=== PATIENT | male | born 1980 | race Two or more races ===

== ENCOUNTER 2018-05-06 22:13 | Inpatient (IN) | payer OTHER ==
[~2018-05-06] VITALS: Ht 167.6 cm; Wt 87.8 kg
[2018-05-06] MEDS ORDERED: IV NORMAL SALINE 1000ML BAG 1,000 ML IV ONE (23:00)
[2018-05-06 23:11] LABS: BILIRUBIN,URINE NEGATIVE (NEG); CLARITY,URINE CLOUDY; COLOR,URINE YELLOW; NITRITE,URINE NEGATIVE (NEG); PROTEIN,URINE NEGATIVE (NEG-TRACE); UROBILINOGEN,URINE 0.2 mg/dL (0.2 mg/dL)
[2018-05-06 23:20] LABS: BARBITURATES NEG (NEG); BENZODIAZEPINES POS (NEG); CANNABINOIDS NEG (NEG); COCAINE NEG (NEG); METHADONE NEG (NEG); OPIATES NEG (NEG); PHENCYCLIDINE NEG (NEG)
[2018-05-06 23:21] LABS: AMPHETAMINE/METHAMPHETAMINE NEG (NEG)
[2018-05-06 23:22] LABS: BACTERIA,URINE 0 /HPF (0-FEW); RBC,URINE OCC /HPF (0-2); WBC,URINE OCC /HPF (0-4)
[2018-05-06 23:34] LABS: ALBUMIN 3.7 g/dL (3.4-5.0); ALBUMIN/GLOBULIN RATIO 1.1 (1.0-1.7); CALCIUM 7.9 mg/dL (8.5-10.1); CREATININE 0.9 mg/dL (0.7-1.3); TOTAL BILIRUBIN 0.8 mg/dL (0.2-1.0)
[2018-05-06 23:36] LABS: POTASSIUM 2.9 mmol/L (3.5-5.1)
[2018-05-06 23:40] LABS: HCO3 ABG 17 mmol/L (21-28); PCO2 ABG 30 mmHg (35-46); PO2 ABG 83 mmHg (85-108); SAT O2 ABG 95 % (92-99)
[2018-05-06 23:41] LABS: BASE EXCESS ABG -7 mmol/L (-3-3); FIO2 ABG 21
[2018-05-06 23:52] LABS: BASO % 0 % (0-3); EOS % 0 % (0-3); HEMATOCRIT 32.2 % (39.0-53.0); HEMOGLOBIN 11.9 g/dL (13.0-17.5); LYMPH % 7 % (24-48); MEAN CORPUSCULAR HEMOGLOBIN 31 pg (25-35); MEAN CORPUSCULAR HGB CONC 37 g/dL (31-37); MEAN CORPUSCULAR VOLUME 83 fL (79-100); MONO # 0.6 x10^3/uL (0.0-1.1); MONO % 4 % (0-9); NEUT # 12.5 x10^3uL (1.8-7.7); NEUT % 88 % (31-73); PLATELET COUNT 141 x10^3/uL (140-400); RED BLOOD COUNT 3.87 x10^6/uL (4.30-5.70); RED CELL DISTRIBUTION WIDTH 13.3 % (11.5-14.5); WHITE BLOOD COUNT 14.2 x10^3/uL (4.0-11.0)
[2018-05-07] VITALS (27 sets, daily range): BP systolic 102–153; BP diastolic 57–83
[2018-05-07] MEDS ORDERED: SODIUM CHLORIDE 3 % 500 ML IV ONE (00:30)
--- NOTE | 2018-05-07 00:40 | PHYS DOC ---
Past Medical History Past Medical History: Unknown, Other Additional Past Medical Histor: HEP C Past Surgical History: Other Additional Past Surgical Histo: UNKNOWN SURGICAL HISTORY Alcohol Use: None Drug Use: None Adult General Chief Complaint Chief Complaint: SEIZURE HPI HPI 37-year-old male with a psychiatric history who is currently incarcerated presents after he was found essentially unresponsive at the [facility]. They noted when they found him he had been incontinent of urine and stool. He has not had any medication changes and has had no access to any other kind of medication. EMS was called they gave him total 2 mg of Narcan without much relief. In route the patient had another seizure which lasted at least a minute and he was given Versed. He was again incontinent of urine. To the jailers knowledge, there is been no history of seizures. He has not had any fever chills or sweats. He has not complained of being ill at the alf. There is very limited information in this history secondary to the patient being unresponsive.[] Review of Systems Review of Systems Review of systems is unobtainable secondary to altered mental status. Current Medications Current Medications Current Medications Medications (Trade) Dose Ordered Sig/Rommel Start Time Stop Time Status Last Admin Dose Admin Sodium Chloride 500 ml @ 50 mls/hr 1X ONCE 05/07/18 00:30 05/07/18 10:29 Allergies Allergies Allergies Coded Allergies Type Severity Reaction Last Updated Verified Unable to Assess 05/06/18 No Physical Exam Physical Exam Constitutional: Obtunded but protecting his airway. [] HENT: Normocephalic, atraumatic, bilateral external ears normal, oropharynx moist, no oral trauma that I can see, nose normal. [] Eyes: PERRLA, EOMI, conjunctiva normal, no discharge. [] Neck: Normal range of motion, no tenderness, supple, no stridor. [] Cardiovascular:Heart rate regular rhythm, no murmur [] Lungs & Thorax: Bilateral breath sounds clear to auscultation [] Abdomen: Bowel sounds normal, soft, no tenderness, no masses, no pulsatile masses. [] Skin: Warm, dry, no erythema, no rash. [] Back: No tenderness, no CVA tenderness. [] Extremities: No tenderness, no cyanosis, no clubbing, ROM intact, no edema. [] Neurologic: Obtunded but is moving all 4 extremities. [] Psychologic: Unable to assess[] Current Patient Data Vital Signs Vital Signs Date Time Temp Pulse Resp B/P (MAP) Pulse Ox O2 Delivery O2 Flow Rate FiO2 05/06/18 23:00 96 26 98 05/06/18 22:13 96.3 145/74 (97) Room Air 96.3 Lab Values Laboratory Tests Test 05/06/18 22:51 05/06/18 23:02 05/06/18 23:04 05/06/18 23:18 White Blood Count 14.2 x10^3/uL (4.0-11.0) H Red Blood Count 3.87 x10^6/uL (4.30-5.70) L Hemoglobin 11.9 g/dL (13.0-17.5) L Hematocrit 32.2 % (39.0-53.0) L Mean Corpuscular Volume 83 fL (79-100) Mean Corpuscular Hemoglobin 31 pg (25-35) Mean Corpuscular Hemoglobin Concent 37 g/dL (31-37) Red Cell Distribution Width 13.3 % (11.5-14.5) Platelet Count 141 x10^3/uL (140-400) Neutrophils (%) (Auto) 88 % (31-73) H Lymphocytes (%) (Auto) 7 % (24-48) L Monocytes (%) (Auto) 4 % (0-9) Eosinophils (%) (Auto) 0 % (0-3) Basophils (%) (Auto) 0 % (0-3) Neutrophils # (Auto) 12.5 x10^3uL (1.8-7.7) H Lymphocytes # (Auto) 1.0 x10^3/uL (1.0-4.8) Monocytes # (Auto) 0.6 x10^3/uL (0.0-1.1) Eosinophils # (Auto) 0.0 x10^3/uL (0.0-0.7) Basophils # (Auto) 0.0 x10^3/uL (0.0-0.2) Platelet Estimate Pending Sodium Level 113 mmol/L (136-145) *L Potassium Level 2.9 mmol/L (3.5-5.1) *L Chloride Level 82 mmol/L (98-107) L Carbon Dioxide Level 19 mmol/L (21-32) L Anion Gap 12 (6-14) Blood Urea Nitrogen 3 mg/dL (8-26) L Creatinine 0.9 mg/dL (0.7-1.3) Estimated GFR (Cockcroft-Gault) 96.0 BUN/Creatinine Ratio 3 (6-20) L Glucose Level 112 mg/dL (70-99) H Lactic Acid Level 6.4 mmol/L (0.4-2.0) *H Calcium Level 7.9 mg/dL (8.5-10.1) L Total Bilirubin 0.8 mg/dL (0.2-1.0) Aspartate Amino Transferase (AST) 40 U/L (15-37) H Alanine Aminotransferase (ALT) 72 U/L (16-63) H Alkaline Phosphatase 93 U/L (46-116) Troponin I Quantitative < 0.017 ng/mL (0.000-0.055) Total Protein 7.0 g/dL (6.4-8.2) Albumin 3.7 g/dL (3.4-5.0) Albumin/Globulin Ratio 1.1 (1.0-1.7) Urine Collection Type Unknown Urine Color Yellow Urine Clarity Cloudy Urine pH 5.0 Urine Specific Lottie 1.010 Urine Protein Negative mg/dL (NEG-TRACE) Urine Glucose (UA) Negative mg/dL (NEG) Urine Ketones (Stick) Negative mg/dL (NEG) Urine Blood Trace (NEG) Urine Nitrite Negative (NEG) Urine Bilirubin Negative (NEG) Urine Urobilinogen Dipstick 0.2 mg/dL (0.2 mg/dL) Urine Leukocyte Esterase Negative (NEG) Urine RBC Occ /HPF (0-2) Urine WBC Occ /HPF (0-4) Urine Squamous Epithelial Cells None /LPF Urine Bacteria 0 /HPF (0-FEW) Urine Opiates Screen Neg (NEG) Urine Methadone Screen Neg (NEG) Urine Barbiturates Neg (NEG) Urine Phencyclidine Screen Neg (NEG) Urine Amphetamine/Methamphetamine Neg (NEG) Urine Benzodiazepines Screen Pos (NEG) Urine Cocaine Screen Neg (NEG) Urine Cannabinoids Screen Neg (NEG) Urine Ethyl Alcohol Neg (NEG) O2 Saturation 95 % (92-99) Arterial Blood pH 7.39 (7.35-7.45) Arterial Blood pCO2 at Patient Temp 30 mmHg (35-46) L Arterial Blood pO2 at Patient Temp 83 mmHg (85-108) L Arterial Blood HCO3 17 mmol/L (21-28) L Arterial Blood Base Excess -7 mmol/L (-3-3) L FiO2 21 Prothrombin Time 15.0 SEC (11.7-14.0) H Prothrombin Time INR 1.2 (0.8-1.1) H Laboratory Tests 05/06/18 22:51 Laboratory Tests 05/06/18 22:51 EKG EKG [EKG: Normal sinus rhythm rate of [address]-T changes] Radiology/Procedures Radiology/Procedures [CT head, maxillofacial and C-spine were reviewed and there was no acute findings per radiology report.] Course & Med Decision Making Course & Med Decision Making Pertinent Labs and Imaging studies reviewed. (See chart for details) CRITICAL CARE: Time spent was 35 minutes. This includes medical management, evaluation, reevaluation, discussion with consultants and family. Critical Care does NOT include time spent on separately billed procedures. [ED course: Evaluation reveals a 37-year-old male with new onset seizures and altered mental status. Through the course of his workup it was noted that his sodium was 113 his potassium was 2.9 with a normal blood sugar. He does have free access to water in his alf cell. Given the fact that he's had a seizure with severe hyponatremia I ordered hypertonic saline to be infused at 50 mL per hour. A right subclavian central venous line was placed to eliminate the strep physician risk with hypertonic saline. I spoke with Dr. ROQUE who agreed to accept the patient into the ICU. I have also consult to neurology and nephrology per her request. Procedure: Right subclavian central venous line indication hypertonic saline infusion The right subclavian area was prepped and draped in a sterile fashion the subclavian vein was cannulated a wire was passed via the Seldinger technique the skin was nicked the area was dilated and triple-lumen catheter was placed via the Seldinger technique. Dark venous blood Jorge L in each port and was flushed with sterile saline. The central line was sutured into place. An OpSite was placed and Tegaderm dressing was placed. Patient tolerated the procedure well.] Dragon Disclaimer Dragon Disclaimer This electronic medical record was generated, in whole or in part, using a voice recognition dictation system. Departure Departure Impression: Primary Impression: Hyponatremia Additional Impression: Seizure Disposition: 09 ADMITTED INPATIENT Admitting Physician: Xie. Cortez Condition: CRITICAL Referrals: NO PCP (PCP) Problem Qualifiers MARLENE BOOGIE DO May 07, 2018 00:40
--- NOTE | 2018-05-07 01:47 | RAD ---
AP chest x-ray HISTORY: Central line placement. FINDINGS: Right jugular central venous catheter tip radiographic region atrial caval junction. Heart size normal. Mediastinal silhouette is normal. No pneumothorax, pulmonary opacities or pleural effusions. The bones are unremarkable. IMPRESSION: Right subclavian central venous catheter placement as described above. No acute process. No pneumothorax. Electronically signed by: Salty Bill MD (05/07/2018 1:44 AM) [facility]
[2018-05-07 01:55] LABS: % BANDS 17 % (0-9); % LYMPHS 8 % (24-48); % MONOS 1 % (0-10); % SEGS 74 % (35-66)
[2018-05-07 01:56] LABS: PLT ESTIMATE ADEQUATE (ADEQUATE)
[2018-05-07] MEDS ORDERED: HALO100V IM (06:04)
[2018-05-07] MEDS ORDERED: OLAN10TA3 PO (06:04)
[2018-05-07 06:18] LABS: CREATININE 0.7 mg/dL (0.7-1.3); GFR 128.3; POTASSIUM 3.1 mmol/L (3.5-5.1)
--- NOTE | 2018-05-07 07:04 | EKG ---
[facility] [address] [place] [address] Test Date: 2018-05-06 Test Time: 22:52:49 Pat Name: FER STODDARD Department: Room: 110 1 Gender: M Manager [employer]: : 1980 Requested By: MARLENE BOOGIE Order Number: [id number] Reading MD: Alberto Iniguez MD Measurements Intervals [place] Rate: 96 P: 2 MS: 154 QRS: 56 QRSD: 100 T: 39 QT: 350 QTc: 443 Interpretive Statements SINUS RHYTHM NON-SPECIFIC ST/T CHANGES Electronically Signed On 05-07-2018 12:33:58 CDT by Alberto Iniguez MD
--- NOTE | 2018-05-07 08:47 | PDOC1 ---
History and Physical Date of Admission Date of Admission DATE: 05/07/18 TIME: 08:43 Identification/Chief Complaint Chief Complaint seizure Source Source: Chart review, Patient History of Present Illness History of Present Illness Mr. Fountain, is 37-year-old male with a psychiatric history who is currently incarcerated presents [facility] They noted when they found him he had been incontinent of urine and stool. He has not had any medication changes and has had no access to any other kind of medication. EMS was called they gave him total 2 mg of Narcan without much relief. In route the patient had another seizure which lasted at least a minute and he was given Versed. He was again incontinent of urine. To the jailers knowledge, there is been no history of seizures. He has not had any fever chills or sweats. He has not complained of being ill at the [facility]. There is very limited information in this history secondary to the patient being unresponsive. [] Past Medical History Cardiovascular: No pertinent hx Pulmonary: No pertinent hx Heme/Onc: No pertinent hx Hepatobiliary: No pertinent hx Psych: No pertinent hx Social History Smoke: No ALCOHOL: none Current Medications Current Medications Current Medications Sodium Chloride 1,000 ml @ 1,000 mls/hr 1X ONCE IV Last administered on at 22:55; Start 05/06/18 at 23:00; Stop 05/06/18 at 23:59; Status DC Sodium Chloride 500 ml @ 50 mls/hr 1X ONCE IV Last administered on 05/07/18at 01:10; Start 05/07/18 at 00:30; Stop 05/07/18 at 10:29 Active Scripts Active Reported Haloperidol Decanoate 100 Mg/1 Ml Vial 100 Mg IM Zyprexa (Olanzapine) 10 Mg Tablet 1 Tab PO QHS Allergies Allergies: Coded Allergies: Unable to Assess (Unverified , 05/06/18) ROS Review of System unable, pt not verbal Physical Exam General: Other (lethargic, obtunded) HEENT: Atraumatic, PERRLA Lungs: Clear to auscultation, Normal air movement Heart: S1S2, no murmurs Breasts: Normal Abdomen: Normal bowel sounds, Soft, No tenderness Extremities: Normal pulses Skin: No rashes, No significant lesion Neuro: Other (poorly responsive, does not follow commands well, lethargci) Psych/Mental Status: Other Vitals Vitals Vital Signs Date Time Temp Pulse Resp B/P (MAP) Pulse Ox O2 Delivery O2 Flow Rate FiO2 05/07/18 08:00 Room Air 05/07/18 08:00 98.5 102 15 153/72 (99) 97 98.5 Labs Labs Laboratory Tests Test 05/06/18 22:51 05/06/18 23:02 05/06/18 23:04 05/06/18 23:18 White Blood Count 14.2 x10^3/uL (4.0-11.0) Red Blood Count 3.87 x10^6/uL (4.30-5.70) Hemoglobin 11.9 g/dL (13.0-17.5) Hematocrit 32.2 % (39.0-53.0) Mean Corpuscular Volume 83 fL (79-100) Mean Corpuscular Hemoglobin 31 pg (25-35) Mean Corpuscular Hemoglobin Concent 37 g/dL (31-37) Red Cell Distribution Width 13.3 % (11.5-14.5) Platelet Count 141 x10^3/uL (140-400) Neutrophils (%) (Auto) 88 % (31-73) Lymphocytes (%) (Auto) 7 % (24-48) Monocytes (%) (Auto) 4 % (0-9) Eosinophils (%) (Auto) 0 % (0-3) Basophils (%) (Auto) 0 % (0-3) Neutrophils # (Auto) 12.5 x10^3uL (1.8-7.7) Lymphocytes # (Auto) 1.0 x10^3/uL (1.0-4.8) Monocytes # (Auto) 0.6 x10^3/uL (0.0-1.1) Eosinophils # (Auto) 0.0 x10^3/uL (0.0-0.7) Basophils # (Auto) 0.0 x10^3/uL (0.0-0.2) Segmented Neutrophils % 74 % (35-66) Band Neutrophils % 17 % (0-9) Lymphocytes % 8 % (24-48) Monocytes % 1 % (0-10) Platelet Estimate Adequate (ADEQUATE) Sodium Level 113 mmol/L (136-145) Potassium Level 2.9 mmol/L (3.5-5.1) Chloride Level 82 mmol/L (98-107) Carbon Dioxide Level 19 mmol/L (21-32) Anion Gap 12 (6-14) Blood Urea Nitrogen 3 mg/dL (8-26) Creatinine 0.9 mg/dL (0.7-1.3) Estimated GFR (Cockcroft-Gault) 96.0 BUN/Creatinine Ratio 3 (6-20) Glucose Level 112 mg/dL (70-99) Lactic Acid Level 6.4 mmol/L (0.4-2.0) Calcium Level 7.9 mg/dL (8.5-10.1) Total Bilirubin 0.8 mg/dL (0.2-1.0) Aspartate Amino Transf (AST/SGOT) 40 U/L (15-37) Alanine Aminotransferase (ALT/SGPT) 72 U/L (16-63) Alkaline Phosphatase 93 U/L (46-116) Troponin I Quantitative < 0.017 ng/mL (0.000-0.055) Total Protein 7.0 g/dL (6.4-8.2) Albumin 3.7 g/dL (3.4-5.0) Albumin/Globulin Ratio 1.1 (1.0-1.7) Urine Collection Type Unknown Urine Color Yellow Urine Clarity Cloudy Urine pH 5.0 Urine Specific Anselmo 1.010 Urine Protein Negative mg/dL (NEG-TRACE) Urine Glucose (UA) Negative mg/dL (NEG) Urine Ketones (Stick) Negative mg/dL (NEG) Urine Blood Trace (NEG) Urine Nitrite Negative (NEG) Urine Bilirubin Negative (NEG) Urine Urobilinogen Dipstick 0.2 mg/dL (0.2 mg/dL) Urine Leukocyte Esterase Negative (NEG) Urine RBC Occ /HPF (0-2) Urine WBC Occ /HPF (0-4) Urine Squamous Epithelial Cells None /LPF Urine Bacteria 0 /HPF (0-FEW) Urine Opiates Screen Neg (NEG) Urine Methadone Screen Neg (NEG) Urine Barbiturates Neg (NEG) Urine Phencyclidine Screen Neg (NEG) Urine Amphetamine/Methamphetamine Neg (NEG) Urine Benzodiazepines Screen Pos (NEG) Urine Cocaine Screen Neg (NEG) Urine Cannabinoids Screen Neg (NEG) Urine Ethyl Alcohol Neg (NEG) O2 Saturation 95 % (92-99) Arterial Blood pH 7.39 (7.35-7.45) Arterial Blood pCO2 at Patient Temp 30 mmHg (35-46) Arterial Blood pO2 at Patient Temp 83 mmHg (85-108) Arterial Blood HCO3 17 mmol/L (21-28) Arterial Blood Base Excess -7 mmol/L (-3-3) FiO2 21 Prothrombin Time 15.0 SEC (11.7-14.0) Prothromb Time International Ratio 1.2 (0.8-1.1) Test 05/07/18 02:41 05/07/18 04:56 Lactic Acid Level 0.7 mmol/L (0.4-2.0) Sodium Level 127 mmol/L (136-145) Potassium Level 3.1 mmol/L (3.5-5.1) Chloride Level 95 mmol/L (98-107) Carbon Dioxide Level 21 mmol/L (21-32) Anion Gap 11 (6-14) Blood Urea Nitrogen 2 mg/dL (8-26) Creatinine 0.7 mg/dL (0.7-1.3) Estimated GFR (Cockcroft-Gault) 128.3 Glucose Level 124 mg/dL (70-99) Calcium Level 8.0 mg/dL (8.5-10.1) Laboratory Tests Test 05/06/18 22:51 05/06/18 23:02 05/06/18 23:04 05/06/18 23:18 White Blood Count 14.2 x10^3/uL (4.0-11.0) Red Blood Count 3.87 x10^6/uL (4.30-5.70) Hemoglobin 11.9 g/dL (13.0-17.5) Hematocrit 32.2 % (39.0-53.0) Mean Corpuscular Volume 83 fL (79-100) Mean Corpuscular Hemoglobin 31 pg (25-35) Mean Corpuscular Hemoglobin Concent 37 g/dL (31-37) Red Cell Distribution Width 13.3 % (11.5-14.5) Platelet Count 141 x10^3/uL (140-400) Neutrophils (%) (Auto) 88 % (31-73) Lymphocytes (%) (Auto) 7 % (24-48) Monocytes (%) (Auto) 4 % (0-9) Eosinophils (%) (Auto) 0 % (0-3) Basophils (%) (Auto) 0 % (0-3) Neutrophils # (Auto) 12.5 x10^3uL (1.8-7.7) Lymphocytes # (Auto) 1.0 x10^3/uL (1.0-4.8) Monocytes # (Auto) 0.6 x10^3/uL (0.0-1.1) Eosinophils # (Auto) 0.0 x10^3/uL (0.0-0.7) Basophils # (Auto) 0.0 x10^3/uL (0.0-0.2) Segmented Neutrophils % 74 % (35-66) Band Neutrophils % 17 % (0-9) Lymphocytes % 8 % (24-48) Monocytes % 1 % (0-10) Platelet Estimate Adequate (ADEQUATE) Sodium Level 113 mmol/L (136-145) Potassium Level 2.9 mmol/L (3.5-5.1) Chloride Level 82 mmol/L (98-107) Carbon Dioxide Level 19 mmol/L (21-32) Anion Gap 12 (6-14) Blood Urea Nitrogen 3 mg/dL (8-26) Creatinine 0.9 mg/dL (0.7-1.3) Estimated GFR (Cockcroft-Gault) 96.0 BUN/Creatinine Ratio 3 (6-20) Glucose Level 112 mg/dL (70-99) Lactic Acid Level 6.4 mmol/L (0.4-2.0) Calcium Level 7.9 mg/dL (8.5-10.1) Total Bilirubin 0.8 mg/dL (0.2-1.0) Aspartate Amino Transf (AST/SGOT) 40 U/L (15-37) Alanine Aminotransferase (ALT/SGPT) 72 U/L (16-63) Alkaline Phosphatase 93 U/L (46-116) Troponin I Quantitative < 0.017 ng/mL (0.000-0.055) Total Protein 7.0 g/dL (6.4-8.2) Albumin 3.7 g/dL (3.4-5.0) Albumin/Globulin Ratio 1.1 (1.0-1.7) Urine Collection Type Unknown Urine Color Yellow Urine Clarity Cloudy Urine pH 5.0 Urine Specific Anselmo 1.010 Urine Protein Negative mg/dL (NEG-TRACE) Urine Glucose (UA) Negative mg/dL (NEG) Urine Ketones (Stick) Negative mg/dL (NEG) Urine Blood Trace (NEG) Urine Nitrite Negative (NEG) Urine Bilirubin Negative (NEG) Urine Urobilinogen Dipstick 0.2 mg/dL (0.2 mg/dL) Urine Leukocyte Esterase Negative (NEG) Urine RBC Occ /HPF (0-2) Urine WBC Occ /HPF (0-4) Urine Squamous Epithelial Cells None /LPF Urine Bacteria 0 /HPF (0-FEW) Urine Opiates Screen Neg (NEG) Urine Methadone Screen Neg (NEG) Urine Barbiturates Neg (NEG) Urine Phencyclidine Screen Neg (NEG) Urine Amphetamine/Methamphetamine Neg (NEG) Urine Benzodiazepines Screen Pos (NEG) Urine Cocaine Screen Neg (NEG) Urine Cannabinoids Screen Neg (NEG) Urine Ethyl Alcohol Neg (NEG) O2 Saturation 95 % (92-99) Arterial Blood pH 7.39 (7.35-7.45) Arterial Blood pCO2 at Patient Temp 30 mmHg (35-46) Arterial Blood pO2 at Patient Temp 83 mmHg (85-108) Arterial Blood HCO3 17 mmol/L (21-28) Arterial Blood Base Excess -7 mmol/L (-3-3) FiO2 21 Prothrombin Time 15.0 SEC (11.7-14.0) Prothromb Time International Ratio 1.2 (0.8-1.1) Test 05/07/18 02:41 05/07/18 04:56 Lactic Acid Level 0.7 mmol/L (0.4-2.0) Sodium Level 127 mmol/L (136-145) Potassium Level 3.1 mmol/L (3.5-5.1) Chloride Level 95 mmol/L (98-107) Carbon Dioxide Level 21 mmol/L (21-32) Anion Gap 11 (6-14) Blood Urea Nitrogen 2 mg/dL (8-26) Creatinine 0.7 mg/dL (0.7-1.3) Estimated GFR (Cockcroft-Gault) 128.3 Glucose Level 124 mg/dL (70-99) Calcium Level 8.0 mg/dL (8.5-10.1) VTE Prophylaxis Ordered VTE Prophylaxis Devices: No VTE Pharmacological Prophylaxi: Yes Assessment/Plan Assessment/Plan seizure symptomatic hyponatremia, report of excessive water intake, fluid overload, hypovolemic most likely, still making almost 500mls urine/hr hypertonic saline started in ER, was stopped when I saw the patient Bipolar or schizophrenia, Incarcerated patient, guards report is "significant Psychiatric history" takes Q3 weeks depot Haldol inj. MARCELO CHI MD May 07, 2018 08:47
[2018-05-07] MEDS ORDERED: POTASSIUM CHLORIDE 20 MEQ TABLET.ER. PO ONE (09:30)
--- NOTE | 2018-05-07 09:37 | PDOC2 ---
CONSULT Date of Consult Date of Consult DATE: 05/07/18 TIME: 09:11 Reason for Consult Reason for Consult: Hyponatremia Referring Physician Referring Physician: Dr. Plascencia Identification/Chief Complaint Chief Complaint Unable to Obtain from Patient - AMS /Reason for admission Seizures Source Source: Caregiver, Chart review History of Present Illness Reason for Visit: Pt is a 37-year-old male with a psychiatric history who is currently incarcerated presents after he was found unresponsive at the shelter. He had been incontinent of urine and stool. He has not had any medication changes and has had no access to any other kind of medication. EMS was called they gave him total 2 mg of Narcan without much relief. In route the patient had another seizure which lasted at least a minute and he was given Versed. He was again incontinent of urine. To the jailers knowledge, there is been no history of seizures. He has not had any fever chills or sweats. He has not complained of being ill at the shelter. There is very limited information in this history secondary to the patient being unresponsive. He has access to water as per the report and may have been drinking a lot of water . PMHx significant for Hep B and C, Paranoid schizophrenia. Esophagitis , Violent behavior , Drug abuse Meds - Haldol x once in 3 weeks IM, Zyprexa PO Past Medical History Cardiovascular: No pertinent hx Pulmonary: No pertinent hx Heme/Onc: No pertinent hx Hepatobiliary: No pertinent hx Psych: No pertinent hx Social History No ALCOHOL: none Current Medications Current Medications Current Medications Sodium Chloride 1,000 ml @ 1,000 mls/hr 1X ONCE IV Last administered on at 22:55; Start 05/06/18 at 23:00; Stop 05/06/18 at 23:59; Status DC Sodium Chloride 500 ml @ 50 mls/hr 1X ONCE IV Last administered on 05/07/18at 01:10; Start 05/07/18 at 00:30; Stop 05/07/18 at 10:29 Haloperidol (Haldol) 5 mg PRN Q6HRS PRN PO AGITATION; Start 05/07/18 at 08:45 Enoxaparin Sodium (Lovenox 40mg Syringe) 40 mg DAILY SQ ; Start 05/07/18 at 10:00 Olanzapine (ZyPREXA) 5 mg HS PO ; Start 05/07/18 at 21:00 Lorazepam (Ativan) 2 mg PRN Q4HRS PRN IV ANXIETY / AGITATION; Start 05/07/18 at 09:00 Potassium Chloride (Klor-Con) 40 meq 1X ONCE PO ; Start 05/07/18 at 09:30; Stop 05/07/18 at 09:31 Potassium Chloride (Klor-Con) 20 meq DAILYWBKFT PO ; Start 05/08/18 at 08:00 Active Scripts Active Reported Haloperidol Decanoate 100 Mg/1 Ml Vial 100 Mg IM Zyprexa (Olanzapine) 10 Mg Tablet 1 Tab PO QHS Allergies Allergies: Coded Allergies: Unable to Assess (Unverified , 05/06/18) ROS Review of System Unable to Obtain from Pt Physical Exam Physical Exam GEN: NAD, Opening eyes, Thrashing, Moving , But not responsive to questions HEENT- Unremarkable, OM moist NECK: No JVD , supple CVS: S1S2, , No mgr RESP: CTA Bilat, No use of access Muscles GI: BS + ve, NO Bruit, Non Tender, Non Distended : No CVA tenderness, No Suprapubic Tenderness, [place]+ Skin No rash Neuro - as above Vital Signs Vital Signs Date Time Temp Pulse Resp B/P (MAP) Pulse Ox O2 Delivery O2 Flow Rate FiO2 05/07/18 08:00 Room Air 05/07/18 08:00 98.5 102 15 153/72 (99) 97 98.5 Assessment & Plan Critical Hyponatremia- with Seizures sodium was 113 IV Hypertonic saline started in ER [place] placed with UOP of 4 Lts Na Over corrected, Stopped 3 % , Awaiting repeat labs, Hypokalemia -K 2.9, replaced in ER monitor and wait for repeat labs HepB/Hep C - Not known if treated Paranoid Schizophrenia - Follows with Psych DW RN at bedside Labs Labs Laboratory Tests Test 05/06/18 22:51 05/06/18 23:02 05/06/18 23:04 05/06/18 23:18 White Blood Count 14.2 x10^3/uL (4.0-11.0) Red Blood Count 3.87 x10^6/uL (4.30-5.70) Hemoglobin 11.9 g/dL (13.0-17.5) Hematocrit 32.2 % (39.0-53.0) Mean Corpuscular Volume 83 fL (79-100) Mean Corpuscular Hemoglobin 31 pg (25-35) Mean Corpuscular Hemoglobin Concent 37 g/dL (31-37) Red Cell Distribution Width 13.3 % (11.5-14.5) Platelet Count 141 x10^3/uL (140-400) Neutrophils (%) (Auto) 88 % (31-73) Lymphocytes (%) (Auto) 7 % (24-48) Monocytes (%) (Auto) 4 % (0-9) Eosinophils (%) (Auto) 0 % (0-3) Basophils (%) (Auto) 0 % (0-3) Neutrophils # (Auto) 12.5 x10^3uL (1.8-7.7) Lymphocytes # (Auto) 1.0 x10^3/uL (1.0-4.8) Monocytes # (Auto) 0.6 x10^3/uL (0.0-1.1) Eosinophils # (Auto) 0.0 x10^3/uL (0.0-0.7) Basophils # (Auto) 0.0 x10^3/uL (0.0-0.2) Segmented Neutrophils % 74 % (35-66) Band Neutrophils % 17 % (0-9) Lymphocytes % 8 % (24-48) Monocytes % 1 % (0-10) Platelet Estimate Adequate (ADEQUATE) Sodium Level 113 mmol/L (136-145) Potassium Level 2.9 mmol/L (3.5-5.1) Chloride Level 82 mmol/L (98-107) Carbon Dioxide Level 19 mmol/L (21-32) Anion Gap 12 (6-14) Blood Urea Nitrogen 3 mg/dL (8-26) Creatinine 0.9 mg/dL (0.7-1.3) Estimated GFR (Cockcroft-Gault) 96.0 BUN/Creatinine Ratio 3 (6-20) Glucose Level 112 mg/dL (70-99) Lactic Acid Level 6.4 mmol/L (0.4-2.0) Calcium Level 7.9 mg/dL (8.5-10.1) Total Bilirubin 0.8 mg/dL (0.2-1.0) Aspartate Amino Transf (AST/SGOT) 40 U/L (15-37) Alanine Aminotransferase (ALT/SGPT) 72 U/L (16-63) Alkaline Phosphatase 93 U/L (46-116) Troponin I Quantitative < 0.017 ng/mL (0.000-0.055) Total Protein 7.0 g/dL (6.4-8.2) Albumin 3.7 g/dL (3.4-5.0) Albumin/Globulin Ratio 1.1 (1.0-1.7) Urine Collection Type Unknown Urine Color Yellow Urine Clarity Cloudy Urine pH 5.0 Urine Specific [place] 1.010 Urine Protein Negative mg/dL (NEG-TRACE) Urine Glucose (UA) Negative mg/dL (NEG) Urine Ketones (Stick) Negative mg/dL (NEG) Urine Blood Trace (NEG) Urine Nitrite Negative (NEG) Urine Bilirubin Negative (NEG) Urine Urobilinogen Dipstick 0.2 mg/dL (0.2 mg/dL) Urine Leukocyte Esterase Negative (NEG) Urine RBC Occ /HPF (0-2) Urine WBC Occ /HPF (0-4) Urine Squamous Epithelial Cells None /LPF Urine Bacteria 0 /HPF (0-FEW) Urine Opiates Screen Neg (NEG) Urine Methadone Screen Neg (NEG) Urine Barbiturates Neg (NEG) Urine Phencyclidine Screen Neg (NEG) Urine Amphetamine/Methamphetamine Neg (NEG) Urine Benzodiazepines Screen Pos (NEG) Urine Cocaine Screen Neg (NEG) Urine Cannabinoids Screen Neg (NEG) Urine Ethyl Alcohol Neg (NEG) O2 Saturation 95 % (92-99) Arterial Blood pH 7.39 (7.35-7.45) Arterial Blood pCO2 at Patient Temp 30 mmHg (35-46) Arterial Blood pO2 at Patient Temp 83 mmHg (85-108) Arterial Blood HCO3 17 mmol/L (21-28) Arterial Blood Base Excess -7 mmol/L (-3-3) FiO2 21 Prothrombin Time 15.0 SEC (11.7-14.0) Prothromb Time International Ratio 1.2 (0.8-1.1) Test 05/07/18 02:41 05/07/18 04:56 Lactic Acid Level 0.7 mmol/L (0.4-2.0) Sodium Level 127 mmol/L (136-145) Potassium Level 3.1 mmol/L (3.5-5.1) Chloride Level 95 mmol/L (98-107) Carbon Dioxide Level 21 mmol/L (21-32) Anion Gap 11 (6-14) Blood Urea Nitrogen 2 mg/dL (8-26) Creatinine 0.7 mg/dL (0.7-1.3) Estimated GFR (Cockcroft-Gault) 128.3 Glucose Level 124 mg/dL (70-99) Calcium Level 8.0 mg/dL (8.5-10.1) Magnesium Level 2.1 mg/dL (1.8-2.4) Laboratory Tests Test 05/06/18 22:51 05/06/18 23:02 05/06/18 23:04 05/06/18 23:18 White Blood Count 14.2 x10^3/uL (4.0-11.0) Red Blood Count 3.87 x10^6/uL (4.30-5.70) Hemoglobin 11.9 g/dL (13.0-17.5) Hematocrit 32.2 % (39.0-53.0) Mean Corpuscular Volume 83 fL (79-100) Mean Corpuscular Hemoglobin 31 pg (25-35) Mean Corpuscular Hemoglobin Concent 37 g/dL (31-37) Red Cell Distribution Width 13.3 % (11.5-14.5) Platelet Count 141 x10^3/uL (140-400) Neutrophils (%) (Auto) 88 % (31-73) Lymphocytes (%) (Auto) 7 % (24-48) Monocytes (%) (Auto) 4 % (0-9) Eosinophils (%) (Auto) 0 % (0-3) Basophils (%) (Auto) 0 % (0-3) Neutrophils # (Auto) 12.5 x10^3uL (1.8-7.7) Lymphocytes # (Auto) 1.0 x10^3/uL (1.0-4.8) Monocytes # (Auto) 0.6 x10^3/uL (0.0-1.1) Eosinophils # (Auto) 0.0 x10^3/uL (0.0-0.7) Basophils # (Auto) 0.0 x10^3/uL (0.0-0.2) Segmented Neutrophils % 74 % (35-66) Band Neutrophils % 17 % (0-9) Lymphocytes % 8 % (24-48) Monocytes % 1 % (0-10) Platelet Estimate Adequate (ADEQUATE) Sodium Level 113 mmol/L (136-145) Potassium Level 2.9 mmol/L (3.5-5.1) Chloride Level 82 mmol/L (98-107) Carbon Dioxide Level 19 mmol/L (21-32) Anion Gap 12 (6-14) Blood Urea Nitrogen 3 mg/dL (8-26) Creatinine 0.9 mg/dL (0.7-1.3) Estimated GFR (Cockcroft-Gault) 96.0 BUN/Creatinine Ratio 3 (6-20) Glucose Level 112 mg/dL (70-99) Lactic Acid Level 6.4 mmol/L (0.4-2.0) Calcium Level 7.9 mg/dL (8.5-10.1) Total Bilirubin 0.8 mg/dL (0.2-1.0) Aspartate Amino Transf (AST/SGOT) 40 U/L (15-37) Alanine Aminotransferase (ALT/SGPT) 72 U/L (16-63) Alkaline Phosphatase 93 U/L (46-116) Troponin I Quantitative < 0.017 ng/mL (0.000-0.055) Total Protein 7.0 g/dL (6.4-8.2) Albumin 3.7 g/dL (3.4-5.0) Albumin/Globulin Ratio 1.1 (1.0-1.7) Urine Collection Type Unknown Urine Color Yellow Urine Clarity Cloudy Urine pH 5.0 Urine Specific [place] 1.010 Urine Protein Negative mg/dL (NEG-TRACE) Urine Glucose (UA) Negative mg/dL (NEG) Urine Ketones (Stick) Negative mg/dL (NEG) Urine Blood Trace (NEG) Urine Nitrite Negative (NEG) Urine Bilirubin Negative (NEG) Urine Urobilinogen Dipstick 0.2 mg/dL (0.2 mg/dL) Urine Leukocyte Esterase Negative (NEG) Urine RBC Occ /HPF (0-2) Urine WBC Occ /HPF (0-4) Urine Squamous Epithelial Cells None /LPF Urine Bacteria 0 /HPF (0-FEW) Urine Opiates Screen Neg (NEG) Urine Methadone Screen Neg (NEG) Urine Barbiturates Neg (NEG) Urine Phencyclidine Screen Neg (NEG) Urine Amphetamine/Methamphetamine Neg (NEG) Urine Benzodiazepines Screen Pos (NEG) Urine Cocaine Screen Neg (NEG) Urine Cannabinoids Screen Neg (NEG) Urine Ethyl Alcohol Neg (NEG) O2 Saturation 95 % (92-99) Arterial Blood pH 7.39 (7.35-7.45) Arterial Blood pCO2 at Patient Temp 30 mmHg (35-46) Arterial Blood pO2 at Patient Temp 83 mmHg (85-108) Arterial Blood HCO3 17 mmol/L (21-28) Arterial Blood Base Excess -7 mmol/L (-3-3) FiO2 21 Prothrombin Time 15.0 SEC (11.7-14.0) Prothromb Time International Ratio 1.2 (0.8-1.1) Test 05/07/18 02:41 05/07/18 04:56 Lactic Acid Level 0.7 mmol/L (0.4-2.0) Sodium Level 127 mmol/L (136-145) Potassium Level 3.1 mmol/L (3.5-5.1) Chloride Level 95 mmol/L (98-107) Carbon Dioxide Level 21 mmol/L (21-32) Anion Gap 11 (6-14) Blood Urea Nitrogen 2 mg/dL (8-26) Creatinine 0.7 mg/dL (0.7-1.3) Estimated GFR (Cockcroft-Gault) 128.3 Glucose Level 124 mg/dL (70-99) Calcium Level 8.0 mg/dL (8.5-10.1) Magnesium Level 2.1 mg/dL (1.8-2.4) Review All relevant outside records, renal labs, imaging studies, telemetry/EKG's were reviewed. Images Images CxR-- IMPRESSION: Right subclavian central venous catheter placement as described above. No acute process. No pneumothorax. AMADO OCAMPO MD May 07, 2018 09:37
--- NOTE | 2018-05-07 10:07 | PDOC2 ---
NEUROLOGY CONSULT Date of Admission Date of Admission DATE: 05/07/18 TIME: 09:57 Reason for Consult Reason for Consult: Seizures Referring Physician Referring Physician: Dr. Xiao Source Source: Chart review History of Present Illness History of Present Illness The patient is a 37-year-old right-handed male inmate who was found unresponsive in his cell. His witness to be drinking a large amount of water and indeed presents with at least 2 seizures and severe hyponatremia. There is no known previous history of seizures. He has paranoid schizophrenia and is on Haldol and olanzapine. Past Medical History GI: GERD Psych: Addictions, Schizophrenia Past Surgical History Past Surgical History: No pertinent history Family History Family History: Other (Unobtainable) Social History Social History Inmate, incarcerated for drug offenses, no current alcohol, tobacco, street drugs Current Medications Current Medications Current Medications Sodium Chloride 1,000 ml @ 1,000 mls/hr 1X ONCE IV Last administered on at 22:55; Start 05/06/18 at 23:00; Stop 05/06/18 at 23:59; Status DC Sodium Chloride 500 ml @ 50 mls/hr 1X ONCE IV Last administered on 05/07/18at 01:10; Start 05/07/18 at 00:30; Stop 05/07/18 at 10:29 Haloperidol (Haldol) 5 mg PRN Q6HRS PRN PO AGITATION; Start 05/07/18 at 08:45 Enoxaparin Sodium (Lovenox 40mg Syringe) 40 mg DAILY SQ ; Start 05/07/18 at 10:00 Olanzapine (ZyPREXA) 5 mg HS PO ; Start 05/07/18 at 21:00 Lorazepam (Ativan) 2 mg PRN Q4HRS PRN IV ANXIETY / AGITATION; Start 05/07/18 at 09:00 Potassium Chloride (Klor-Con) 40 meq 1X ONCE PO ; Start 05/07/18 at 09:30; Stop 05/07/18 at 09:31; Status DC Potassium Chloride (Klor-Con) 20 meq DAILYWBKFT PO ; Start 05/08/18 at 08:00 Active Scripts Active Reported Haloperidol Decanoate 100 Mg/1 Ml Vial 100 Mg IM Zyprexa (Olanzapine) 10 Mg Tablet 1 Tab PO QHS Allergies Allergies: Coded Allergies: Unable to Assess (Unverified , 05/06/18) ROS Review of System Unobtainable Physical Exam Physical Examination General: Well-developed, well-nourished, male, in no acute distress HEENT: Normocephalic andatraumatic. Temporal arteriespulsatile and nontender. Neck: Supple without bruit, no meningismus Musculoskeletal: Stability:see neurologic. Gait exam:see neurologic. Tone:see neurologic. Strength:see neurologic. Neurological: Mental Status:orientation, memory, attention span/concentration, language, fund of knowledge: does not follow commands, answer questions, nonverbal. Cranial Nerves:Pupils equal and reactive to light, extraocular movements are intact. No response to visual threat. Facial sensation is normal. There is no facial asymmetry. All other cranial related problems are negative except as mentioned before.Reflexes:2+ and symmetric with flexor plantar responses. Motor: moves all extremities. Coordination: not cooperative. Gait: not tested. Sensory: response to pinprick in all 4 extremities. Vitals VITALS Vital Signs Date Time Temp Pulse Resp B/P (MAP) Pulse Ox O2 Delivery O2 Flow Rate FiO2 05/07/18 09:00 86 15 118/73 (88) 96 Room Air 05/07/18 08:00 98.5 98.5 Labs Labs Laboratory Tests Test 05/06/18 22:51 05/06/18 23:02 05/06/18 23:04 05/06/18 23:18 White Blood Count 14.2 x10^3/uL (4.0-11.0) Red Blood Count 3.87 x10^6/uL (4.30-5.70) Hemoglobin 11.9 g/dL (13.0-17.5) Hematocrit 32.2 % (39.0-53.0) Mean Corpuscular Volume 83 fL (79-100) Mean Corpuscular Hemoglobin 31 pg (25-35) Mean Corpuscular Hemoglobin Concent 37 g/dL (31-37) Red Cell Distribution Width 13.3 % (11.5-14.5) Platelet Count 141 x10^3/uL (140-400) Neutrophils (%) (Auto) 88 % (31-73) Lymphocytes (%) (Auto) 7 % (24-48) Monocytes (%) (Auto) 4 % (0-9) Eosinophils (%) (Auto) 0 % (0-3) Basophils (%) (Auto) 0 % (0-3) Neutrophils # (Auto) 12.5 x10^3uL (1.8-7.7) Lymphocytes # (Auto) 1.0 x10^3/uL (1.0-4.8) Monocytes # (Auto) 0.6 x10^3/uL (0.0-1.1) Eosinophils # (Auto) 0.0 x10^3/uL (0.0-0.7) Basophils # (Auto) 0.0 x10^3/uL (0.0-0.2) Segmented Neutrophils % 74 % (35-66) Band Neutrophils % 17 % (0-9) Lymphocytes % 8 % (24-48) Monocytes % 1 % (0-10) Platelet Estimate Adequate (ADEQUATE) Sodium Level 113 mmol/L (136-145) Potassium Level 2.9 mmol/L (3.5-5.1) Chloride Level 82 mmol/L (98-107) Carbon Dioxide Level 19 mmol/L (21-32) Anion Gap 12 (6-14) Blood Urea Nitrogen 3 mg/dL (8-26) Creatinine 0.9 mg/dL (0.7-1.3) Estimated GFR (Cockcroft-Gault) 96.0 BUN/Creatinine Ratio 3 (6-20) Glucose Level 112 mg/dL (70-99) Lactic Acid Level 6.4 mmol/L (0.4-2.0) Calcium Level 7.9 mg/dL (8.5-10.1) Total Bilirubin 0.8 mg/dL (0.2-1.0) Aspartate Amino Transf (AST/SGOT) 40 U/L (15-37) Alanine Aminotransferase (ALT/SGPT) 72 U/L (16-63) Alkaline Phosphatase 93 U/L (46-116) Troponin I Quantitative < 0.017 ng/mL (0.000-0.055) Total Protein 7.0 g/dL (6.4-8.2) Albumin 3.7 g/dL (3.4-5.0) Albumin/Globulin Ratio 1.1 (1.0-1.7) Urine Collection Type Unknown Urine Color Yellow Urine Clarity Cloudy Urine pH 5.0 Urine Specific [place] 1.010 Urine Protein Negative mg/dL (NEG-TRACE) Urine Glucose (UA) Negative mg/dL (NEG) Urine Ketones (Stick) Negative mg/dL (NEG) Urine Blood Trace (NEG) Urine Nitrite Negative (NEG) Urine Bilirubin Negative (NEG) Urine Urobilinogen Dipstick 0.2 mg/dL (0.2 mg/dL) Urine Leukocyte Esterase Negative (NEG) Urine RBC Occ /HPF (0-2) Urine WBC Occ /HPF (0-4) Urine Squamous Epithelial Cells None /LPF Urine Bacteria 0 /HPF (0-FEW) Urine Opiates Screen Neg (NEG) Urine Methadone Screen Neg (NEG) Urine Barbiturates Neg (NEG) Urine Phencyclidine Screen Neg (NEG) Urine Amphetamine/Methamphetamine Neg (NEG) Urine Benzodiazepines Screen Pos (NEG) Urine Cocaine Screen Neg (NEG) Urine Cannabinoids Screen Neg (NEG) Urine Ethyl Alcohol Neg (NEG) O2 Saturation 95 % (92-99) Arterial Blood pH 7.39 (7.35-7.45) Arterial Blood pCO2 at Patient Temp 30 mmHg (35-46) Arterial Blood pO2 at Patient Temp 83 mmHg (85-108) Arterial Blood HCO3 17 mmol/L (21-28) Arterial Blood Base Excess -7 mmol/L (-3-3) FiO2 21 Prothrombin Time 15.0 SEC (11.7-14.0) Prothromb Time International Ratio 1.2 (0.8-1.1) Test 05/07/18 02:41 05/07/18 04:56 Lactic Acid Level 0.7 mmol/L (0.4-2.0) Sodium Level 127 mmol/L (136-145) Potassium Level 3.1 mmol/L (3.5-5.1) Chloride Level 95 mmol/L (98-107) Carbon Dioxide Level 21 mmol/L (21-32) Anion Gap 11 (6-14) Blood Urea Nitrogen 2 mg/dL (8-26) Creatinine 0.7 mg/dL (0.7-1.3) Estimated GFR (Cockcroft-Gault) 128.3 Glucose Level 124 mg/dL (70-99) Calcium Level 8.0 mg/dL (8.5-10.1) Magnesium Level 2.1 mg/dL (1.8-2.4) Laboratory Tests Test 05/06/18 22:51 05/06/18 23:02 9/3/18 23:04 05/06/18 23:18 White Blood Count 14.2 x10^3/uL (4.0-11.0) Red Blood Count 3.87 x10^6/uL (4.30-5.70) Hemoglobin 11.9 g/dL (13.0-17.5) Hematocrit 32.2 % (39.0-53.0) Mean Corpuscular Volume 83 fL (79-100) Mean Corpuscular Hemoglobin 31 pg (25-35) Mean Corpuscular Hemoglobin Concent 37 g/dL (31-37) Red Cell Distribution Width 13.3 % (11.5-14.5) Platelet Count 141 x10^3/uL (140-400) Neutrophils (%) (Auto) 88 % (31-73) Lymphocytes (%) (Auto) 7 % (24-48) Monocytes (%) (Auto) 4 % (0-9) Eosinophils (%) (Auto) 0 % (0-3) Basophils (%) (Auto) 0 % (0-3) Neutrophils # (Auto) 12.5 x10^3uL (1.8-7.7) Lymphocytes # (Auto) 1.0 x10^3/uL (1.0-4.8) Monocytes # (Auto) 0.6 x10^3/uL (0.0-1.1) Eosinophils # (Auto) 0.0 x10^3/uL (0.0-0.7) Basophils # (Auto) 0.0 x10^3/uL (0.0-0.2) Segmented Neutrophils % 74 % (35-66) Band Neutrophils % 17 % (0-9) Lymphocytes % 8 % (24-48) Monocytes % 1 % (0-10) Platelet Estimate Adequate (ADEQUATE) Sodium Level 113 mmol/L (136-145) Potassium Level 2.9 mmol/L (3.5-5.1) Chloride Level 82 mmol/L (98-107) Carbon Dioxide Level 19 mmol/L (21-32) Anion Gap 12 (6-14) Blood Urea Nitrogen 3 mg/dL (8-26) Creatinine 0.9 mg/dL (0.7-1.3) Estimated GFR (Cockcroft-Gault) 96.0 BUN/Creatinine Ratio 3 (6-20) Glucose Level 112 mg/dL (70-99) Lactic Acid Level 6.4 mmol/L (0.4-2.0) Calcium Level 7.9 mg/dL (8.5-10.1) Total Bilirubin 0.8 mg/dL (0.2-1.0) Aspartate Amino Transf (AST/SGOT) 40 U/L (15-37) Alanine Aminotransferase (ALT/SGPT) 72 U/L (16-63) Alkaline Phosphatase 93 U/L (46-116) Troponin I Quantitative < 0.017 ng/mL (0.000-0.055) Total Protein 7.0 g/dL (6.4-8.2) Albumin 3.7 g/dL (3.4-5.0) Albumin/Globulin Ratio 1.1 (1.0-1.7) Urine Collection Type Unknown Urine Color Yellow Urine Clarity Cloudy Urine pH 5.0 Urine Specific [place] 1.010 Urine Protein Negative mg/dL (NEG-TRACE) Urine Glucose (UA) Negative mg/dL (NEG) Urine Ketones (Stick) Negative mg/dL (NEG) Urine Blood Trace (NEG) Urine Nitrite Negative (NEG) Urine Bilirubin Negative (NEG) Urine Urobilinogen Dipstick 0.2 mg/dL (0.2 mg/dL) Urine Leukocyte Esterase Negative (NEG) Urine RBC Occ /HPF (0-2) Urine WBC Occ /HPF (0-4) Urine Squamous Epithelial Cells None /LPF Urine Bacteria 0 /HPF (0-FEW) Urine Opiates Screen Neg (NEG) Urine Methadone Screen Neg (NEG) Urine Barbiturates Neg (NEG) Urine Phencyclidine Screen Neg (NEG) Urine Amphetamine/Methamphetamine Neg (NEG) Urine Benzodiazepines Screen Pos (NEG) Urine Cocaine Screen Neg (NEG) Urine Cannabinoids Screen Neg (NEG) Urine Ethyl Alcohol Neg (NEG) O2 Saturation 95 % (92-99) Arterial Blood pH 7.39 (7.35-7.45) Arterial Blood pCO2 at Patient Temp 30 mmHg (35-46) Arterial Blood pO2 at Patient Temp 83 mmHg (85-108) Arterial Blood HCO3 17 mmol/L (21-28) Arterial Blood Base Excess -7 mmol/L (-3-3) FiO2 21 Prothrombin Time 15.0 SEC (11.7-14.0) Prothromb Time International Ratio 1.2 (0.8-1.1) Test 05/07/18 02:41 05/07/18 04:56 Lactic Acid Level 0.7 mmol/L (0.4-2.0) Sodium Level 127 mmol/L (136-145) Potassium Level 3.1 mmol/L (3.5-5.1) Chloride Level 95 mmol/L (98-107) Carbon Dioxide Level 21 mmol/L (21-32) Anion Gap 11 (6-14) Blood Urea Nitrogen 2 mg/dL (8-26) Creatinine 0.7 mg/dL (0.7-1.3) Estimated GFR (Cockcroft-Gault) 128.3 Glucose Level 124 mg/dL (70-99) Calcium Level 8.0 mg/dL (8.5-10.1) Magnesium Level 2.1 mg/dL (1.8-2.4) Images Images CT head negative, radiology report pending Assessment/Plan Assessment/Plan Impression: Seizures related to hyponatremia, 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 Recommendations: Correct hyponatremia Hold on anticonvulsants Hold on electroencephalogram as their is no evidence of ongoing seizure activity. I'm sure the study would show metabolic encephalopathy which we already know is occurring. Further studies depending on his course. Thank you for letting me help with the patient's care. ANGÉLICA MURILLO MD May 07, 2018 10:07
[2018-05-07 10:48] LABS: CALCIUM 8.3 mg/dL (8.5-10.1); CREATININE 0.7 mg/dL (0.7-1.3); GFR 128.3; POTASSIUM 3.2 mmol/L (3.5-5.1)
[2018-05-07] MEDS ORDERED: LIDOCAINE 2% TOPICAL JELLY 5GM TUBE. TP ONE (12:00)
[2018-05-07] MEDS ORDERED: LIDOCAINE 2% JELLY 6ML IN APPLICATOR. ONE (12:00)
[2018-05-07] MEDS ORDERED: DESMOPRESSIN 4 MCG/ML AMPUL. SQ ONE ×2 (12:30→18:30)
[2018-05-07] MEDS: ENOXAPARIN 40 MG/0.4 ML SYRINGE. SQ SCH (12:44)
[2018-05-07] MEDS ORDERED: ONDANSETRON PF 4 MG/2 ML VIAL. ONE ×2 (13:34→13:35)
[2018-05-07] MEDS ORDERED: ONDANSETRON PF 4 MG/2 ML VIAL. IV PRN (13:45)
[2018-05-07 14:07] LABS: CALCIUM 8.6 mg/dL (8.5-10.1); CREATININE 0.7 mg/dL (0.7-1.3); GFR 128.3; POTASSIUM 3.2 mmol/L (3.5-5.1)
[2018-05-07] MEDS: IV DEXTROSE 5% 1,000 ML IV SCH (14:43)
--- NOTE | 2018-05-07 15:29 | RAD ---
CT Head W/O Contrast: History: UNRESPONSICE/SEIZURE NO PREV Comparison: none Axial images were obtained without contrast. The lees and white matter appears normal and symmetrical for the patients age. There is no mass effect, extraaxial fluid collections or hydrocephalus. There is no gross bleed. There is no focal loss of lees-white matter distinction to suggest acute ischemia, i.e. stroke. Impression: No acute findings. End impression CT maxillofacial without contrast History: Unresponsive, seizure Axial helical images of the face including paranasal sinuses orbits and mandible were obtained without contrast. Axial sagittal and coronal reconstruction was performed. The nasal septum is moderately deviated to the left. The ostiomeatal complexes are narrow to occluded. The paranasal sinuses are clear. The visualized osseous structures appear intact. The orbits appear normal. Impression: No acute findings. End impression CT C-Spine without contrast: Clinical History: UNRESPONSICE/SEIZURE NO PREV Technique: Axial helical images of the cervical spine were obtained without contrast, axial coronal and sagittal reconstruction was performed. Findings: There is no loss of vertebral body stature. There is no prevertebral soft tissue swelling. The vertebral bodies are well aligned. The C1-C2 relationship is normal. The visualized osseous structures appear normal. Impression: No acute findings. Clinical correlation suggested. PQRS Compliance Statement: One or more of the following individualized dose reduction techniques were utilized for this examination: 1. Automated exposure control 2. Adjustment of the mA and/or kV according to patient size 3. Use of iterative reconstruction technique Electronically signed by: Rocky Enciso III, MD (05/06/2018 10:57 PM) [facility] DICTATED and SIGNED BY: ROCKY ENCISO III, MD DATE: 05/06/18 [address] [facility] [place] [facility]
[2018-05-07 18:44] LABS: CALCIUM 8.3 mg/dL (8.5-10.1); CREATININE 0.7 mg/dL (0.7-1.3); GFR 128.3; POTASSIUM 3.1 mmol/L (3.5-5.1)
[2018-05-07 22:46] LABS: CALCIUM 8.3 mg/dL (8.5-10.1); CREATININE 0.7 mg/dL (0.7-1.3); GFR 128.3
[2018-05-08] VITALS (24 sets, daily range): BP systolic 87–160; BP diastolic 49–102
[2018-05-08 06:18] LABS: BASO % 0 % (0-3); EOS % 0 % (0-3); HEMATOCRIT 34.2 % (39.0-53.0); HEMOGLOBIN 12.6 g/dL (13.0-17.5); LYMPH # 2.4 x10^3/uL (1.0-4.8); LYMPH % 28 % (24-48); MEAN CORPUSCULAR HEMOGLOBIN 31 pg (25-35); MEAN CORPUSCULAR HGB CONC 37 g/dL (31-37); MEAN CORPUSCULAR VOLUME 84 fL (79-100); MONO # 0.8 x10^3/uL (0.0-1.1); MONO % 9 % (0-9); NEUT # 5.4 x10^3uL (1.8-7.7); NEUT % 62 % (31-73); PLATELET COUNT 160 x10^3/uL (140-400); RED BLOOD COUNT 4.07 x10^6/uL (4.30-5.70); RED CELL DISTRIBUTION WIDTH 13.4 % (11.5-14.5); WHITE BLOOD COUNT 8.6 x10^3/uL (4.0-11.0)
[2018-05-08 06:19] LABS: ALBUMIN 3.8 g/dL (3.4-5.0); CALCIUM 8.3 mg/dL (8.5-10.1); CREATININE 0.8 mg/dL (0.7-1.3); TOTAL BILIRUBIN 0.8 mg/dL (0.2-1.0); TOTAL PROTEIN 7.5 g/dL (6.4-8.2)
[2018-05-08 06:22] LABS: POTASSIUM 2.9 mmol/L (3.5-5.1)
[2018-05-08] MEDS ORDERED: POTASSIUM CHLORIDE 20MEQ 50 ML IV ONE (07:00)
[2018-05-08] MEDS: POTASSIUM CHLORIDE 20 MEQ TABLET.ER. PO SCH (08:00)
[2018-05-08] MEDS: ENOXAPARIN 40 MG/0.4 ML SYRINGE. SQ SCH (09:00)
[2018-05-08] MEDS ORDERED: LIDOCAINE 2% JELLY 6ML IN APPLICATOR. MM ONE (09:00)
--- NOTE | 2018-05-08 09:34 | PDOC ---
SUBJECTIVE ROS Much more alert, answering questions RN reported last night that uop decreased - advised to irrigate to make sure its not clogged It was noted by RN that the catheter was clotted off. Irrigated with continuous clots coming out. Urology in with patient to replace 3 way [place] for Irrigation. Has around 250 ml of Urine on bladder scan OBJECTIVE Vital Signs Vital Signs Date Time Temp Pulse Resp B/P (MAP) Pulse Ox O2 Delivery O2 Flow Rate FiO2 05/08/18 07:00 84 15 133/89 (104) 100 Room Air 05/08/18 05:00 98.7 98.7 I & 0 Intake and Output 05/08/18 07:00 Intake Total 913.13 ml Output Total 2705 ml Balance -1791.87 ml Intake Oral 0 ml IV Total 913.13 ml Output Urine Total 2705 ml PHYSICAL EXAM Physical Exam GEN: NAD, more alert and responsive HEENT- Unremarkable, OM moist NECK: No JVD , supple CVS: S1S2, , No mgr RESP: CTA Bilat, No use of access Muscles GI: BS + ve, NO Bruit, Non Tender, Non Distended : No CVA tenderness, No Suprapubic Tenderness, Urology in the process of re-placing [place] Skin No rash Neuro - as above DIAGNOSIS/ASSESSMENT Assessment & Plan Critical Hyponatremia- with Seizures sodium at admission 113, IV Hypertonic saline started in ER ,[place] was placed as well with UOP of 4 Lts Na Over corrected, Dced 3 % , Given DDAVp doses yesterday , IV D5W , Na stabilized Vomiting and had altered MS resolved [place] clotted off- likely sec to trauma , attempting to replace by Urology ( Bladder scan 250 ml of Urine ) Monitor closely Hypokalemia -K 2.9 Replace IV as Ordered HepB/Hep C - Not known if treated Paranoid Schizophrenia - Follows with Psych DW RN at bedside COMMENT/RELEVANT DATA Meds Current Medications Medications (Trade) Dose Ordered Sig/Rommel Start Time Stop Time Status Last Admin Dose Admin Desmopressin Acetate (Ddavp) 2 mcg 1X ONCE 05/07/18 18:30 05/07/18 18:31 DC 05/07/18 19:31 2 MCG Dextrose 1,000 ml @ 50 mls/hr Q20H 05/07/18 15:00 05/07/18 14:43 50 MLS/HR Enoxaparin Sodium (Lovenox 40mg Syringe) 40 mg DAILY 05/07/18 10:00 05/07/18 12:44 40 MG Haloperidol (Haldol) 5 mg PRN Q6HRS PRN 05/07/18 08:45 Lidocaine HCl (Glydo (Lidocaine) Jelly) 1 dayanna 1X ONCE 05/08/18 09:00 05/08/18 09:01 DC Lorazepam (Ativan) 2 mg PRN Q4HRS PRN 05/07/18 09:00 Olanzapine (ZyPREXA ZYDIS) 5 mg HS 05/07/18 21:00 05/07/18 20:37 5 MG Ondansetron HCl (Zofran) 8 mg PRN Q6HRS PRN 05/07/18 13:45 05/07/18 13:41 8 MG Potassium Chloride/Water 50 ml @ 50 mls/hr 1X ONCE 05/08/18 07:00 05/08/18 07:59 DC 05/08/18 06:46 50 MLS/HR Potassium Chloride (Klor-Con) 20 meq DAILYWBKFT 05/08/18 08:00 Sodium Chloride 500 ml @ 50 mls/hr 1X ONCE 05/07/18 00:30 05/07/18 10:29 DC 05/07/18 01:10 50 MLS/HR Lab Laboratory Tests Test 05/07/18 10:25 05/07/18 13:35 05/07/18 18:20 05/07/18 22:20 Sodium Level 132 mmol/L (136-145) 133 mmol/L (136-145) 131 mmol/L (136-145) 129 mmol/L (136-145) Potassium Level 3.2 mmol/L (3.5-5.1) 3.2 mmol/L (3.5-5.1) 3.1 mmol/L (3.5-5.1) 3.0 mmol/L (3.5-5.1) Chloride Level 100 mmol/L (98-107) 99 mmol/L (98-107) 99 mmol/L (98-107) 99 mmol/L (98-107) Carbon Dioxide Level 23 mmol/L (21-32) 22 mmol/L (21-32) 23 mmol/L (21-32) 25 mmol/L (21-32) Anion Gap 9 (6-14) 12 (6-14) 9 (6-14) 5 (6-14) Blood Urea Nitrogen 3 mg/dL (8-26) 2 mg/dL (8-26) 3 mg/dL (8-26) 3 mg/dL (8- 26) Creatinine 0.7 mg/dL (0.7-1.3) 0.7 mg/dL (0.7-1.3) 0.7 mg/dL (0.7-1.3) 0.7 mg/dL (0.7-1.3) Estimated GFR (Cockcroft-Gault) 128.3 128.3 128.3 128.3 Glucose Level 119 mg/dL (70-99) 118 mg/dL (70-99) 112 mg/dL (70-99) 110 mg/dL (70-99) Calcium Level 8.3 mg/dL (8.5-10.1) 8.6 mg/dL (8.5-10.1) 8.3 mg/dL (8.5-10.1) 8.3 mg/dL (8.5-10.1) Test 05/08/18 05:15 White Blood Count 8.6 x10^3/uL (4.0-11.0) Red Blood Count 4.07 x10^6/uL (4.30-5.70) Hemoglobin 12.6 g/dL (13.0-17.5) Hematocrit 34.2 % (39.0-53.0) Mean Corpuscular Volume 84 fL (79-100) Mean Corpuscular Hemoglobin 31 pg (25-35) Mean Corpuscular Hemoglobin Concent 37 g/dL (31-37) Red Cell Distribution Width 13.4 % (11.5-14.5) Platelet Count 160 x10^3/uL (140-400) Neutrophils (%) (Auto) 62 % (31-73) Lymphocytes (%) (Auto) 28 % (24-48) Monocytes (%) (Auto) 9 % (0-9) Eosinophils (%) (Auto) 0 % (0-3) Basophils (%) (Auto) 0 % (0-3) Neutrophils # (Auto) 5.4 x10^3uL (1.8-7.7) Lymphocytes # (Auto) 2.4 x10^3/uL (1.0-4.8) Monocytes # (Auto) 0.8 x10^3/uL (0.0-1.1) Eosinophils # (Auto) 0.0 x10^3/uL (0.0-0.7) Basophils # (Auto) 0.0 x10^3/uL (0.0-0.2) Sodium Level 130 mmol/L (136-145) Potassium Level 2.9 mmol/L (3.5-5.1) Chloride Level 99 mmol/L (98-107) Carbon Dioxide Level 24 mmol/L (21-32) Anion Gap 7 (6-14) Blood Urea Nitrogen 3 mg/dL (8-26) Creatinine 0.8 mg/dL (0.7-1.3) Estimated GFR (Cockcroft-Gault) 110.0 BUN/Creatinine Ratio 4 (6-20) Glucose Level 104 mg/dL (70-99) Calcium Level 8.3 mg/dL (8.5-10.1) Total Bilirubin 0.8 mg/dL (0.2-1.0) Aspartate Amino Transf (AST/SGOT) 379 U/L (15-37) Alanine Aminotransferase (ALT/SGPT) 83 U/L (16-63) Alkaline Phosphatase 93 U/L (46-116) Total Protein 7.5 g/dL (6.4-8.2) Albumin 3.8 g/dL (3.4-5.0) Albumin/Globulin Ratio 1.0 (1.0-1.7) Results All relevant outside records, renal labs, imaging studies, telemetry/EKG's were reviewed CT head The lees and white matter appears normal and symmetrical for the patients age. There is no mass effect, extraaxial fluid collections or hydrocephalus. There is no gross bleed. There is no focal loss of lees-white matter distinction to suggest acute ischemia, i.e. stroke. Impression: No acute findings. End impression CT maxillofacial without contrast History: Unresponsive, seizure Axial helical images of the face including paranasal sinuses orbits and mandible were obtained without contrast. Axial sagittal and coronal reconstruction was performed. The nasal septum is moderately deviated to the left. The ostiomeatal complexes are narrow to occluded. The paranasal sinuses are clear. The visualized osseous structures appear intact. The orbits appear normal. Impression: . AMADO OCAMPO MD May 08, 2018 09:34
--- NOTE | 2018-05-08 09:41 | PDOC2 ---
UROLOGY CONSULT Date of Consult Date of Consult DATE: 05/08/18 TIME: 09:27 Identification/Chief Complaint Chief Complaint Gross Hematuria after pulling out wise. Urethral injury Source Source: Caregiver, Chart review, Patient History of Present Illness Reason for Visit: Patient is a poor historian. All history obtained from guards, attending RN and attending physician. Apparently he consumed inappropriately large amounts of water at the correction, which led to hyponatremia and seizure. He does have a psychiatric history. He was then transported here and a wise catheter was inserted. Last night he became disoriented and pulled out his wise catheter. Large amounts of blood was noted by the nursing staff and they had been attempting to insert wise catheter for about 30 minutes when DESIGN EDITOR Ephraim arrived. Nurses had just started the wise insertion attempt at that time. Patient is confused but cooperative; he is unable to share any significant medical history with [facility] Ephraim to include Urologic history. Past Medical History Cardiovascular: No pertinent hx Pulmonary: No pertinent hx GI: GERD Heme/Onc: No pertinent hx Hepatobiliary: No pertinent hx Psych: Addictions, Schizophrenia Past Surgical History Past Surgical History: No pertinent history Social History No ALCOHOL: none Current Problem List Problems: (1) Gross hematuria Current Medications Current Medications Current Medications Desmopressin Acetate (Ddavp) 2 mcg 1X ONCE SQ Last administered on 05/07/18at 12 :44; Start 05/07/18 at 12:30; Stop 05/07/18 at 12:31; Status DC Desmopressin Acetate (Ddavp) 2 mcg 1X ONCE SQ Last administered on 05/07/18at 19 :31; Start 05/07/18 at 18:30; Stop 05/07/18 at 18:31; Status DC Dextrose 1,000 ml @ 50 mls/hr Q20H IV Last administered on 05/07/18at 14:43; Start 05/07/18 at 15:00 Enoxaparin Sodium (Lovenox 40mg Syringe) 40 mg DAILY SQ Last administered on 05/07/18at 12:44; Start 05/07/18 at 10:00 Lidocaine HCl (Glydo (Lidocaine) Jelly) 1 dayanna 1X ONCE MM ; Start 05/08/18 at 09: 00; Stop 05/08/18 at 09:01; Status DC Olanzapine (ZyPREXA ZYDIS) 5 mg HS PO Last administered on 05/07/18at 20:37; Start 05/07/18 at 21:00 Ondansetron HCl (Zofran) 4 mg STK-MED ONCE .ROUTE ; Start 05/07/18 at 13:34; Stop 05/07/18 at 13:35; Status DC Ondansetron HCl (Zofran) 4 mg STK-MED ONCE .ROUTE ; Start 05/07/18 at 13:35; Stop 05/07/18 at 13:36; Status DC Ondansetron HCl (Zofran) 8 mg PRN Q6HRS PRN IV NAUSEA/VOMITING Last administered on 05/07/18at 13:41; Start 05/07/18 at 13:45 Potassium Chloride/Water 50 ml @ 50 mls/hr 1X ONCE IV Last administered on 05/08at 06:46; Start 05/08/18 at 07:00; Stop 05/08/18 at 07:59; Status DC Potassium Chloride (Klor-Con) 20 meq DAILYWBKFT PO ; Start 05/08/18 at 08:00 Potassium Chloride (Klor-Con) 40 meq 1X ONCE PO ; Start 05/07/18 at 09:30; Stop 05/07/18 at 09:31; Status DC Allergies Allergies: Coded Allergies: No Known Drug Allergies (Unverified , 05/07/18) ROS Review Of Systems: CONSTITUTIONAL: No fever or chills EYES: No recent changes SKIN: No rash or itching CARDIOVASCULAR: No chest pain, syncope, palpitations, or edema RESPIRATORY: No SOB or cough GASTROINTESTINAL: No nausea, vomiting or abdominal pain NEUROLOGICAL: No headaches or weakness ENDOCRINE: No cold or heat intolerance GENITOURINARY: + urinary retention, gross hematuria MUSCULOSKELETAL: No back pain or joint pain LYMPHATICS: No enlarged lymph nodes PSYCHIATRIC: + disoriented Physical Exam Physical Exam: General: Pleasant, no acute distress, well groomed Eyes: conjunctiva anicteric, eyes full range of motion ENT: moist oral mucosa, normal dentition Neck: Trachea midline, no masses Respiratory: unlabored breathing, not using accessory muscles Pelvic: circumcised phallus, gross hematuria noted from urethra during insertion attempts, consistent with urethral injury. Psych: Disoriented, does answer questions from time to time. Cooperative overall. Unable to provide detailed history. Vitals VITALS Vital Signs Date Time Temp Pulse Resp B/P (MAP) Pulse Ox O2 Delivery O2 Flow Rate FiO2 05/08/18 07:00 84 15 133/89 (104) 100 Room Air 05/08/18 05:00 98.7 98.7 Labs Labs Laboratory Tests Test 05/06/18 22:51 05/06/18 23:02 05/06/18 23:04 05/06/18 23:18 White Blood Count 14.2 x10^3/uL (4.0-11.0) Red Blood Count 3.87 x10^6/uL (4.30-5.70) Hemoglobin 11.9 g/dL (13.0-17.5) Hematocrit 32.2 % (39.0-53.0) Mean Corpuscular Volume 83 fL (79-100) Mean Corpuscular Hemoglobin 31 pg (25-35) Mean Corpuscular Hemoglobin Concent 37 g/dL (31-37) Red Cell Distribution Width 13.3 % (11.5-14.5) Platelet Count 141 x10^3/uL (140-400) Neutrophils (%) (Auto) 88 % (31-73) Lymphocytes (%) (Auto) 7 % (24-48) Monocytes (%) (Auto) 4 % (0-9) Eosinophils (%) (Auto) 0 % (0-3) Basophils (%) (Auto) 0 % (0-3) Neutrophils # (Auto) 12.5 x10^3uL (1.8-7.7) Lymphocytes # (Auto) 1.0 x10^3/uL (1.0-4.8) Monocytes # (Auto) 0.6 x10^3/uL (0.0-1.1) Eosinophils # (Auto) 0.0 x10^3/uL (0.0-0.7) Basophils # (Auto) 0.0 x10^3/uL (0.0-0.2) Segmented Neutrophils % 74 % (35-66) Band Neutrophils % 17 % (0-9) Lymphocytes % 8 % (24-48) Monocytes % 1 % (0-10) Platelet Estimate Adequate (ADEQUATE) Sodium Level 113 mmol/L (136-145) Potassium Level 2.9 mmol/L (3.5-5.1) Chloride Level 82 mmol/L (98-107) Carbon Dioxide Level 19 mmol/L (21-32) Anion Gap 12 (6-14) Blood Urea Nitrogen 3 mg/dL (8-26) Creatinine 0.9 mg/dL (0.7-1.3) Estimated GFR (Cockcroft-Gault) 96.0 BUN/Creatinine Ratio 3 (6-20) Glucose Level 112 mg/dL (70-99) Lactic Acid Level 6.4 mmol/L (0.4-2.0) Calcium Level 7.9 mg/dL (8.5-10.1) Total Bilirubin 0.8 mg/dL (0.2-1.0) Aspartate Amino Transf (AST/SGOT) 40 U/L (15-37) Alanine Aminotransferase (ALT/SGPT) 72 U/L (16-63) Alkaline Phosphatase 93 U/L (46-116) Troponin I Quantitative < 0.017 ng/mL (0.000-0.055) Total Protein 7.0 g/dL (6.4-8.2) Albumin 3.7 g/dL (3.4-5.0) Albumin/Globulin Ratio 1.1 (1.0-1.7) Urine Collection Type Unknown Urine Color Yellow Urine Clarity Cloudy Urine pH 5.0 Urine Specific [place] 1.010 Urine Protein Negative mg/dL (NEG-TRACE) Urine Glucose (UA) Negative mg/dL (NEG) Urine Ketones (Stick) Negative mg/dL (NEG) Urine Blood Trace (NEG) Urine Nitrite Negative (NEG) Urine Bilirubin Negative (NEG) Urine Urobilinogen Dipstick 0.2 mg/dL (0.2 mg/dL) Urine Leukocyte Esterase Negative (NEG) Urine RBC Occ /HPF (0-2) Urine WBC Occ /HPF (0-4) Urine Squamous Epithelial Cells None /LPF Urine Bacteria 0 /HPF (0-FEW) Urine Opiates Screen Neg (NEG) Urine Methadone Screen Neg (NEG) Urine Barbiturates Neg (NEG) Urine Phencyclidine Screen Neg (NEG) Urine Amphetamine/Methamphetamine Neg (NEG) Urine Benzodiazepines Screen Pos (NEG) Urine Cocaine Screen Neg (NEG) Urine Cannabinoids Screen Neg (NEG) Urine Ethyl Alcohol Neg (NEG) O2 Saturation 95 % (92-99) Arterial Blood pH 7.39 (7.35-7.45) Arterial Blood pCO2 at Patient Temp 30 mmHg (35-46) Arterial Blood pO2 at Patient Temp 83 mmHg (85-108) Arterial Blood HCO3 17 mmol/L (21-28) Arterial Blood Base Excess -7 mmol/L (-3-3) FiO2 21 Prothrombin Time 15.0 SEC (11.7-14.0) Prothromb Time International Ratio 1.2 (0.8-1.1) Test 05/07/18 01:25 05/07/18 02:41 05/07/18 04:56 05/07/18 10:25 Nasal Screen MRSA (PCR) Negative (Negative) Lactic Acid Level 0.7 mmol/L (0.4-2.0) Sodium Level 127 mmol/L (136-145) 132 mmol/L (136-145) Potassium Level 3.1 mmol/L (3.5-5.1) 3.2 mmol/L (3.5-5.1) Chloride Level 95 mmol/L (98-107) 100 mmol/L (98-107) Carbon Dioxide Level 21 mmol/L (21-32) 23 mmol/L (21-32) Anion Gap 11 (6-14) 9 (6-14) Blood Urea Nitrogen 2 mg/dL (8-26) 3 mg/dL (8-26) Creatinine 0.7 mg/dL (0.7-1.3) 0.7 mg/dL (0.7-1.3) Estimated GFR (Cockcroft-Gault) 128.3 128.3 Glucose Level 124 mg/dL (70-99) 119 mg/dL (70-99) Calcium Level 8.0 mg/dL (8.5-10.1) 8.3 mg/dL (8.5-10.1) Magnesium Level 2.1 mg/dL (1.8-2.4) Test 05/07/18 13:35 05/07/18 18:20 05/07/18 22:20 05/08/18 05:15 Sodium Level 133 mmol/L (136-145) 131 mmol/L (136-145) 129 mmol/L (136-145) 130 mmol/L (136-145) Potassium Level 3.2 mmol/L (3.5-5.1) 3.1 mmol/L (3.5-5.1) 3.0 mmol/L (3.5-5.1) 2.9 mmol/L (3.5-5.1) Chloride Level 99 mmol/L (98-107) 99 mmol/L (98-107) 99 mmol/L (98-107) 99 mmol/L (98-107) Carbon Dioxide Level 22 mmol/L (21-32) 23 mmol/L (21-32) 25 mmol/L (21-32) 24 mmol/L (21-32) Anion Gap 12 (6-14) 9 (6-14) 5 (6-14) 7 (6-14) Blood Urea Nitrogen 2 mg/dL (8-26) 3 mg/dL (8-26) 3 mg/dL (8-26) 3 mg/dL (8- 26) Creatinine 0.7 mg/dL (0.7-1.3) 0.7 mg/dL (0.7-1.3) 0.7 mg/dL (0.7-1.3) 0.8 mg/dL (0.7-1.3) Estimated GFR (Cockcroft-Gault) 128.3 128.3 128.3 110.0 Glucose Level 118 mg/dL (70-99) 112 mg/dL (70-99) 110 mg/dL (70-99) 104 mg/dL (70-99) Calcium Level 8.6 mg/dL (8.5-10.1) 8.3 mg/dL (8.5-10.1) 8.3 mg/dL (8.5-10.1) 8.3 mg/dL (8.5-10.1) White Blood Count 8.6 x10^3/uL (4.0-11.0) Red Blood Count 4.07 x10^6/uL (4.30-5.70) Hemoglobin 12.6 g/dL (13.0-17.5) Hematocrit 34.2 % (39.0-53.0) Mean Corpuscular Volume 84 fL (79-100) Mean Corpuscular Hemoglobin 31 pg (25-35) Mean Corpuscular Hemoglobin Concent 37 g/dL (31-37) Red Cell Distribution Width 13.4 % (11.5-14.5) Platelet Count 160 x10^3/uL (140-400) Neutrophils (%) (Auto) 62 % (31-73) Lymphocytes (%) (Auto) 28 % (24-48) Monocytes (%) (Auto) 9 % (0-9) Eosinophils (%) (Auto) 0 % (0-3) Basophils (%) (Auto) 0 % (0-3) Neutrophils # (Auto) 5.4 x10^3uL (1.8-7.7) Lymphocytes # (Auto) 2.4 x10^3/uL (1.0-4.8) Monocytes # (Auto) 0.8 x10^3/uL (0.0-1.1) Eosinophils # (Auto) 0.0 x10^3/uL (0.0-0.7) Basophils # (Auto) 0.0 x10^3/uL (0.0-0.2) BUN/Creatinine Ratio 4 (6-20) Total Bilirubin 0.8 mg/dL (0.2-1.0) Aspartate Amino Transf (AST/SGOT) 379 U/L (15-37) Alanine Aminotransferase (ALT/SGPT) 83 U/L (16-63) Alkaline Phosphatase 93 U/L (46-116) Total Protein 7.5 g/dL (6.4-8.2) Albumin 3.8 g/dL (3.4-5.0) Albumin/Globulin Ratio 1.0 (1.0-1.7) Laboratory Tests Test 05/07/18 10:25 05/07/18 13:35 05/07/18 18:20 05/07/18 22:20 Sodium Level 132 mmol/L (136-145) 133 mmol/L (136-145) 131 mmol/L (136-145) 129 mmol/L (136-145) Potassium Level 3.2 mmol/L (3.5-5.1) 3.2 mmol/L (3.5-5.1) 3.1 mmol/L (3.5-5.1) 3.0 mmol/L (3.5-5.1) Chloride Level 100 mmol/L (98-107) 99 mmol/L (98-107) 99 mmol/L (98-107) 99 mmol/L (98-107) Carbon Dioxide Level 23 mmol/L (21-32) 22 mmol/L (21-32) 23 mmol/L (21-32) 25 mmol/L (21-32) Anion Gap 9 (6-14) 12 (6-14) 9 (6-14) 5 (6-14) Blood Urea Nitrogen 3 mg/dL (8-26) 2 mg/dL (8-26) 3 mg/dL (8-26) 3 mg/dL (8- 26) Creatinine 0.7 mg/dL (0.7-1.3) 0.7 mg/dL (0.7-1.3) 0.7 mg/dL (0.7-1.3) 0.7 mg/dL (0.7-1.3) Estimated GFR (Cockcroft-Gault) 128.3 128.3 128.3 128.3 Glucose Level 119 mg/dL (70-99) 118 mg/dL (70-99) 112 mg/dL (70-99) 110 mg/dL (70-99) Calcium Level 8.3 mg/dL (8.5-10.1) 8.6 mg/dL (8.5-10.1) 8.3 mg/dL (8.5-10.1) 8.3 mg/dL (8.5-10.1) Test 05/08/18 05:15 White Blood Count 8.6 x10^3/uL (4.0-11.0) Red Blood Count 4.07 x10^6/uL (4.30-5.70) Hemoglobin 12.6 g/dL (13.0-17.5) Hematocrit 34.2 % (39.0-53.0) Mean Corpuscular Volume 84 fL (79-100) Mean Corpuscular Hemoglobin 31 pg (25-35) Mean Corpuscular Hemoglobin Concent 37 g/dL (31-37) Red Cell Distribution Width 13.4 % (11.5-14.5) Platelet Count 160 x10^3/uL (140-400) Neutrophils (%) (Auto) 62 % (31-73) Lymphocytes (%) (Auto) 28 % (24-48) Monocytes (%) (Auto) 9 % (0-9) Eosinophils (%) (Auto) 0 % (0-3) Basophils (%) (Auto) 0 % (0-3) Neutrophils # (Auto) 5.4 x10^3uL (1.8-7.7) Lymphocytes # (Auto) 2.4 x10^3/uL (1.0-4.8) Monocytes # (Auto) 0.8 x10^3/uL (0.0-1.1) Eosinophils # (Auto) 0.0 x10^3/uL (0.0-0.7) Basophils # (Auto) 0.0 x10^3/uL (0.0-0.2) Sodium Level 130 mmol/L (136-145) Potassium Level 2.9 mmol/L (3.5-5.1) Chloride Level 99 mmol/L (98-107) Carbon Dioxide Level 24 mmol/L (21-32) Anion Gap 7 (6-14) Blood Urea Nitrogen 3 mg/dL (8-26) Creatinine 0.8 mg/dL (0.7-1.3) Estimated GFR (Cockcroft-Gault) 110.0 BUN/Creatinine Ratio 4 (6-20) Glucose Level 104 mg/dL (70-99) Calcium Level 8.3 mg/dL (8.5-10.1) Total Bilirubin 0.8 mg/dL (0.2-1.0) Aspartate Amino Transf (AST/SGOT) 379 U/L (15-37) Alanine Aminotransferase (ALT/SGPT) 83 U/L (16-63) Alkaline Phosphatase 93 U/L (46-116) Total Protein 7.5 g/dL (6.4-8.2) Albumin 3.8 g/dL (3.4-5.0) Albumin/Globulin Ratio 1.0 (1.0-1.7) Assessment/Plan Assessment/Plan Patient had a total of 3 unsuccessful wise insertion attempts The first was by C CONSULTANT team using an [address] for bladder irrigation The second two attempts were by DESIGN EDITOR Ephraim: the first attempt was just with urethral loading of jelly and slow and steady pressure for a total of 15-20 minutes. The second attempt was with the guidewire with pre-,medication of IV Ativan and then waiting for a full ten minutes. After this, the 22 set[address]ana wise catheter was removed, the urethra was loaded with lidocaine jelly using a jet syringe. Then using sterile technique, the guidewire was inserted into the bladder without problems or resistance; however, when the [address] wise was introduced over the wire, the same point of resistance was felt and the wise could not be advanced any further, even with slow and steady pressure for about 10 minutes. During the insertion process of both attempts, DESIGN EDITOR did note significant amount of blood coming from urethra; difficult to determine exactly where the injury is without scope. I have instructed the attending RN to leave the wise catheter in place to provide compression of urethral injury, even though the catheter tip is not in the bladder. I have also instructed the nursing staff to not inflate the balloon; rather, secure catheter with kerlix/ tape, etc. Keep CBI port capped and bag port hooked up to bag. I have notified supervising physician Dr. Crow that patient will require scope insertion. Pt to remain NPO; I will notify the nursing staff when I have more information regarding further plans. UPDATE: Dr. Crow attempted bedside wise catheter insertion with scope but was unsuccessful. Pt will need to go to the OR for wise catheter insertion. This case will follow Dr. Crow's other cases today. Pt to remain NPO until after the procedure. Consent obtained from patient career orientation teacher at the correction since patient is an inmate. Cipro times one today at 1500 prior to surgery for prophylaxis SHITAL POLLACK APRN May 08, 2018 09:40
--- NOTE | 2018-05-08 10:12 | PDOC ---
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 Plan Correct hyponatremia Hold on anticonvulsants Hold on electroencephalogram Further studies depending on his course, none needed at present. Subjective Denies complaints Objective Vital Signs Date Time Temp Pulse Resp B/P (MAP) Pulse Ox O2 Delivery O2 Flow Rate FiO2 05/08/18 07:00 84 15 133/89 (104) 100 Room Air 05/08/18 05:00 98.7 98.7 Intake and Output 05/08/18 07:00 Intake Total 913.13 ml Output Total 2705 ml Balance -1791.87 ml Intake Oral 0 ml IV Total 913.13 ml Output Urine Total 2705 ml PHYSICAL EXAM Alert. Oriented to and person, Knows that he is in the hospital, does not know the date, answers questions, follows commands. PERRL. EOMI. CN: no focal findings. Muscle tone: normal. Muscle strength: 4/5 DTR: 2+ Plantar reflex: flexor Gait: not examined in bed. Sensory exam: no abnormal findings. No cerebellar signs elicited. Review of Relevant I have reviewed the following items [place] (where applicable) has been applied. Labs Laboratory Tests Test 05/06/18 22:51 05/06/18 23:02 05/06/18 23:04 05/06/18 23:18 White Blood Count 14.2 x10^3/uL (4.0-11.0) Red Blood Count 3.87 x10^6/uL (4.30-5.70) Hemoglobin 11.9 g/dL (13.0-17.5) Hematocrit 32.2 % (39.0-53.0) Mean Corpuscular Volume 83 fL (79-100) Mean Corpuscular Hemoglobin 31 pg (25-35) Mean Corpuscular Hemoglobin Concent 37 g/dL (31-37) Red Cell Distribution Width 13.3 % (11.5-14.5) Platelet Count 141 x10^3/uL (140-400) Neutrophils (%) (Auto) 88 % (31-73) Lymphocytes (%) (Auto) 7 % (24-48) Monocytes (%) (Auto) 4 % (0-9) Eosinophils (%) (Auto) 0 % (0-3) Basophils (%) (Auto) 0 % (0-3) Neutrophils # (Auto) 12.5 x10^3uL (1.8-7.7) Lymphocytes # (Auto) 1.0 x10^3/uL (1.0-4.8) Monocytes # (Auto) 0.6 x10^3/uL (0.0-1.1) Eosinophils # (Auto) 0.0 x10^3/uL (0.0-0.7) Basophils # (Auto) 0.0 x10^3/uL (0.0-0.2) Segmented Neutrophils % 74 % (35-66) Band Neutrophils % 17 % (0-9) Lymphocytes % 8 % (24-48) Monocytes % 1 % (0-10) Platelet Estimate Adequate (ADEQUATE) Sodium Level 113 mmol/L (136-145) Potassium Level 2.9 mmol/L (3.5-5.1) Chloride Level 82 mmol/L (98-107) Carbon Dioxide Level 19 mmol/L (21-32) Anion Gap 12 (6-14) Blood Urea Nitrogen 3 mg/dL (8-26) Creatinine 0.9 mg/dL (0.7-1.3) Estimated GFR (Cockcroft-Gault) 96.0 BUN/Creatinine Ratio 3 (6-20) Glucose Level 112 mg/dL (70-99) Lactic Acid Level 6.4 mmol/L (0.4-2.0) Calcium Level 7.9 mg/dL (8.5-10.1) Total Bilirubin 0.8 mg/dL (0.2-1.0) Aspartate Amino Transf (AST/SGOT) 40 U/L (15-37) Alanine Aminotransferase (ALT/SGPT) 72 U/L (16-63) Alkaline Phosphatase 93 U/L (46-116) Troponin I Quantitative < 0.017 ng/mL (0.000-0.055) Total Protein 7.0 g/dL (6.4-8.2) Albumin 3.7 g/dL (3.4-5.0) Albumin/Globulin Ratio 1.1 (1.0-1.7) Urine Collection Type Unknown Urine Color Yellow Urine Clarity Cloudy Urine pH 5.0 Urine Specific [place] 1.010 Urine Protein Negative mg/dL (NEG-TRACE) Urine Glucose (UA) Negative mg/dL (NEG) Urine Ketones (Stick) Negative mg/dL (NEG) Urine Blood Trace (NEG) Urine Nitrite Negative (NEG) Urine Bilirubin Negative (NEG) Urine Urobilinogen Dipstick 0.2 mg/dL (0.2 mg/dL) Urine Leukocyte Esterase Negative (NEG) Urine RBC Occ /HPF (0-2) Urine WBC Occ /HPF (0-4) Urine Squamous Epithelial Cells None /LPF Urine Bacteria 0 /HPF (0-FEW) Urine Opiates Screen Neg (NEG) Urine Methadone Screen Neg (NEG) Urine Barbiturates Neg (NEG) Urine Phencyclidine Screen Neg (NEG) Urine Amphetamine/Methamphetamine Neg (NEG) Urine Benzodiazepines Screen Pos (NEG) Urine Cocaine Screen Neg (NEG) Urine Cannabinoids Screen Neg (NEG) Urine Ethyl Alcohol Neg (NEG) O2 Saturation 95 % (92-99) Arterial Blood pH 7.39 (7.35-7.45) Arterial Blood pCO2 at Patient Temp 30 mmHg (35-46) Arterial Blood pO2 at Patient Temp 83 mmHg (85-108) Arterial Blood HCO3 17 mmol/L (21-28) Arterial Blood Base Excess -7 mmol/L (-3-3) FiO2 21 Prothrombin Time 15.0 SEC (11.7-14.0) Prothromb Time International Ratio 1.2 (0.8-1.1) Test 05/07/18 01:25 05/07/18 02:41 05/07/18 04:56 05/07/18 10:25 Nasal Screen MRSA (PCR) Negative (Negative) Lactic Acid Level 0.7 mmol/L (0.4-2.0) Sodium Level 127 mmol/L (136-145) 132 mmol/L (136-145) Potassium Level 3.1 mmol/L (3.5-5.1) 3.2 mmol/L (3.5-5.1) Chloride Level 95 mmol/L (98-107) 100 mmol/L (98-107) Carbon Dioxide Level 21 mmol/L (21-32) 23 mmol/L (21-32) Anion Gap 11 (6-14) 9 (6-14) Blood Urea Nitrogen 2 mg/dL (8-26) 3 mg/dL (8-26) Creatinine 0.7 mg/dL (0.7-1.3) 0.7 mg/dL (0.7-1.3) Estimated GFR (Cockcroft-Gault) 128.3 128.3 Glucose Level 124 mg/dL (70-99) 119 mg/dL (70-99) Calcium Level 8.0 mg/dL (8.5-10.1) 8.3 mg/dL (8.5-10.1) Magnesium Level 2.1 mg/dL (1.8-2.4) Test 05/07/18 13:35 05/07/18 18:20 05/07/18 22:20 05/08/18 05:15 Sodium Level 133 mmol/L (136-145) 131 mmol/L (136-145) 129 mmol/L (136-145) 130 mmol/L (136-145) Potassium Level 3.2 mmol/L (3.5-5.1) 3.1 mmol/L (3.5-5.1) 3.0 mmol/L (3.5-5.1) 2.9 mmol/L (3.5-5.1) Chloride Level 99 mmol/L (98-107) 99 mmol/L (98-107) 99 mmol/L (98-107) 99 mmol/L (98-107) Carbon Dioxide Level 22 mmol/L (21-32) 23 mmol/L (21-32) 25 mmol/L (21-32) 24 mmol/L (21-32) Anion Gap 12 (6-14) 9 (6-14) 5 (6-14) 7 (6-14) Blood Urea Nitrogen 2 mg/dL (8-26) 3 mg/dL (8-26) 3 mg/dL (8-26) 3 mg/dL (8- 26) Creatinine 0.7 mg/dL (0.7-1.3) 0.7 mg/dL (0.7-1.3) 0.7 mg/dL (0.7-1.3) 0.8 mg/dL (0.7-1.3) Estimated GFR (Cockcroft-Gault) 128.3 128.3 128.3 110.0 Glucose Level 118 mg/dL (70-99) 112 mg/dL (70-99) 110 mg/dL (70-99) 104 mg/dL (70-99) Calcium Level 8.6 mg/dL (8.5-10.1) 8.3 mg/dL (8.5-10.1) 8.3 mg/dL (8.5-10.1) 8.3 mg/dL (8.5-10.1) White Blood Count 8.6 x10^3/uL (4.0-11.0) Red Blood Count 4.07 x10^6/uL (4.30-5.70) Hemoglobin 12.6 g/dL (13.0-17.5) Hematocrit 34.2 % (39.0-53.0) Mean Corpuscular Volume 84 fL (79-100) Mean Corpuscular Hemoglobin 31 pg (25-35) Mean Corpuscular Hemoglobin Concent 37 g/dL (31-37) Red Cell Distribution Width 13.4 % (11.5-14.5) Platelet Count 160 x10^3/uL (140-400) Neutrophils (%) (Auto) 62 % (31-73) Lymphocytes (%) (Auto) 28 % (24-48) Monocytes (%) (Auto) 9 % (0-9) Eosinophils (%) (Auto) 0 % (0-3) Basophils (%) (Auto) 0 % (0-3) Neutrophils # (Auto) 5.4 x10^3uL (1.8-7.7) Lymphocytes # (Auto) 2.4 x10^3/uL (1.0-4.8) Monocytes # (Auto) 0.8 x10^3/uL (0.0-1.1) Eosinophils # (Auto) 0.0 x10^3/uL (0.0-0.7) Basophils # (Auto) 0.0 x10^3/uL (0.0-0.2) BUN/Creatinine Ratio 4 (6-20) Total Bilirubin 0.8 mg/dL (0.2-1.0) Aspartate Amino Transf (AST/SGOT) 379 U/L (15-37) Alanine Aminotransferase (ALT/SGPT) 83 U/L (16-63) Alkaline Phosphatase 93 U/L (46-116) Total Protein 7.5 g/dL (6.4-8.2) Albumin 3.8 g/dL (3.4-5.0) Albumin/Globulin Ratio 1.0 (1.0-1.7) Laboratory Tests Test 05/07/18 10:25 05/07/18 13:35 05/07/18 18:20 05/07/18 22:20 Sodium Level 132 mmol/L (136-145) 133 mmol/L (136-145) 131 mmol/L (136-145) 129 mmol/L (136-145) Potassium Level 3.2 mmol/L (3.5-5.1) 3.2 mmol/L (3.5-5.1) 3.1 mmol/L (3.5-5.1) 3.0 mmol/L (3.5-5.1) Chloride Level 100 mmol/L (98-107) 99 mmol/L (98-107) 99 mmol/L (98-107) 99 mmol/L (98-107) Carbon Dioxide Level 23 mmol/L (21-32) 22 mmol/L (21-32) 23 mmol/L (21-32) 25 mmol/L (21-32) Anion Gap 9 (6-14) 12 (6-14) 9 (6-14) 5 (6-14) Blood Urea Nitrogen 3 mg/dL (8-26) 2 mg/dL (8-26) 3 mg/dL (8-26) 3 mg/dL (8- 26) Creatinine 0.7 mg/dL (0.7-1.3) 0.7 mg/dL (0.7-1.3) 0.7 mg/dL (0.7-1.3) 0.7 mg/dL (0.7-1.3) Estimated GFR (Cockcroft-Gault) 128.3 128.3 128.3 128.3 Glucose Level 119 mg/dL (70-99) 118 mg/dL (70-99) 112 mg/dL (70-99) 110 mg/dL (70-99) Calcium Level 8.3 mg/dL (8.5-10.1) 8.6 mg/dL (8.5-10.1) 8.3 mg/dL (8.5-10.1) 8.3 mg/dL (8.5-10.1) Test 05/08/18 05:15 White Blood Count 8.6 x10^3/uL (4.0-11.0) Red Blood Count 4.07 x10^6/uL (4.30-5.70) Hemoglobin 12.6 g/dL (13.0-17.5) Hematocrit 34.2 % (39.0-53.0) Mean Corpuscular Volume 84 fL (79-100) Mean Corpuscular Hemoglobin 31 pg (25-35) Mean Corpuscular Hemoglobin Concent 37 g/dL (31-37) Red Cell Distribution Width 13.4 % (11.5-14.5) Platelet Count 160 x10^3/uL (140-400) Neutrophils (%) (Auto) 62 % (31-73) Lymphocytes (%) (Auto) 28 % (24-48) Monocytes (%) (Auto) 9 % (0-9) Eosinophils (%) (Auto) 0 % (0-3) Basophils (%) (Auto) 0 % (0-3) Neutrophils # (Auto) 5.4 x10^3uL (1.8-7.7) Lymphocytes # (Auto) 2.4 x10^3/uL (1.0-4.8) Monocytes # (Auto) 0.8 x10^3/uL (0.0-1.1) Eosinophils # (Auto) 0.0 x10^3/uL (0.0-0.7) Basophils # (Auto) 0.0 x10^3/uL (0.0-0.2) Sodium Level 130 mmol/L (136-145) Potassium Level 2.9 mmol/L (3.5-5.1) Chloride Level 99 mmol/L (98-107) Carbon Dioxide Level 24 mmol/L (21-32) Anion Gap 7 (6-14) Blood Urea Nitrogen 3 mg/dL (8-26) Creatinine 0.8 mg/dL (0.7-1.3) Estimated GFR (Cockcroft-Gault) 110.0 BUN/Creatinine Ratio 4 (6-20) Glucose Level 104 mg/dL (70-99) Calcium Level 8.3 mg/dL (8.5-10.1) Total Bilirubin 0.8 mg/dL (0.2-1.0) Aspartate Amino Transf (AST/SGOT) 379 U/L (15-37) Alanine Aminotransferase (ALT/SGPT) 83 U/L (16-63) Alkaline Phosphatase 93 U/L (46-116) Total Protein 7.5 g/dL (6.4-8.2) Albumin 3.8 g/dL (3.4-5.0) Albumin/Globulin Ratio 1.0 (1.0-1.7) Microbiology 05/06/18 Blood Culture - Preliminary, Resulted NO GROWTH AFTER 1 DAY Medications Current Medications Sodium Chloride 1,000 ml @ 1,000 mls/hr 1X ONCE IV Last administered on at 22:55; Start 05/06/18 at 23:00; Stop 05/06/18 at 23:59; Status DC Sodium Chloride 500 ml @ 50 mls/hr 1X ONCE IV Last administered on 05/07/18at 01:10; Start 05/07/18 at 00:30; Stop 05/07/18 at 10:29; Status DC Haloperidol (Haldol) 5 mg PRN Q6HRS PRN PO AGITATION; Start 05/07/18 at 08:45 Enoxaparin Sodium (Lovenox 40mg Syringe) 40 mg DAILY SQ Last administered on 05/07/18at 12:44; Start 05/07/18 at 10:00 Olanzapine (ZyPREXA ZYDIS) 5 mg HS PO Last administered on 05/07/18at 20:37; Start 05/07/18 at 21:00 Lorazepam (Ativan) 2 mg PRN Q4HRS PRN IV ANXIETY / AGITATION Last administered on 05/08/18at 09:34; Start 05/07/18 at 09:00 Potassium Chloride (Klor-Con) 40 meq 1X ONCE PO ; Start 05/07/18 at 09:30; Stop 05/07/18 at 09:31; Status DC Potassium Chloride (Klor-Con) 20 meq DAILYWBKFT PO ; Start 05/08/18 at 08:00 Desmopressin Acetate (Ddavp) 2 mcg 1X ONCE SQ Last administered on 05/07/18at 12 :44; Start 05/07/18 at 12:30; Stop 05/07/18 at 12:31; Status DC Ondansetron HCl (Zofran) 4 mg STK-MED ONCE .ROUTE ; Start 05/07/18 at 13:34; Stop 05/07/18 at 13:35; Status DC Ondansetron HCl (Zofran) 4 mg STK-MED ONCE .ROUTE ; Start 05/07/18 at 13:35; Stop 05/07/18 at 13:36; Status DC Ondansetron HCl (Zofran) 8 mg PRN Q6HRS PRN IV NAUSEA/VOMITING Last administered on 05/07/18at 13:41; Start 05/07/18 at 13:45 Dextrose 1,000 ml @ 50 mls/hr Q20H IV Last administered on 05/07/18at 14:43; Start 05/07/18 at 15:00 Desmopressin Acetate (Ddavp) 2 mcg 1X ONCE SQ Last administered on 05/07/18at 19 :31; Start 05/07/18 at 18:30; Stop 05/07/18 at 18:31; Status DC Potassium Chloride/Water 50 ml @ 50 mls/hr 1X ONCE IV Last administered on 05/08at 06:46; Start 05/08/18 at 07:00; Stop 05/08/18 at 07:59; Status DC Lidocaine HCl (Glydo (Lidocaine) Jelly) 1 dayanna 1X ONCE MM Last administered on 05/08/18at 09:00; Start 05/08/18 at 09:00; Stop 05/08/18 at 09:01; Status DC Active Scripts Active Reported Haloperidol Decanoate 100 Mg/1 Ml Vial 100 Mg IM Zyprexa (Olanzapine) 10 Mg Tablet 1 Tab PO QHS Vitals/I & O Vital Sign - Last 24 Hours 05/07/18 05/07/18 05/07/18 05/07/18 11:00 12:00 12:00 13:00 Temp 98.5 98.5 Pulse 92 94 98 Resp 16 17 18 B/P (MAP) 138/75 (96) 142/75 (97) 111/66 (81) Pulse Ox 96 96 97 O2 Delivery Room Air Room Air Room Air Room Air 05/07/18 05/07/18 05/07/18 05/07/18 14:00 15:00 16:00 16:00 Temp 98.5 98.5 Pulse 86 103 97 Resp 16 20 16 B/P (MAP) 133/83 (100) 124/71 (88) 125/71 (89) Pulse Ox 97 96 97 O2 Delivery Room Air Room Air Room Air Room Air 9/4/18 9/4/18 9/4/18 9/4/18 17:00 18:00 19:00 20:00 Pulse 86 89 86 Resp 14 16 15 B/P (MAP) 135/78 (97) 134/78 (96) 119/70 (86) Pulse Ox 97 97 100 O2 Delivery Room Air Room Air Room Air Room Air 05/07/18 05/07/18 05/07/18 05/07/18 20:00 21:00 22:00 23:00 Temp 98.9 98.9 Pulse 80 84 79 81 Resp 14 14 13 12 B/P (MAP) 123/73 (90) 131/82 (98) 106/62 (77) 102/58 (73) Pulse Ox 100 100 100 99 O2 Delivery Room Air Room Air Room Air Room Air 05/07/18 05/08/18 05/08/18 05/08/18 23:57 00:00 01:00 02:00 Temp 99.5 99.5 Pulse 76 75 86 Resp 13 14 22 B/P (MAP) 128/85 (99) 107/65 (79) 91/66 (74) Pulse Ox 100 100 99 O2 Delivery Room Air Room Air Room Air Room Air 05/08/18 05/08/18 05/08/18 05/08/18 03:00 04:00 04:00 05:00 Temp 98.7 98.7 Pulse 75 96 88 Resp 13 25 17 B/P (MAP) 101/68 (79) 132/97 (109) 116/70 (85) Pulse Ox 100 100 100 O2 Delivery Room Air Room Air Room Air Room Air 05/08/18 05/08/18 06:00 07:00 Pulse 96 84 Resp 18 15 B/P (MAP) 124/84 (97) 133/89 (104) Pulse Ox 100 100 O2 Delivery Room Air Room Air Intake and Output 05/07/18 05/07/18 05/08/18 15:00 23:00 07:00 Intake Total 188.26 ml 141.87 ml 583 ml Output Total 2025 ml 500 ml 180 ml Balance -1836.74 ml -358.13 ml 403 ml ANGÉLICA MURILLO MD May 08, 2018 10:12
--- NOTE | 2018-05-08 14:20 | PDOC ---
PROGRESS NOTES Chief Complaint Chief Complaint seizure, provoked symptomatic hyponatremia, report of excessive water intake, fluid overload, hypovolemic most likely, still making almost 500mls urine/hr Bipolar or schizophrenia, Incarcerated patient, urinary retention, trauma, hematuria History of Present Illness History of Present Illness more alert, talkative today some trauma to urethra last night, confused and trying to remove the wise Urol consulted ,will try to place wise Vitals Vitals Vital Signs Date Time Temp Pulse Resp B/P (MAP) Pulse Ox O2 Delivery O2 Flow Rate FiO2 05/08/18 13:00 118 18 117/77 (90) 100 Room Air 05/08/18 12:00 98.5 98.5 Physical Exam General: Alert, Oriented X3, Cooperative, No acute distress, Other (lethargic, obtunded) Heart: Regular rate, Normal S2, No murmurs Lungs: Clear Abdomen: Normal bowel sounds, Soft, No tenderness Extremities: Normal pulses Skin: No rashes, No significant lesion Labs LABS Laboratory Tests Test 05/07/18 18:20 05/07/18 22:20 05/08/18 05:15 Sodium Level 131 mmol/L (136-145) 129 mmol/L (136-145) 130 mmol/L (136-145) Potassium Level 3.1 mmol/L (3.5-5.1) 3.0 mmol/L (3.5-5.1) 2.9 mmol/L (3.5-5.1) Chloride Level 99 mmol/L (98-107) 99 mmol/L (98-107) 99 mmol/L (98-107) Carbon Dioxide Level 23 mmol/L (21-32) 25 mmol/L (21-32) 24 mmol/L (21-32) Anion Gap 9 (6-14) 5 (6-14) 7 (6-14) Blood Urea Nitrogen 3 mg/dL (8-26) 3 mg/dL (8-26) 3 mg/dL (8-26) Creatinine 0.7 mg/dL (0.7-1.3) 0.7 mg/dL (0.7-1.3) 0.8 mg/dL (0.7-1.3) Estimated GFR (Cockcroft-Gault) 128.3 128.3 110.0 Glucose Level 112 mg/dL (70-99) 110 mg/dL (70-99) 104 mg/dL (70-99) Calcium Level 8.3 mg/dL (8.5-10.1) 8.3 mg/dL (8.5-10.1) 8.3 mg/dL (8.5-10.1) White Blood Count 8.6 x10^3/uL (4.0-11.0) Red Blood Count 4.07 x10^6/uL (4.30-5.70) Hemoglobin 12.6 g/dL (13.0-17.5) Hematocrit 34.2 % (39.0-53.0) Mean Corpuscular Volume 84 fL (79-100) Mean Corpuscular Hemoglobin 31 pg (25-35) Mean Corpuscular Hemoglobin Concent 37 g/dL (31-37) Red Cell Distribution Width 13.4 % (11.5-14.5) Platelet Count 160 x10^3/uL (140-400) Neutrophils (%) (Auto) 62 % (31-73) Lymphocytes (%) (Auto) 28 % (24-48) Monocytes (%) (Auto) 9 % (0-9) Eosinophils (%) (Auto) 0 % (0-3) Basophils (%) (Auto) 0 % (0-3) Neutrophils # (Auto) 5.4 x10^3uL (1.8-7.7) Lymphocytes # (Auto) 2.4 x10^3/uL (1.0-4.8) Monocytes # (Auto) 0.8 x10^3/uL (0.0-1.1) Eosinophils # (Auto) 0.0 x10^3/uL (0.0-0.7) Basophils # (Auto) 0.0 x10^3/uL (0.0-0.2) BUN/Creatinine Ratio 4 (6-20) Total Bilirubin 0.8 mg/dL (0.2-1.0) Aspartate Amino Transf (AST/SGOT) 379 U/L (15-37) Alanine Aminotransferase (ALT/SGPT) 83 U/L (16-63) Alkaline Phosphatase 93 U/L (46-116) Total Protein 7.5 g/dL (6.4-8.2) Albumin 3.8 g/dL (3.4-5.0) Albumin/Globulin Ratio 1.0 (1.0-1.7) Comment Review of Relevant I have reviewed the following items catarina (where applicable) has been applied. Labs Laboratory Tests Test 05/06/18 22:51 05/06/18 23:02 05/06/18 23:04 05/06/18 23:18 White Blood Count 14.2 x10^3/uL (4.0-11.0) Red Blood Count 3.87 x10^6/uL (4.30-5.70) Hemoglobin 11.9 g/dL (13.0-17.5) Hematocrit 32.2 % (39.0-53.0) Mean Corpuscular Volume 83 fL (79-100) Mean Corpuscular Hemoglobin 31 pg (25-35) Mean Corpuscular Hemoglobin Concent 37 g/dL (31-37) Red Cell Distribution Width 13.3 % (11.5-14.5) Platelet Count 141 x10^3/uL (140-400) Neutrophils (%) (Auto) 88 % (31-73) Lymphocytes (%) (Auto) 7 % (24-48) Monocytes (%) (Auto) 4 % (0-9) Eosinophils (%) (Auto) 0 % (0-3) Basophils (%) (Auto) 0 % (0-3) Neutrophils # (Auto) 12.5 x10^3uL (1.8-7.7) Lymphocytes # (Auto) 1.0 x10^3/uL (1.0-4.8) Monocytes # (Auto) 0.6 x10^3/uL (0.0-1.1) Eosinophils # (Auto) 0.0 x10^3/uL (0.0-0.7) Basophils # (Auto) 0.0 x10^3/uL (0.0-0.2) Segmented Neutrophils % 74 % (35-66) Band Neutrophils % 17 % (0-9) Lymphocytes % 8 % (24-48) Monocytes % 1 % (0-10) Platelet Estimate Adequate (ADEQUATE) Sodium Level 113 mmol/L (136-145) Potassium Level 2.9 mmol/L (3.5-5.1) Chloride Level 82 mmol/L (98-107) Carbon Dioxide Level 19 mmol/L (21-32) Anion Gap 12 (6-14) Blood Urea Nitrogen 3 mg/dL (8-26) Creatinine 0.9 mg/dL (0.7-1.3) Estimated GFR (Cockcroft-Gault) 96.0 BUN/Creatinine Ratio 3 (6-20) Glucose Level 112 mg/dL (70-99) Lactic Acid Level 6.4 mmol/L (0.4-2.0) Calcium Level 7.9 mg/dL (8.5-10.1) Total Bilirubin 0.8 mg/dL (0.2-1.0) Aspartate Amino Transf (AST/SGOT) 40 U/L (15-37) Alanine Aminotransferase (ALT/SGPT) 72 U/L (16-63) Alkaline Phosphatase 93 U/L (46-116) Troponin I Quantitative < 0.017 ng/mL (0.000-0.055) Total Protein 7.0 g/dL (6.4-8.2) Albumin 3.7 g/dL (3.4-5.0) Albumin/Globulin Ratio 1.1 (1.0-1.7) Urine Collection Type Unknown Urine Color Yellow Urine Clarity Cloudy Urine pH 5.0 Urine Specific Carrie 1.010 Urine Protein Negative mg/dL (NEG-TRACE) Urine Glucose (UA) Negative mg/dL (NEG) Urine Ketones (Stick) Negative mg/dL (NEG) Urine Blood Trace (NEG) Urine Nitrite Negative (NEG) Urine Bilirubin Negative (NEG) Urine Urobilinogen Dipstick 0.2 mg/dL (0.2 mg/dL) Urine Leukocyte Esterase Negative (NEG) Urine RBC Occ /HPF (0-2) Urine WBC Occ /HPF (0-4) Urine Squamous Epithelial Cells None /LPF Urine Bacteria 0 /HPF (0-FEW) Urine Opiates Screen Neg (NEG) Urine Methadone Screen Neg (NEG) Urine Barbiturates Neg (NEG) Urine Phencyclidine Screen Neg (NEG) Urine Amphetamine/Methamphetamine Neg (NEG) Urine Benzodiazepines Screen Pos (NEG) Urine Cocaine Screen Neg (NEG) Urine Cannabinoids Screen Neg (NEG) Urine Ethyl Alcohol Neg (NEG) O2 Saturation 95 % (92-99) Arterial Blood pH 7.39 (7.35-7.45) Arterial Blood pCO2 at Patient Temp 30 mmHg (35-46) Arterial Blood pO2 at Patient Temp 83 mmHg (85-108) Arterial Blood HCO3 17 mmol/L (21-28) Arterial Blood Base Excess -7 mmol/L (-3-3) FiO2 21 Prothrombin Time 15.0 SEC (11.7-14.0) Prothromb Time International Ratio 1.2 (0.8-1.1) Test 05/07/18 01:25 05/07/18 02:41 05/07/18 04:56 05/07/18 10:25 Nasal Screen MRSA (PCR) Negative (Negative) Lactic Acid Level 0.7 mmol/L (0.4-2.0) Sodium Level 127 mmol/L (136-145) 132 mmol/L (136-145) Potassium Level 3.1 mmol/L (3.5-5.1) 3.2 mmol/L (3.5-5.1) Chloride Level 95 mmol/L (98-107) 100 mmol/L (98-107) Carbon Dioxide Level 21 mmol/L (21-32) 23 mmol/L (21-32) Anion Gap 11 (6-14) 9 (6-14) Blood Urea Nitrogen 2 mg/dL (8-26) 3 mg/dL (8-26) Creatinine 0.7 mg/dL (0.7-1.3) 0.7 mg/dL (0.7-1.3) Estimated GFR (Cockcroft-Gault) 128.3 128.3 Glucose Level 124 mg/dL (70-99) 119 mg/dL (70-99) Calcium Level 8.0 mg/dL (8.5-10.1) 8.3 mg/dL (8.5-10.1) Magnesium Level 2.1 mg/dL (1.8-2.4) Test 05/07/18 13:35 05/07/18 18:20 05/07/18 22:20 05/08/18 05:15 Sodium Level 133 mmol/L (136-145) 131 mmol/L (136-145) 129 mmol/L (136-145) 130 mmol/L (136-145) Potassium Level 3.2 mmol/L (3.5-5.1) 3.1 mmol/L (3.5-5.1) 3.0 mmol/L (3.5-5.1) 2.9 mmol/L (3.5-5.1) Chloride Level 99 mmol/L (98-107) 99 mmol/L (98-107) 99 mmol/L (98-107) 99 mmol/L (98-107) Carbon Dioxide Level 22 mmol/L (21-32) 23 mmol/L (21-32) 25 mmol/L (21-32) 24 mmol/L (21-32) Anion Gap 12 (6-14) 9 (6-14) 5 (6-14) 7 (6-14) Blood Urea Nitrogen 2 mg/dL (8-26) 3 mg/dL (8-26) 3 mg/dL (8-26) 3 mg/dL (8- 26) Creatinine 0.7 mg/dL (0.7-1.3) 0.7 mg/dL (0.7-1.3) 0.7 mg/dL (0.7-1.3) 0.8 mg/dL (0.7-1.3) Estimated GFR (Cockcroft-Gault) 128.3 128.3 128.3 110.0 Glucose Level 118 mg/dL (70-99) 112 mg/dL (70-99) 110 mg/dL (70-99) 104 mg/dL (70-99) Calcium Level 8.6 mg/dL (8.5-10.1) 8.3 mg/dL (8.5-10.1) 8.3 mg/dL (8.5-10.1) 8.3 mg/dL (8.5-10.1) White Blood Count 8.6 x10^3/uL (4.0-11.0) Red Blood Count 4.07 x10^6/uL (4.30-5.70) Hemoglobin 12.6 g/dL (13.0-17.5) Hematocrit 34.2 % (39.0-53.0) Mean Corpuscular Volume 84 fL (79-100) Mean Corpuscular Hemoglobin 31 pg (25-35) Mean Corpuscular Hemoglobin Concent 37 g/dL (31-37) Red Cell Distribution Width 13.4 % (11.5-14.5) Platelet Count 160 x10^3/uL (140-400) Neutrophils (%) (Auto) 62 % (31-73) Lymphocytes (%) (Auto) 28 % (24-48) Monocytes (%) (Auto) 9 % (0-9) Eosinophils (%) (Auto) 0 % (0-3) Basophils (%) (Auto) 0 % (0-3) Neutrophils # (Auto) 5.4 x10^3uL (1.8-7.7) Lymphocytes # (Auto) 2.4 x10^3/uL (1.0-4.8) Monocytes # (Auto) 0.8 x10^3/uL (0.0-1.1) Eosinophils # (Auto) 0.0 x10^3/uL (0.0-0.7) Basophils # (Auto) 0.0 x10^3/uL (0.0-0.2) BUN/Creatinine Ratio 4 (6-20) Total Bilirubin 0.8 mg/dL (0.2-1.0) Aspartate Amino Transf (AST/SGOT) 379 U/L (15-37) Alanine Aminotransferase (ALT/SGPT) 83 U/L (16-63) Alkaline Phosphatase 93 U/L (46-116) Total Protein 7.5 g/dL (6.4-8.2) Albumin 3.8 g/dL (3.4-5.0) Albumin/Globulin Ratio 1.0 (1.0-1.7) Laboratory Tests Test 05/07/18 18:20 05/07/18 22:20 05/08/18 05:15 Sodium Level 131 mmol/L (136-145) 129 mmol/L (136-145) 130 mmol/L (136-145) Potassium Level 3.1 mmol/L (3.5-5.1) 3.0 mmol/L (3.5-5.1) 2.9 mmol/L (3.5-5.1) Chloride Level 99 mmol/L (98-107) 99 mmol/L (98-107) 99 mmol/L (98-107) Carbon Dioxide Level 23 mmol/L (21-32) 25 mmol/L (21-32) 24 mmol/L (21-32) Anion Gap 9 (6-14) 5 (6-14) 7 (6-14) Blood Urea Nitrogen 3 mg/dL (8-26) 3 mg/dL (8-26) 3 mg/dL (8-26) Creatinine 0.7 mg/dL (0.7-1.3) 0.7 mg/dL (0.7-1.3) 0.8 mg/dL (0.7-1.3) Estimated GFR (Cockcroft-Gault) 128.3 128.3 110.0 Glucose Level 112 mg/dL (70-99) 110 mg/dL (70-99) 104 mg/dL (70-99) Calcium Level 8.3 mg/dL (8.5-10.1) 8.3 mg/dL (8.5-10.1) 8.3 mg/dL (8.5-10.1) White Blood Count 8.6 x10^3/uL (4.0-11.0) Red Blood Count 4.07 x10^6/uL (4.30-5.70) Hemoglobin 12.6 g/dL (13.0-17.5) Hematocrit 34.2 % (39.0-53.0) Mean Corpuscular Volume 84 fL (79-100) Mean Corpuscular Hemoglobin 31 pg (25-35) Mean Corpuscular Hemoglobin Concent 37 g/dL (31-37) Red Cell Distribution Width 13.4 % (11.5-14.5) Platelet Count 160 x10^3/uL (140-400) Neutrophils (%) (Auto) 62 % (31-73) Lymphocytes (%) (Auto) 28 % (24-48) Monocytes (%) (Auto) 9 % (0-9) Eosinophils (%) (Auto) 0 % (0-3) Basophils (%) (Auto) 0 % (0-3) Neutrophils # (Auto) 5.4 x10^3uL (1.8-7.7) Lymphocytes # (Auto) 2.4 x10^3/uL (1.0-4.8) Monocytes # (Auto) 0.8 x10^3/uL (0.0-1.1) Eosinophils # (Auto) 0.0 x10^3/uL (0.0-0.7) Basophils # (Auto) 0.0 x10^3/uL (0.0-0.2) BUN/Creatinine Ratio 4 (6-20) Total Bilirubin 0.8 mg/dL (0.2-1.0) Aspartate Amino Transf (AST/SGOT) 379 U/L (15-37) Alanine Aminotransferase (ALT/SGPT) 83 U/L (16-63) Alkaline Phosphatase 93 U/L (46-116) Total Protein 7.5 g/dL (6.4-8.2) Albumin 3.8 g/dL (3.4-5.0) Albumin/Globulin Ratio 1.0 (1.0-1.7) Microbiology 05/06/18 Blood Culture - Preliminary, Resulted NO GROWTH AFTER 1 DAY Medications Current Medications Sodium Chloride 1,000 ml @ 1,000 mls/hr 1X ONCE IV Last administered on at 22:55; Start 05/06/18 at 23:00; Stop 05/06/18 at 23:59; Status DC Sodium Chloride 500 ml @ 50 mls/hr 1X ONCE IV Last administered on 05/07/18at 01:10; Start 05/07/18 at 00:30; Stop 05/07/18 at 10:29; Status DC Haloperidol (Haldol) 5 mg PRN Q6HRS PRN PO AGITATION; Start 05/07/18 at 08:45 Enoxaparin Sodium (Lovenox 40mg Syringe) 40 mg DAILY SQ Last administered on 05/07/18at 12:44; Start 05/07/18 at 10:00 Olanzapine (ZyPREXA ZYDIS) 5 mg HS PO Last administered on 05/07/18at 20:37; Start 05/07/18 at 21:00 Lorazepam (Ativan) 2 mg PRN Q4HRS PRN IV ANXIETY / AGITATION Last administered on 05/08/18at 09:34; Start 05/07/18 at 09:00 Potassium Chloride (Klor-Con) 40 meq 1X ONCE PO ; Start 05/07/18 at 09:30; Stop 05/07/18 at 09:31; Status DC Potassium Chloride (Klor-Con) 20 meq DAILYWBKFT PO ; Start 05/08/18 at 08:00 Desmopressin Acetate (Ddavp) 2 mcg 1X ONCE SQ Last administered on 05/07/18at 12 :44; Start 05/07/18 at 12:30; Stop 05/07/18 at 12:31; Status DC Ondansetron HCl (Zofran) 4 mg STK-MED ONCE .ROUTE ; Start 05/07/18 at 13:34; Stop 05/07/18 at 13:35; Status DC Ondansetron HCl (Zofran) 4 mg STK-MED ONCE .ROUTE ; Start 05/07/18 at 13:35; Stop 05/07/18 at 13:36; Status DC Ondansetron HCl (Zofran) 8 mg PRN Q6HRS PRN IV NAUSEA/VOMITING Last administered on 05/07/18at 13:41; Start 05/07/18 at 13:45 Dextrose 1,000 ml @ 50 mls/hr Q20H IV Last administered on 05/07/18at 14:43; Start 05/07/18 at 15:00 Desmopressin Acetate (Ddavp) 2 mcg 1X ONCE SQ Last administered on 05/07/18at 19 :31; Start 05/07/18 at 18:30; Stop 05/07/18 at 18:31; Status DC Potassium Chloride/Water 50 ml @ 50 mls/hr 1X ONCE IV Last administered on 05/08at 06:46; Start 05/08/18 at 07:00; Stop 05/08/18 at 07:59; Status DC Lidocaine HCl (Glydo (Lidocaine) Jelly) 1 dayanna 1X ONCE MM Last administered on 05/08/18at 09:00; Start 05/08/18 at 09:00; Stop 05/08/18 at 09:01; Status DC Lorazepam (Ativan) 2 mg 1X ONCE IV ; Start 05/08/18 at 10:45; Stop 05/08/18 at 10 :46; Status DC Active Scripts Active Reported Haloperidol Decanoate 100 Mg/1 Ml Vial 100 Mg IM Zyprexa (Olanzapine) 10 Mg Tablet 1 Tab PO QHS Vitals/I & O Vital Sign - Last 24 Hours 05/07/18 05/07/18 05/07/18 05/07/18 15:00 16:00 16:00 17:00 Temp 98.5 98.5 Pulse 103 97 86 Resp 20 16 14 B/P (MAP) 124/71 (88) 125/71 (89) 135/78 (97) Pulse Ox 96 97 97 O2 Delivery Room Air Room Air Room Air Room Air 05/07/18 05/07/18 05/07/18 05/07/18 18:00 19:00 20:00 20:00 Temp 98.9 98.9 Pulse 89 86 80 Resp 16 15 14 B/P (MAP) 134/78 (96) 119/70 (86) 123/73 (90) Pulse Ox 97 100 100 O2 Delivery Room Air Room Air Room Air Room Air 05/07/18 05/07/18 05/07/18 05/07/18 21:00 22:00 23:00 23:57 Pulse 84 79 81 Resp 14 13 12 B/P (MAP) 131/82 (98) 106/62 (77) 102/58 (73) Pulse Ox 100 100 99 O2 Delivery Room Air Room Air Room Air Room Air 05/08/18 05/08/18 05/08/18 05/08/18 00:00 01:00 02:00 03:00 Temp 99.5 99.5 Pulse 76 75 86 75 Resp 13 14 22 13 B/P (MAP) 128/85 (99) 107/65 (79) 91/66 (74) 101/68 (79) Pulse Ox 100 100 99 100 O2 Delivery Room Air Room Air Room Air Room Air 05/08/18 05/08/18 05/08/18 05/08/18 04:00 04:00 05:00 06:00 Temp 98.7 98.7 Pulse 96 88 96 Resp 25 17 18 B/P (MAP) 132/97 (109) 116/70 (85) 124/84 (97) Pulse Ox 100 100 100 O2 Delivery Room Air Room Air Room Air Room Air 05/08/18 05/08/18 05/08/18 05/08/18 07:00 08:00 08:00 09:00 Temp 98.5 98.5 Pulse 84 90 114 Resp 15 14 19 B/P (MAP) 133/89 (104) 128/80 (96) 144/83 (103) Pulse Ox 100 98 100 O2 Delivery Room Air Room Air Room Air Room Air 05/08/18 05/08/18 05/08/18 05/08/18 10:00 11:00 12:00 12:00 Temp 98.5 98.5 Pulse 108 122 122 Resp 20 18 17 B/P (MAP) 134/89 (104) 160/102 (121) 127/74 (91) Pulse Ox 100 100 98 O2 Delivery Room Air Room Air Room Air Room Air 05/08/18 13:00 Pulse 118 Resp 18 B/P (MAP) 117/77 (90) Pulse Ox 100 O2 Delivery Room Air Intake and Output 05/07/18 05/07/18 05/08/18 15:00 23:00 07:00 Intake Total 188.26 ml 141.87 ml 583 ml Output Total 2025 ml 500 ml 180 ml Balance -1836.74 ml -358.13 ml 403 ml MARCELO CHI MD May 08, 2018 14:20
[2018-05-08] MEDS ORDERED: CIPROFLOXACIN 400MG PREMIX 200 ML IV ONE (15:00)
[2018-05-08 15:04] LABS: CALCIUM 8.2 mg/dL (8.5-10.1); CREATININE 0.8 mg/dL (0.7-1.3); POTASSIUM 3.6 mmol/L (3.5-5.1)
[2018-05-08] MEDS: IV DEXTROSE 5% 1,000 ML IV SCH (15:07)
[2018-05-08 15:18] LABS: BASO % 0 % (0-3); EOS % 0 % (0-3); HEMATOCRIT 33.9 % (39.0-53.0); HEMOGLOBIN 12.2 g/dL (13.0-17.5); LYMPH # 1.1 x10^3/uL (1.0-4.8); LYMPH % 9 % (24-48); MEAN CORPUSCULAR HEMOGLOBIN 31 pg (25-35); MEAN CORPUSCULAR HGB CONC 36 g/dL (31-37); MEAN CORPUSCULAR VOLUME 85 fL (79-100); MONO # 0.7 x10^3/uL (0.0-1.1); MONO % 6 % (0-9); NEUT # 10.7 x10^3uL (1.8-7.7); NEUT % 85 % (31-73); PLATELET COUNT 150 x10^3/uL (140-400); RED BLOOD COUNT 3.98 x10^6/uL (4.30-5.70); RED CELL DISTRIBUTION WIDTH 13.7 % (11.5-14.5); WHITE BLOOD COUNT 12.6 x10^3/uL (4.0-11.0)
[2018-05-08] MEDS ORDERED: ACETAMINOPHEN 650 MG SUPP.RECT. PR PRN (15:30)
[2018-05-08] MEDS: cefTRIAXone IV Push 1 GM VIAL. IVP SCH (15:49)
--- NOTE | 2018-05-08 15:54 | RAD ---
Portable chest, 05/08/2018: HISTORY: Fever Comparison is made to a study from 05/07/2018. A right subclavian central venous catheter remains in place extending to the level of the atriocaval junction. The heart size and pulmonary vascularity are normal. No pulmonary infiltrate is seen. There is no evidence of pleural fluid. IMPRESSION: No acute cardiopulmonary abnormality is detected. Electronically signed by: Olayinka Cochran MD (05/08/2018 3:50 PM) [facility]
[2018-05-08] MEDS ORDERED: PROPOFOL 20 ML IV ONE (16:04)
[2018-05-08] MEDS ORDERED: fentaNYL PF VIAL 100 MCG/2 ML VIAL ONE (16:11)
[2018-05-08] MEDS ORDERED: ONDANSETRON PF 4 MG/2 ML VIAL. ONE (16:17)
[2018-05-08] MEDS ORDERED: DEXAMETHASONE SOD PHOS 20 MG/5 ML VIAL. ONE (16:18)
[2018-05-08 16:24] LABS: % BANDS 4 % (0-9); % LYMPHS 8 % (24-48); % MONOS 6 % (0-10); % SEGS 82 % (35-66); PLT ESTIMATE ADEQUATE (ADEQUATE)
--- NOTE | 2018-05-08 17:02 | PDOC4 ---
OPERATIVE NOTE Pre-Op Diagnosis: urethra trauma Post-Op Diagnosis: same Procedure Performed: rigid cysto, complex cath placement Surgeon: Anesthesia Type: ga Blood Loss: 2ml Specimans Obtained: none Findings: penile and bulbar urethra trauma w false passage. Complications: none evident REBECCA HERRERA MD May 08, 2018 17:02
--- NOTE | 2018-05-08 17:45 | OP ---
DATE OF SURGERY: PREOPERATIVE DIAGNOSIS: Urethral trauma. POSTOPERATIVE DIAGNOSIS: Urethral trauma. PROCEDURE: Rigid cystoscopy with complex catheter placement. SURGEON: Kathi Crow MD ANESTHESIA: General. CONDITION: Stable. COMPLICATIONS: None. FINDINGS: Penile and bulbar urethral trauma with false passages. No significant blood clot was noted in the bladder. There was no evidence of urethral disruption. PROCEDURE IN DETAIL: The patient was taken back to the procedure room and placed under general anesthesia in supine position per the protocol. He was prepped and draped in the usual sterile fashion in dorsal lithotomy position. Suprapubic area was shaved off and prepped in preparation for possible suprapubic tube. A 21-[place]ian rigid cystoscope was advanced per meatus into the penile urethra. He had a lot of clots, which were irrigated under direct vision. I managed to find the true lumen away from the false passages and managed to navigate this hole into the bladder. A Sensor wire was placed under direct vision into the bladder. Small clots were irrigated from the bladder. The cystoscope was removed and a 20-[place] Coun[place]ill tip catheter was placed over the wire into the bladder. Bladder was irrigated with clear urine in return. A 12 mL was placed in the balloon. The patient was awakened and taken to the ICU in stable condition. DISPOSITION: We will keep the catheter for about 10 days, voiding trial afterwards. KATHI CROW MD DR: MELINDA/kamini JOB#: [id number] / [id number]
[2018-05-09] VITALS (16 sets, daily range): BP systolic 86–126; BP diastolic 43–92
[2018-05-09] MEDS: IV DEXTROSE 5% 1,000 ML IV SCH (00:19)
[2018-05-09 05:36] LABS: BASO % 0 % (0-3); EOS % 0 % (0-3); HEMATOCRIT 34.2 % (39.0-53.0); HEMOGLOBIN 12.4 g/dL (13.0-17.5); LYMPH # 1.5 x10^3/uL (1.0-4.8); LYMPH % 7 % (24-48); MEAN CORPUSCULAR HEMOGLOBIN 31 pg (25-35); MEAN CORPUSCULAR HGB CONC 36 g/dL (31-37); MEAN CORPUSCULAR VOLUME 86 fL (79-100); MONO # 0.7 x10^3/uL (0.0-1.1); MONO % 3 % (0-9); NEUT # 20.2 x10^3uL (1.8-7.7); NEUT % 90 % (31-73); PLATELET COUNT 158 x10^3/uL (140-400); RED BLOOD COUNT 3.99 x10^6/uL (4.30-5.70); RED CELL DISTRIBUTION WIDTH 13.3 % (11.5-14.5); WHITE BLOOD COUNT 22.5 x10^3/uL (4.0-11.0)
[2018-05-09 05:49] LABS: CALCIUM 8.7 mg/dL (8.5-10.1); CREATININE 0.8 mg/dL (0.7-1.3); POTASSIUM 3.9 mmol/L (3.5-5.1)
[2018-05-09] MEDS: POTASSIUM CHLORIDE 20 MEQ TABLET.ER. PO SCH (08:58)
[2018-05-09] MEDS: ENOXAPARIN 40 MG/0.4 ML SYRINGE. SQ SCH (08:58)
[2018-05-09] MEDS ORDERED: VANCOMYCIN 2 GM in IV NORMAL SALINE 500ML BAG 500 ML IV ONE (09:00)
--- NOTE | 2018-05-09 09:01 | PDOC ---
SUBJECTIVE ROS Awake, alert, No complaints/concerns voiced by pt and RN Answering questions appropriately OBJECTIVE Vital Signs Vital Signs Date Time Temp Pulse Resp B/P (MAP) Pulse Ox O2 Delivery O2 Flow Rate FiO2 05/09/18 08:00 Room Air 05/09/18 08:00 98.0 104 18 116/70 (85) 99 98.0 05/08/18 17:47 2 I & 0 Intake and Output 05/09/18 07:00 Intake Total 1862.26 ml Output Total 3160 ml Balance -1297.74 ml Intake Oral 0 ml IV Total 1862.26 ml Output Urine Total 3160 ml # Voids 1 PHYSICAL EXAM Physical Exam GEN: NAD, HEENT- Unremarkable, OM moist NECK: No JVD , supple CVS: S1S2, , No mgr RESP: CTA Bilat, No use of access Muscles GI: BS + ve, NO Bruit, Non Tender, Non Distended : No CVA tenderness, No Suprapubic Tenderness, [place]+ Skin No rash Neuro- AXOX3 DIAGNOSIS/ASSESSMENT Assessment & Plan Critical Hyponatremia- with Seizures , resolved sodium at admission 113 with urinary retention of 4 lts Overcorrected with 3% , Recd DDAVp and IV D5W , Na stable Hypokalemia - normal K today Urethral trauma - S/P Rigid cystoscopy with complex catheter placement. 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 HepB/Hep C - Not known if treated Paranoid Schizophrenia - Follows with Psych COMMENT/RELEVANT DATA Meds Current Medications Medications (Trade) Dose Ordered Sig/Rommel Start Time Stop Time Status Last Admin Dose Admin Acetaminophen (Tylenol Supp) 650 mg PRN Q6HRS PRN 05/08/18 15:30 05/08/18 15:49 650 MG Ceftriaxone Sodium 1 gm/ Dextrose 50 ml @ 100 mls/hr Q24H 05/08/18 15:30 UNV Ceftriaxone Sodium (Rocephin) 1 gm Q24H 05/08/18 16:00 05/08/18 15:49 1 GM Ciprofloxacin/ Dextrose 200 ml @ 200 mls/hr 1X ONCE 05/08/18 15:00 05/08/18 15:59 DC 05/08/18 15:07 200 MLS/HR Desmopressin Acetate (Ddavp) 2 mcg 1X ONCE 05/07/18 18:30 05/07/18 18:31 DC 05/07/18 19:31 2 MCG Dexamethasone Sodium Phosphate (Decadron) 20 mg STK-MED ONCE 05/08/18 16:18 05/08/18 16:19 DC Dextrose 1,000 ml @ 50 mls/hr Q20H 05/07/18 15:00 05/09/18 00:19 50 MLS/HR Enoxaparin Sodium (Lovenox 40mg Syringe) 40 mg DAILY 05/07/18 10:00 05/07/18 12:44 40 MG Fentanyl Citrate (Fentanyl 2ml Vial) 100 mcg STK-MED ONCE 05/08/18 16:11 05/08/18 16:12 DC Haloperidol (Haldol) 5 mg PRN Q6HRS PRN 05/07/18 08:45 Lidocaine HCl (Glydo (Lidocaine) Jelly) 1 dayanna 1X ONCE 05/08/18 09:00 05/08/18 09:01 DC 05/08/18 09:00 1 DAYANNA Lorazepam (Ativan) 2 mg 1X ONCE 05/08/18 10:45 05/08/18 10:46 DC 05/08/18 13:00 2 MG Olanzapine (ZyPREXA ZYDIS) 5 mg HS 05/07/18 21:00 05/08/18 22:04 5 MG Ondansetron HCl (Zofran) 4 mg STK-MED ONCE 05/08/18 16:17 05/08/18 16:18 DC Oxycodone/ Acetaminophen (Percocet 5/325) 1 tab PRN Q6HRS PRN 05/09/18 06:45 Potassium Chloride/Water 50 ml @ 50 mls/hr 1X ONCE 05/08/18 07:00 05/08/18 07:59 DC 05/08/18 06:46 50 MLS/HR Potassium Chloride (Klor-Con) 20 meq DAILYWBKFT 05/08/18 08:00 Propofol 20 ml @ As Directed STK-MED ONCE 05/08/18 16:04 05/08/18 16:05 DC Sodium Chloride 500 ml @ 50 mls/hr 1X ONCE 05/07/18 00:30 05/07/18 10:29 DC 05/07/18 01:10 50 MLS/HR Vancomycin HCl (Vanco Per Pharmacy) 1 each PRN DAILY PRN 05/09/18 08:00 Vancomycin HCl 2 gm/Sodium Chloride 500 ml @ 250 mls/hr 1X ONCE 05/09/18 09:00 05/09/18 10:59 Lab Laboratory Tests Test 05/08/18 14:40 05/08/18 15:00 05/09/18 05:30 White Blood Count 12.6 x10^3/uL (4.0-11.0) 22.5 x10^3/uL (4.0-11.0) Red Blood Count 3.98 x10^6/uL (4.30-5.70) 3.99 x10^6/uL (4.30-5.70) Hemoglobin 12.2 g/dL (13.0-17.5) 12.4 g/dL (13.0-17.5) Hematocrit 33.9 % (39.0-53.0) 34.2 % (39.0-53.0) Mean Corpuscular Volume 85 fL (79-100) 86 fL (79-100) Mean Corpuscular Hemoglobin 31 pg (25-35) 31 pg (25-35) Mean Corpuscular Hemoglobin Concent 36 g/dL (31-37) 36 g/dL (31-37) Red Cell Distribution Width 13.7 % (11.5-14.5) 13.3 % (11.5-14.5) Platelet Count 150 x10^3/uL (140-400) 158 x10^3/uL (140-400) Neutrophils (%) (Auto) 85 % (31-73) 90 % (31-73) Lymphocytes (%) (Auto) 9 % (24-48) 7 % (24-48) Monocytes (%) (Auto) 6 % (0-9) 3 % (0-9) Eosinophils (%) (Auto) 0 % (0-3) 0 % (0-3) Basophils (%) (Auto) 0 % (0-3) 0 % (0-3) Neutrophils # (Auto) 10.7 x10^3uL (1.8-7.7) 20.2 x10^3uL (1.8-7.7) Lymphocytes # (Auto) 1.1 x10^3/uL (1.0-4.8) 1.5 x10^3/uL (1.0-4.8) Monocytes # (Auto) 0.7 x10^3/uL (0.0-1.1) 0.7 x10^3/uL (0.0-1.1) Eosinophils # (Auto) 0.0 x10^3/uL (0.0-0.7) 0.0 x10^3/uL (0.0-0.7) Basophils # (Auto) 0.0 x10^3/uL (0.0-0.2) 0.0 x10^3/uL (0.0-0.2) Segmented Neutrophils % 82 % (35-66) Band Neutrophils % 4 % (0-9) Lymphocytes % 8 % (24-48) Monocytes % 6 % (0-10) Platelet Estimate Adequate (ADEQUATE) Sodium Level 134 mmol/L (136-145) 133 mmol/L (136-145) Potassium Level 3.6 mmol/L (3.5-5.1) 3.9 mmol/L (3.5-5.1) Chloride Level 100 mmol/L (98-107) 102 mmol/L (98-107) Carbon Dioxide Level 23 mmol/L (21-32) 23 mmol/L (21-32) Anion Gap 11 (6-14) 8 (6-14) Blood Urea Nitrogen 3 mg/dL (8-26) 9 mg/dL (8-26) Creatinine 0.8 mg/dL (0.7-1.3) 0.8 mg/dL (0.7-1.3) Estimated GFR (Cockcroft-Gault) 110.0 110.0 Glucose Level 122 mg/dL (70-99) 127 mg/dL (70-99) Calcium Level 8.2 mg/dL (8.5-10.1) 8.7 mg/dL (8.5-10.1) Lactic Acid Level 2.8 mmol/L (0.4-2.0) Results All relevant outside records, renal labs, imaging studies, telemetry/EKG's were reviewed. AMADO OCAMPO MD May 09, 2018 09:01
--- NOTE | 2018-05-09 09:01 | PDOC ---
PROGRESS NOTES Chief Complaint Chief Complaint seizure, provoked symptomatic hyponatremia, report of excessive water intake, fluid overload, hypovolemic most likely, still making almost 500mls urine/hr Bipolar or schizophrenia, Incarcerated patient, urinary retention, trauma, hematuria sepsis bacteremia, new 05/09 History of Present Illness History of Present Illness Vanc added to rocephin, he imrproved from fever and tachycardia yesterday with rocephin, s/p surg for urinary retention, hematuria up and awake, eating OK , no complaint will transfer to floor ID conuslt today Vitals Vitals Vital Signs Date Time Temp Pulse Resp B/P (MAP) Pulse Ox O2 Delivery O2 Flow Rate FiO2 05/09/18 08:00 Room Air 05/09/18 08:00 98.0 104 18 116/70 (85) 99 98.0 05/08/18 17:47 2 Physical Exam General: Alert, Oriented X3, Cooperative, No acute distress, Other (lethargic, obtunded) Heart: Regular rate, Normal S2, No murmurs Lungs: Clear Abdomen: Normal bowel sounds, Soft, No tenderness Extremities: Normal pulses Skin: No rashes, No significant lesion Labs LABS Laboratory Tests Test 05/08/18 14:40 05/08/18 15:00 05/09/18 05:30 White Blood Count 12.6 x10^3/uL (4.0-11.0) 22.5 x10^3/uL (4.0-11.0) Red Blood Count 3.98 x10^6/uL (4.30-5.70) 3.99 x10^6/uL (4.30-5.70) Hemoglobin 12.2 g/dL (13.0-17.5) 12.4 g/dL (13.0-17.5) Hematocrit 33.9 % (39.0-53.0) 34.2 % (39.0-53.0) Mean Corpuscular Volume 85 fL (79-100) 86 fL (79-100) Mean Corpuscular Hemoglobin 31 pg (25-35) 31 pg (25-35) Mean Corpuscular Hemoglobin Concent 36 g/dL (31-37) 36 g/dL (31-37) Red Cell Distribution Width 13.7 % (11.5-14.5) 13.3 % (11.5-14.5) Platelet Count 150 x10^3/uL (140-400) 158 x10^3/uL (140-400) Neutrophils (%) (Auto) 85 % (31-73) 90 % (31-73) Lymphocytes (%) (Auto) 9 % (24-48) 7 % (24-48) Monocytes (%) (Auto) 6 % (0-9) 3 % (0-9) Eosinophils (%) (Auto) 0 % (0-3) 0 % (0-3) Basophils (%) (Auto) 0 % (0-3) 0 % (0-3) Neutrophils # (Auto) 10.7 x10^3uL (1.8-7.7) 20.2 x10^3uL (1.8-7.7) Lymphocytes # (Auto) 1.1 x10^3/uL (1.0-4.8) 1.5 x10^3/uL (1.0-4.8) Monocytes # (Auto) 0.7 x10^3/uL (0.0-1.1) 0.7 x10^3/uL (0.0-1.1) Eosinophils # (Auto) 0.0 x10^3/uL (0.0-0.7) 0.0 x10^3/uL (0.0-0.7) Basophils # (Auto) 0.0 x10^3/uL (0.0-0.2) 0.0 x10^3/uL (0.0-0.2) Segmented Neutrophils % 82 % (35-66) Band Neutrophils % 4 % (0-9) Lymphocytes % 8 % (24-48) Monocytes % 6 % (0-10) Platelet Estimate Adequate (ADEQUATE) Sodium Level 134 mmol/L (136-145) 133 mmol/L (136-145) Potassium Level 3.6 mmol/L (3.5-5.1) 3.9 mmol/L (3.5-5.1) Chloride Level 100 mmol/L (98-107) 102 mmol/L (98-107) Carbon Dioxide Level 23 mmol/L (21-32) 23 mmol/L (21-32) Anion Gap 11 (6-14) 8 (6-14) Blood Urea Nitrogen 3 mg/dL (8-26) 9 mg/dL (8-26) Creatinine 0.8 mg/dL (0.7-1.3) 0.8 mg/dL (0.7-1.3) Estimated GFR (Cockcroft-Gault) 110.0 110.0 Glucose Level 122 mg/dL (70-99) 127 mg/dL (70-99) Calcium Level 8.2 mg/dL (8.5-10.1) 8.7 mg/dL (8.5-10.1) Lactic Acid Level 2.8 mmol/L (0.4-2.0) Review of Systems Review of Systems no nv.d. appetite good, Comment Review of Relevant I have reviewed the following items catarina (where applicable) has been applied. Labs Laboratory Tests Test 05/07/18 10:25 05/07/18 13:35 05/07/18 18:20 05/07/18 22:20 Sodium Level 132 mmol/L (136-145) 133 mmol/L (136-145) 131 mmol/L (136-145) 129 mmol/L (136-145) Potassium Level 3.2 mmol/L (3.5-5.1) 3.2 mmol/L (3.5-5.1) 3.1 mmol/L (3.5-5.1) 3.0 mmol/L (3.5-5.1) Chloride Level 100 mmol/L (98-107) 99 mmol/L (98-107) 99 mmol/L (98-107) 99 mmol/L (98-107) Carbon Dioxide Level 23 mmol/L (21-32) 22 mmol/L (21-32) 23 mmol/L (21-32) 25 mmol/L (21-32) Anion Gap 9 (6-14) 12 (6-14) 9 (6-14) 5 (6-14) Blood Urea Nitrogen 3 mg/dL (8-26) 2 mg/dL (8-26) 3 mg/dL (8-26) 3 mg/dL (8- 26) Creatinine 0.7 mg/dL (0.7-1.3) 0.7 mg/dL (0.7-1.3) 0.7 mg/dL (0.7-1.3) 0.7 mg/dL (0.7-1.3) Estimated GFR (Cockcroft-Gault) 128.3 128.3 128.3 128.3 Glucose Level 119 mg/dL (70-99) 118 mg/dL (70-99) 112 mg/dL (70-99) 110 mg/dL (70-99) Calcium Level 8.3 mg/dL (8.5-10.1) 8.6 mg/dL (8.5-10.1) 8.3 mg/dL (8.5-10.1) 8.3 mg/dL (8.5-10.1) Test 05/08/18 05:15 05/08/18 14:40 05/08/18 15:00 05/09/18 05:30 White Blood Count 8.6 x10^3/uL (4.0-11.0) 12.6 x10^3/uL (4.0-11.0) 22.5 x10^3/uL (4.0-11.0) Red Blood Count 4.07 x10^6/uL (4.30-5.70) 3.98 x10^6/uL (4.30-5.70) 3.99 x10^6/uL (4.30-5.70) Hemoglobin 12.6 g/dL (13.0-17.5) 12.2 g/dL (13.0-17.5) 12.4 g/dL (13.0-17.5) Hematocrit 34.2 % (39.0-53.0) 33.9 % (39.0-53.0) 34.2 % (39.0-53.0) Mean Corpuscular Volume 84 fL (79-100) 85 fL (79-100) 86 fL (79-100) Mean Corpuscular Hemoglobin 31 pg (25-35) 31 pg (25-35) 31 pg (25-35) Mean Corpuscular Hemoglobin Concent 37 g/dL (31-37) 36 g/dL (31-37) 36 g/dL (31-37) Red Cell Distribution Width 13.4 % (11.5-14.5) 13.7 % (11.5-14.5) 13.3 % (11.5-14.5) Platelet Count 160 x10^3/uL (140-400) 150 x10^3/uL (140-400) 158 x10^3/uL (140-400) Neutrophils (%) (Auto) 62 % (31-73) 85 % (31-73) 90 % (31-73) Lymphocytes (%) (Auto) 28 % (24-48) 9 % (24-48) 7 % (24-48) Monocytes (%) (Auto) 9 % (0-9) 6 % (0-9) 3 % (0-9) Eosinophils (%) (Auto) 0 % (0-3) 0 % (0-3) 0 % (0-3) Basophils (%) (Auto) 0 % (0-3) 0 % (0-3) 0 % (0-3) Neutrophils # (Auto) 5.4 x10^3uL (1.8-7.7) 10.7 x10^3uL (1.8-7.7) 20.2 x10^3uL (1.8-7.7) Lymphocytes # (Auto) 2.4 x10^3/uL (1.0-4.8) 1.1 x10^3/uL (1.0-4.8) 1.5 x10^3/uL (1.0-4.8) Monocytes # (Auto) 0.8 x10^3/uL (0.0-1.1) 0.7 x10^3/uL (0.0-1.1) 0.7 x10^3/uL (0.0-1.1) Eosinophils # (Auto) 0.0 x10^3/uL (0.0-0.7) 0.0 x10^3/uL (0.0-0.7) 0.0 x10^3/uL (0.0-0.7) Basophils # (Auto) 0.0 x10^3/uL (0.0-0.2) 0.0 x10^3/uL (0.0-0.2) 0.0 x10^3/uL (0.0-0.2) Sodium Level 130 mmol/L (136-145) 134 mmol/L (136-145) 133 mmol/L (136-145) Potassium Level 2.9 mmol/L (3.5-5.1) 3.6 mmol/L (3.5-5.1) 3.9 mmol/L (3.5-5.1) Chloride Level 99 mmol/L (98-107) 100 mmol/L (98-107) 102 mmol/L (98-107) Carbon Dioxide Level 24 mmol/L (21-32) 23 mmol/L (21-32) 23 mmol/L (21-32) Anion Gap 7 (6-14) 11 (6-14) 8 (6-14) Blood Urea Nitrogen 3 mg/dL (8-26) 3 mg/dL (8-26) 9 mg/dL (8-26) Creatinine 0.8 mg/dL (0.7-1.3) 0.8 mg/dL (0.7-1.3) 0.8 mg/dL (0.7-1.3) Estimated GFR (Cockcroft-Gault) 110.0 110.0 110.0 BUN/Creatinine Ratio 4 (6-20) Glucose Level 104 mg/dL (70-99) 122 mg/dL (70-99) 127 mg/dL (70-99) Calcium Level 8.3 mg/dL (8.5-10.1) 8.2 mg/dL (8.5-10.1) 8.7 mg/dL (8.5-10.1) Total Bilirubin 0.8 mg/dL (0.2-1.0) Aspartate Amino Transf (AST/SGOT) 379 U/L (15-37) Alanine Aminotransferase (ALT/SGPT) 83 U/L (16-63) Alkaline Phosphatase 93 U/L (46-116) Total Protein 7.5 g/dL (6.4-8.2) Albumin 3.8 g/dL (3.4-5.0) Albumin/Globulin Ratio 1.0 (1.0-1.7) Segmented Neutrophils % 82 % (35-66) Band Neutrophils % 4 % (0-9) Lymphocytes % 8 % (24-48) Monocytes % 6 % (0-10) Platelet Estimate Adequate (ADEQUATE) Lactic Acid Level 2.8 mmol/L (0.4-2.0) Laboratory Tests Test 05/08/18 14:40 05/08/18 15:00 05/09/18 05:30 White Blood Count 12.6 x10^3/uL (4.0-11.0) 22.5 x10^3/uL (4.0-11.0) Red Blood Count 3.98 x10^6/uL (4.30-5.70) 3.99 x10^6/uL (4.30-5.70) Hemoglobin 12.2 g/dL (13.0-17.5) 12.4 g/dL (13.0-17.5) Hematocrit 33.9 % (39.0-53.0) 34.2 % (39.0-53.0) Mean Corpuscular Volume 85 fL (79-100) 86 fL (79-100) Mean Corpuscular Hemoglobin 31 pg (25-35) 31 pg (25-35) Mean Corpuscular Hemoglobin Concent 36 g/dL (31-37) 36 g/dL (31-37) Red Cell Distribution Width 13.7 % (11.5-14.5) 13.3 % (11.5-14.5) Platelet Count 150 x10^3/uL (140-400) 158 x10^3/uL (140-400) Neutrophils (%) (Auto) 85 % (31-73) 90 % (31-73) Lymphocytes (%) (Auto) 9 % (24-48) 7 % (24-48) Monocytes (%) (Auto) 6 % (0-9) 3 % (0-9) Eosinophils (%) (Auto) 0 % (0-3) 0 % (0-3) Basophils (%) (Auto) 0 % (0-3) 0 % (0-3) Neutrophils # (Auto) 10.7 x10^3uL (1.8-7.7) 20.2 x10^3uL (1.8-7.7) Lymphocytes # (Auto) 1.1 x10^3/uL (1.0-4.8) 1.5 x10^3/uL (1.0-4.8) Monocytes # (Auto) 0.7 x10^3/uL (0.0-1.1) 0.7 x10^3/uL (0.0-1.1) Eosinophils # (Auto) 0.0 x10^3/uL (0.0-0.7) 0.0 x10^3/uL (0.0-0.7) Basophils # (Auto) 0.0 x10^3/uL (0.0-0.2) 0.0 x10^3/uL (0.0-0.2) Segmented Neutrophils % 82 % (35-66) Band Neutrophils % 4 % (0-9) Lymphocytes % 8 % (24-48) Monocytes % 6 % (0-10) Platelet Estimate Adequate (ADEQUATE) Sodium Level 134 mmol/L (136-145) 133 mmol/L (136-145) Potassium Level 3.6 mmol/L (3.5-5.1) 3.9 mmol/L (3.5-5.1) Chloride Level 100 mmol/L (98-107) 102 mmol/L (98-107) Carbon Dioxide Level 23 mmol/L (21-32) 23 mmol/L (21-32) Anion Gap 11 (6-14) 8 (6-14) Blood Urea Nitrogen 3 mg/dL (8-26) 9 mg/dL (8-26) Creatinine 0.8 mg/dL (0.7-1.3) 0.8 mg/dL (0.7-1.3) Estimated GFR (Cockcroft-Gault) 110.0 110.0 Glucose Level 122 mg/dL (70-99) 127 mg/dL (70-99) Calcium Level 8.2 mg/dL (8.5-10.1) 8.7 mg/dL (8.5-10.1) Lactic Acid Level 2.8 mmol/L (0.4-2.0) Microbiology 05/08/18 Blood Culture - Final, Complete Medications Current Medications Sodium Chloride 1,000 ml @ 1,000 mls/hr 1X ONCE IV Last administered on at 22:55; Start 05/06/18 at 23:00; Stop 05/06/18 at 23:59; Status DC Sodium Chloride 500 ml @ 50 mls/hr 1X ONCE IV Last administered on 05/07/18at 01:10; Start 05/07/18 at 00:30; Stop 05/07/18 at 10:29; Status DC Haloperidol (Haldol) 5 mg PRN Q6HRS PRN PO AGITATION; Start 05/07/18 at 08:45 Enoxaparin Sodium (Lovenox 40mg Syringe) 40 mg DAILY SQ Last administered on 05/07/18at 12:44; Start 05/07/18 at 10:00 Olanzapine (ZyPREXA ZYDIS) 5 mg HS PO Last administered on 05/08/18at 22:04; Start 05/07/18 at 21:00 Lorazepam (Ativan) 2 mg PRN Q4HRS PRN IV ANXIETY / AGITATION Last administered on 05/08/18at 14:58; Start 05/07/18 at 09:00 Potassium Chloride (Klor-Con) 40 meq 1X ONCE PO ; Start 05/07/18 at 09:30; Stop 05/07/18 at 09:31; Status DC Potassium Chloride (Klor-Con) 20 meq DAILYWBKFT PO ; Start 05/08/18 at 08:00 Desmopressin Acetate (Ddavp) 2 mcg 1X ONCE SQ Last administered on 05/07/18at 12 :44; Start 05/07/18 at 12:30; Stop 05/07/18 at 12:31; Status DC Ondansetron HCl (Zofran) 4 mg STK-MED ONCE .ROUTE ; Start 05/07/18 at 13:34; Stop 05/07/18 at 13:35; Status DC Ondansetron HCl (Zofran) 4 mg STK-MED ONCE .ROUTE ; Start 05/07/18 at 13:35; Stop 05/07/18 at 13:36; Status DC Ondansetron HCl (Zofran) 8 mg PRN Q6HRS PRN IV NAUSEA/VOMITING Last administered on 05/07/18at 13:41; Start 05/07/18 at 13:45 Dextrose 1,000 ml @ 50 mls/hr Q20H IV Last administered on 05/09/18at 00:19; Start 05/07/18 at 15:00 Desmopressin Acetate (Ddavp) 2 mcg 1X ONCE SQ Last administered on 05/07/18at 19 :31; Start 05/07/18 at 18:30; Stop 05/07/18 at 18:31; Status DC Potassium Chloride/Water 50 ml @ 50 mls/hr 1X ONCE IV Last administered on 05/08at 06:46; Start 05/08/18 at 07:00; Stop 05/08/18 at 07:59; Status DC Lidocaine HCl (Glydo (Lidocaine) Jelly) 1 dayanna 1X ONCE MM Last administered on 05/08/18at 09:00; Start 05/08/18 at 09:00; Stop 05/08/18 at 09:01; Status DC Lorazepam (Ativan) 2 mg 1X ONCE IV Last administered on 05/08/18at 13:00; Start 05/08/18 at 10:45; Stop 05/08/18 at 10:46; Status DC Ciprofloxacin/ Dextrose 200 ml @ 200 mls/hr 1X ONCE IV Last administered on at 15:07; Start 05/08/18 at 15:00; Stop 05/08/18 at 15:59; Status DC Ceftriaxone Sodium 1 gm/ Dextrose 50 ml @ 100 mls/hr Q24H IV ; Start 05/08/18 at 15:30; Status UNV Ceftriaxone Sodium (Rocephin) 1 gm Q24H IVP Last administered on 05/08/18at 15:49 ; Start 05/08/18 at 16:00 Acetaminophen (Tylenol Supp) 650 mg PRN Q6HRS PRN [place] MILD PAIN / TEMP Last administered on 05/08/18at 15:49; Start 05/08/18 at 15:30 Propofol 20 ml @ As Directed STK-MED ONCE IV ; Start 05/08/18 at 16:04; Stop 05/08 at 16:05; Status DC Fentanyl Citrate (Fentanyl 2ml Vial) 100 mcg STK-MED ONCE .ROUTE ; Start at 16:11; Stop 05/08/18 at 16:12; Status DC Ondansetron HCl (Zofran) 4 mg STK-MED ONCE .ROUTE ; Start 05/08/18 at 16:17; Stop 05/08/18 at 16:18; Status DC Dexamethasone Sodium Phosphate (Decadron) 20 mg STK-MED ONCE .ROUTE ; Start 05/08 at 16:18; Stop 05/08/18 at 16:19; Status DC Oxycodone/ Acetaminophen (Percocet 5/325) 1 tab PRN Q6HRS PRN PO PAIN; Start at 06:45 Vancomycin HCl (Vanco Per Pharmacy) 1 each PRN DAILY PRN [facility] SEE COMMENTS; Start 05/09/18 at 08:00 Vancomycin HCl 2 gm/Sodium Chloride 500 ml @ 250 mls/hr 1X ONCE IV ; Start 05/09/18 at 09:00; Stop 05/09/18 at 10:59 Active Scripts Active Reported Haloperidol Decanoate 100 Mg/1 Ml Vial 100 Mg IM Zyprexa (Olanzapine) 10 Mg Tablet 1 Tab PO QHS Vitals/I & O Vital Sign - Last 24 Hours 05/08/18 05/08/18 05/08/18 05/08/18 09:00 10:00 11:00 12:00 Temp 98.5 98.5 Pulse 114 108 122 122 Resp 19 20 18 17 B/P (MAP) 144/83 (103) 134/89 (104) 160/102 (121) 127/74 (91) Pulse Ox 100 100 100 98 O2 Delivery Room Air Room Air Room Air Room Air 05/08/18 05/08/18 05/08/18 05/08/18 12:00 13:00 14:00 15:00 Temp 102.0 102.0 Pulse 118 126 150 Resp 18 25 40 B/P (MAP) 117/77 (90) 135/86 (102) 155/74 (101) Pulse Ox 100 100 97 O2 Delivery Room Air Room Air Room Air Room Air 05/08/18 05/08/18 05/08/18 05/08/18 16:00 16:00 17:07 17:07 Temp 100.5 99.8 100.5 99.8 Pulse 146 133 Resp 24 22 B/P (MAP) 117/63 (81) 100/56 Pulse Ox 100 100 O2 Delivery Room Air Room Air Simple Mask O2 Flow Rate 10 10 05/08/18 05/08/18 05/08/18 05/08/18 17:22 17:37 17:47 17:50 Temp 99.2 100.8 99.2 100.8 Pulse 131 133 140 Resp 20 22 14 B/P (MAP) 80/38 84/43 87/53 (64) Pulse Ox 100 99 O2 Delivery Simple Mask Nasal Cannula Nasal Cannula Room Air O2 Flow Rate 10 2 2 05/08/18 05/08/18 05/08/18 05/08/18 18:00 19:10 20:00 20:13 Temp 98.6 98.6 Pulse 126 114 110 Resp 23 18 18 B/P (MAP) 87/49 (62) 101/57 (72) 107/68 (81) Pulse Ox 98 98 98 O2 Delivery Room Air Room Air Room Air Room Air 05/08/18 05/08/18 05/08/18 05/09/18 21:00 22:00 23:00 00:00 Temp 96.3 96.3 Pulse 98 91 84 81 Resp B/P (MAP) 99/61 (74) 90/52 (65) 98/57 (71) 90/54 (66) Pulse Ox 98 98 98 98 O2 Delivery Room Air Room Air Room Air Room Air 05/09/18 05/09/18 05/09/18 05/09/18 00:14 01:00 02:00 03:00 Pulse 84 82 78 Resp B/P (MAP) 86/52 (63) 93/57 (69) 95/57 (70) Pulse Ox 98 98 98 O2 Delivery Room Air Room Air Room Air Room Air 05/09/18 05/09/18 05/09/18 05/09/18 04:00 04:00 04:25 05:12 Temp 96.6 96.6 Pulse 81 90 Resp B/P (MAP) 108/74 (85) 111/61 (78) Pulse Ox 98 99 O2 Delivery Room Air Room Air Room Air Room Air 05/09/18 05/09/18 05/09/18 05/09/18 06:10 07:00 08:00 08:00 Temp 98.0 98.0 Pulse 94 104 104 Resp B/P (MAP) 96/43 (60) 120/75 (90) 116/70 (85) Pulse Ox 99 100 99 O2 Delivery Room Air Room Air Room Air Room Air Intake and Output 05/08/18 05/08/18 05/09/18 15:00 23:00 07:00 Intake Total 50 ml 1265.26 ml 547 ml Output Total 900 ml 1210 ml 1050 ml Balance -850 ml 55.26 ml -503 ml MARCELO CHI MD May 09, 2018 09:01
[2018-05-09] MEDS: oxyCODONE/APAP 5/325 1 TAB TABLET PO PRN ×2 (09:07→23:45)
[2018-05-09] MEDS: VANCOMYCIN PER PHARMACY MC PRN ×2 (09:54→13:11)
--- NOTE | 2018-05-09 10:03 | PDOC2 ---
CONSULT Date of Consult Date of Consult DATE: 05/09/18 TIME: 09:47 Reason for Consult Reason for Consult: axiliary abscess Referring Physician Referring Physician: Dr Xiao Identification/Chief Complaint Chief Complaint seizure Source Source: Chart review, Patient History of Present Illness Reason for Visit: came in with seizure and altered mental status after drinking significant amounts of water and found to have hyponatremia urtheral trauma and hematuria from pulling wies, cysto yesterday alert today, reports swelling to armpit is better, has been there a while Past Medical History Cardiovascular: No pertinent hx Pulmonary: No pertinent hx GI: GERD Heme/Onc: No pertinent hx Hepatobiliary: No pertinent hx Psych: Addictions, Schizophrenia Past Surgical History Past Surgical History: No pertinent history Family History Family History: Family History Unknown Social History No ALCOHOL: none Current Medications Current Medications Current Medications Sodium Chloride 1,000 ml @ 1,000 mls/hr 1X ONCE IV Last administered on at 22:55; Start 05/06/18 at 23:00; Stop 05/06/18 at 23:59; Status DC Sodium Chloride 500 ml @ 50 mls/hr 1X ONCE IV Last administered on 05/07/18at 01:10; Start 05/07/18 at 00:30; Stop 05/07/18 at 10:29; Status DC Haloperidol (Haldol) 5 mg PRN Q6HRS PRN PO AGITATION; Start 05/07/18 at 08:45 Enoxaparin Sodium (Lovenox 40mg Syringe) 40 mg DAILY SQ Last administered on 05/09/18at 08:58; Start 05/07/18 at 10:00 Olanzapine (ZyPREXA ZYDIS) 5 mg HS PO Last administered on 05/08/18at 22:04; Start 05/07/18 at 21:00 Lorazepam (Ativan) 2 mg PRN Q4HRS PRN IV ANXIETY / AGITATION Last administered on 05/08/18at 14:58; Start 05/07/18 at 09:00 Potassium Chloride (Klor-Con) 40 meq 1X ONCE PO ; Start 05/07/18 at 09:30; Stop 05/07/18 at 09:31; Status DC Potassium Chloride (Klor-Con) 20 meq DAILYWBKFT PO Last administered on at 08:58; Start 05/08/18 at 08:00 Desmopressin Acetate (Ddavp) 2 mcg 1X ONCE SQ Last administered on 05/07/18at 12 :44; Start 05/07/18 at 12:30; Stop 05/07/18 at 12:31; Status DC Ondansetron HCl (Zofran) 4 mg STK-MED ONCE .ROUTE ; Start 05/07/18 at 13:34; Stop 05/07/18 at 13:35; Status DC Ondansetron HCl (Zofran) 4 mg STK-MED ONCE .ROUTE ; Start 05/07/18 at 13:35; Stop 05/07/18 at 13:36; Status DC Ondansetron HCl (Zofran) 8 mg PRN Q6HRS PRN IV NAUSEA/VOMITING Last administered on 05/07/18at 13:41; Start 05/07/18 at 13:45 Dextrose 1,000 ml @ 50 mls/hr Q20H IV Last administered on 05/09/18at 00:19; Start 05/07/18 at 15:00 Desmopressin Acetate (Ddavp) 2 mcg 1X ONCE SQ Last administered on 05/07/18at 19 :31; Start 05/07/18 at 18:30; Stop 05/07/18 at 18:31; Status DC Potassium Chloride/Water 50 ml @ 50 mls/hr 1X ONCE IV Last administered on 05/08at 06:46; Start 05/08/18 at 07:00; Stop 05/08/18 at 07:59; Status DC Lidocaine HCl (Glydo (Lidocaine) Jelly) 1 dayanna 1X ONCE MM Last administered on 05/08/18at 09:00; Start 05/08/18 at 09:00; Stop 05/08/18 at 09:01; Status DC Lorazepam (Ativan) 2 mg 1X ONCE IV Last administered on 05/08/18at 13:00; Start 05/08/18 at 10:45; Stop 05/08/18 at 10:46; Status DC Ciprofloxacin/ Dextrose 200 ml @ 200 mls/hr 1X ONCE IV Last administered on at 15:07; Start 05/08/18 at 15:00; Stop 05/08/18 at 15:59; Status DC Ceftriaxone Sodium 1 gm/ Dextrose 50 ml @ 100 mls/hr Q24H IV ; Start 05/08/18 at 15:30; Status UNV Ceftriaxone Sodium (Rocephin) 1 gm Q24H IVP Last administered on 05/08/18at 15:49 ; Start 05/08/18 at 16:00 Acetaminophen (Tylenol Supp) 650 mg PRN Q6HRS PRN GA MILD PAIN / TEMP Last administered on 05/08/18at 15:49; Start 05/08/18 at 15:30 Propofol 20 ml @ As Directed STK-MED ONCE IV ; Start 05/08/18 at 16:04; Stop 05/08 at 16:05; Status DC Fentanyl Citrate (Fentanyl 2ml Vial) 100 mcg STK-MED ONCE .ROUTE ; Start at 16:11; Stop 05/08/18 at 16:12; Status DC Ondansetron HCl (Zofran) 4 mg STK-MED ONCE .ROUTE ; Start 05/08/18 at 16:17; Stop 05/08/18 at 16:18; Status DC Dexamethasone Sodium Phosphate (Decadron) 20 mg STK-MED ONCE .ROUTE ; Start 05/08 at 16:18; Stop 05/08/18 at 16:19; Status DC Oxycodone/ Acetaminophen (Percocet 5/325) 1 tab PRN Q6HRS PRN PO PAIN Last administered on 05/09/18at 09:07; Start 05/09/18 at 06:45 Vancomycin HCl (Vanco Per Pharmacy) 1 each PRN DAILY PRN MC SEE COMMENTS; Start 05/09/18 at 08:00 Vancomycin HCl 2 gm/Sodium Chloride 500 ml @ 250 mls/hr 1X ONCE IV Last administered on 05/09/18at 09:00; Start 05/09/18 at 09:00; Stop 05/09/18 at 10:59 Active Scripts Active Reported Haloperidol Decanoate 100 Mg/1 Ml Vial 100 Mg IM Zyprexa (Olanzapine) 10 Mg Tablet 1 Tab PO QHS Allergies Allergies: Coded Allergies: No Known Drug Allergies (Unverified , 05/08/18) ROS General: No: Chills, Other (fevers) PSYCHOLOGICAL ROS: No: Anxiety, Depression Eyes: No Double vision Hematological and Lymphatic: No: Bleeding Problems, Blood Clots Respiratory: No: Cough, Shortness of breath Cardiovascular: No Chest Pain, No Palpitations Gastrointestinal: No Nausea, No Abdominal Pain Genitourinary: YES Hematuria (resolved ); No Dysuria Musculoskeletal: No Joint Pain, No Muscle Pain Neurological: Yes Confusion (improved ); No Numbness/Tingling Skin: Yes Rash, Yes Other (lesion to left axilla); No Pruritus Physical Exam General: Alert, Oriented X3, Cooperative, No acute distress HEENT: PERRLA, Mucous membr. moist/pink Lungs: Clear to auscultation, Normal air movement Heart: Regular rate, Normal S1, Normal S2, No murmurs Abdomen: Normal bowel sounds, Soft, No tenderness, No hepatosplenomegaly, No masses Extremities: No clubbing, No cyanosis Skin: Other (left axila swelling, no fluctaunce, no erythema) Neuro: Normal speech, Sensation intact MUSCULOSKELETAL: No deformity, No swelling Vitals VITALS Vital Signs Date Time Temp Pulse Resp B/P (MAP) Pulse Ox O2 Delivery O2 Flow Rate FiO2 05/09/18 09:07 17 100 Room Air 05/09/18 09:00 107 126/92 (103) 05/09/18 08:00 98.0 98.0 05/08/18 17:47 2 Labs Labs Laboratory Tests Test 05/07/18 10:25 05/07/18 13:35 05/07/18 18:20 05/07/18 22:20 Sodium Level 132 mmol/L (136-145) 133 mmol/L (136-145) 131 mmol/L (136-145) 129 mmol/L (136-145) Potassium Level 3.2 mmol/L (3.5-5.1) 3.2 mmol/L (3.5-5.1) 3.1 mmol/L (3.5-5.1) 3.0 mmol/L (3.5-5.1) Chloride Level 100 mmol/L (98-107) 99 mmol/L (98-107) 99 mmol/L (98-107) 99 mmol/L (98-107) Carbon Dioxide Level 23 mmol/L (21-32) 22 mmol/L (21-32) 23 mmol/L (21-32) 25 mmol/L (21-32) Anion Gap 9 (6-14) 12 (6-14) 9 (6-14) 5 (6-14) Blood Urea Nitrogen 3 mg/dL (8-26) 2 mg/dL (8-26) 3 mg/dL (8-26) 3 mg/dL (8- 26) Creatinine 0.7 mg/dL (0.7-1.3) 0.7 mg/dL (0.7-1.3) 0.7 mg/dL (0.7-1.3) 0.7 mg/dL (0.7-1.3) Estimated GFR (Cockcroft-Gault) 128.3 128.3 128.3 128.3 Glucose Level 119 mg/dL (70-99) 118 mg/dL (70-99) 112 mg/dL (70-99) 110 mg/dL (70-99) Calcium Level 8.3 mg/dL (8.5-10.1) 8.6 mg/dL (8.5-10.1) 8.3 mg/dL (8.5-10.1) 8.3 mg/dL (8.5-10.1) Test 05/08/18 05:15 05/08/18 14:40 05/08/18 15:00 05/09/18 05:30 White Blood Count 8.6 x10^3/uL (4.0-11.0) 12.6 x10^3/uL (4.0-11.0) 22.5 x10^3/uL (4.0-11.0) Red Blood Count 4.07 x10^6/uL (4.30-5.70) 3.98 x10^6/uL (4.30-5.70) 3.99 x10^6/uL (4.30-5.70) Hemoglobin 12.6 g/dL (13.0-17.5) 12.2 g/dL (13.0-17.5) 12.4 g/dL (13.0-17.5) Hematocrit 34.2 % (39.0-53.0) 33.9 % (39.0-53.0) 34.2 % (39.0-53.0) Mean Corpuscular Volume 84 fL (79-100) 85 fL (79-100) 86 fL (79-100) Mean Corpuscular Hemoglobin 31 pg (25-35) 31 pg (25-35) 31 pg (25-35) Mean Corpuscular Hemoglobin Concent 37 g/dL (31-37) 36 g/dL (31-37) 36 g/dL (31-37) Red Cell Distribution Width 13.4 % (11.5-14.5) 13.7 % (11.5-14.5) 13.3 % (11.5-14.5) Platelet Count 160 x10^3/uL (140-400) 150 x10^3/uL (140-400) 158 x10^3/uL (140-400) Neutrophils (%) (Auto) 62 % (31-73) 85 % (31-73) 90 % (31-73) Lymphocytes (%) (Auto) 28 % (24-48) 9 % (24-48) 7 % (24-48) Monocytes (%) (Auto) 9 % (0-9) 6 % (0-9) 3 % (0-9) Eosinophils (%) (Auto) 0 % (0-3) 0 % (0-3) 0 % (0-3) Basophils (%) (Auto) 0 % (0-3) 0 % (0-3) 0 % (0-3) Neutrophils # (Auto) 5.4 x10^3uL (1.8-7.7) 10.7 x10^3uL (1.8-7.7) 20.2 x10^3uL (1.8-7.7) Lymphocytes # (Auto) 2.4 x10^3/uL (1.0-4.8) 1.1 x10^3/uL (1.0-4.8) 1.5 x10^3/uL (1.0-4.8) Monocytes # (Auto) 0.8 x10^3/uL (0.0-1.1) 0.7 x10^3/uL (0.0-1.1) 0.7 x10^3/uL (0.0-1.1) Eosinophils # (Auto) 0.0 x10^3/uL (0.0-0.7) 0.0 x10^3/uL (0.0-0.7) 0.0 x10^3/uL (0.0-0.7) Basophils # (Auto) 0.0 x10^3/uL (0.0-0.2) 0.0 x10^3/uL (0.0-0.2) 0.0 x10^3/uL (0.0-0.2) Sodium Level 130 mmol/L (136-145) 134 mmol/L (136-145) 133 mmol/L (136-145) Potassium Level 2.9 mmol/L (3.5-5.1) 3.6 mmol/L (3.5-5.1) 3.9 mmol/L (3.5-5.1) Chloride Level 99 mmol/L (98-107) 100 mmol/L (98-107) 102 mmol/L (98-107) Carbon Dioxide Level 24 mmol/L (21-32) 23 mmol/L (21-32) 23 mmol/L (21-32) Anion Gap 7 (6-14) 11 (6-14) 8 (6-14) Blood Urea Nitrogen 3 mg/dL (8-26) 3 mg/dL (8-26) 9 mg/dL (8-26) Creatinine 0.8 mg/dL (0.7-1.3) 0.8 mg/dL (0.7-1.3) 0.8 mg/dL (0.7-1.3) Estimated GFR (Cockcroft-Gault) 110.0 110.0 110.0 BUN/Creatinine Ratio 4 (6-20) Glucose Level 104 mg/dL (70-99) 122 mg/dL (70-99) 127 mg/dL (70-99) Calcium Level 8.3 mg/dL (8.5-10.1) 8.2 mg/dL (8.5-10.1) 8.7 mg/dL (8.5-10.1) Total Bilirubin 0.8 mg/dL (0.2-1.0) Aspartate Amino Transf (AST/SGOT) 379 U/L (15-37) Alanine Aminotransferase (ALT/SGPT) 83 U/L (16-63) Alkaline Phosphatase 93 U/L (46-116) Total Protein 7.5 g/dL (6.4-8.2) Albumin 3.8 g/dL (3.4-5.0) Albumin/Globulin Ratio 1.0 (1.0-1.7) Segmented Neutrophils % 82 % (35-66) Band Neutrophils % 4 % (0-9) Lymphocytes % 8 % (24-48) Monocytes % 6 % (0-10) Platelet Estimate Adequate (ADEQUATE) Lactic Acid Level 2.8 mmol/L (0.4-2.0) Laboratory Tests Test 05/08/18 14:40 05/08/18 15:00 05/09/18 05:30 White Blood Count 12.6 x10^3/uL (4.0-11.0) 22.5 x10^3/uL (4.0-11.0) Red Blood Count 3.98 x10^6/uL (4.30-5.70) 3.99 x10^6/uL (4.30-5.70) Hemoglobin 12.2 g/dL (13.0-17.5) 12.4 g/dL (13.0-17.5) Hematocrit 33.9 % (39.0-53.0) 34.2 % (39.0-53.0) Mean Corpuscular Volume 85 fL (79-100) 86 fL (79-100) Mean Corpuscular Hemoglobin 31 pg (25-35) 31 pg (25-35) Mean Corpuscular Hemoglobin Concent 36 g/dL (31-37) 36 g/dL (31-37) Red Cell Distribution Width 13.7 % (11.5-14.5) 13.3 % (11.5-14.5) Platelet Count 150 x10^3/uL (140-400) 158 x10^3/uL (140-400) Neutrophils (%) (Auto) 85 % (31-73) 90 % (31-73) Lymphocytes (%) (Auto) 9 % (24-48) 7 % (24-48) Monocytes (%) (Auto) 6 % (0-9) 3 % (0-9) Eosinophils (%) (Auto) 0 % (0-3) 0 % (0-3) Basophils (%) (Auto) 0 % (0-3) 0 % (0-3) Neutrophils # (Auto) 10.7 x10^3uL (1.8-7.7) 20.2 x10^3uL (1.8-7.7) Lymphocytes # (Auto) 1.1 x10^3/uL (1.0-4.8) 1.5 x10^3/uL (1.0-4.8) Monocytes # (Auto) 0.7 x10^3/uL (0.0-1.1) 0.7 x10^3/uL (0.0-1.1) Eosinophils # (Auto) 0.0 x10^3/uL (0.0-0.7) 0.0 x10^3/uL (0.0-0.7) Basophils # (Auto) 0.0 x10^3/uL (0.0-0.2) 0.0 x10^3/uL (0.0-0.2) Segmented Neutrophils % 82 % (35-66) Band Neutrophils % 4 % (0-9) Lymphocytes % 8 % (24-48) Monocytes % 6 % (0-10) Platelet Estimate Adequate (ADEQUATE) Sodium Level 134 mmol/L (136-145) 133 mmol/L (136-145) Potassium Level 3.6 mmol/L (3.5-5.1) 3.9 mmol/L (3.5-5.1) Chloride Level 100 mmol/L (98-107) 102 mmol/L (98-107) Carbon Dioxide Level 23 mmol/L (21-32) 23 mmol/L (21-32) Anion Gap 11 (6-14) 8 (6-14) Blood Urea Nitrogen 3 mg/dL (8-26) 9 mg/dL (8-26) Creatinine 0.8 mg/dL (0.7-1.3) 0.8 mg/dL (0.7-1.3) Estimated GFR (Cockcroft-Gault) 110.0 110.0 Glucose Level 122 mg/dL (70-99) 127 mg/dL (70-99) Calcium Level 8.2 mg/dL (8.5-10.1) 8.7 mg/dL (8.5-10.1) Lactic Acid Level 2.8 mmol/L (0.4-2.0) Assessment/Plan Assessment/Plan seems more c/w hidradenitis--will check US REMI PINTO APRN May 09, 2018 10:03
--- NOTE | 2018-05-09 12:24 | PDOC ---
SUBJECTIVE Subjective Pt doing ok, catheter is a little annoying but not terrible. He understands that it needs to stay in for ten days to allow for complete healing. OBJECTIVE Objective Physical Exam: General appearance: Alert and Oriented Head: Normocephalic, without obvious abnormality Eyes: conjunctivae/corneas clear. PERRL, EOM's intact. Fundi benign Lungs: regular respirations, non labored breathing Abdomen: soft, non-tender. Bowel sounds normal. No masses, no organomegaly Pelvic: wise catheter in place draining clear yellow urine. Device in good working order. Vital Signs Vital Signs Date Time Temp Pulse Resp B/P (MAP) Pulse Ox O2 Delivery O2 Flow Rate FiO2 05/09/18 10:07 14 100 Room Air 05/09/18 10:00 110 19 120/78 (92) 100 Room Air 05/09/18 09:07 17 100 Room Air 05/09/18 09:00 107 25 126/92 (103) 100 Room Air 05/09/18 08:00 Room Air 05/09/18 08:00 98.0 104 18 116/70 (85) 99 Room Air 98.0 05/09/18 07:00 104 18 120/75 (90) 100 Room Air 05/09/18 06:10 94 18 96/43 (60) 99 Room Air 05/09/18 05:12 90 18 111/61 (78) 99 Room Air 05/09/18 04:25 Room Air 05/09/18 04:00 Room Air 05/09/18 04:00 96.6 81 18 108/74 (85) 98 Room Air 96.6 05/09/18 03:00 78 18 95/57 (70) 98 Room Air 05/09/18 02:00 82 18 93/57 (69) 98 Room Air 05/09/18 01:00 84 18 86/52 (63) 98 Room Air 05/09/18 00:14 Room Air 05/09/18 00:00 96.3 81 18 90/54 (66) 98 Room Air 96.3 05/08/18 23:00 84 18 98/57 (71) 98 Room Air 05/08/18 22:00 91 18 90/52 (65) 98 Room Air 05/08/18 21:00 98 18 99/61 (74) 98 Room Air 05/08/18 20:13 Room Air 05/08/18 20:00 98.6 110 18 107/68 (81) 98 Room Air 98.6 05/08/18 19:10 114 18 101/57 (72) 98 Room Air 05/08/18 18:00 126 23 87/49 (62) 98 Room Air 05/08/18 17:50 100.8 140 14 87/53 (64) 99 Room Air 100.8 05/08/18 17:47 Nasal Cannula 2 05/08/18 17:37 99.2 133 22 84/43 Nasal Cannula 2 99.2 05/08/18 17:22 131 20 80/38 100 Simple Mask 10 05/08/18 17:07 99.8 133 22 100/56 100 Simple Mask 10 99.8 05/08/18 17:07 10 05/08/18 16:00 Room Air 05/08/18 16:00 100.5 146 24 117/63 (81) 100 Room Air 100.5 05/08/18 15:00 102.0 150 40 155/74 (101) 97 Room Air 102.0 05/08/18 14:00 126 25 135/86 (102) 100 Room Air 05/08/18 13:00 118 18 117/77 (90) 100 Room Air I & O Intake and Output 05/09/18 07:00 Intake Total 1862.26 ml Output Total 3160 ml Balance -1297.74 ml Intake Oral 0 ml IV Total 1862.26 ml Output Urine Total 3160 ml # Voids 1 PHYSICAL EXAM Physical Exam Physical Exam: General appearance: Alert and Oriented Head: Normocephalic, without obvious abnormality Eyes: conjunctivae/corneas clear. PERRL, EOM's intact. Fundi benign Lungs: regular respirations, non labored breathing Abdomen: soft, non-tender. Bowel sounds normal. No masses, no organomegaly Pelvic: wise catheter in place draining clear yellow urine. Device in good working order. ASSESSMENT/PLAN Assessment/Plan Patient is status post op. cysto wise catheter placement. Currently wise catheter is in good condition and functioning well. Discussed with patient that he needs to keep the wise catheter in place for a full ten days. If medical team is going to discharge him prior to this, he may go home with the wise catheter in place and we can do a voiding trial in office. WBC up to 22.5, pt on Vanc and Zosyn and ID has been consulted, agree. Pyridium 200 mg 1 tab TID PRN. Will follow Problems: (1) Gross hematuria COMMENT Lab Laboratory Tests Test 05/08/18 14:40 05/08/18 15:00 05/09/18 05:30 White Blood Count 12.6 x10^3/uL (4.0-11.0) 22.5 x10^3/uL (4.0-11.0) Red Blood Count 3.98 x10^6/uL (4.30-5.70) 3.99 x10^6/uL (4.30-5.70) Hemoglobin 12.2 g/dL (13.0-17.5) 12.4 g/dL (13.0-17.5) Hematocrit 33.9 % (39.0-53.0) 34.2 % (39.0-53.0) Mean Corpuscular Volume 85 fL (79-100) 86 fL (79-100) Mean Corpuscular Hemoglobin 31 pg (25-35) 31 pg (25-35) Mean Corpuscular Hemoglobin Concent 36 g/dL (31-37) 36 g/dL (31-37) Red Cell Distribution Width 13.7 % (11.5-14.5) 13.3 % (11.5-14.5) Platelet Count 150 x10^3/uL (140-400) 158 x10^3/uL (140-400) Neutrophils (%) (Auto) 85 % (31-73) 90 % (31-73) Lymphocytes (%) (Auto) 9 % (24-48) 7 % (24-48) Monocytes (%) (Auto) 6 % (0-9) 3 % (0-9) Eosinophils (%) (Auto) 0 % (0-3) 0 % (0-3) Basophils (%) (Auto) 0 % (0-3) 0 % (0-3) Neutrophils # (Auto) 10.7 x10^3uL (1.8-7.7) 20.2 x10^3uL (1.8-7.7) Lymphocytes # (Auto) 1.1 x10^3/uL (1.0-4.8) 1.5 x10^3/uL (1.0-4.8) Monocytes # (Auto) 0.7 x10^3/uL (0.0-1.1) 0.7 x10^3/uL (0.0-1.1) Eosinophils # (Auto) 0.0 x10^3/uL (0.0-0.7) 0.0 x10^3/uL (0.0-0.7) Basophils # (Auto) 0.0 x10^3/uL (0.0-0.2) 0.0 x10^3/uL (0.0-0.2) Segmented Neutrophils % 82 % (35-66) Band Neutrophils % 4 % (0-9) Lymphocytes % 8 % (24-48) Monocytes % 6 % (0-10) Platelet Estimate Adequate (ADEQUATE) Sodium Level 134 mmol/L (136-145) 133 mmol/L (136-145) Potassium Level 3.6 mmol/L (3.5-5.1) 3.9 mmol/L (3.5-5.1) Chloride Level 100 mmol/L (98-107) 102 mmol/L (98-107) Carbon Dioxide Level 23 mmol/L (21-32) 23 mmol/L (21-32) Anion Gap 11 (6-14) 8 (6-14) Blood Urea Nitrogen 3 mg/dL (8-26) 9 mg/dL (8-26) Creatinine 0.8 mg/dL (0.7-1.3) 0.8 mg/dL (0.7-1.3) Estimated GFR (Cockcroft-Gault) 110.0 110.0 Glucose Level 122 mg/dL (70-99) 127 mg/dL (70-99) Calcium Level 8.2 mg/dL (8.5-10.1) 8.7 mg/dL (8.5-10.1) Lactic Acid Level 2.8 mmol/L (0.4-2.0) SHITAL POLLACK APRN May 09, 2018 12:24
--- NOTE | 2018-05-09 12:28 | PDOC ---
Infectious Disease Note Vital Sign Vital Signs Vital Signs Date Time Temp Pulse Resp B/P (MAP) Pulse Ox O2 Delivery O2 Flow Rate FiO2 05/09/18 11:27 98.1 114 20 117/69 (85) 97 Room Air 98.1 05/08/18 17:47 2 Labs Lab Laboratory Tests Test 05/08/18 14:40 05/08/18 15:00 05/09/18 05:30 White Blood Count 12.6 x10^3/uL (4.0-11.0) 22.5 x10^3/uL (4.0-11.0) Red Blood Count 3.98 x10^6/uL (4.30-5.70) 3.99 x10^6/uL (4.30-5.70) Hemoglobin 12.2 g/dL (13.0-17.5) 12.4 g/dL (13.0-17.5) Hematocrit 33.9 % (39.0-53.0) 34.2 % (39.0-53.0) Mean Corpuscular Volume 85 fL (79-100) 86 fL (79-100) Mean Corpuscular Hemoglobin 31 pg (25-35) 31 pg (25-35) Mean Corpuscular Hemoglobin Concent 36 g/dL (31-37) 36 g/dL (31-37) Red Cell Distribution Width 13.7 % (11.5-14.5) 13.3 % (11.5-14.5) Platelet Count 150 x10^3/uL (140-400) 158 x10^3/uL (140-400) Neutrophils (%) (Auto) 85 % (31-73) 90 % (31-73) Lymphocytes (%) (Auto) 9 % (24-48) 7 % (24-48) Monocytes (%) (Auto) 6 % (0-9) 3 % (0-9) Eosinophils (%) (Auto) 0 % (0-3) 0 % (0-3) Basophils (%) (Auto) 0 % (0-3) 0 % (0-3) Neutrophils # (Auto) 10.7 x10^3uL (1.8-7.7) 20.2 x10^3uL (1.8-7.7) Lymphocytes # (Auto) 1.1 x10^3/uL (1.0-4.8) 1.5 x10^3/uL (1.0-4.8) Monocytes # (Auto) 0.7 x10^3/uL (0.0-1.1) 0.7 x10^3/uL (0.0-1.1) Eosinophils # (Auto) 0.0 x10^3/uL (0.0-0.7) 0.0 x10^3/uL (0.0-0.7) Basophils # (Auto) 0.0 x10^3/uL (0.0-0.2) 0.0 x10^3/uL (0.0-0.2) Segmented Neutrophils % 82 % (35-66) Band Neutrophils % 4 % (0-9) Lymphocytes % 8 % (24-48) Monocytes % 6 % (0-10) Platelet Estimate Adequate (ADEQUATE) Sodium Level 134 mmol/L (136-145) 133 mmol/L (136-145) Potassium Level 3.6 mmol/L (3.5-5.1) 3.9 mmol/L (3.5-5.1) Chloride Level 100 mmol/L (98-107) 102 mmol/L (98-107) Carbon Dioxide Level 23 mmol/L (21-32) 23 mmol/L (21-32) Anion Gap 11 (6-14) 8 (6-14) Blood Urea Nitrogen 3 mg/dL (8-26) 9 mg/dL (8-26) Creatinine 0.8 mg/dL (0.7-1.3) 0.8 mg/dL (0.7-1.3) Estimated GFR (Cockcroft-Gault) 110.0 110.0 Glucose Level 122 mg/dL (70-99) 127 mg/dL (70-99) Calcium Level 8.2 mg/dL (8.5-10.1) 8.7 mg/dL (8.5-10.1) Lactic Acid Level 2.8 mmol/L (0.4-2.0) Micro Microbiology 05/08/18 Blood Culture - Final, Complete Objective Assessment GPC sepsis 05/08 Leukocytosis - s/p Dexamehtasone 05/08 Urethral trauma - pulled wise out 05/08 sp/ intra - op placement 05/08 seizure - hyponatremia Transamintitis ? eactive ? Left ax hidradenitis- Plan Plan of Care Agree with Vanc and rocephin F/u labs and cults F/u U/S Thank you # [id number] TORIBIO BROWNE MD May 09, 2018 12:28
[2018-05-09] MEDS ORDERED: PHENAZOPYRIDINE 200 MG TABLET. PO PRN (12:30)
--- NOTE | 2018-05-09 15:46 | PDOC ---
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 Plan Continue correcting hyponatremia Hold on anticonvulsants Hold on electroencephalogram Further studies depending on his course, none needed at present. Objective Vital Signs Date Time Temp Pulse Resp B/P (MAP) Pulse Ox O2 Delivery O2 Flow Rate FiO2 05/09/18 12:00 98.1 20 117/69 (85) Room Air 98.1 05/09/18 11:27 114 97 05/08/18 17:47 2 Intake and Output 05/09/18 07:00 Intake Total 1862.26 ml Output Total 3160 ml Balance -1297.74 ml Intake Oral 0 ml IV Total 1862.26 ml Output Urine Total 3160 ml # Voids 1 PHYSICAL EXAM Alert. Oriented to and person, Knows that he is in the hospital in [facility], says that it is September 08, answers questions, follows commands. PERRL. EOMI. CN: no focal findings. Muscle tone: normal. Muscle strength: 5/5 DTR: 2+ Plantar reflex: flexor Gait: not examined in bed. Sensory exam: no abnormal findings. No cerebellar signs elicited. Review of Relevant I have reviewed the following items catarina (where applicable) has been applied. Labs Laboratory Tests Test 05/07/18 18:20 05/07/18 22:20 05/08/18 05:15 05/08/18 14:40 Sodium Level 131 mmol/L (136-145) 129 mmol/L (136-145) 130 mmol/L (136-145) 134 mmol/L (136-145) Potassium Level 3.1 mmol/L (3.5-5.1) 3.0 mmol/L (3.5-5.1) 2.9 mmol/L (3.5-5.1) 3.6 mmol/L (3.5-5.1) Chloride Level 99 mmol/L (98-107) 99 mmol/L (98-107) 99 mmol/L (98-107) 100 mmol/L (98-107) Carbon Dioxide Level 23 mmol/L (21-32) 25 mmol/L (21-32) 24 mmol/L (21-32) 23 mmol/L (21-32) Anion Gap 9 (6-14) 5 (6-14) 7 (6-14) 11 (6-14) Blood Urea Nitrogen 3 mg/dL (8-26) 3 mg/dL (8-26) 3 mg/dL (8-26) 3 mg/dL (8- 26) Creatinine 0.7 mg/dL (0.7-1.3) 0.7 mg/dL (0.7-1.3) 0.8 mg/dL (0.7-1.3) 0.8 mg/dL (0.7-1.3) Estimated GFR (Cockcroft-Gault) 128.3 128.3 110.0 110.0 Glucose Level 112 mg/dL (70-99) 110 mg/dL (70-99) 104 mg/dL (70-99) 122 mg/dL (70-99) Calcium Level 8.3 mg/dL (8.5-10.1) 8.3 mg/dL (8.5-10.1) 8.3 mg/dL (8.5-10.1) 8.2 mg/dL (8.5-10.1) White Blood Count 8.6 x10^3/uL (4.0-11.0) 12.6 x10^3/uL (4.0-11.0) Red Blood Count 4.07 x10^6/uL (4.30-5.70) 3.98 x10^6/uL (4.30-5.70) Hemoglobin 12.6 g/dL (13.0-17.5) 12.2 g/dL (13.0-17.5) Hematocrit 34.2 % (39.0-53.0) 33.9 % (39.0-53.0) Mean Corpuscular Volume 84 fL (79-100) 85 fL (79-100) Mean Corpuscular Hemoglobin 31 pg (25-35) 31 pg (25-35) Mean Corpuscular Hemoglobin Concent 37 g/dL (31-37) 36 g/dL (31-37) Red Cell Distribution Width 13.4 % (11.5-14.5) 13.7 % (11.5-14.5) Platelet Count 160 x10^3/uL (140-400) 150 x10^3/uL (140-400) Neutrophils (%) (Auto) 62 % (31-73) 85 % (31-73) Lymphocytes (%) (Auto) 28 % (24-48) 9 % (24-48) Monocytes (%) (Auto) 9 % (0-9) 6 % (0-9) Eosinophils (%) (Auto) 0 % (0-3) 0 % (0-3) Basophils (%) (Auto) 0 % (0-3) 0 % (0-3) Neutrophils # (Auto) 5.4 x10^3uL (1.8-7.7) 10.7 x10^3uL (1.8-7.7) Lymphocytes # (Auto) 2.4 x10^3/uL (1.0-4.8) 1.1 x10^3/uL (1.0-4.8) Monocytes # (Auto) 0.8 x10^3/uL (0.0-1.1) 0.7 x10^3/uL (0.0-1.1) Eosinophils # (Auto) 0.0 x10^3/uL (0.0-0.7) 0.0 x10^3/uL (0.0-0.7) Basophils # (Auto) 0.0 x10^3/uL (0.0-0.2) 0.0 x10^3/uL (0.0-0.2) BUN/Creatinine Ratio 4 (6-20) Total Bilirubin 0.8 mg/dL (0.2-1.0) Aspartate Amino Transf (AST/SGOT) 379 U/L (15-37) Alanine Aminotransferase (ALT/SGPT) 83 U/L (16-63) Alkaline Phosphatase 93 U/L (46-116) Total Protein 7.5 g/dL (6.4-8.2) Albumin 3.8 g/dL (3.4-5.0) Albumin/Globulin Ratio 1.0 (1.0-1.7) Segmented Neutrophils % 82 % (35-66) Band Neutrophils % 4 % (0-9) Lymphocytes % 8 % (24-48) Monocytes % 6 % (0-10) Platelet Estimate Adequate (ADEQUATE) Test 05/08/18 15:00 05/09/18 05:30 Lactic Acid Level 2.8 mmol/L (0.4-2.0) White Blood Count 22.5 x10^3/uL (4.0-11.0) Red Blood Count 3.99 x10^6/uL (4.30-5.70) Hemoglobin 12.4 g/dL (13.0-17.5) Hematocrit 34.2 % (39.0-53.0) Mean Corpuscular Volume 86 fL (79-100) Mean Corpuscular Hemoglobin 31 pg (25-35) Mean Corpuscular Hemoglobin Concent 36 g/dL (31-37) Red Cell Distribution Width 13.3 % (11.5-14.5) Platelet Count 158 x10^3/uL (140-400) Neutrophils (%) (Auto) 90 % (31-73) Lymphocytes (%) (Auto) 7 % (24-48) Monocytes (%) (Auto) 3 % (0-9) Eosinophils (%) (Auto) 0 % (0-3) Basophils (%) (Auto) 0 % (0-3) Neutrophils # (Auto) 20.2 x10^3uL (1.8-7.7) Lymphocytes # (Auto) 1.5 x10^3/uL (1.0-4.8) Monocytes # (Auto) 0.7 x10^3/uL (0.0-1.1) Eosinophils # (Auto) 0.0 x10^3/uL (0.0-0.7) Basophils # (Auto) 0.0 x10^3/uL (0.0-0.2) Sodium Level 133 mmol/L (136-145) Potassium Level 3.9 mmol/L (3.5-5.1) Chloride Level 102 mmol/L (98-107) Carbon Dioxide Level 23 mmol/L (21-32) Anion Gap 8 (6-14) Blood Urea Nitrogen 9 mg/dL (8-26) Creatinine 0.8 mg/dL (0.7-1.3) Estimated GFR (Cockcroft-Gault) 110.0 Glucose Level 127 mg/dL (70-99) Calcium Level 8.7 mg/dL (8.5-10.1) Laboratory Tests Test 05/09/18 05:30 White Blood Count 22.5 x10^3/uL (4.0-11.0) Red Blood Count 3.99 x10^6/uL (4.30-5.70) Hemoglobin 12.4 g/dL (13.0-17.5) Hematocrit 34.2 % (39.0-53.0) Mean Corpuscular Volume 86 fL (79-100) Mean Corpuscular Hemoglobin 31 pg (25-35) Mean Corpuscular Hemoglobin Concent 36 g/dL (31-37) Red Cell Distribution Width 13.3 % (11.5-14.5) Platelet Count 158 x10^3/uL (140-400) Neutrophils (%) (Auto) 90 % (31-73) Lymphocytes (%) (Auto) 7 % (24-48) Monocytes (%) (Auto) 3 % (0-9) Eosinophils (%) (Auto) 0 % (0-3) Basophils (%) (Auto) 0 % (0-3) Neutrophils # (Auto) 20.2 x10^3uL (1.8-7.7) Lymphocytes # (Auto) 1.5 x10^3/uL (1.0-4.8) Monocytes # (Auto) 0.7 x10^3/uL (0.0-1.1) Eosinophils # (Auto) 0.0 x10^3/uL (0.0-0.7) Basophils # (Auto) 0.0 x10^3/uL (0.0-0.2) Sodium Level 133 mmol/L (136-145) Potassium Level 3.9 mmol/L (3.5-5.1) Chloride Level 102 mmol/L (98-107) Carbon Dioxide Level 23 mmol/L (21-32) Anion Gap 8 (6-14) Blood Urea Nitrogen 9 mg/dL (8-26) Creatinine 0.8 mg/dL (0.7-1.3) Estimated GFR (Cockcroft-Gault) 110.0 Glucose Level 127 mg/dL (70-99) Calcium Level 8.7 mg/dL (8.5-10.1) Microbiology 05/08/18 Blood Culture - Final, Complete Medications Current Medications Sodium Chloride 1,000 ml @ 1,000 mls/hr 1X ONCE IV Last administered on at 22:55; Start 05/06/18 at 23:00; Stop 05/06/18 at 23:59; Status DC Sodium Chloride 500 ml @ 50 mls/hr 1X ONCE IV Last administered on 05/07/18at 01:10; Start 05/07/18 at 00:30; Stop 05/07/18 at 10:29; Status DC Haloperidol (Haldol) 5 mg PRN Q6HRS PRN PO AGITATION; Start 05/07/18 at 08:45 Enoxaparin Sodium (Lovenox 40mg Syringe) 40 mg DAILY SQ Last administered on 05/09/18at 08:58; Start 05/07/18 at 10:00 Olanzapine (ZyPREXA ZYDIS) 5 mg HS PO Last administered on 05/08/18at 22:04; Start 05/07/18 at 21:00 Lorazepam (Ativan) 2 mg PRN Q4HRS PRN IV ANXIETY / AGITATION Last administered on 05/08/18at 14:58; Start 05/07/18 at 09:00 Potassium Chloride (Klor-Con) 40 meq 1X ONCE PO ; Start 05/07/18 at 09:30; Stop 05/07/18 at 09:31; Status DC Potassium Chloride (Klor-Con) 20 meq DAILYWBKFT PO Last administered on at 08:58; Start 05/08/18 at 08:00 Desmopressin Acetate (Ddavp) 2 mcg 1X ONCE SQ Last administered on 05/07/18at 12 :44; Start 05/07/18 at 12:30; Stop 05/07/18 at 12:31; Status DC Ondansetron HCl (Zofran) 4 mg STK-MED ONCE .ROUTE ; Start 05/07/18 at 13:34; Stop 05/07/18 at 13:35; Status DC Ondansetron HCl (Zofran) 4 mg STK-MED ONCE .ROUTE ; Start 05/07/18 at 13:35; Stop 05/07/18 at 13:36; Status DC Ondansetron HCl (Zofran) 8 mg PRN Q6HRS PRN IV NAUSEA/VOMITING Last administered on 05/07/18at 13:41; Start 05/07/18 at 13:45 Dextrose 1,000 ml @ 50 mls/hr Q20H IV Last administered on 05/09/18at 00:19; Start 05/07/18 at 15:00 Desmopressin Acetate (Ddavp) 2 mcg 1X ONCE SQ Last administered on 05/07/18at 19 :31; Start 05/07/18 at 18:30; Stop 05/07/18 at 18:31; Status DC Potassium Chloride/Water 50 ml @ 50 mls/hr 1X ONCE IV Last administered on 05/08at 06:46; Start 05/08/18 at 07:00; Stop 05/08/18 at 07:59; Status DC Lidocaine HCl (Glydo (Lidocaine) Jelly) 1 dayanna 1X ONCE MM Last administered on 05/08/18at 09:00; Start 05/08/18 at 09:00; Stop 05/08/18 at 09:01; Status DC Lorazepam (Ativan) 2 mg 1X ONCE IV Last administered on 05/08/18at 13:00; Start 05/08/18 at 10:45; Stop 05/08/18 at 10:46; Status DC Ciprofloxacin/ Dextrose 200 ml @ 200 mls/hr 1X ONCE IV Last administered on at 15:07; Start 05/08/18 at 15:00; Stop 05/08/18 at 15:59; Status DC Ceftriaxone Sodium 1 gm/ Dextrose 50 ml @ 100 mls/hr Q24H IV ; Start 05/08/18 at 15:30; Status UNV Ceftriaxone Sodium (Rocephin) 1 gm Q24H IVP Last administered on 05/08/18at 15:49 ; Start 05/08/18 at 16:00 Acetaminophen (Tylenol Supp) 650 mg PRN Q6HRS PRN MN MILD PAIN / TEMP Last administered on 05/08/18at 15:49; Start 05/08/18 at 15:30 Propofol 20 ml @ As Directed STK-MED ONCE IV ; Start 05/08/18 at 16:04; Stop 05/08 at 16:05; Status DC Fentanyl Citrate (Fentanyl 2ml Vial) 100 mcg STK-MED ONCE .ROUTE ; Start at 16:11; Stop 05/08/18 at 16:12; Status DC Ondansetron HCl (Zofran) 4 mg STK-MED ONCE .ROUTE ; Start 05/08/18 at 16:17; Stop 05/08/18 at 16:18; Status DC Dexamethasone Sodium Phosphate (Decadron) 20 mg STK-MED ONCE .ROUTE ; Start 05/08 at 16:18; Stop 05/08/18 at 16:19; Status DC Oxycodone/ Acetaminophen (Percocet 5/325) 1 tab PRN Q6HRS PRN PO PAIN Last administered on 05/09/18at 09:07; Start 05/09/18 at 06:45 Vancomycin HCl (Vanco Per Pharmacy) 1 each PRN DAILY PRN MC SEE COMMENTS Last administered on 05/09/18at 13:11; Start 05/09/18 at 08:00 Vancomycin HCl 2 gm/Sodium Chloride 500 ml @ 250 mls/hr 1X ONCE IV Last administered on 05/09/18at 09:00; Start 05/09/18 at 09:00; Stop 05/09/18 at 10:59; Status DC Vancomycin HCl 1.25 gm/Sodium Chloride 250 ml @ 167 mls/hr Q8H IV ; Start at 17:00 Vancomycin HCl (Vancomycin Trough Level) 1 each 1X ONCE MC ; Start 05/10/18 at 08:30; Stop 05/10/18 at 08:31 Lactobacillus Rhamnosus (Culturelle) 1 cap BID PO ; Start 05/09/18 at 21:00 Phenazopyridine HCl (Pyridium) 200 mg PRN TID PRN PO URINARY PAIN; Start at 12:30 Active Scripts Active Reported Haloperidol Decanoate 100 Mg/1 Ml Vial 100 Mg IM Zyprexa (Olanzapine) 10 Mg Tablet 1 Tab PO QHS Vitals/I & O Vital Sign - Last 24 Hours 05/08/18 05/08/18 05/08/18 05/08/18 16:00 16:00 17:07 17:07 Temp 100.5 99.8 100.5 99.8 Pulse 146 133 Resp 24 22 B/P (MAP) 117/63 (81) 100/56 Pulse Ox 100 100 O2 Delivery Room Air Room Air Simple Mask O2 Flow Rate 10 10 05/08/18 05/08/18 05/08/18 05/08/18 17:22 17:37 17:47 17:50 Temp 99.2 100.8 99.2 100.8 Pulse 131 133 140 Resp 20 22 14 B/P (MAP) 80/38 84/43 87/53 (64) Pulse Ox 100 99 O2 Delivery Simple Mask Nasal Cannula Nasal Cannula Room Air O2 Flow Rate 10 2 2 05/08/18 05/08/18 05/08/18 05/08/18 18:00 19:10 20:00 20:13 Temp 98.6 98.6 Pulse 126 114 110 Resp 18 18 B/P (MAP) 87/49 (62) 101/57 (72) 107/68 (81) Pulse Ox 98 98 98 O2 Delivery Room Air Room Air Room Air Room Air 05/08/18 05/08/18 05/08/18 05/09/18 21:00 22:00 23:00 00:00 Temp 96.3 96.3 Pulse 98 91 84 81 Resp 18 B/P (MAP) 99/61 (74) 90/52 (65) 98/57 (71) 90/54 (66) Pulse Ox 98 98 98 98 O2 Delivery Room Air Room Air Room Air Room Air 05/09/18 05/09/18 05/09/18 05/09/18 00:14 01:00 02:00 03:00 Pulse 84 82 78 Resp 18 B/P (MAP) 86/52 (63) 93/57 (69) 95/57 (70) Pulse Ox 98 98 98 O2 Delivery Room Air Room Air Room Air Room Air 05/09/18 05/09/18 05/09/18 05/09/18 04:00 04:00 04:25 05:12 Temp 96.6 96.6 Pulse 81 90 Resp 18 B/P (MAP) 108/74 (85) 111/61 (78) Pulse Ox 98 99 O2 Delivery Room Air Room Air Room Air Room Air 05/09/18 05/09/18 05/09/18 05/09/18 06:10 07:00 08:00 08:00 Temp 98.0 98.0 Pulse 94 104 104 Resp 18 B/P (MAP) 96/43 (60) 120/75 (90) 116/70 (85) Pulse Ox 99 100 99 O2 Delivery Room Air Room Air Room Air Room Air 05/09/18 05/09/18 05/09/18 05/09/18 09:00 09:07 10:00 10:07 Pulse 107 110 Resp 19 14 B/P (MAP) 126/92 (103) 120/78 (92) Pulse Ox 100 100 100 100 O2 Delivery Room Air Room Air Room Air Room Air 05/09/18 05/09/18 11:27 12:00 Temp 98.1 98.1 98.1 98.1 Pulse 114 Resp 20 20 B/P (MAP) 117/69 (85) 117/69 (85) Pulse Ox 97 O2 Delivery Room Air Room Air Intake and Output 05/08/18 05/08/18 05/09/18 15:00 23:00 07:00 Intake Total 50 ml 1265.26 ml 547 ml Output Total 900 ml 1210 ml 1050 ml Balance -850 ml 55.26 ml -503 ml ANGÉLICA MURILLO MD May 09, 2018 15:46
[2018-05-09] MEDS: VANCOMYCIN 1.25 GM in IV NORMAL SALINE 250ML 250 ML IV SCH (17:55)
--- NOTE | 2018-05-09 18:16 | RAD ---
Ultrasound of the left axilla 05/09/2018 CLINICAL HISTORY: Left axillary mass. TECHNIQUE: A real-time ultrasound examination of the left axilla was performed. Multiple images were obtained. FINDINGS: No solid or cystic mass is seen within the left axilla. No lymphadenopathy is noted. IMPRESSION: Negative study. Electronically signed by: Sascha Poe MD (05/09/2018 6:13 PM) [id number]
[2018-05-09] MEDS: LACTOBACILLUS RHAMNOSUS GG 1 CAPSULE. PO SCH (21:09)
[2018-05-09] MEDS: cefTRIAXone IV Push 1 GM VIAL. IVP SCH (21:09)
--- NOTE | 2018-05-09 22:43 | CONS ---
DATE OF CONSULTATION: 05/09/2018 INFECTIOUS DISEASE CONSULTATION LOCATION: The patient is in room 516. CONSULTING PHYSICIAN: Dr. Xiao. REASON FOR CONSULTATION: Positive blood cultures. HISTORY OF PRESENT ILLNESS: The patient is a 37-year-old gentleman who is incarcerated and has been admitted to [facility] secondary to seizure activity after drinking an excessive amount of water. On arrival, he had a sodium level of 113. Lactic acid was 6.4; it quickly corrected to 0.7. Initially, he had a white blood cell count on arrival of 8.6. A Palomino was placed. He developed mental status change and accidentally pulled his Palomino out and had to be taken to the operating room by Dr. Crow and underwent a rigid cystoscopy with complex catheter placement and he was found to have multiple false passages to suggest prior trauma. He was given a dose of ciprofloxacin and also received dexamethasone prior to the procedure and Rocephin was instituted. Today, blood cultures returned positive from 05/08/2018 with gram-positive cocci in pairs in 2 of 2 bottles and vancomycin was started. Currently, the patient has been moved upstairs. He states he is feeling better. He denies any active fevers, chills or sweats. No nausea or vomiting. He states he is feeling somewhat better. He denies any significant pain currently. PAST MEDICAL HISTORY: Positive for schizophrenia, gastroesophageal reflux disease and above-mentioned seizure. PAST SURGICAL HISTORY: Negative. REVIEW OF SYSTEMS: Otherwise negative. ALLERGIES: No known drug allergies. SOCIAL HISTORY: Again, he is incarcerated. No recent alcohol. FAMILY HISTORY: Noncontributory. CURRENT MEDICATIONS: Include the Cipro x 1 on 05/08/2018, Rocephin, vancomycin, dexamethasone x 1 on 05/08/2018, Haldol, lactobacillus and Ativan. Other medications are available and have been reviewed in the chart. PHYSICAL EXAMINATION: VITAL SIGNS: He is afebrile, temperature 98.1; respirations 20; blood pressure 117/69 and 97% on room air. CONSTITUTIONAL: He is alert, cooperative. He is in no acute distress. HEENT: Pupils are equal and reactive. Normal conjunctivae. Oral cavity, pharynx is clear. NECK: Supple. No JVD. LUNGS: Clear to auscultation bilaterally. HEART: S1, S2. CHEST: He has a right-sided chest line without signs of any complications. ABDOMEN: Soft, nontender and nondistended. Palomino is in place. SKIN: Warm to touch, without signs of rash. He has tattoos. NEUROLOGIC: He is nonfocal and moves all extremities. PSYCHIATRIC: Affect is flat. LYMPHATIC: Questionable hidradenitis in his left axillary area. LABORATORY DATA: White count 22.5, hemoglobin 12.4 and platelets of 158,000 and neutrophils are 11. Sodium is now 133, creatinine 0.8. AST 379 and ALT 83 from 05/08/2018, which is an increase. Urinalysis is clean. Cultures reviewed in the history of present illness. Chest x-ray, no acute pulmonary abnormality is detected. IMPRESSION: 1. Gram-positive cocci sepsis from 05/08/2018. 2. Leukocytosis, status post dexamethasone on 05/08/2018. 3. Urethral trauma. pulled Palomino out, status post intraoperative placement on 05/08/2018. 4. Seizure secondary to hyponatremia. 5. Transaminitis, questionable reactive. 6. Questionable left axillary hidradenitis. RECOMMENDATIONS: Agree with the vancomycin and Rocephin for now. Follow up labs and cultures, including liver test. Follow up ultrasound. Thank you for allowing me to see this patient. Should you have any questions, please do not hesitate to contact me. TORIBIO BROWNE MD DR: VINCE/kamini JOB#: [id number] / [id number]
[2018-05-10] MEDS: VANCOMYCIN 1.25 GM in IV NORMAL SALINE 250ML 250 ML IV SCH ×5 (00:31→21:57)
[2018-05-10] MEDS: HALOPERIDOL 5 MG TABLET. PO PRN ×2 (00:41→10:20)
[2018-05-10 03:00] VITALS: BP 108/68
[2018-05-10] MEDS: IV DEXTROSE 5% 1,000 ML IV SCH (03:00)
[2018-05-10 07:00] VITALS: BP 124/77
--- NOTE | 2018-05-10 08:55 | PDOC ---
REMI PINTO [employer] 05/10/18 0855: SURGICAL PROGRESS NOTE Subjective no complaints about axilla, thinks feels better Vital Signs Vital Signs Date Time Temp Pulse Resp B/P (MAP) Pulse Ox O2 Delivery O2 Flow Rate FiO2 05/10/18 03:00 97.7 85 18 108/68 (81) 97 Room Air 97.7 05/09/18 20:00 2.0 I&O Intake and Output 05/10/18 07:00 Intake Total 4180 ml Output Total 4625 ml Balance -445 ml Intake Oral 4180 ml Output Urine Total 4625 ml # Bowel Movements 3 General: Alert, Oriented X3, Cooperative, No acute distress Skin: Other (left axilla, no induration, no erythema) Labs Laboratory Tests Test 05/08/18 14:40 05/08/18 15:00 05/09/18 05:30 White Blood Count 12.6 x10^3/uL (4.0-11.0) 22.5 x10^3/uL (4.0-11.0) Red Blood Count 3.98 x10^6/uL (4.30-5.70) 3.99 x10^6/uL (4.30-5.70) Hemoglobin 12.2 g/dL (13.0-17.5) 12.4 g/dL (13.0-17.5) Hematocrit 33.9 % (39.0-53.0) 34.2 % (39.0-53.0) Mean Corpuscular Volume 85 fL (79-100) 86 fL (79-100) Mean Corpuscular Hemoglobin 31 pg (25-35) 31 pg (25-35) Mean Corpuscular Hemoglobin Concent 36 g/dL (31-37) 36 g/dL (31-37) Red Cell Distribution Width 13.7 % (11.5-14.5) 13.3 % (11.5-14.5) Platelet Count 150 x10^3/uL (140-400) 158 x10^3/uL (140-400) Neutrophils (%) (Auto) 85 % (31-73) 90 % (31-73) Lymphocytes (%) (Auto) 9 % (24-48) 7 % (24-48) Monocytes (%) (Auto) 6 % (0-9) 3 % (0-9) Eosinophils (%) (Auto) 0 % (0-3) 0 % (0-3) Basophils (%) (Auto) 0 % (0-3) 0 % (0-3) Neutrophils # (Auto) 10.7 x10^3uL (1.8-7.7) 20.2 x10^3uL (1.8-7.7) Lymphocytes # (Auto) 1.1 x10^3/uL (1.0-4.8) 1.5 x10^3/uL (1.0-4.8) Monocytes # (Auto) 0.7 x10^3/uL (0.0-1.1) 0.7 x10^3/uL (0.0-1.1) Eosinophils # (Auto) 0.0 x10^3/uL (0.0-0.7) 0.0 x10^3/uL (0.0-0.7) Basophils # (Auto) 0.0 x10^3/uL (0.0-0.2) 0.0 x10^3/uL (0.0-0.2) Segmented Neutrophils % 82 % (35-66) Band Neutrophils % 4 % (0-9) Lymphocytes % 8 % (24-48) Monocytes % 6 % (0-10) Platelet Estimate Adequate (ADEQUATE) Sodium Level 134 mmol/L (136-145) 133 mmol/L (136-145) Potassium Level 3.6 mmol/L (3.5-5.1) 3.9 mmol/L (3.5-5.1) Chloride Level 100 mmol/L (98-107) 102 mmol/L (98-107) Carbon Dioxide Level 23 mmol/L (21-32) 23 mmol/L (21-32) Anion Gap 11 (6-14) 8 (6-14) Blood Urea Nitrogen 3 mg/dL (8-26) 9 mg/dL (8-26) Creatinine 0.8 mg/dL (0.7-1.3) 0.8 mg/dL (0.7-1.3) Estimated GFR (Cockcroft-Gault) 110.0 110.0 Glucose Level 122 mg/dL (70-99) 127 mg/dL (70-99) Calcium Level 8.2 mg/dL (8.5-10.1) 8.7 mg/dL (8.5-10.1) Lactic Acid Level 2.8 mmol/L (0.4-2.0) Problem List US noted no fluid collection no surgical needs, available as needed BETH MOCTEZUMA MD 05/10/18 1231: SURGICAL PROGRESS NOTE Assessment/Plan as above will sign off please call if needed Thank you REMI PINTO APRN May 10, 2018 08:55 BETH MOCTEZUMA MD May 10, 2018 12:31
[2018-05-10 09:01] LABS: BASO % 0 % (0-3); EOS % 0 % (0-3); HEMOGLOBIN 11.9 g/dL (13.0-17.5); LYMPH # 2.7 x10^3/uL (1.0-4.8); LYMPH % 26 % (24-48); MEAN CORPUSCULAR HEMOGLOBIN 31 pg (25-35); MEAN CORPUSCULAR HGB CONC 36 g/dL (31-37); MEAN CORPUSCULAR VOLUME 86 fL (79-100); MONO # 0.6 x10^3/uL (0.0-1.1); MONO % 6 % (0-9); NEUT # 7.1 x10^3uL (1.8-7.7); NEUT % 68 % (31-73); PLATELET COUNT 166 x10^3/uL (140-400); RED BLOOD COUNT 3.81 x10^6/uL (4.30-5.70); WHITE BLOOD COUNT 10.5 x10^3/uL (4.0-11.0)
[2018-05-10 09:12] LABS: ALBUMIN 3.3 g/dL (3.4-5.0); ALBUMIN/GLOBULIN RATIO 0.9 (1.0-1.7); CALCIUM 8.6 mg/dL (8.5-10.1); CREATININE 0.8 mg/dL (0.7-1.3); POTASSIUM 3.7 mmol/L (3.5-5.1); TOTAL BILIRUBIN 0.4 mg/dL (0.2-1.0); TOTAL PROTEIN 7.1 g/dL (6.4-8.2)
[2018-05-10 09:14] LABS: VANC TR 11.7 mcg/mL (10.0-20.0)
[2018-05-10] MEDS: LACTOBACILLUS RHAMNOSUS GG 1 CAPSULE. PO SCH ×2 (09:40→21:56)
[2018-05-10] MEDS: ENOXAPARIN 40 MG/0.4 ML SYRINGE. SQ SCH (09:40)
[2018-05-10] MEDS: POTASSIUM CHLORIDE 20 MEQ TABLET.ER. PO SCH (09:40)
--- NOTE | 2018-05-10 09:54 | PDOC ---
Infectious Disease Note Subjective Subjective Doing ok No F/C/S/N/V/D/SOA/Rash or pain ROS ROS o/w neg Vital Sign Vital Signs Vital Signs Date Time Temp Pulse Resp B/P (MAP) Pulse Ox O2 Delivery O2 Flow Rate FiO2 05/10/18 07:00 98.1 112 18 124/77 (93) 99 Room Air 98.1 05/09/18 20:00 2.0 Physical Exam PHYSICAL EXAM CONSTITUTIONAL: He is alert, cooperative. He is in no acute distress. HEENT: Pupils are equal and reactive. Normal conjunctivae. Oral cavity, pharynx is clear. NECK: Supple. No JVD. LUNGS: Clear to auscultation bilaterally. HEART: S1, S2. CHEST: He has a right-sided chest line without signs of any complications. ABDOMEN: Soft, nontender and nondistended. : Wise is in place with clear urine. SKIN: Warm to touch, without signs of rash. He has tattoos. NEUROLOGIC: He is nonfocal and moves all extremities. PSYCHIATRIC: Affect is flat. LYMPHATIC: Questionable hidradenitis in his left axillary area. Labs Lab Laboratory Tests Test 05/10/18 08:30 White Blood Count 10.5 x10^3/uL (4.0-11.0) Red Blood Count 3.81 x10^6/uL (4.30-5.70) Hemoglobin 11.9 g/dL (13.0-17.5) Hematocrit 33.0 % (39.0-53.0) Mean Corpuscular Volume 86 fL (79-100) Mean Corpuscular Hemoglobin 31 pg (25-35) Mean Corpuscular Hemoglobin Concent 36 g/dL (31-37) Red Cell Distribution Width 14.0 % (11.5-14.5) Platelet Count 166 x10^3/uL (140-400) Neutrophils (%) (Auto) 68 % (31-73) Lymphocytes (%) (Auto) 26 % (24-48) Monocytes (%) (Auto) 6 % (0-9) Eosinophils (%) (Auto) 0 % (0-3) Basophils (%) (Auto) 0 % (0-3) Neutrophils # (Auto) 7.1 x10^3uL (1.8-7.7) Lymphocytes # (Auto) 2.7 x10^3/uL (1.0-4.8) Monocytes # (Auto) 0.6 x10^3/uL (0.0-1.1) Eosinophils # (Auto) 0.0 x10^3/uL (0.0-0.7) Basophils # (Auto) 0.0 x10^3/uL (0.0-0.2) Sodium Level 141 mmol/L (136-145) Potassium Level 3.7 mmol/L (3.5-5.1) Chloride Level 106 mmol/L (98-107) Carbon Dioxide Level 24 mmol/L (21-32) Anion Gap 11 (6-14) Blood Urea Nitrogen 7 mg/dL (8-26) Creatinine 0.8 mg/dL (0.7-1.3) Estimated GFR (Cockcroft-Gault) 110.0 BUN/Creatinine Ratio 9 (6-20) Glucose Level 139 mg/dL (70-99) Lactic Acid Level 2.2 mmol/L (0.4-2.0) Calcium Level 8.6 mg/dL (8.5-10.1) Total Bilirubin 0.4 mg/dL (0.2-1.0) Aspartate Amino Transf (AST/SGOT) 354 U/L (15-37) Alanine Aminotransferase (ALT/SGPT) 88 U/L (16-63) Alkaline Phosphatase 71 U/L (46-116) Total Protein 7.1 g/dL (6.4-8.2) Albumin 3.3 g/dL (3.4-5.0) Albumin/Globulin Ratio 0.9 (1.0-1.7) Vancomycin Level Trough 11.7 mcg/mL (10.0-20.0) Vancomycin Last Dose Date 05-10-18 Vancomycin Last Dose Time 0100 Micro Microbiology 05/08/18 Blood Culture - Final, Complete Objective Assessment GPC sepsis 05/08 Leukocytosis - s/p Dexamethasone 05/08 - better today Urethral trauma - pulled wise out 05/08 sp/ intra - op placement 05/08 seizure - hyponatremia Transaminitis ? reactive ? Left ax hidradenitis- U/S neg Plan Plan of Care Cont Vanc and rocephin F/u labs and cults F/u LFTS in am TORIBIO BROWNE MD May 10, 2018 09:54
--- NOTE | 2018-05-10 10:14 | PDOC ---
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 Bacteremia, urethral trauma, right axillary adenitis Plan Continue correcting hyponatremia Hold on anticonvulsants Hold on electroencephalogram Further studies depending on his course, none needed at present. Objective Vital Signs Date Time Temp Pulse Resp B/P (MAP) Pulse Ox O2 Delivery O2 Flow Rate FiO2 05/10/18 07:00 98.1 112 18 124/77 (93) 99 Room Air 98.1 05/09/18 20:00 2.0 Intake and Output 05/10/18 07:00 Intake Total 4180 ml Output Total 4625 ml Balance -445 ml Intake Oral 4180 ml Output Urine Total 4625 ml # Bowel Movements 3 PHYSICAL EXAM Alert. Oriented to and person, Knows that he is in the hospital in [facility], says that it is September 08, answers questions, follows commands. PERRL. EOMI. CN: no focal findings. Muscle tone: normal. Muscle strength: 5/5 DTR: 2+ Plantar reflex: flexor Gait: not examined in bed. Sensory exam: no abnormal findings. No cerebellar signs elicited. Review of Relevant I have reviewed the following items catarina (where applicable) has been applied. Labs Laboratory Tests Test 05/08/18 14:40 05/08/18 15:00 05/09/18 05:30 05/10/18 08:30 White Blood Count 12.6 x10^3/uL (4.0-11.0) 22.5 x10^3/uL (4.0-11.0) 10.5 x10^3/uL (4.0-11.0) Red Blood Count 3.98 x10^6/uL (4.30-5.70) 3.99 x10^6/uL (4.30-5.70) 3.81 x10^6/uL (4.30-5.70) Hemoglobin 12.2 g/dL (13.0-17.5) 12.4 g/dL (13.0-17.5) 11.9 g/dL (13.0-17.5) Hematocrit 33.9 % (39.0-53.0) 34.2 % (39.0-53.0) 33.0 % (39.0-53.0) Mean Corpuscular Volume 85 fL (79-100) 86 fL (79-100) 86 fL (79-100) Mean Corpuscular Hemoglobin 31 pg (25-35) 31 pg (25-35) 31 pg (25-35) Mean Corpuscular Hemoglobin Concent 36 g/dL (31-37) 36 g/dL (31-37) 36 g/dL (31-37) Red Cell Distribution Width 13.7 % (11.5-14.5) 13.3 % (11.5-14.5) 14.0 % (11.5-14.5) Platelet Count 150 x10^3/uL (140-400) 158 x10^3/uL (140-400) 166 x10^3/uL (140-400) Neutrophils (%) (Auto) 85 % (31-73) 90 % (31-73) 68 % (31-73) Lymphocytes (%) (Auto) 9 % (24-48) 7 % (24-48) 26 % (24-48) Monocytes (%) (Auto) 6 % (0-9) 3 % (0-9) 6 % (0-9) Eosinophils (%) (Auto) 0 % (0-3) 0 % (0-3) 0 % (0-3) Basophils (%) (Auto) 0 % (0-3) 0 % (0-3) 0 % (0-3) Neutrophils # (Auto) 10.7 x10^3uL (1.8-7.7) 20.2 x10^3uL (1.8-7.7) 7.1 x10^3uL (1.8-7.7) Lymphocytes # (Auto) 1.1 x10^3/uL (1.0-4.8) 1.5 x10^3/uL (1.0-4.8) 2.7 x10^3/uL (1.0-4.8) Monocytes # (Auto) 0.7 x10^3/uL (0.0-1.1) 0.7 x10^3/uL (0.0-1.1) 0.6 x10^3/uL (0.0-1.1) Eosinophils # (Auto) 0.0 x10^3/uL (0.0-0.7) 0.0 x10^3/uL (0.0-0.7) 0.0 x10^3/uL (0.0-0.7) Basophils # (Auto) 0.0 x10^3/uL (0.0-0.2) 0.0 x10^3/uL (0.0-0.2) 0.0 x10^3/uL (0.0-0.2) Segmented Neutrophils % 82 % (35-66) Band Neutrophils % 4 % (0-9) Lymphocytes % 8 % (24-48) Monocytes % 6 % (0-10) Platelet Estimate Adequate (ADEQUATE) Sodium Level 134 mmol/L (136-145) 133 mmol/L (136-145) 141 mmol/L (136-145) Potassium Level 3.6 mmol/L (3.5-5.1) 3.9 mmol/L (3.5-5.1) 3.7 mmol/L (3.5-5.1) Chloride Level 100 mmol/L (98-107) 102 mmol/L (98-107) 106 mmol/L (98-107) Carbon Dioxide Level 23 mmol/L (21-32) 23 mmol/L (21-32) 24 mmol/L (21-32) Anion Gap 11 (6-14) 8 (6-14) 11 (6-14) Blood Urea Nitrogen 3 mg/dL (8-26) 9 mg/dL (8-26) 7 mg/dL (8-26) Creatinine 0.8 mg/dL (0.7-1.3) 0.8 mg/dL (0.7-1.3) 0.8 mg/dL (0.7-1.3) Estimated GFR (Cockcroft-Gault) 110.0 110.0 110.0 Glucose Level 122 mg/dL (70-99) 127 mg/dL (70-99) 139 mg/dL (70-99) Calcium Level 8.2 mg/dL (8.5-10.1) 8.7 mg/dL (8.5-10.1) 8.6 mg/dL (8.5-10.1) Lactic Acid Level 2.8 mmol/L (0.4-2.0) 2.2 mmol/L (0.4-2.0) BUN/Creatinine Ratio 9 (6-20) Total Bilirubin 0.4 mg/dL (0.2-1.0) Aspartate Amino Transf (AST/SGOT) 354 U/L (15-37) Alanine Aminotransferase (ALT/SGPT) 88 U/L (16-63) Alkaline Phosphatase 71 U/L (46-116) Total Protein 7.1 g/dL (6.4-8.2) Albumin 3.3 g/dL (3.4-5.0) Albumin/Globulin Ratio 0.9 (1.0-1.7) Vancomycin Level Trough 11.7 mcg/mL (10.0-20.0) Vancomycin Last Dose Date 05-10-18 Vancomycin Last Dose Time 0100 Laboratory Tests Test 05/10/18 08:30 White Blood Count 10.5 x10^3/uL (4.0-11.0) Red Blood Count 3.81 x10^6/uL (4.30-5.70) Hemoglobin 11.9 g/dL (13.0-17.5) Hematocrit 33.0 % (39.0-53.0) Mean Corpuscular Volume 86 fL (79-100) Mean Corpuscular Hemoglobin 31 pg (25-35) Mean Corpuscular Hemoglobin Concent 36 g/dL (31-37) Red Cell Distribution Width 14.0 % (11.5-14.5) Platelet Count 166 x10^3/uL (140-400) Neutrophils (%) (Auto) 68 % (31-73) Lymphocytes (%) (Auto) 26 % (24-48) Monocytes (%) (Auto) 6 % (0-9) Eosinophils (%) (Auto) 0 % (0-3) Basophils (%) (Auto) 0 % (0-3) Neutrophils # (Auto) 7.1 x10^3uL (1.8-7.7) Lymphocytes # (Auto) 2.7 x10^3/uL (1.0-4.8) Monocytes # (Auto) 0.6 x10^3/uL (0.0-1.1) Eosinophils # (Auto) 0.0 x10^3/uL (0.0-0.7) Basophils # (Auto) 0.0 x10^3/uL (0.0-0.2) Sodium Level 141 mmol/L (136-145) Potassium Level 3.7 mmol/L (3.5-5.1) Chloride Level 106 mmol/L (98-107) Carbon Dioxide Level 24 mmol/L (21-32) Anion Gap 11 (6-14) Blood Urea Nitrogen 7 mg/dL (8-26) Creatinine 0.8 mg/dL (0.7-1.3) Estimated GFR (Cockcroft-Gault) 110.0 BUN/Creatinine Ratio 9 (6-20) Glucose Level 139 mg/dL (70-99) Lactic Acid Level 2.2 mmol/L (0.4-2.0) Calcium Level 8.6 mg/dL (8.5-10.1) Total Bilirubin 0.4 mg/dL (0.2-1.0) Aspartate Amino Transf (AST/SGOT) 354 U/L (15-37) Alanine Aminotransferase (ALT/SGPT) 88 U/L (16-63) Alkaline Phosphatase 71 U/L (46-116) Total Protein 7.1 g/dL (6.4-8.2) Albumin 3.3 g/dL (3.4-5.0) Albumin/Globulin Ratio 0.9 (1.0-1.7) Vancomycin Level Trough 11.7 mcg/mL (10.0-20.0) Vancomycin Last Dose Date 05-10-18 Vancomycin Last Dose Time 010 Microbiology 05/08/18 Blood Culture - Final, Complete Medications Current Medications Sodium Chloride 1,000 ml @ 1,000 mls/hr 1X ONCE IV Last administered on at 22:55; Start 05/06/18 at 23:00; Stop 05/06/18 at 23:59; Status DC Sodium Chloride 500 ml @ 50 mls/hr 1X ONCE IV Last administered on 05/07/18at 01:10; Start 05/07/18 at 00:30; Stop 05/07/18 at 10:29; Status DC Haloperidol (Haldol) 5 mg PRN Q6HRS PRN PO AGITATION Last administered on at 00:41; Start 05/07/18 at 08:45 Enoxaparin Sodium (Lovenox 40mg Syringe) 40 mg DAILY SQ Last administered on 05/09/18at 08:58; Start 05/07/18 at 10:00 Olanzapine (ZyPREXA ZYDIS) 5 mg HS PO Last administered on 05/09/18at 21:09; Start 05/07/18 at 21:00 Lorazepam (Ativan) 2 mg PRN Q4HRS PRN IV ANXIETY / AGITATION Last administered on 05/08/18at 14:58; Start 05/07/18 at 09:00 Potassium Chloride (Klor-Con) 40 meq 1X ONCE PO ; Start 05/07/18 at 09:30; Stop 05/07/18 at 09:31; Status DC Potassium Chloride (Klor-Con) 20 meq DAILYWBKFT PO Last administered on at 09:40; Start 05/08/18 at 08:00 Desmopressin Acetate (Ddavp) 2 mcg 1X ONCE SQ Last administered on 05/07/18at 12 :44; Start 05/07/18 at 12:30; Stop 05/07/18 at 12:31; Status DC Ondansetron HCl (Zofran) 4 mg STK-MED ONCE .ROUTE ; Start 05/07/18 at 13:34; Stop 05/07/18 at 13:35; Status DC Ondansetron HCl (Zofran) 4 mg STK-MED ONCE .ROUTE ; Start 05/07/18 at 13:35; Stop 05/07/18 at 13:36; Status DC Ondansetron HCl (Zofran) 8 mg PRN Q6HRS PRN IV NAUSEA/VOMITING Last administered on 05/07/18at 13:41; Start 05/07/18 at 13:45 Dextrose 1,000 ml @ 50 mls/hr Q20H IV Last administered on 05/09/18at 00:19; Start 05/07/18 at 15:00 Desmopressin Acetate (Ddavp) 2 mcg 1X ONCE SQ Last administered on 05/07/18at 19 :31; Start 05/07/18 at 18:30; Stop 05/07/18 at 18:31; Status DC Potassium Chloride/Water 50 ml @ 50 mls/hr 1X ONCE IV Last administered on 05/08at 06:46; Start 05/08/18 at 07:00; Stop 05/08/18 at 07:59; Status DC Lidocaine HCl (Glydo (Lidocaine) Jelly) 1 dayanna 1X ONCE MM Last administered on 9/5/18at 09:00; Start 05/08/18 at 09:00; Stop 05/08/18 at 09:01; Status DC Lorazepam (Ativan) 2 mg 1X ONCE IV Last administered on 05/08/18at 13:00; Start 05/08/18 at 10:45; Stop 05/08/18 at 10:46; Status DC Ciprofloxacin/ Dextrose 200 ml @ 200 mls/hr 1X ONCE IV Last administered on at 15:07; Start 05/08/18 at 15:00; Stop 05/08/18 at 15:59; Status DC Ceftriaxone Sodium 1 gm/ Dextrose 50 ml @ 100 mls/hr Q24H IV ; Start 05/08/18 at 15:30; Status UNV Ceftriaxone Sodium (Rocephin) 1 gm Q24H IVP Last administered on 05/09/18at 21:09 ; Start 05/08/18 at 16:00 Acetaminophen (Tylenol Supp) 650 mg PRN Q6HRS PRN WI MILD PAIN / TEMP Last administered on 05/08/18at 15:49; Start 05/08/18 at 15:30 Propofol 20 ml @ As Directed STK-MED ONCE IV ; Start 05/08/18 at 16:04; Stop 05/08 at 16:05; Status DC Fentanyl Citrate (Fentanyl 2ml Vial) 100 mcg STK-MED ONCE .ROUTE ; Start at 16:11; Stop 05/08/18 at 16:12; Status DC Ondansetron HCl (Zofran) 4 mg STK-MED ONCE .ROUTE ; Start 05/08/18 at 16:17; Stop 05/08/18 at 16:18; Status DC Dexamethasone Sodium Phosphate (Decadron) 20 mg STK-MED ONCE .ROUTE ; Start 05/08 at 16:18; Stop 05/08/18 at 16:19; Status DC Oxycodone/ Acetaminophen (Percocet 5/325) 1 tab PRN Q6HRS PRN PO PAIN Last administered on 05/09/18at 23:45; Start 05/09/18 at 06:45 Vancomycin HCl (Vanco Per Pharmacy) 1 each PRN DAILY PRN MC SEE COMMENTS Last administered on 05/09/18at 13:11; Start 05/09/18 at 08:00 Vancomycin HCl 2 gm/Sodium Chloride 500 ml @ 250 mls/hr 1X ONCE IV Last administered on 05/09/18at 09:00; Start 05/09/18 at 09:00; Stop 05/09/18 at 10:59; Status DC Vancomycin HCl 1.25 gm/Sodium Chloride 250 ml @ 167 mls/hr Q8H IV Last administered on 05/10/18at 09:55; Start 05/09/18 at 17:00; Stop 05/10/18 at 12:00 Vancomycin HCl (Vancomycin Trough Level) 1 each 1X ONCE MC ; Start 05/10/18 at 08:30; Stop 05/10/18 at 08:31; Status DC Lactobacillus Rhamnosus (Culturelle) 1 cap BID PO Last administered on at 09:40; Start 05/09/18 at 21:00 Phenazopyridine HCl (Pyridium) 200 mg PRN TID PRN PO URINARY PAIN; Start at 12:30 Vancomycin HCl 1.25 gm/Sodium Chloride 250 ml @ 167 mls/hr Q6H IV ; Start at 16:00 Active Scripts Active Reported Haloperidol Decanoate 100 Mg/1 Ml Vial 100 Mg IM Zyprexa (Olanzapine) 10 Mg Tablet 1 Tab PO QHS Vitals/I & O Vital Sign - Last 24 Hours 05/09/18 05/09/18 05/09/18 05/09/18 11:27 12:00 16:00 19:00 Temp 98.1 98.1 99.2 98.1 98.1 98.1 99.2 98.1 Pulse 114 109 Resp 20 20 20 18 B/P (MAP) 117/69 (85) 117/69 (85) 123/76 (92) 114/65 (81) Pulse Ox 97 98 96 O2 Delivery Room Air Room Air Room Air Room Air 05/09/18 05/09/18 05/09/18 05/10/18 20:00 23:00 23:45 03:00 Temp 98.1 97.7 98.1 97.7 Pulse 109 85 Resp 18 18 B/P (MAP) 119/69 (86) 108/68 (81) Pulse Ox 96 97 O2 Delivery Room Air Room Air Room Air Room Air O2 Flow Rate 2.0 05/10/18 07:00 Temp 98.1 98.1 Pulse 112 Resp 18 B/P (MAP) 124/77 (93) Pulse Ox 99 O2 Delivery Room Air Intake and Output 05/09/18 05/09/18 05/10/18 15:00 23:00 07:00 Intake Total 3480 ml 700 ml Output Total 3275 ml 700 ml 650 ml Balance 205 ml 0 ml -650 ml ANGÉLICA MURILLO MD May 10, 2018 10:14
[2018-05-10 11:00] VITALS: BP 118/68
--- NOTE | 2018-05-10 11:15 | PDOC ---
SUBJECTIVE ROS No new concerns OBJECTIVE Vital Signs Vital Signs Date Time Temp Pulse Resp B/P (MAP) Pulse Ox O2 Delivery O2 Flow Rate FiO2 05/10/18 07:00 98.1 112 18 124/77 (93) 99 Room Air 98.1 05/09/18 20:00 2.0 I & 0 Intake and Output 05/10/18 07:00 Intake Total 4180 ml Output Total 4625 ml Balance -445 ml Intake Oral 4180 ml Output Urine Total 4625 ml # Bowel Movements 3 PHYSICAL EXAM Physical Exam GEN: NAD, HEENT- Unremarkable, OM moist NECK: No JVD , supple CVS: S1S2, , No mgr RESP: CTA Bilat, No use of access Muscles GI: BS + ve, NO Bruit, Non Tender, Non Distended : No CVA tenderness, No Suprapubic Tenderness, [place]+ Skin No rash Neuro- AXOX3 DIAGNOSIS/ASSESSMENT Assessment & Plan Critical Hyponatremia- with Seizures , Psychogenic Polydipsia resolved Hypokalemia - normal K today Urethral trauma - S/P Rigid cystoscopy with complex catheter placement. 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 HepB/Hep C - Not known if treated Paranoid Schizophrenia - Follows with Psych Will sign Off COMMENT/RELEVANT DATA Meds Current Medications Medications (Trade) Dose Ordered Sig/Rommel Start Time Stop Time Status Last Admin Dose Admin Acetaminophen (Tylenol Supp) 650 mg PRN Q6HRS PRN 05/08/18 15:30 05/08/18 15:49 650 MG Ceftriaxone Sodium 1 gm/ Dextrose 50 ml @ 100 mls/hr Q24H 05/08/18 15:30 UNV Ceftriaxone Sodium (Rocephin) 1 gm Q24H 05/08/18 16:00 05/09/18 21:09 1 GM Ciprofloxacin/ Dextrose 200 ml @ 200 mls/hr 1X ONCE 05/08/18 15:00 05/08/18 15:59 DC 05/08/18 15:07 200 MLS/HR Desmopressin Acetate (Ddavp) 2 mcg 1X ONCE 05/07/18 18:30 05/07/18 18:31 DC 05/07/18 19:31 2 MCG Dexamethasone Sodium Phosphate (Decadron) 20 mg STK-MED ONCE 05/08/18 16:18 05/08/18 16:19 DC Dextrose 1,000 ml @ 50 mls/hr Q20H 05/07/18 15:00 05/09/18 00:19 50 MLS/HR Enoxaparin Sodium (Lovenox 40mg Syringe) 40 mg DAILY 05/07/18 10:00 05/09/18 08:58 40 MG Fentanyl Citrate (Fentanyl 2ml Vial) 100 mcg STK-MED ONCE 05/08/18 16:11 05/08/18 16:12 DC Haloperidol (Haldol) 5 mg PRN Q6HRS PRN 05/07/18 08:45 05/10/18 10:20 5 MG Lactobacillus Rhamnosus (Culturelle) 1 cap BID 05/09/18 21:00 05/10/18 09:40 1 CAP Lidocaine HCl (Glydo (Lidocaine) Jelly) 1 dayanna 1X ONCE 05/08/18 09:00 05/08/18 09:01 DC 05/08/18 09:00 1 DAYANNA Lorazepam (Ativan) 2 mg 1X ONCE 05/08/18 10:45 05/08/18 10:46 DC 05/08/18 13:00 2 MG Olanzapine (ZyPREXA ZYDIS) 5 mg HS 05/07/18 21:00 05/09/18 21:09 5 MG Ondansetron HCl (Zofran) 4 mg STK-MED ONCE 05/08/18 16:17 05/08/18 16:18 DC Oxycodone/ Acetaminophen (Percocet 5/325) 1 tab PRN Q6HRS PRN 05/09/18 06:45 05/09/18 23:45 1 TAB Phenazopyridine HCl (Pyridium) 200 mg PRN TID PRN 05/09/18 12:30 Potassium Chloride/Water 50 ml @ 50 mls/hr 1X ONCE 05/08/18 07:00 05/08/18 07:59 DC 05/08/18 06:46 50 MLS/HR Potassium Chloride (Klor-Con) 20 meq DAILYWBKFT 05/08/18 08:00 05/10/18 09:40 20 MEQ Propofol 20 ml @ As Directed STK-MED ONCE 05/08/18 16:04 05/08/18 16:05 DC Sodium Chloride 500 ml @ 50 mls/hr 1X ONCE 05/07/18 00:30 05/07/18 10:29 DC 05/07/18 01:10 50 MLS/HR Vancomycin HCl (Vanco Per Pharmacy) 1 each PRN DAILY PRN 05/09/18 08:00 05/09/18 13:11 1 EACH Vancomycin HCl (Vancomycin Trough Level) 1 each 1X ONCE 05/10/18 08:30 05/10/18 08:31 DC Vancomycin HCl 1.25 gm/Sodium Chloride 250 ml @ 167 mls/hr Q6H 05/10/18 16:00 Vancomycin HCl 2 gm/Sodium Chloride 500 ml @ 250 mls/hr 1X ONCE 05/09/18 09:00 05/09/18 10:59 DC 05/09/18 09:00 250 MLS/HR Lab Laboratory Tests Test 05/10/18 08:30 White Blood Count 10.5 x10^3/uL (4.0-11.0) Red Blood Count 3.81 x10^6/uL (4.30-5.70) Hemoglobin 11.9 g/dL (13.0-17.5) Hematocrit 33.0 % (39.0-53.0) Mean Corpuscular Volume 86 fL (79-100) Mean Corpuscular Hemoglobin 31 pg (25-35) Mean Corpuscular Hemoglobin Concent 36 g/dL (31-37) Red Cell Distribution Width 14.0 % (11.5-14.5) Platelet Count 166 x10^3/uL (140-400) Neutrophils (%) (Auto) 68 % (31-73) Lymphocytes (%) (Auto) 26 % (24-48) Monocytes (%) (Auto) 6 % (0-9) Eosinophils (%) (Auto) 0 % (0-3) Basophils (%) (Auto) 0 % (0-3) Neutrophils # (Auto) 7.1 x10^3uL (1.8-7.7) Lymphocytes # (Auto) 2.7 x10^3/uL (1.0-4.8) Monocytes # (Auto) 0.6 x10^3/uL (0.0-1.1) Eosinophils # (Auto) 0.0 x10^3/uL (0.0-0.7) Basophils # (Auto) 0.0 x10^3/uL (0.0-0.2) Sodium Level 141 mmol/L (136-145) Potassium Level 3.7 mmol/L (3.5-5.1) Chloride Level 106 mmol/L (98-107) Carbon Dioxide Level 24 mmol/L (21-32) Anion Gap 11 (6-14) Blood Urea Nitrogen 7 mg/dL (8-26) Creatinine 0.8 mg/dL (0.7-1.3) Estimated GFR (Cockcroft-Gault) 110.0 BUN/Creatinine Ratio 9 (6-20) Glucose Level 139 mg/dL (70-99) Lactic Acid Level 2.2 mmol/L (0.4-2.0) Calcium Level 8.6 mg/dL (8.5-10.1) Total Bilirubin 0.4 mg/dL (0.2-1.0) Aspartate Amino Transf (AST/SGOT) 354 U/L (15-37) Alanine Aminotransferase (ALT/SGPT) 88 U/L (16-63) Alkaline Phosphatase 71 U/L (46-116) Total Protein 7.1 g/dL (6.4-8.2) Albumin 3.3 g/dL (3.4-5.0) Albumin/Globulin Ratio 0.9 (1.0-1.7) Vancomycin Level Trough 11.7 mcg/mL (10.0-20.0) Vancomycin Last Dose Date 05-10-18 Vancomycin Last Dose Time 0100 Results All relevant outside records, renal labs, imaging studies, telemetry/EKG's were reviewed. AMADO OCAMPO MD May 10, 2018 11:15
--- NOTE | 2018-05-10 11:48 | PDOC ---
PROGRESS NOTES Chief Complaint Chief Complaint seizure, provoked symptomatic hyponatremia, report of excessive water intake, fluid overload, hypovolemic most likely, Bipolar or schizophrenia, Incarcerated patient, urinary retention, trauma, hematuria - resolved sepsis GPC bacteremia, new 05/09 Inmate History of Present Illness History of Present Illness Numbers are better WBC down to 10 from 20 Hemoglobin stable 11 Mild hyponatremia 133 Patient does not complain of anything Patient is an inmate-can speak Icelandic GPC bacteremia 2 out of 2 bottles, on Vanco and Rocephin per ID Plan: Awaiting for identification and sensitivities hence we will not discharge today Follow ID recommendations dw pt and guards Vitals Vitals Vital Signs Date Time Temp Pulse Resp B/P (MAP) Pulse Ox O2 Delivery O2 Flow Rate FiO2 05/10/18 07:00 98.1 112 18 124/77 (93) 99 Room Air 98.1 05/09/18 20:00 2.0 Physical Exam Physical Exam CONSTITUTIONAL: He is alert, cooperative. He is in no acute distress. HEENT: Pupils are equal and reactive. Normal conjunctivae. Oral cavity, pharynx is clear. NECK: Supple. No JVD. LUNGS: Clear to auscultation bilaterally. HEART: S1, S2. CHEST: He has a right-sided chest line without signs of any complications. ABDOMEN: Soft, nontender and nondistended. : [place] is in place with clear urine. SKIN: Warm to touch, without signs of rash. He has tattoos. NEUROLOGIC: He is nonfocal and moves all extremities. PSYCHIATRIC: Affect is flat. LYMPHATIC: Questionable hidradenitis in his left axillary area. General: Alert, Oriented X3, Cooperative, No acute distress Heart: Regular rate, Normal S1, Normal S2, No murmurs Lungs: Clear Abdomen: Normal bowel sounds, Soft, No tenderness, No hepatosplenomegaly, No masses Extremities: No clubbing, No cyanosis Skin: Other (left axilla, no induration, no erythema) Labs LABS Laboratory Tests Test 05/10/18 08:30 White Blood Count 10.5 x10^3/uL (4.0-11.0) Red Blood Count 3.81 x10^6/uL (4.30-5.70) Hemoglobin 11.9 g/dL (13.0-17.5) Hematocrit 33.0 % (39.0-53.0) Mean Corpuscular Volume 86 fL (79-100) Mean Corpuscular Hemoglobin 31 pg (25-35) Mean Corpuscular Hemoglobin Concent 36 g/dL (31-37) Red Cell Distribution Width 14.0 % (11.5-14.5) Platelet Count 166 x10^3/uL (140-400) Neutrophils (%) (Auto) 68 % (31-73) Lymphocytes (%) (Auto) 26 % (24-48) Monocytes (%) (Auto) 6 % (0-9) Eosinophils (%) (Auto) 0 % (0-3) Basophils (%) (Auto) 0 % (0-3) Neutrophils # (Auto) 7.1 x10^3uL (1.8-7.7) Lymphocytes # (Auto) 2.7 x10^3/uL (1.0-4.8) Monocytes # (Auto) 0.6 x10^3/uL (0.0-1.1) Eosinophils # (Auto) 0.0 x10^3/uL (0.0-0.7) Basophils # (Auto) 0.0 x10^3/uL (0.0-0.2) Sodium Level 141 mmol/L (136-145) Potassium Level 3.7 mmol/L (3.5-5.1) Chloride Level 106 mmol/L (98-107) Carbon Dioxide Level 24 mmol/L (21-32) Anion Gap 11 (6-14) Blood Urea Nitrogen 7 mg/dL (8-26) Creatinine 0.8 mg/dL (0.7-1.3) Estimated GFR (Cockcroft-Gault) 110.0 BUN/Creatinine Ratio 9 (6-20) Glucose Level 139 mg/dL (70-99) Lactic Acid Level 2.2 mmol/L (0.4-2.0) Calcium Level 8.6 mg/dL (8.5-10.1) Total Bilirubin 0.4 mg/dL (0.2-1.0) Aspartate Amino Transf (AST/SGOT) 354 U/L (15-37) Alanine Aminotransferase (ALT/SGPT) 88 U/L (16-63) Alkaline Phosphatase 71 U/L (46-116) Total Protein 7.1 g/dL (6.4-8.2) Albumin 3.3 g/dL (3.4-5.0) Albumin/Globulin Ratio 0.9 (1.0-1.7) Vancomycin Level Trough 11.7 mcg/mL (10.0-20.0) Vancomycin Last Dose Date 05-10-18 Vancomycin Last Dose Time 0100 Review of Systems Review of Systems A 14 point ROS was completed with the following noted as positive: Other systems reviewed and negative. \CONSTITUTIONAL: No fever or chills EYES: No recent changes SKIN: No rash or itching CARDIOVASCULAR: No chest pain, syncope, palpitations, or edema RESPIRATORY: No SOB or cough GASTROINTESTINAL: No nausea, vomiting or abdominal pain NEUROLOGICAL: No headaches or weakness ENDOCRINE: No cold or heat intolerance GENITOURINARY: No urgency or frequency of urination MUSCULOSKELETAL: No back pain or joint pain LYMPHATICS: No enlarged lymph nodes PSYCHIATRIC: No anxiety or depression Comment Review of Relevant I have reviewed the following items catarina (where applicable) has been applied. Labs Laboratory Tests Test 05/08/18 14:40 05/08/18 15:00 05/09/18 05:30 05/10/18 08:30 White Blood Count 12.6 x10^3/uL (4.0-11.0) 22.5 x10^3/uL (4.0-11.0) 10.5 x10^3/uL (4.0-11.0) Red Blood Count 3.98 x10^6/uL (4.30-5.70) 3.99 x10^6/uL (4.30-5.70) 3.81 x10^6/uL (4.30-5.70) Hemoglobin 12.2 g/dL (13.0-17.5) 12.4 g/dL (13.0-17.5) 11.9 g/dL (13.0-17.5) Hematocrit 33.9 % (39.0-53.0) 34.2 % (39.0-53.0) 33.0 % (39.0-53.0) Mean Corpuscular Volume 85 fL (79-100) 86 fL (79-100) 86 fL (79-100) Mean Corpuscular Hemoglobin 31 pg (25-35) 31 pg (25-35) 31 pg (25-35) Mean Corpuscular Hemoglobin Concent 36 g/dL (31-37) 36 g/dL (31-37) 36 g/dL (31-37) Red Cell Distribution Width 13.7 % (11.5-14.5) 13.3 % (11.5-14.5) 14.0 % (11.5-14.5) Platelet Count 150 x10^3/uL (140-400) 158 x10^3/uL (140-400) 166 x10^3/uL (140-400) Neutrophils (%) (Auto) 85 % (31-73) 90 % (31-73) 68 % (31-73) Lymphocytes (%) (Auto) 9 % (24-48) 7 % (24-48) 26 % (24-48) Monocytes (%) (Auto) 6 % (0-9) 3 % (0-9) 6 % (0-9) Eosinophils (%) (Auto) 0 % (0-3) 0 % (0-3) 0 % (0-3) Basophils (%) (Auto) 0 % (0-3) 0 % (0-3) 0 % (0-3) Neutrophils # (Auto) 10.7 x10^3uL (1.8-7.7) 20.2 x10^3uL (1.8-7.7) 7.1 x10^3uL (1.8-7.7) Lymphocytes # (Auto) 1.1 x10^3/uL (1.0-4.8) 1.5 x10^3/uL (1.0-4.8) 2.7 x10^3/uL (1.0-4.8) Monocytes # (Auto) 0.7 x10^3/uL (0.0-1.1) 0.7 x10^3/uL (0.0-1.1) 0.6 x10^3/uL (0.0-1.1) Eosinophils # (Auto) 0.0 x10^3/uL (0.0-0.7) 0.0 x10^3/uL (0.0-0.7) 0.0 x10^3/uL (0.0-0.7) Basophils # (Auto) 0.0 x10^3/uL (0.0-0.2) 0.0 x10^3/uL (0.0-0.2) 0.0 x10^3/uL (0.0-0.2) Segmented Neutrophils % 82 % (35-66) Band Neutrophils % 4 % (0-9) Lymphocytes % 8 % (24-48) Monocytes % 6 % (0-10) Platelet Estimate Adequate (ADEQUATE) Sodium Level 134 mmol/L (136-145) 133 mmol/L (136-145) 141 mmol/L (136-145) Potassium Level 3.6 mmol/L (3.5-5.1) 3.9 mmol/L (3.5-5.1) 3.7 mmol/L (3.5-5.1) Chloride Level 100 mmol/L (98-107) 102 mmol/L (98-107) 106 mmol/L (98-107) Carbon Dioxide Level 23 mmol/L (21-32) 23 mmol/L (21-32) 24 mmol/L (21-32) Anion Gap 11 (6-14) 8 (6-14) 11 (6-14) Blood Urea Nitrogen 3 mg/dL (8-26) 9 mg/dL (8-26) 7 mg/dL (8-26) Creatinine 0.8 mg/dL (0.7-1.3) 0.8 mg/dL (0.7-1.3) 0.8 mg/dL (0.7-1.3) Estimated GFR (Cockcroft-Gault) 110.0 110.0 110.0 Glucose Level 122 mg/dL (70-99) 127 mg/dL (70-99) 139 mg/dL (70-99) Calcium Level 8.2 mg/dL (8.5-10.1) 8.7 mg/dL (8.5-10.1) 8.6 mg/dL (8.5-10.1) Lactic Acid Level 2.8 mmol/L (0.4-2.0) 2.2 mmol/L (0.4-2.0) BUN/Creatinine Ratio 9 (6-20) Total Bilirubin 0.4 mg/dL (0.2-1.0) Aspartate Amino Transf (AST/SGOT) 354 U/L (15-37) Alanine Aminotransferase (ALT/SGPT) 88 U/L (16-63) Alkaline Phosphatase 71 U/L (46-116) Total Protein 7.1 g/dL (6.4-8.2) Albumin 3.3 g/dL (3.4-5.0) Albumin/Globulin Ratio 0.9 (1.0-1.7) Vancomycin Level Trough 11.7 mcg/mL (10.0-20.0) Vancomycin Last Dose Date 05-10-18 Vancomycin Last Dose Time 0100 Laboratory Tests Test 05/10/18 08:30 White Blood Count 10.5 x10^3/uL (4.0-11.0) Red Blood Count 3.81 x10^6/uL (4.30-5.70) Hemoglobin 11.9 g/dL (13.0-17.5) Hematocrit 33.0 % (39.0-53.0) Mean Corpuscular Volume 86 fL (79-100) Mean Corpuscular Hemoglobin 31 pg (25-35) Mean Corpuscular Hemoglobin Concent 36 g/dL (31-37) Red Cell Distribution Width 14.0 % (11.5-14.5) Platelet Count 166 x10^3/uL (140-400) Neutrophils (%) (Auto) 68 % (31-73) Lymphocytes (%) (Auto) 26 % (24-48) Monocytes (%) (Auto) 6 % (0-9) Eosinophils (%) (Auto) 0 % (0-3) Basophils (%) (Auto) 0 % (0-3) Neutrophils # (Auto) 7.1 x10^3uL (1.8-7.7) Lymphocytes # (Auto) 2.7 x10^3/uL (1.0-4.8) Monocytes # (Auto) 0.6 x10^3/uL (0.0-1.1) Eosinophils # (Auto) 0.0 x10^3/uL (0.0-0.7) Basophils # (Auto) 0.0 x10^3/uL (0.0-0.2) Sodium Level 141 mmol/L (136-145) Potassium Level 3.7 mmol/L (3.5-5.1) Chloride Level 106 mmol/L (98-107) Carbon Dioxide Level 24 mmol/L (21-32) Anion Gap 11 (6-14) Blood Urea Nitrogen 7 mg/dL (8-26) Creatinine 0.8 mg/dL (0.7-1.3) Estimated GFR (Cockcroft-Gault) 110.0 BUN/Creatinine Ratio 9 (6-20) Glucose Level 139 mg/dL (70-99) Lactic Acid Level 2.2 mmol/L (0.4-2.0) Calcium Level 8.6 mg/dL (8.5-10.1) Total Bilirubin 0.4 mg/dL (0.2-1.0) Aspartate Amino Transf (AST/SGOT) 354 U/L (15-37) Alanine Aminotransferase (ALT/SGPT) 88 U/L (16-63) Alkaline Phosphatase 71 U/L (46-116) Total Protein 7.1 g/dL (6.4-8.2) Albumin 3.3 g/dL (3.4-5.0) Albumin/Globulin Ratio 0.9 (1.0-1.7) Vancomycin Level Trough 11.7 mcg/mL (10.0-20.0) Vancomycin Last Dose Date 05-10-18 Vancomycin Last Dose Time 010 Microbiology 05/08/18 Blood Culture - Final, Complete Medications Current Medications Sodium Chloride 1,000 ml @ 1,000 mls/hr 1X ONCE IV Last administered on at 22:55; Start 05/06/18 at 23:00; Stop 05/06/18 at 23:59; Status DC Sodium Chloride 500 ml @ 50 mls/hr 1X ONCE IV Last administered on 05/07/18at 01:10; Start 05/07/18 at 00:30; Stop 05/07/18 at 10:29; Status DC Haloperidol (Haldol) 5 mg PRN Q6HRS PRN PO AGITATION Last administered on at 10:20; Start 05/07/18 at 08:45 Enoxaparin Sodium (Lovenox 40mg Syringe) 40 mg DAILY SQ Last administered on 05/09/18at 08:58; Start 05/07/18 at 10:00 Olanzapine (ZyPREXA ZYDIS) 5 mg HS PO Last administered on 05/09/18at 21:09; Start 05/07/18 at 21:00 Lorazepam (Ativan) 2 mg PRN Q4HRS PRN IV ANXIETY / AGITATION Last administered on 05/08/18at 14:58; Start 05/07/18 at 09:00 Potassium Chloride (Klor-Con) 40 meq 1X ONCE PO ; Start 05/07/18 at 09:30; Stop 05/07/18 at 09:31; Status DC Potassium Chloride (Klor-Con) 20 meq [id number] PO Last administered on at 09:40; Start 05/08/18 at 08:00 Desmopressin Acetate (Ddavp) 2 mcg 1X ONCE SQ Last administered on 05/07/18at 12 :44; Start 05/07/18 at 12:30; Stop 05/07/18 at 12:31; Status DC Ondansetron HCl (Zofran) 4 mg STK-MED ONCE .ROUTE ; Start 05/07/18 at 13:34; Stop 05/07/18 at 13:35; Status DC Ondansetron HCl (Zofran) 4 mg STK-MED ONCE .ROUTE ; Start 05/07/18 at 13:35; Stop 05/07/18 at 13:36; Status DC Ondansetron HCl (Zofran) 8 mg PRN Q6HRS PRN IV NAUSEA/VOMITING Last administered on 05/07/18at 13:41; Start 05/07/18 at 13:45 Dextrose 1,000 ml @ 50 mls/hr Q20H IV Last administered on 05/09/18at 00:19; Start 05/07/18 at 15:00 Desmopressin Acetate (Ddavp) 2 mcg 1X ONCE SQ Last administered on 05/07/18at 19 :31; Start 05/07/18 at 18:30; Stop 05/07/18 at 18:31; Status DC Potassium Chloride/Water 50 ml @ 50 mls/hr 1X ONCE IV Last administered on 05/08at 06:46; Start 05/08/18 at 07:00; Stop 05/08/18 at 07:59; Status DC Lidocaine HCl (Glydo (Lidocaine) Jelly) 1 dayanna 1X ONCE MM Last administered on 05/08/18at 09:00; Start 05/08/18 at 09:00; Stop 05/08/18 at 09:01; Status DC Lorazepam (Ativan) 2 mg 1X ONCE IV Last administered on 05/08/18at 13:00; Start 05/08/18 at 10:45; Stop 05/08/18 at 10:46; Status DC Ciprofloxacin/ Dextrose 200 ml @ 200 mls/hr 1X ONCE IV Last administered on at 15:07; Start 05/08/18 at 15:00; Stop 05/08/18 at 15:59; Status DC Ceftriaxone Sodium 1 gm/ Dextrose 50 ml @ 100 mls/hr Q24H IV ; Start 05/08/18 at 15:30; Status UNV Ceftriaxone Sodium (Rocephin) 1 gm Q24H IVP Last administered on 05/09/18at 21:09 ; Start 05/08/18 at 16:00 Acetaminophen (Tylenol Supp) 650 mg PRN Q6HRS PRN [place] MILD PAIN / TEMP Last administered on 05/08/18at 15:49; Start 05/08/18 at 15:30 Propofol 20 ml @ As Directed STK-MED ONCE IV ; Start 05/08/18 at 16:04; Stop 05/08 at 16:05; Status DC Fentanyl Citrate (Fentanyl 2ml Vial) 100 mcg STK-MED ONCE .ROUTE ; Start at 16:11; Stop 05/08/18 at 16:12; Status DC Ondansetron HCl (Zofran) 4 mg STK-MED ONCE .ROUTE ; Start 05/08/18 at 16:17; Stop 05/08/18 at 16:18; Status DC Dexamethasone Sodium Phosphate (Decadron) 20 mg STK-MED ONCE .ROUTE ; Start 05/08 at 16:18; Stop 05/08/18 at 16:19; Status DC Oxycodone/ Acetaminophen (Percocet 5/325) 1 tab PRN Q6HRS PRN PO PAIN Last administered on 05/09/18at 23:45; Start 05/09/18 at 06:45 Vancomycin HCl (Vanco Per Pharmacy) 1 each PRN DAILY PRN MC SEE COMMENTS Last administered on 05/09/18at 13:11; Start 05/09/18 at 08:00 Vancomycin HCl 2 gm/Sodium Chloride 500 ml @ 250 mls/hr 1X ONCE IV Last administered on 05/09/18at 09:00; Start 05/09/18 at 09:00; Stop 05/09/18 at 10:59; Status DC Vancomycin HCl 1.25 gm/Sodium Chloride 250 ml @ 167 mls/hr Q8H IV Last administered on 05/10/18at 09:55; Start 05/09/18 at 17:00; Stop 05/10/18 at 12:00 Vancomycin HCl (Vancomycin Trough Level) 1 each 1X ONCE MC ; Start 05/10/18 at 08:30; Stop 05/10/18 at 08:31; Status DC Lactobacillus Rhamnosus (Culturelle) 1 cap BID PO Last administered on at 09:40; Start 05/09/18 at 21:00 Phenazopyridine HCl (Pyridium) 200 mg PRN TID PRN PO URINARY PAIN; Start at 12:30 Vancomycin HCl 1.25 gm/Sodium Chloride 250 ml @ 167 mls/hr Q6H IV ; Start at 16:00 Active Scripts Active Reported Haloperidol Decanoate 100 Mg/1 Ml Vial 100 Mg IM Zyprexa (Olanzapine) 10 Mg Tablet 1 Tab PO QHS Vitals/I & O Vital Sign - Last 24 Hours 05/09/18 05/09/18 05/09/18 05/09/18 12:00 16:00 19:00 20:00 Temp 98.1 99.2 98.1 98.1 99.2 98.1 Pulse 109 Resp 20 20 18 B/P (MAP) 117/69 (85) 123/76 (92) 114/65 (81) Pulse Ox 98 96 O2 Delivery Room Air Room Air Room Air Room Air O2 Flow Rate 2.0 05/09/18 05/09/18 05/10/18 05/10/18 23:00 23:45 03:00 07:00 Temp 98.1 97.7 98.1 98.1 97.7 98.1 Pulse 109 85 112 Resp 18 18 18 B/P (MAP) 119/69 (86) 108/68 (81) 124/77 (93) Pulse Ox 96 97 99 O2 Delivery Room Air Room Air Room Air Room Air Intake and Output 05/09/18 05/09/18 05/10/18 15:00 23:00 07:00 Intake Total 3480 ml 700 ml Output Total 3275 ml 700 ml 650 ml Balance 205 ml 0 ml -650 ml VANCE APARICIO MD May 10, 2018 11:48
--- NOTE | 2018-05-10 12:16 | PDOC ---
SUBJECTIVE Subjective Pt alert, in good spirits. A lot less burning and discomfort from catheter/ pelvic region today than yesterday OBJECTIVE Objective Physical Exam: General appearance: Alert and Oriented Head: Normocephalic, without obvious abnormality Eyes: conjunctivae/corneas clear. PERRL, EOM's intact. Fundi benign Lungs: regular respirations, non labored breathing Abdomen: soft, non-tender. Bowel sounds normal. No masses, no organomegaly Pelvic: normal phallus, wise catheter draining clear yellow urine, no sediment or clots noted. Scant amount of blood oozing around meatus. Vital Signs Vital Signs Date Time Temp Pulse Resp B/P (MAP) Pulse Ox O2 Delivery O2 Flow Rate FiO2 05/10/18 11:00 97.9 85 18 118/68 (85) 100 Room Air 97.9 05/10/18 07:00 98.1 112 18 124/77 (93) 99 Room Air 98.1 05/10/18 03:00 97.7 85 18 108/68 (81) 97 Room Air 97.7 05/09/18 23:45 Room Air 05/09/18 23:00 98.1 109 18 119/69 (86) 96 Room Air 98.1 05/09/18 20:00 Room Air 2.0 05/09/18 19:00 98.1 109 18 114/65 (81) 96 Room Air 98.1 05/09/18 16:00 99.2 20 123/76 (92) 98 Room Air 99.2 I & O Intake and Output 05/10/18 07:00 Intake Total 4180 ml Output Total 4625 ml Balance -445 ml Intake Oral 4180 ml Output Urine Total 4625 ml # Bowel Movements 3 PHYSICAL EXAM Physical Exam Physical Exam: General appearance: Alert and Oriented Head: Normocephalic, without obvious abnormality Eyes: conjunctivae/corneas clear. PERRL, EOM's intact. Fundi benign Lungs: regular respirations, non labored breathing Abdomen: soft, non-tender. Bowel sounds normal. No masses, no organomegaly Pelvic: normal phallus, wise catheter draining clear yellow urine, no sediment or clots noted. Scant amount of blood oozing around meatus. ASSESSMENT/PLAN Assessment/Plan Assessment/Plan Patient is status post op. cysto wise catheter placement day # 2. Currently wise catheter is in good condition and functioning well. Scant amount of blood around ureteral meatus: not concerning at this time. May cleanse very gently and put a small amount of Kerlix at the tip of penis to catch this oozing. Discussed with patient that he needs to keep the wise catheter in place for a full ten days. If medical team is going to discharge him prior to this, he may go home with the wise catheter in place and we can do a voiding trial in office. Continue Pyridium 200 mg 1 tab TID PRN, although he reports dysuria much better today Will follow peripherally over the weekend. Please call Urology service with concerns over the weekend. Problems: (1) Gross hematuria COMMENT Lab Laboratory Tests Test 05/10/18 08:30 White Blood Count 10.5 x10^3/uL (4.0-11.0) Red Blood Count 3.81 x10^6/uL (4.30-5.70) Hemoglobin 11.9 g/dL (13.0-17.5) Hematocrit 33.0 % (39.0-53.0) Mean Corpuscular Volume 86 fL (79-100) Mean Corpuscular Hemoglobin 31 pg (25-35) Mean Corpuscular Hemoglobin Concent 36 g/dL (31-37) Red Cell Distribution Width 14.0 % (11.5-14.5) Platelet Count 166 x10^3/uL (140-400) Neutrophils (%) (Auto) 68 % (31-73) Lymphocytes (%) (Auto) 26 % (24-48) Monocytes (%) (Auto) 6 % (0-9) Eosinophils (%) (Auto) 0 % (0-3) Basophils (%) (Auto) 0 % (0-3) Neutrophils # (Auto) 7.1 x10^3uL (1.8-7.7) Lymphocytes # (Auto) 2.7 x10^3/uL (1.0-4.8) Monocytes # (Auto) 0.6 x10^3/uL (0.0-1.1) Eosinophils # (Auto) 0.0 x10^3/uL (0.0-0.7) Basophils # (Auto) 0.0 x10^3/uL (0.0-0.2) Sodium Level 141 mmol/L (136-145) Potassium Level 3.7 mmol/L (3.5-5.1) Chloride Level 106 mmol/L (98-107) Carbon Dioxide Level 24 mmol/L (21-32) Anion Gap 11 (6-14) Blood Urea Nitrogen 7 mg/dL (8-26) Creatinine 0.8 mg/dL (0.7-1.3) Estimated GFR (Cockcroft-Gault) 110.0 BUN/Creatinine Ratio 9 (6-20) Glucose Level 139 mg/dL (70-99) Lactic Acid Level 2.2 mmol/L (0.4-2.0) Calcium Level 8.6 mg/dL (8.5-10.1) Total Bilirubin 0.4 mg/dL (0.2-1.0) Aspartate Amino Transf (AST/SGOT) 354 U/L (15-37) Alanine Aminotransferase (ALT/SGPT) 88 U/L (16-63) Alkaline Phosphatase 71 U/L (46-116) Total Protein 7.1 g/dL (6.4-8.2) Albumin 3.3 g/dL (3.4-5.0) Albumin/Globulin Ratio 0.9 (1.0-1.7) Vancomycin Level Trough 11.7 mcg/mL (10.0-20.0) Vancomycin Last Dose Date 05-10-18 Vancomycin Last Dose Time 0100 SHITAL POLLACK APRN May 10, 2018 12:16
[2018-05-10 15:00] VITALS: BP 120/72
[2018-05-10] MEDS: VANCOMYCIN PER PHARMACY MC PRN (15:24)
[2018-05-10] MEDS: cefTRIAXone IV Push 1 GM VIAL. IVP SCH (15:56)
[2018-05-10 19:00] VITALS: BP 98/55
[2018-05-10 22:49] VITALS: BP 113/64
[2018-05-11 02:58] VITALS: BP 100/61
[2018-05-11 05:39] LABS: ALBUMIN 3.1 g/dL (3.4-5.0); ALBUMIN/GLOBULIN RATIO 0.9 (1.0-1.7); CALCIUM 8.7 mg/dL (8.5-10.1); CREATININE 0.8 mg/dL (0.7-1.3); TOTAL BILIRUBIN 0.3 mg/dL (0.2-1.0); TOTAL PROTEIN 6.7 g/dL (6.4-8.2); VANC TR 11.6 mcg/mL (10.0-20.0)
[2018-05-11] MEDS ORDERED: VANCOMYCIN 2 GM in IV NORMAL SALINE 500ML BAG 500 ML IV SCH (06:00)
[2018-05-11] MEDS: VANCOMYCIN PER PHARMACY MC PRN ×2 (06:10→09:57)
[2018-05-11 07:00] VITALS: BP 125/76
--- NOTE | 2018-05-11 07:20 | PDOC ---
Infectious Disease Note Subjective Subjective Doing ok No F/C/S/N/V/D/SOA/Rash or pain ROS ROS o/w neg Vital Sign Vital Signs Vital Signs Date Time Temp Pulse Resp B/P (MAP) Pulse Ox O2 Delivery O2 Flow Rate FiO2 05/11/18 02:58 97.9 74 18 100/61 (74) 98 Room Air 97.9 05/10/18 20:10 2.0 Physical Exam PHYSICAL EXAM CONSTITUTIONAL: He is alert, cooperative. He is in no acute distress. HEENT: Pupils are equal and reactive. Normal conjunctivae. Oral cavity, pharynx is clear. NECK: Supple. No JVD. LUNGS: Clear to auscultation bilaterally. HEART: S1, S2. ABDOMEN: Soft, nontender and nondistended. : Wise is in place with clear urine. SKIN: Warm to touch, without signs of rash. He has tattoos. NEUROLOGIC: He is nonfocal and moves all extremities. PSYCHIATRIC: Affect is flat. LYMPHATIC: Questionable hidradenitis in his left axillary area. IV- right chest and RUE peripheral - clean Labs Lab Laboratory Tests Test 05/10/18 08:30 05/11/18 05:00 White Blood Count 10.5 x10^3/uL (4.0-11.0) Red Blood Count 3.81 x10^6/uL (4.30-5.70) Hemoglobin 11.9 g/dL (13.0-17.5) Hematocrit 33.0 % (39.0-53.0) Mean Corpuscular Volume 86 fL (79-100) Mean Corpuscular Hemoglobin 31 pg (25-35) Mean Corpuscular Hemoglobin Concent 36 g/dL (31-37) Red Cell Distribution Width 14.0 % (11.5-14.5) Platelet Count 166 x10^3/uL (140-400) Neutrophils (%) (Auto) 68 % (31-73) Lymphocytes (%) (Auto) 26 % (24-48) Monocytes (%) (Auto) 6 % (0-9) Eosinophils (%) (Auto) 0 % (0-3) Basophils (%) (Auto) 0 % (0-3) Neutrophils # (Auto) 7.1 x10^3uL (1.8-7.7) Lymphocytes # (Auto) 2.7 x10^3/uL (1.0-4.8) Monocytes # (Auto) 0.6 x10^3/uL (0.0-1.1) Eosinophils # (Auto) 0.0 x10^3/uL (0.0-0.7) Basophils # (Auto) 0.0 x10^3/uL (0.0-0.2) Sodium Level 141 mmol/L (136-145) 142 mmol/L (136-145) Potassium Level 3.7 mmol/L (3.5-5.1) 4.0 mmol/L (3.5-5.1) Chloride Level 106 mmol/L (98-107) 107 mmol/L (98-107) Carbon Dioxide Level 24 mmol/L (21-32) 27 mmol/L (21-32) Anion Gap 11 (6-14) 8 (6-14) Blood Urea Nitrogen 7 mg/dL (8-26) 8 mg/dL (8-26) Creatinine 0.8 mg/dL (0.7-1.3) 0.8 mg/dL (0.7-1.3) Estimated GFR (Cockcroft-Gault) 110.0 110.0 BUN/Creatinine Ratio 9 (6-20) 10 (6-20) Glucose Level 139 mg/dL (70-99) 101 mg/dL (70-99) Lactic Acid Level 2.2 mmol/L (0.4-2.0) Calcium Level 8.6 mg/dL (8.5-10.1) 8.7 mg/dL (8.5-10.1) Total Bilirubin 0.4 mg/dL (0.2-1.0) 0.3 mg/dL (0.2-1.0) Aspartate Amino Transf (AST/SGOT) 354 U/L (15-37) 316 U/L (15-37) Alanine Aminotransferase (ALT/SGPT) 88 U/L (16-63) 87 U/L (16-63) Alkaline Phosphatase 71 U/L (46-116) 71 U/L (46-116) Total Protein 7.1 g/dL (6.4-8.2) 6.7 g/dL (6.4-8.2) Albumin 3.3 g/dL (3.4-5.0) 3.1 g/dL (3.4-5.0) Albumin/Globulin Ratio 0.9 (1.0-1.7) 0.9 (1.0-1.7) Vancomycin Level Trough 11.7 mcg/mL (10.0-20.0) 11.6 mcg/mL (10.0-20.0) Vancomycin Last Dose Date 05-10-18 05/10/18 Vancomycin Last Dose Time 0100 2200 Micro Microbiology 05/08/18 Blood Culture - Final, Complete Objective Assessment GPC sepsis 05/08 -cults pending Leukocytosis - s/p Dexamethasone 05/08 - better today Urethral trauma - pulled wise out 05/08 sp/ intra - op placement 05/08 seizure - hyponatremia Transaminitis ? reactive ? Left ax hidradenitis- U/S neg Plan Plan of Care Cont Vanc and rocephin Consider abd U/S given elevated LFTS F/u labs and cults TORIBIO BROWNE MD May 11, 2018 07:20
[2018-05-11] MEDS: POTASSIUM CHLORIDE 20 MEQ TABLET.ER. PO SCH (10:38)
[2018-05-11] MEDS: LACTOBACILLUS RHAMNOSUS GG 1 CAPSULE. PO SCH ×2 (10:38→20:40)
[2018-05-11] MEDS: ENOXAPARIN 40 MG/0.4 ML SYRINGE. SQ SCH (10:39)
[2018-05-11 11:00] VITALS: BP 117/80
--- NOTE | 2018-05-11 12:47 | PDOC ---
PROGRESS NOTES Chief Complaint Chief Complaint seizure, provoked by hyponatremia symptomatic hyponatremia, report of excessive water intake, fluid overload, hypovolemic most likely, Bipolar or schizophrenia, Incarcerated patient, urinary retention, trauma, hematuria - resolved, need wise for 10 ds total sepsis GPC bacteremia, new 05/08 2/2 gram + cocci Inmate plan: fu with renal, Na normal fu with id, fu bcx , on ceftriaxone, aroldo has wise, need another 1 week as per renal pt wants [facility] back [facility] the [facility], told him need to wait for bcx result ABD US given high lft labs daily History of Present Illness History of Present Illness Numbers are better WBC down to 10 from 20 Hemoglobin stable 11 Mild hyponatremia 133 Patient does not complain of anything Patient is an inmate-can speak Indonesian GPC bacteremia 2 out of 2 bottles, on Vanco and Rocephin per ID Vitals Vitals Vital Signs Date Time Temp Pulse Resp B/P (MAP) Pulse Ox O2 Delivery O2 Flow Rate FiO2 05/11/18 07:00 97.7 89 19 125/76 (92) 100 Room Air 97.7 05/10/18 20:10 2.0 Physical Exam Physical Exam CONSTITUTIONAL: He is alert, cooperative. He is in no acute distress. HEENT: Pupils are equal and reactive. Normal conjunctivae. Oral cavity, pharynx is clear. NECK: Supple. No JVD. LUNGS: Clear to auscultation bilaterally. HEART: S1, S2. ABDOMEN: Soft, nontender and nondistended. : Wise is in place with clear urine. SKIN: Warm to touch, without signs of rash. He has tattoos. NEUROLOGIC: He is nonfocal and moves all extremities. PSYCHIATRIC: Affect is flat. LYMPHATIC: Questionable hidradenitis in his left axillary area. IV- right chest and RUE peripheral - clean General: Alert, Oriented X3, Cooperative, No acute distress Heart: Regular rate, Normal S1, Normal S2, No murmurs Lungs: Clear Abdomen: Normal bowel sounds, Soft, No tenderness, No hepatosplenomegaly, No masses Extremities: No clubbing, No cyanosis Skin: Other (left axilla, no induration, no erythema) Labs LABS Laboratory Tests Test 05/11/18 05:00 Sodium Level 142 mmol/L (136-145) Potassium Level 4.0 mmol/L (3.5-5.1) Chloride Level 107 mmol/L (98-107) Carbon Dioxide Level 27 mmol/L (21-32) Anion Gap 8 (6-14) Blood Urea Nitrogen 8 mg/dL (8-26) Creatinine 0.8 mg/dL (0.7-1.3) Estimated GFR (Cockcroft-Gault) 110.0 BUN/Creatinine Ratio 10 (6-20) Glucose Level 101 mg/dL (70-99) Calcium Level 8.7 mg/dL (8.5-10.1) Total Bilirubin 0.3 mg/dL (0.2-1.0) Aspartate Amino Transf (AST/SGOT) 316 U/L (15-37) Alanine Aminotransferase (ALT/SGPT) 87 U/L (16-63) Alkaline Phosphatase 71 U/L (46-116) Total Protein 6.7 g/dL (6.4-8.2) Albumin 3.1 g/dL (3.4-5.0) Albumin/Globulin Ratio 0.9 (1.0-1.7) Vancomycin Level Trough 11.6 mcg/mL (10.0-20.0) Vancomycin Last Dose Date 05/10/18 Vancomycin Last Dose Time 2200 Comment Review of Relevant I have reviewed the following items catarina (where applicable) has been applied. Labs Laboratory Tests Test 05/10/18 08:30 05/11/18 05:00 White Blood Count 10.5 x10^3/uL (4.0-11.0) Red Blood Count 3.81 x10^6/uL (4.30-5.70) Hemoglobin 11.9 g/dL (13.0-17.5) Hematocrit 33.0 % (39.0-53.0) Mean Corpuscular Volume 86 fL (79-100) Mean Corpuscular Hemoglobin 31 pg (25-35) Mean Corpuscular Hemoglobin Concent 36 g/dL (31-37) Red Cell Distribution Width 14.0 % (11.5-14.5) Platelet Count 166 x10^3/uL (140-400) Neutrophils (%) (Auto) 68 % (31-73) Lymphocytes (%) (Auto) 26 % (24-48) Monocytes (%) (Auto) 6 % (0-9) Eosinophils (%) (Auto) 0 % (0-3) Basophils (%) (Auto) 0 % (0-3) Neutrophils # (Auto) 7.1 x10^3uL (1.8-7.7) Lymphocytes # (Auto) 2.7 x10^3/uL (1.0-4.8) Monocytes # (Auto) 0.6 x10^3/uL (0.0-1.1) Eosinophils # (Auto) 0.0 x10^3/uL (0.0-0.7) Basophils # (Auto) 0.0 x10^3/uL (0.0-0.2) Sodium Level 141 mmol/L (136-145) 142 mmol/L (136-145) Potassium Level 3.7 mmol/L (3.5-5.1) 4.0 mmol/L (3.5-5.1) Chloride Level 106 mmol/L (98-107) 107 mmol/L (98-107) Carbon Dioxide Level 24 mmol/L (21-32) 27 mmol/L (21-32) Anion Gap 11 (6-14) 8 (6-14) Blood Urea Nitrogen 7 mg/dL (8-26) 8 mg/dL (8-26) Creatinine 0.8 mg/dL (0.7-1.3) 0.8 mg/dL (0.7-1.3) Estimated GFR (Cockcroft-Gault) 110.0 110.0 BUN/Creatinine Ratio 9 (6-20) 10 (6-20) Glucose Level 139 mg/dL (70-99) 101 mg/dL (70-99) Lactic Acid Level 2.2 mmol/L (0.4-2.0) Calcium Level 8.6 mg/dL (8.5-10.1) 8.7 mg/dL (8.5-10.1) Total Bilirubin 0.4 mg/dL (0.2-1.0) 0.3 mg/dL (0.2-1.0) Aspartate Amino Transf (AST/SGOT) 354 U/L (15-37) 316 U/L (15-37) Alanine Aminotransferase (ALT/SGPT) 88 U/L (16-63) 87 U/L (16-63) Alkaline Phosphatase 71 U/L (46-116) 71 U/L (46-116) Total Protein 7.1 g/dL (6.4-8.2) 6.7 g/dL (6.4-8.2) Albumin 3.3 g/dL (3.4-5.0) 3.1 g/dL (3.4-5.0) Albumin/Globulin Ratio 0.9 (1.0-1.7) 0.9 (1.0-1.7) Vancomycin Level Trough 11.7 mcg/mL (10.0-20.0) 11.6 mcg/mL (10.0-20.0) Vancomycin Last Dose Date 05-10-18 05/10/18 Vancomycin Last Dose Time 0100 2200 Laboratory Tests Test 05/11/18 05:00 Sodium Level 142 mmol/L (136-145) Potassium Level 4.0 mmol/L (3.5-5.1) Chloride Level 107 mmol/L (98-107) Carbon Dioxide Level 27 mmol/L (21-32) Anion Gap 8 (6-14) Blood Urea Nitrogen 8 mg/dL (8-26) Creatinine 0.8 mg/dL (0.7-1.3) Estimated GFR (Cockcroft-Gault) 110.0 BUN/Creatinine Ratio 10 (6-20) Glucose Level 101 mg/dL (70-99) Calcium Level 8.7 mg/dL (8.5-10.1) Total Bilirubin 0.3 mg/dL (0.2-1.0) Aspartate Amino Transf (AST/SGOT) 316 U/L (15-37) Alanine Aminotransferase (ALT/SGPT) 87 U/L (16-63) Alkaline Phosphatase 71 U/L (46-116) Total Protein 6.7 g/dL (6.4-8.2) Albumin 3.1 g/dL (3.4-5.0) Albumin/Globulin Ratio 0.9 (1.0-1.7) Vancomycin Level Trough 11.6 mcg/mL (10.0-20.0) Vancomycin Last Dose Date 05/10/18 Vancomycin Last Dose Time 0 Microbiology 05/08/18 Blood Culture - Final, Complete Medications Current Medications Sodium Chloride 1,000 ml @ 1,000 mls/hr 1X ONCE IV Last administered on at 22:55; Start 05/06/18 at 23:00; Stop 05/06/18 at 23:59; Status DC Sodium Chloride 500 ml @ 50 mls/hr 1X ONCE IV Last administered on 05/07/18at 01:10; Start 05/07/18 at 00:30; Stop 05/07/18 at 10:29; Status DC Haloperidol (Haldol) 5 mg PRN Q6HRS PRN PO AGITATION Last administered on at 10:20; Start 05/07/18 at 08:45 Enoxaparin Sodium (Lovenox 40mg Syringe) 40 mg DAILY SQ Last administered on 05/11/18at 10:39; Start 05/07/18 at 10:00 Olanzapine (ZyPREXA ZYDIS) 5 mg HS PO Last administered on 05/10/18at 21:56; Start 05/07/18 at 21:00 Lorazepam (Ativan) 2 mg PRN Q4HRS PRN IV ANXIETY / AGITATION Last administered on 05/08/18at 14:58; Start 05/07/18 at 09:00 Potassium Chloride (Klor-Con) 40 meq 1X ONCE PO ; Start 05/07/18 at 09:30; Stop 05/07/18 at 09:31; Status DC Potassium Chloride (Klor-Con) 20 meq [id number] PO Last administered on at 10:38; Start 05/08/18 at 08:00 Desmopressin Acetate (Ddavp) 2 mcg 1X ONCE SQ Last administered on 05/07/18at 12 :44; Start 05/07/18 at 12:30; Stop 05/07/18 at 12:31; Status DC Ondansetron HCl (Zofran) 4 mg STK-MED ONCE .ROUTE ; Start 05/07/18 at 13:34; Stop 05/07/18 at 13:35; Status DC Ondansetron HCl (Zofran) 4 mg STK-MED ONCE .ROUTE ; Start 05/07/18 at 13:35; Stop 05/07/18 at 13:36; Status DC Ondansetron HCl (Zofran) 8 mg PRN Q6HRS PRN IV NAUSEA/VOMITING Last administered on 05/07/18at 13:41; Start 05/07/18 at 13:45 Dextrose 1,000 ml @ 50 mls/hr Q20H IV Last administered on 05/09/18at 00:19; Start 05/07/18 at 15:00; Stop 05/10/18 at 12:30; Status DC Desmopressin Acetate (Ddavp) 2 mcg 1X ONCE SQ Last administered on 05/07/18at 19 :31; Start 05/07/18 at 18:30; Stop 05/07/18 at 18:31; Status DC Potassium Chloride/Water 50 ml @ 50 mls/hr 1X ONCE IV Last administered on 05/08at 06:46; Start 05/08/18 at 07:00; Stop 05/08/18 at 07:59; Status DC Lidocaine HCl (Glydo (Lidocaine) Jelly) 1 dayanna 1X ONCE MM Last administered on 05/08/18at 09:00; Start 05/08/18 at 09:00; Stop 05/08/18 at 09:01; Status DC Lorazepam (Ativan) 2 mg 1X ONCE IV Last administered on 05/08/18at 13:00; Start 05/08/18 at 10:45; Stop 05/08/18 at 10:46; Status DC Ciprofloxacin/ Dextrose 200 ml @ 200 mls/hr 1X ONCE IV Last administered on at 15:07; Start 05/08/18 at 15:00; Stop 05/08/18 at 15:59; Status DC Ceftriaxone Sodium 1 gm/ Dextrose 50 ml @ 100 mls/hr Q24H IV ; Start 05/08/18 at 15:30; Status UNV Ceftriaxone Sodium (Rocephin) 1 gm Q24H IVP Last administered on 05/10/18at 15:56 ; Start 05/08/18 at 16:00 Acetaminophen (Tylenol Supp) 650 mg PRN Q6HRS PRN VA MILD PAIN / TEMP Last administered on 05/08/18at 15:49; Start 05/08/18 at 15:30 Propofol 20 ml @ As Directed STK-MED ONCE IV ; Start 05/08/18 at 16:04; Stop 05/08 at 16:05; Status DC Fentanyl Citrate (Fentanyl 2ml Vial) 100 mcg STK-MED ONCE .ROUTE ; Start at 16:11; Stop 05/08/18 at 16:12; Status DC Ondansetron HCl (Zofran) 4 mg STK-MED ONCE .ROUTE ; Start 05/08/18 at 16:17; Stop 05/08/18 at 16:18; Status DC Dexamethasone Sodium Phosphate (Decadron) 20 mg STK-MED ONCE .ROUTE ; Start 05/08 at 16:18; Stop 05/08/18 at 16:19; Status DC Oxycodone/ Acetaminophen (Percocet 5/325) 1 tab PRN Q6HRS PRN PO PAIN Last administered on 05/09/18at 23:45; Start 05/09/18 at 06:45 Vancomycin HCl (Vanco Per Pharmacy) 1 each PRN DAILY PRN MC SEE COMMENTS Last administered on 05/11/18at 09:57; Start 05/09/18 at 08:00 Vancomycin HCl 2 gm/Sodium Chloride 500 ml @ 250 mls/hr 1X ONCE IV Last administered on 05/09/18at 09:00; Start 05/09/18 at 09:00; Stop 05/09/18 at 10:59; Status DC Vancomycin HCl 1.25 gm/Sodium Chloride 250 ml @ 167 mls/hr Q8H IV Last administered on 05/10/18at 09:55; Start 05/09/18 at 17:00; Stop 05/10/18 at 12:00; Status DC Vancomycin HCl (Vancomycin Trough Level) 1 each 1X ONCE MC ; Start 05/10/18 at 08:30; Stop 05/10/18 at 08:31; Status DC Lactobacillus Rhamnosus (Culturelle) 1 cap BID PO Last administered on at 10:38; Start 05/09/18 at 21:00 Phenazopyridine HCl (Pyridium) 200 mg PRN TID PRN PO URINARY PAIN; Start at 12:30 Vancomycin HCl 1.25 gm/Sodium Chloride 250 ml @ 167 mls/hr Q6H IV Last administered on 05/10/18at 21:57; Start 05/10/18 at 16:00; Stop 05/11/18 at 05:57; Status DC Lidocaine HCl (Glydo (Lidocaine) Jelly) 6 dayanna STK-MED ONCE .ROUTE ; Start at 12:00; Stop 05/10/18 at 11:48; Status DC Lidocaine HCl (Xylocaine 2% Topical 5gm Tube) 5 dayanna STK-MED ONCE TP ; Start 05/07 at 12:00; Stop 05/10/18 at 11:48; Status DC Vancomycin HCl (Vancomycin Trough Level) 1 each 1X ONCE MC Last administered on 05/11/18at 03:30; Start 05/11/18 at 03:30; Stop 05/11/18 at 03:31; Status DC Vancomycin HCl 2 gm/Sodium Chloride 500 ml @ 250 mls/hr Q8H IV Last administered on 05/11/18at 06:25; Start 05/11/18 at 06:00; Stop 05/11/18 at 09:44; Status DC Vancomycin HCl (Vancomycin Trough Level) 1 each 1X ONCE MC ; Start 05/12/18 at 06:30; Stop 05/12/18 at 06:31 Vancomycin HCl 1.75 gm/Sodium Chloride 500 ml @ 250 mls/hr Q8H IV ; Start at 15:00 Active Scripts Active Reported Haloperidol Decanoate 100 Mg/1 Ml Vial 100 Mg IM Zyprexa (Olanzapine) 10 Mg Tablet 1 Tab PO QHS Vitals/I & O Vital Sign - Last 24 Hours 05/10/18 05/10/18 05/10/18 05/10/18 15:00 19:00 20:10 22:49 Temp 97.9 98.1 97.7 97.9 98.1 97.7 Pulse 100 101 76 Resp 18 18 18 B/P (MAP) 120/72 (88) 98/55 (69) 113/64 (80) Pulse Ox 100 98 98 O2 Delivery Room Air Room Air Room Air Room Air O2 Flow Rate 2.0 05/11/18 05/11/18 02:58 07:00 Temp 97.9 97.7 97.9 97.7 Pulse 74 89 Resp 18 19 B/P (MAP) 100/61 (74) 125/76 (92) Pulse Ox 98 100 O2 Delivery Room Air Room Air Intake and Output 05/10/18 05/10/18 05/11/18 15:00 23:00 07:00 Intake Total 360 ml 180 ml Output Total 1100 ml 625 ml Balance 360 ml -920 ml -625 ml LIZZY ROQUE MD May 11, 2018 12:47
[2018-05-11 15:00] VITALS: BP 120/84
[2018-05-11] MEDS: VANCOMYCIN 1.75 GM in IV NORMAL SALINE 500ML BAG 500 ML IV SCH ×2 (16:06→22:28)
[2018-05-11] MEDS: cefTRIAXone IV Push 1 GM VIAL. IVP SCH (16:07)
[2018-05-11] MEDS: HALOPERIDOL 5 MG TABLET. PO PRN (16:29)
--- NOTE | 2018-05-11 17:50 | RAD ---
PROCEDURE: CHEST AP ONLY CLINICAL INDICATION: insertion of central line COMPARISON: 05/08/2018 FINDINGS: No pneumothorax identified. Cardiac and mediastinal contours unremarkable. No pulmonary consolidation or acute airspace disease. No acute osseous abnormalities identified. Interval change in position of the right-sided PICC line which is curled with its tip in the subclavian vein. IMPRESSION: Right-sided PICC line is curled with its tip in the mid subclavian vein. Electronically signed by: Tadeo Ceron DO (05/11/2018 5:47 PM) [facility]
[2018-05-11 19:00] VITALS: BP 100/59
[2018-05-11 23:00] VITALS: BP 110/69
[2018-05-12 03:00] VITALS: BP 108/70
[2018-05-12 07:00] VITALS: BP 114/78
[2018-05-12 07:57] LABS: BASO % 0 % (0-3); EOS # 0.1 x10^3/uL (0.0-0.7); EOS % 2 % (0-3); HEMATOCRIT 32.9 % (39.0-53.0); HEMOGLOBIN 11.6 g/dL (13.0-17.5); LYMPH # 2.5 x10^3/uL (1.0-4.8); LYMPH % 29 % (24-48); MEAN CORPUSCULAR HEMOGLOBIN 31 pg (25-35); MEAN CORPUSCULAR HGB CONC 35 g/dL (31-37); MEAN CORPUSCULAR VOLUME 87 fL (79-100); MONO # 0.5 x10^3/uL (0.0-1.1); MONO % 6 % (0-9); NEUT # 5.7 x10^3uL (1.8-7.7); NEUT % 64 % (31-73); PLATELET COUNT 202 x10^3/uL (140-400); RED BLOOD COUNT 3.76 x10^6/uL (4.30-5.70); RED CELL DISTRIBUTION WIDTH 13.1 % (11.5-14.5); WHITE BLOOD COUNT 8.9 x10^3/uL (4.0-11.0)
[2018-05-12 08:17] LABS: ALBUMIN 3.2 g/dL (3.4-5.0); CREATININE 0.6 mg/dL (0.7-1.3); DIRECT BILIRUBIN 0.1 mg/dL (0.0-0.2); GFR 153.3; POTASSIUM 4.1 mmol/L (3.5-5.1); TOTAL BILIRUBIN 0.3 mg/dL (0.2-1.0)
[2018-05-12 08:20] LABS: VANC TR 13.8 mcg/mL (10.0-20.0)
[2018-05-12] MEDS: VANCOMYCIN PER PHARMACY MC PRN (09:06)
--- NOTE | 2018-05-12 10:18 | RAD ---
CLINICAL HISTORY: Elevated LFT's COMPARISON: None available. TECHNIQUE: Limited ultrasound examination of the right upper quadrant of the abdomen was performed FINDINGS: Liver: The liver measures 18.6 cm in length in the right mid clavicular line. Hepatic echogenicity is normal and the margin is smooth. There is no focal abnormality of the liver. Gallbladder/Biliary: The gallbladder is normal in appearance without evidence for cholelithiasis. There is no wall thickening or pericholecystic fluid. There is no pain with direct transducer pressure over the gallbladder.The common bile duct measures 0.3 cm. The pancreas is not well visualized, the majority is obscured by overlying bowel gas. The right kidney measures 11.1 cm in bipolar length. There is no free fluid in the subhepatic space. Visualized aorta and IVC are unremarkable. IMPRESSION: 1. Mild hepatomegaly. 2. Otherwise unremarkable sonographic survey of the right upper quadrant. Electronically signed by: Carlos Enrique Baez MD (05/12/2018 10:15 AM) [facility]
[2018-05-12] MEDS: VANCOMYCIN 2 GM in IV NORMAL SALINE 500ML BAG 500 ML IV SCH ×2 (10:58→17:55)
[2018-05-12] MEDS: LACTOBACILLUS RHAMNOSUS GG 1 CAPSULE. PO SCH ×2 (10:59→20:30)
[2018-05-12] MEDS: ENOXAPARIN 40 MG/0.4 ML SYRINGE. SQ SCH (10:59)
[2018-05-12] MEDS: POTASSIUM CHLORIDE 20 MEQ TABLET.ER. PO SCH (10:59)
[2018-05-12 11:00] VITALS: BP 125/76
--- NOTE | 2018-05-12 11:07 | PDOC ---
Infectious Disease Note Subjective Subjective Comfortable, denies pain/F/C/S/N/V/D/SOA ROS ROS per HPI otherwise neg Vital Sign Vital Signs Vital Signs Date Time Temp Pulse Resp B/P (MAP) Pulse Ox O2 Delivery O2 Flow Rate FiO2 05/12/18 07:00 97.9 90 19 114/78 (90) 97 Room Air 97.9 Physical Exam PHYSICAL EXAM GENERAL: Propped up in bed, alert, NAD HEENT: Pupils are equal and reactive. Normal conjunctivae. Oral cavity, pharynx is clear. NECK: Supple. No JVD. LUNGS: Clear to auscultation bilaterally. HEART: S1, S2. No murmur appreciated ABDOMEN: BS active, soft and nontender : Palom[place] is in place with clear urine. SKIN: Warm to touch, without signs of rash. Multiple tattoos. NEUROLOGIC: He is nonfocal and moves all extremities. LYMPHATIC: Questionable hidradenitis in his left axillary area. PIV ok Labs Lab Laboratory Tests Test 05/12/18 06:30 White Blood Count 8.9 x10^3/uL (4.0-11.0) Red Blood Count 3.76 x10^6/uL (4.30-5.70) Hemoglobin 11.6 g/dL (13.0-17.5) Hematocrit 32.9 % (39.0-53.0) Mean Corpuscular Volume 87 fL (79-100) Mean Corpuscular Hemoglobin 31 pg (25-35) Mean Corpuscular Hemoglobin Concent 35 g/dL (31-37) Red Cell Distribution Width 13.1 % (11.5-14.5) Platelet Count 202 x10^3/uL (140-400) Neutrophils (%) (Auto) 64 % (31-73) Lymphocytes (%) (Auto) 29 % (24-48) Monocytes (%) (Auto) 6 % (0-9) Eosinophils (%) (Auto) 2 % (0-3) Basophils (%) (Auto) 0 % (0-3) Neutrophils # (Auto) 5.7 x10^3uL (1.8-7.7) Lymphocytes # (Auto) 2.5 x10^3/uL (1.0-4.8) Monocytes # (Auto) 0.5 x10^3/uL (0.0-1.1) Eosinophils # (Auto) 0.1 x10^3/uL (0.0-0.7) Basophils # (Auto) 0.0 x10^3/uL (0.0-0.2) Sodium Level 138 mmol/L (136-145) Potassium Level 4.1 mmol/L (3.5-5.1) Chloride Level 105 mmol/L (98-107) Carbon Dioxide Level 26 mmol/L (21-32) Anion Gap 7 (6-14) Blood Urea Nitrogen 10 mg/dL (8-26) Creatinine 0.6 mg/dL (0.7-1.3) Estimated GFR (Cockcroft-Gault) 153.3 Glucose Level 93 mg/dL (70-99) Calcium Level 9.0 mg/dL (8.5-10.1) Total Bilirubin 0.3 mg/dL (0.2-1.0) Direct Bilirubin 0.1 mg/dL (0.0-0.2) Aspartate Amino Transf (AST/SGOT) 306 U/L (15-37) Alanine Aminotransferase (ALT/SGPT) 101 U/L (16-63) Alkaline Phosphatase 77 U/L (46-116) Total Protein 7.0 g/dL (6.4-8.2) Albumin 3.2 g/dL (3.4-5.0) Vancomycin Level Trough 13.8 mcg/mL (10.0-20.0) Vancomycin Last Dose Date 05/11/18 Vancomycin Last Dose Time 2200 Abdominal US IMPRESSION: 1. Mild hepatomegaly. 2. Otherwise unremarkable sonographic survey of the right upper quadrant. Micro 05/08. BLD CULT RESULT 1 Preliminary Streptococcus species Objective Assessment Sepsis w/ strep spp bacteremia from 05/08. -05/06. UA unremarkable Leukocytosis - s/p Dexamethasone 05/08 - better Urethral trauma - pulled Palomino out 05/08 s/p intra - op placement 05/08. Seizure - hyponatremia Transaminitis ? reactive ? Left axillary hidradenitis- U/S neg Plan Plan of Care Cont Vanc and Rocephin Trough 13.8 Repeat Blood cults May need ECHO Monitor renal function closely f/u Strep BC Supportive care Attending Co-Sign Attending Co-Sign The patient was seen and interviewed as well as examined at the bedside. The chart was reviewed. The case was discussed. Agree with the plan of care. KRIS XAVIER APRN May 12, 2018 11:07 TORIBIO BROWNE MD May 12, 2018 15:31
--- NOTE | 2018-05-12 13:27 | PDOC ---
PROGRESS NOTES Chief Complaint Chief Complaint seizure, provoked by hyponatremia symptomatic hyponatremia, report of excessive water intake, fluid overload, hypovolemic most likely, Bipolar or schizophrenia, Incarcerated patient, urinary retention, trauma, hematuria - resolved, need wise for 10 ds total sepsis GPC bacteremia, new 05/08 2/2 gram + cocci Inmate plan: fu with renal, Na normal fu with id, fu bcx , on ceftriaxone, vanco has wise, need another 1 week as per renal pt wants go back to the [place] [facility], told him need to wait for bcx result ABD US given high lft showed Mild hepatomegaly History of Present Illness History of Present Illness Numbers are better WBC down to 10 from 20 Hemoglobin stable 11 hyponatremia resolved Patient does not complain of anything Patient is an inmate-can speak Serbian GPC bacteremia 2 out of 2 bottles, on Vanco and Rocephin per ID Vitals Vitals Vital Signs Date Time Temp Pulse Resp B/P (MAP) Pulse Ox O2 Delivery O2 Flow Rate FiO2 05/12/18 11:00 110 18 125/76 (92) 96 Room Air 05/12/18 07:00 97.9 97.9 Physical Exam Physical Exam GENERAL: Propped up in bed, alert, NAD HEENT: Pupils are equal and reactive. Normal conjunctivae. Oral cavity, pharynx is clear. NECK: Supple. No JVD. LUNGS: Clear to auscultation bilaterally. HEART: S1, S2. No murmur appreciated ABDOMEN: BS active, soft and nontender : Wise is in place with clear urine. SKIN: Warm to touch, without signs of rash. Multiple tattoos. NEUROLOGIC: He is nonfocal and moves all extremities. LYMPHATIC: Questionable hidradenitis in his left axillary area. PIV ok General: Alert, Oriented X3, Cooperative, No acute distress Heart: Regular rate, Normal S1, Normal S2, No murmurs Lungs: Clear Abdomen: Normal bowel sounds, Soft, No tenderness, No hepatosplenomegaly, No masses Extremities: No clubbing, No cyanosis Skin: Other (left axilla, no induration, no erythema) Labs LABS Laboratory Tests Test 05/12/18 06:30 White Blood Count 8.9 x10^3/uL (4.0-11.0) Red Blood Count 3.76 x10^6/uL (4.30-5.70) Hemoglobin 11.6 g/dL (13.0-17.5) Hematocrit 32.9 % (39.0-53.0) Mean Corpuscular Volume 87 fL (79-100) Mean Corpuscular Hemoglobin 31 pg (25-35) Mean Corpuscular Hemoglobin Concent 35 g/dL (31-37) Red Cell Distribution Width 13.1 % (11.5-14.5) Platelet Count 202 x10^3/uL (140-400) Neutrophils (%) (Auto) 64 % (31-73) Lymphocytes (%) (Auto) 29 % (24-48) Monocytes (%) (Auto) 6 % (0-9) Eosinophils (%) (Auto) 2 % (0-3) Basophils (%) (Auto) 0 % (0-3) Neutrophils # (Auto) 5.7 x10^3uL (1.8-7.7) Lymphocytes # (Auto) 2.5 x10^3/uL (1.0-4.8) Monocytes # (Auto) 0.5 x10^3/uL (0.0-1.1) Eosinophils # (Auto) 0.1 x10^3/uL (0.0-0.7) Basophils # (Auto) 0.0 x10^3/uL (0.0-0.2) Sodium Level 138 mmol/L (136-145) Potassium Level 4.1 mmol/L (3.5-5.1) Chloride Level 105 mmol/L (98-107) Carbon Dioxide Level 26 mmol/L (21-32) Anion Gap 7 (6-14) Blood Urea Nitrogen 10 mg/dL (8-26) Creatinine 0.6 mg/dL (0.7-1.3) Estimated GFR (Cockcroft-Gault) 153.3 Glucose Level 93 mg/dL (70-99) Calcium Level 9.0 mg/dL (8.5-10.1) Total Bilirubin 0.3 mg/dL (0.2-1.0) Direct Bilirubin 0.1 mg/dL (0.0-0.2) Aspartate Amino Transf (AST/SGOT) 306 U/L (15-37) Alanine Aminotransferase (ALT/SGPT) 101 U/L (16-63) Alkaline Phosphatase 77 U/L (46-116) Total Protein 7.0 g/dL (6.4-8.2) Albumin 3.2 g/dL (3.4-5.0) Vancomycin Level Trough 13.8 mcg/mL (10.0-20.0) Vancomycin Last Dose Date 05/11/18 Vancomycin Last Dose Time 2200 Comment Review of Relevant I have reviewed the following items catarina (where applicable) has been applied. Labs Laboratory Tests Test 05/11/18 05:00 05/12/18 06:30 Sodium Level 142 mmol/L (136-145) 138 mmol/L (136-145) Potassium Level 4.0 mmol/L (3.5-5.1) 4.1 mmol/L (3.5-5.1) Chloride Level 107 mmol/L (98-107) 105 mmol/L (98-107) Carbon Dioxide Level 27 mmol/L (21-32) 26 mmol/L (21-32) Anion Gap 8 (6-14) 7 (6-14) Blood Urea Nitrogen 8 mg/dL (8-26) 10 mg/dL (8-26) Creatinine 0.8 mg/dL (0.7-1.3) 0.6 mg/dL (0.7-1.3) Estimated GFR (Cockcroft-Gault) 110.0 153.3 BUN/Creatinine Ratio 10 (6-20) Glucose Level 101 mg/dL (70-99) 93 mg/dL (70-99) Calcium Level 8.7 mg/dL (8.5-10.1) 9.0 mg/dL (8.5-10.1) Total Bilirubin 0.3 mg/dL (0.2-1.0) 0.3 mg/dL (0.2-1.0) Aspartate Amino Transf (AST/SGOT) 316 U/L (15-37) 306 U/L (15-37) Alanine Aminotransferase (ALT/SGPT) 87 U/L (16-63) 101 U/L (16-63) Alkaline Phosphatase 71 U/L (46-116) 77 U/L (46-116) Total Protein 6.7 g/dL (6.4-8.2) 7.0 g/dL (6.4-8.2) Albumin 3.1 g/dL (3.4-5.0) 3.2 g/dL (3.4-5.0) Albumin/Globulin Ratio 0.9 (1.0-1.7) Vancomycin Level Trough 11.6 mcg/mL (10.0-20.0) 13.8 mcg/mL (10.0-20.0) Vancomycin Last Dose Date 05/10/18 05/11/18 Vancomycin Last Dose Time 2200 2200 White Blood Count 8.9 x10^3/uL (4.0-11.0) Red Blood Count 3.76 x10^6/uL (4.30-5.70) Hemoglobin 11.6 g/dL (13.0-17.5) Hematocrit 32.9 % (39.0-53.0) Mean Corpuscular Volume 87 fL (79-100) Mean Corpuscular Hemoglobin 31 pg (25-35) Mean Corpuscular Hemoglobin Concent 35 g/dL (31-37) Red Cell Distribution Width 13.1 % (11.5-14.5) Platelet Count 202 x10^3/uL (140-400) Neutrophils (%) (Auto) 64 % (31-73) Lymphocytes (%) (Auto) 29 % (24-48) Monocytes (%) (Auto) 6 % (0-9) Eosinophils (%) (Auto) 2 % (0-3) Basophils (%) (Auto) 0 % (0-3) Neutrophils # (Auto) 5.7 x10^3uL (1.8-7.7) Lymphocytes # (Auto) 2.5 x10^3/uL (1.0-4.8) Monocytes # (Auto) 0.5 x10^3/uL (0.0-1.1) Eosinophils # (Auto) 0.1 x10^3/uL (0.0-0.7) Basophils # (Auto) 0.0 x10^3/uL (0.0-0.2) Direct Bilirubin 0.1 mg/dL (0.0-0.2) Laboratory Tests Test 05/12/18 06:30 White Blood Count 8.9 x10^3/uL (4.0-11.0) Red Blood Count 3.76 x10^6/uL (4.30-5.70) Hemoglobin 11.6 g/dL (13.0-17.5) Hematocrit 32.9 % (39.0-53.0) Mean Corpuscular Volume 87 fL (79-100) Mean Corpuscular Hemoglobin 31 pg (25-35) Mean Corpuscular Hemoglobin Concent 35 g/dL (31-37) Red Cell Distribution Width 13.1 % (11.5-14.5) Platelet Count 202 x10^3/uL (140-400) Neutrophils (%) (Auto) 64 % (31-73) Lymphocytes (%) (Auto) 29 % (24-48) Monocytes (%) (Auto) 6 % (0-9) Eosinophils (%) (Auto) 2 % (0-3) Basophils (%) (Auto) 0 % (0-3) Neutrophils # (Auto) 5.7 x10^3uL (1.8-7.7) Lymphocytes # (Auto) 2.5 x10^3/uL (1.0-4.8) Monocytes # (Auto) 0.5 x10^3/uL (0.0-1.1) Eosinophils # (Auto) 0.1 x10^3/uL (0.0-0.7) Basophils # (Auto) 0.0 x10^3/uL (0.0-0.2) Sodium Level 138 mmol/L (136-145) Potassium Level 4.1 mmol/L (3.5-5.1) Chloride Level 105 mmol/L (98-107) Carbon Dioxide Level 26 mmol/L (21-32) Anion Gap 7 (6-14) Blood Urea Nitrogen 10 mg/dL (8-26) Creatinine 0.6 mg/dL (0.7-1.3) Estimated GFR (Cockcroft-Gault) 153.3 Glucose Level 93 mg/dL (70-99) Calcium Level 9.0 mg/dL (8.5-10.1) Total Bilirubin 0.3 mg/dL (0.2-1.0) Direct Bilirubin 0.1 mg/dL (0.0-0.2) Aspartate Amino Transf (AST/SGOT) 306 U/L (15-37) Alanine Aminotransferase (ALT/SGPT) 101 U/L (16-63) Alkaline Phosphatase 77 U/L (46-116) Total Protein 7.0 g/dL (6.4-8.2) Albumin 3.2 g/dL (3.4-5.0) Vancomycin Level Trough 13.8 mcg/mL (10.0-20.0) Vancomycin Last Dose Date 05/11/18 Vancomycin Last Dose Time 2200 Microbiology 05/08/18 Blood Culture - Final, Complete Medications Current Medications Sodium Chloride 1,000 ml @ 1,000 mls/hr 1X ONCE IV Last administered on at 22:55; Start 05/06/18 at 23:00; Stop 05/06/18 at 23:59; Status DC Sodium Chloride 500 ml @ 50 mls/hr 1X ONCE IV Last administered on 05/07/18at 01:10; Start 05/07/18 at 00:30; Stop 05/07/18 at 10:29; Status DC Haloperidol (Haldol) 5 mg PRN Q6HRS PRN PO AGITATION Last administered on at 16:29; Start 05/07/18 at 08:45 Enoxaparin Sodium (Lovenox 40mg Syringe) 40 mg DAILY SQ Last administered on 05/12/18at 10:59; Start 05/07/18 at 10:00 Olanzapine (ZyPREXA ZYDIS) 5 mg HS PO Last administered on 05/11/18at 20:40; Start 05/07/18 at 21:00 Lorazepam (Ativan) 2 mg PRN Q4HRS PRN IV ANXIETY / AGITATION Last administered on 05/11/18at 16:09; Start 05/07/18 at 09:00 Potassium Chloride (Klor-Con) 40 meq 1X ONCE PO ; Start 05/07/18 at 09:30; Stop 05/07/18 at 09:31; Status DC Potassium Chloride (Klor-Con) 20 meq [id number] PO Last administered on at 10:59; Start 05/08/18 at 08:00 Desmopressin Acetate (Ddavp) 2 mcg 1X ONCE SQ Last administered on 05/07/18at 12 :44; Start 05/07/18 at 12:30; Stop 05/07/18 at 12:31; Status DC Ondansetron HCl (Zofran) 4 mg STK-MED ONCE .ROUTE ; Start 05/07/18 at 13:34; Stop 05/07/18 at 13:35; Status DC Ondansetron HCl (Zofran) 4 mg STK-MED ONCE .ROUTE ; Start 05/07/18 at 13:35; Stop 05/07/18 at 13:36; Status DC Ondansetron HCl (Zofran) 8 mg PRN Q6HRS PRN IV NAUSEA/VOMITING Last administered on 05/07/18at 13:41; Start 05/07/18 at 13:45 Dextrose 1,000 ml @ 50 mls/hr Q20H IV Last administered on 05/09/18at 00:19; Start 05/07/18 at 15:00; Stop 05/10/18 at 12:30; Status DC Desmopressin Acetate (Ddavp) 2 mcg 1X ONCE SQ Last administered on 05/07/18at 19 :31; Start 05/07/18 at 18:30; Stop 05/07/18 at 18:31; Status DC Potassium Chloride/Water 50 ml @ 50 mls/hr 1X ONCE IV Last administered on 05/08at 06:46; Start 05/08/18 at 07:00; Stop 05/08/18 at 07:59; Status DC Lidocaine HCl (Glydo (Lidocaine) Jelly) 1 dayanna 1X ONCE MM Last administered on 05/08/18at 09:00; Start 05/08/18 at 09:00; Stop 05/08/18 at 09:01; Status DC Lorazepam (Ativan) 2 mg 1X ONCE IV Last administered on 05/08/18at 13:00; Start 05/08/18 at 10:45; Stop 05/08/18 at 10:46; Status DC Ciprofloxacin/ Dextrose 200 ml @ 200 mls/hr 1X ONCE IV Last administered on at 15:07; Start 05/08/18 at 15:00; Stop 05/08/18 at 15:59; Status DC Ceftriaxone Sodium 1 gm/ Dextrose 50 ml @ 100 mls/hr Q24H IV ; Start 05/08/18 at 15:30; Status UNV Ceftriaxone Sodium (Rocephin) 1 gm Q24H IVP Last administered on 05/11/18at 16:07 ; Start 05/08/18 at 16:00 Acetaminophen (Tylenol Supp) 650 mg PRN Q6HRS PRN MO MILD PAIN / TEMP Last administered on 05/08/18at 15:49; Start 05/08/18 at 15:30 Propofol 20 ml @ As Directed STK-MED ONCE IV ; Start 05/08/18 at 16:04; Stop 05/08 at 16:05; Status DC Fentanyl Citrate (Fentanyl 2ml Vial) 100 mcg STK-MED ONCE .ROUTE ; Start at 16:11; Stop 05/08/18 at 16:12; Status DC Ondansetron HCl (Zofran) 4 mg STK-MED ONCE .ROUTE ; Start 05/08/18 at 16:17; Stop 05/08/18 at 16:18; Status DC Dexamethasone Sodium Phosphate (Decadron) 20 mg STK-MED ONCE .ROUTE ; Start 05/08 at 16:18; Stop 05/08/18 at 16:19; Status DC Oxycodone/ Acetaminophen (Percocet 5/325) 1 tab PRN Q6HRS PRN PO PAIN Last administered on 05/09/18at 23:45; Start 05/09/18 at 06:45 Vancomycin HCl (Vanco Per Pharmacy) 1 each PRN DAILY PRN MC SEE COMMENTS Last administered on 05/12/18at 09:06; Start 05/09/18 at 08:00 Vancomycin HCl 2 gm/Sodium Chloride 500 ml @ 250 mls/hr 1X ONCE IV Last administered on 05/09/18at 09:00; Start 05/09/18 at 09:00; Stop 05/09/18 at 10:59; Status DC Vancomycin HCl 1.25 gm/Sodium Chloride 250 ml @ 167 mls/hr Q8H IV Last administered on 05/10/18at 09:55; Start 05/09/18 at 17:00; Stop 05/10/18 at 12:00; Status DC Vancomycin HCl (Vancomycin Trough Level) 1 each 1X ONCE MC ; Start 05/10/18 at 08:30; Stop 05/10/18 at 08:31; Status DC Lactobacillus Rhamnosus (Culturelle) 1 cap BID PO Last administered on at 10:59; Start 05/09/18 at 21:00 Phenazopyridine HCl (Pyridium) 200 mg PRN TID PRN PO URINARY PAIN; Start at 12:30 Vancomycin HCl 1.25 gm/Sodium Chloride 250 ml @ 167 mls/hr Q6H IV Last administered on 05/10/18at 21:57; Start 05/10/18 at 16:00; Stop 05/11/18 at 05:57; Status DC Lidocaine HCl (Glydo (Lidocaine) Jelly) 6 dayanna STK-MED ONCE .ROUTE ; Start at 12:00; Stop 05/10/18 at 11:48; Status DC Lidocaine HCl (Xylocaine 2% Topical 5gm Tube) 5 dayanna STK-MED ONCE TP ; Start 05/07 at 12:00; Stop 05/10/18 at 11:48; Status DC Vancomycin HCl (Vancomycin Trough Level) 1 each 1X ONCE MC Last administered on 05/11/18at 03:30; Start 05/11/18 at 03:30; Stop 05/11/18 at 03:31; Status DC Vancomycin HCl 2 gm/Sodium Chloride 500 ml @ 250 mls/hr Q8H IV Last administered on 05/11/18at 06:25; Start 05/11/18 at 06:00; Stop 05/11/18 at 09:44; Status DC Vancomycin HCl (Vancomycin Trough Level) 1 each 1X ONCE MC Last administered on 05/12/18at 06:30; Start 05/12/18 at 06:30; Stop 05/12/18 at 06:31; Status DC Vancomycin HCl 1.75 gm/Sodium Chloride 500 ml @ 250 mls/hr Q8H IV Last administered on 05/11/18at 22:28; Start 05/11/18 at 15:00; Stop 05/12/18 at 08:49; Status DC Vancomycin HCl 2 gm/Sodium Chloride 500 ml @ 250 mls/hr Q8H IV Last administered on 05/12/18at 10:58; Start 05/12/18 at 09:00 Vancomycin HCl (Vancomycin Trough Level) 1 each 1X ONCE MC ; Start 05/13/18 at 08:30; Stop 05/13/18 at 08:31 Active Scripts Active Reported Haloperidol Decanoate 100 Mg/1 Ml Vial 100 Mg IM Zyprexa (Olanzapine) 10 Mg Tablet 1 Tab PO QHS Vitals/I & O Vital Sign - Last 24 Hours 05/11/18 05/11/18 05/11/18 05/11/18 15:00 19:00 19:35 23:00 Temp 98.1 98.1 98.1 98.1 98.1 98.1 Pulse 91 110 86 Resp 18 18 18 B/P (MAP) 120/84 (96) 100/59 (73) 110/69 (83) Pulse Ox 98 98 98 O2 Delivery Room Air Room Air Room Air Room Air 05/12/18 05/12/18 05/12/18 03:00 07:00 11:00 Temp 98.1 97.9 98.1 97.9 Pulse 67 90 110 Resp 18 18 B/P (MAP) 108/70 (83) 114/78 (90) 125/76 (92) Pulse Ox 96 97 96 O2 Delivery Room Air Room Air Room Air Intake and Output 05/11/18 05/11/18 05/12/18 15:00 23:00 07:00 Intake Total 540 ml 500 ml Output Total 950 ml Balance -410 ml 500 ml LIZZY ROQUE MD May 12, 2018 13:27
[2018-05-12 15:00] VITALS: BP 119/80
[2018-05-12] MEDS: HALOPERIDOL 5 MG TABLET. PO PRN (15:25)
[2018-05-12] MEDS: cefTRIAXone IV Push 1 GM VIAL. IVP SCH (17:52)
[2018-05-12 19:00] VITALS: BP 126/80
[2018-05-12 23:10] VITALS: BP 109/69
[2018-05-13] MEDS: VANCOMYCIN 2 GM in IV NORMAL SALINE 500ML BAG 500 ML IV SCH ×3 (01:00→18:08)
[2018-05-13 03:00] VITALS: BP 139/70
[2018-05-13] MEDS: oxyCODONE/APAP 5/325 1 TAB TABLET PO PRN ×2 (03:37→20:07)
[2018-05-13 07:00] VITALS: BP 105/63
[2018-05-13] MEDS: POTASSIUM CHLORIDE 20 MEQ TABLET.ER. PO SCH (08:23)
[2018-05-13] MEDS: LACTOBACILLUS RHAMNOSUS GG 1 CAPSULE. PO SCH ×2 (08:23→20:07)
[2018-05-13] MEDS: ENOXAPARIN 40 MG/0.4 ML SYRINGE. SQ SCH (08:24)
--- NOTE | 2018-05-13 09:01 | PDOC ---
Infectious Disease Note Subjective Subjective Comfortable, denies pain/ ROS ROS F/C/S/N/V/D/SOA Vital Sign Vital Signs Vital Signs Date Time Temp Pulse Resp B/P (MAP) Pulse Ox O2 Delivery O2 Flow Rate FiO2 05/13/18 04:37 Room Air 05/13/18 03:37 98 05/13/18 03:00 97.9 77 18 139/70 (93) 97.9 Physical Exam PHYSICAL EXAM GENERAL: Propped up in bed, alert, NAD HEENT: Pupils are equal and reactive. Normal conjunctivae. Oral cavity, pharynx is clear. NECK: Supple. No JVD. LUNGS: Clear to auscultation bilaterally. HEART: S1, S2. No murmur appreciated ABDOMEN: BS active, soft and nontender : [place] is in place with clear urine. SKIN: Warm to touch, without signs of rash. Multiple tattoos. NEUROLOGIC: He is nonfocal and moves all extremities. LYMPHATIC: Questionable hidradenitis in his left axillary area. PIV ok Labs Micro BC + with strep, id pending Objective Assessment 1. Gram-positive cocci sepsis from 05/08/2018. 2. Leukocytosis, status post dexamethasone on 05/08/2018. 3. Urethral trauma. pulled [place] out, status post intraoperative placement on 05/08/2018. 4. Seizure secondary to hyponatremia. 5. Transaminitis, questionable reactive. 6. Questionable left axillary hidradenitis. Plan Plan of Care Cont Vanc and Rocephin Trough 13.8 Repeat Blood cults May need ECHO Monitor renal function closely f/u Strep BC Supportive care ZOYA LUNA MD May 13, 2018 09:01
[2018-05-13 10:41] LABS: CREATININE 0.8 mg/dL (0.7-1.3); VANC TR 16.3 mcg/mL (10.0-20.0)
[2018-05-13 11:00] VITALS: BP 110/69
[2018-05-13] MEDS: VANCOMYCIN PER PHARMACY MC PRN (11:01)
--- NOTE | 2018-05-13 11:37 | PDOC ---
PROGRESS NOTES Chief Complaint Chief Complaint seizure, provoked by hyponatremia symptomatic hyponatremia, report of excessive water intake, fluid overload, hypovolemic most likely, Bipolar or schizophrenia, Incarcerated patient, urinary retention, trauma, hematuria - resolved, need wise for 10 ds total sepsis GPC bacteremia, new 05/08 2/2 gram + cocci Inmate History of Present Illness History of Present Illness try to DC soon fu with id, fu bcx , on ceftriaxone, aroldo has wise, need another 1 week as per renal pt [facility], told him need to wait for bcx result ABD US given high lft showed Mild hepatomegaly Vitals Vitals Vital Signs Date Time Temp Pulse Resp B/P (MAP) Pulse Ox O2 Delivery O2 Flow Rate FiO2 05/13/18 11:00 98.1 87 16 110/69 (83) 97 Room Air 98.1 Physical Exam Physical Exam GENERAL: Propped up in bed, alert, NAD HEENT: Pupils are equal and reactive. Normal conjunctivae. Oral cavity, pharynx is clear. NECK: Supple. No JVD. LUNGS: Clear to auscultation bilaterally. HEART: S1, S2. No murmur appreciated ABDOMEN: BS active, soft and nontender : Wise is in place with clear urine. SKIN: Warm to touch, without signs of rash. Multiple tattoos. NEUROLOGIC: He is nonfocal and moves all extremities. LYMPHATIC: Questionable hidradenitis in his left axillary area. PIV ok General: Alert, Oriented X3, Cooperative, No acute distress Heart: Regular rate, Normal S1, Normal S2, No murmurs Lungs: Clear Abdomen: Normal bowel sounds, Soft, No tenderness, No hepatosplenomegaly, No masses Extremities: No clubbing, No cyanosis Skin: Other (left axilla, no induration, no erythema) Labs LABS Laboratory Tests Test 05/13/18 08:44 Creatinine 0.8 mg/dL (0.7-1.3) Estimated GFR (Cockcroft-Gault) 110.0 Vancomycin Level Trough 16.3 mcg/mL (10.0-20.0) Vancomycin Last Dose Date 05/13/18 Vancomycin Last Dose Time 0100 Comment Review of Relevant I have reviewed the following items catarina (where applicable) has been applied. Labs Laboratory Tests Test 05/12/18 06:30 05/13/18 08:44 White Blood Count 8.9 x10^3/uL (4.0-11.0) Red Blood Count 3.76 x10^6/uL (4.30-5.70) Hemoglobin 11.6 g/dL (13.0-17.5) Hematocrit 32.9 % (39.0-53.0) Mean Corpuscular Volume 87 fL (79-100) Mean Corpuscular Hemoglobin 31 pg (25-35) Mean Corpuscular Hemoglobin Concent 35 g/dL (31-37) Red Cell Distribution Width 13.1 % (11.5-14.5) Platelet Count 202 x10^3/uL (140-400) Neutrophils (%) (Auto) 64 % (31-73) Lymphocytes (%) (Auto) 29 % (24-48) Monocytes (%) (Auto) 6 % (0-9) Eosinophils (%) (Auto) 2 % (0-3) Basophils (%) (Auto) 0 % (0-3) Neutrophils # (Auto) 5.7 x10^3uL (1.8-7.7) Lymphocytes # (Auto) 2.5 x10^3/uL (1.0-4.8) Monocytes # (Auto) 0.5 x10^3/uL (0.0-1.1) Eosinophils # (Auto) 0.1 x10^3/uL (0.0-0.7) Basophils # (Auto) 0.0 x10^3/uL (0.0-0.2) Sodium Level 138 mmol/L (136-145) Potassium Level 4.1 mmol/L (3.5-5.1) Chloride Level 105 mmol/L (98-107) Carbon Dioxide Level 26 mmol/L (21-32) Anion Gap 7 (6-14) Blood Urea Nitrogen 10 mg/dL (8-26) Creatinine 0.6 mg/dL (0.7-1.3) 0.8 mg/dL (0.7-1.3) Estimated GFR (Cockcroft-Gault) 153.3 110.0 Glucose Level 93 mg/dL (70-99) Calcium Level 9.0 mg/dL (8.5-10.1) Total Bilirubin 0.3 mg/dL (0.2-1.0) Direct Bilirubin 0.1 mg/dL (0.0-0.2) Aspartate Amino Transf (AST/SGOT) 306 U/L (15-37) Alanine Aminotransferase (ALT/SGPT) 101 U/L (16-63) Alkaline Phosphatase 77 U/L (46-116) Total Protein 7.0 g/dL (6.4-8.2) Albumin 3.2 g/dL (3.4-5.0) Vancomycin Level Trough 13.8 mcg/mL (10.0-20.0) 16.3 mcg/mL (10.0-20.0) Vancomycin Last Dose Date 05/11/18 05/13/18 Vancomycin Last Dose Time 2200 0100 Laboratory Tests Test 05/13/18 08:44 Creatinine 0.8 mg/dL (0.7-1.3) Estimated GFR (Cockcroft-Gault) 110.0 Vancomycin Level Trough 16.3 mcg/mL (10.0-20.0) Vancomycin Last Dose Date 05/13/18 Vancomycin Last Dose Time 0100 Microbiology 05/08/18 Blood Culture - Final, Complete Medications Current Medications Sodium Chloride 1,000 ml @ 1,000 mls/hr 1X ONCE IV Last administered on at 22:55; Start 05/06/18 at 23:00; Stop 05/06/18 at 23:59; Status DC Sodium Chloride 500 ml @ 50 mls/hr 1X ONCE IV Last administered on 05/07/18at 01:10; Start 05/07/18 at 00:30; Stop 05/07/18 at 10:29; Status DC Haloperidol (Haldol) 5 mg PRN Q6HRS PRN PO AGITATION Last administered on at 15:25; Start 05/07/18 at 08:45 Enoxaparin Sodium (Lovenox 40mg Syringe) 40 mg DAILY SQ Last administered on 06/20at 08:24; Start 05/07/18 at 10:00 Olanzapine (ZyPREXA ZYDIS) 5 mg HS PO Last administered on 05/12/18at 20:30; Start 05/07/18 at 21:00 Lorazepam (Ativan) 2 mg PRN Q4HRS PRN IV ANXIETY / AGITATION Last administered on 05/12/18at 15:26; Start 05/07/18 at 09:00 Potassium Chloride (Klor-Con) 40 meq 1X ONCE PO ; Start 05/07/18 at 09:30; Stop 05/07/18 at 09:31; Status DC Potassium Chloride (Klor-Con) 20 meq [id number] PO Last administered on at 08:23; Start 05/08/18 at 08:00 Desmopressin Acetate (Ddavp) 2 mcg 1X ONCE SQ Last administered on 05/07/18at 12 :44; Start 05/07/18 at 12:30; Stop 05/07/18 at 12:31; Status DC Ondansetron HCl (Zofran) 4 mg STK-MED ONCE .ROUTE ; Start 05/07/18 at 13:34; Stop 05/07/18 at 13:35; Status DC Ondansetron HCl (Zofran) 4 mg STK-MED ONCE .ROUTE ; Start 05/07/18 at 13:35; Stop 05/07/18 at 13:36; Status DC Ondansetron HCl (Zofran) 8 mg PRN Q6HRS PRN IV NAUSEA/VOMITING Last administered on 05/07/18at 13:41; Start 05/07/18 at 13:45 Dextrose 1,000 ml @ 50 mls/hr Q20H IV Last administered on 05/09/18at 00:19; Start 05/07/18 at 15:00; Stop 05/10/18 at 12:30; Status DC Desmopressin Acetate (Ddavp) 2 mcg 1X ONCE SQ Last administered on 05/07/18at 19 :31; Start 05/07/18 at 18:30; Stop 05/07/18 at 18:31; Status DC Potassium Chloride/Water 50 ml @ 50 mls/hr 1X ONCE IV Last administered on 05/08at 06:46; Start 05/08/18 at 07:00; Stop 05/08/18 at 07:59; Status DC Lidocaine HCl (Glydo (Lidocaine) Jelly) 1 dayanna 1X ONCE MM Last administered on 05/08/18at 09:00; Start 05/08/18 at 09:00; Stop 05/08/18 at 09:01; Status DC Lorazepam (Ativan) 2 mg 1X ONCE IV Last administered on 05/08/18at 13:00; Start 05/08/18 at 10:45; Stop 05/08/18 at 10:46; Status DC Ciprofloxacin/ Dextrose 200 ml @ 200 mls/hr 1X ONCE IV Last administered on at 15:07; Start 05/08/18 at 15:00; Stop 05/08/18 at 15:59; Status DC Ceftriaxone Sodium 1 gm/ Dextrose 50 ml @ 100 mls/hr Q24H IV ; Start 05/08/18 at 15:30; Status UNV Ceftriaxone Sodium (Rocephin) 1 gm Q24H IVP Last administered on 05/12/18at 17:52 ; Start 05/08/18 at 16:00 Acetaminophen (Tylenol Supp) 650 mg PRN Q6HRS PRN CO MILD PAIN / TEMP Last administered on 05/08/18at 15:49; Start 05/08/18 at 15:30 Propofol 20 ml @ As Directed STK-MED ONCE IV ; Start 05/08/18 at 16:04; Stop 05/08 at 16:05; Status DC Fentanyl Citrate (Fentanyl 2ml Vial) 100 mcg STK-MED ONCE .ROUTE ; Start at 16:11; Stop 05/08/18 at 16:12; Status DC Ondansetron HCl (Zofran) 4 mg STK-MED ONCE .ROUTE ; Start 05/08/18 at 16:17; Stop 05/08/18 at 16:18; Status DC Dexamethasone Sodium Phosphate (Decadron) 20 mg STK-MED ONCE .ROUTE ; Start 05/08 at 16:18; Stop 05/08/18 at 16:19; Status DC Oxycodone/ Acetaminophen (Percocet 5/325) 1 tab PRN Q6HRS PRN PO PAIN Last administered on 05/13/18at 03:37; Start 05/09/18 at 06:45 Vancomycin HCl (Vanco Per Pharmacy) 1 each PRN DAILY PRN MC SEE COMMENTS Last administered on 05/13/18at 11:01; Start 05/09/18 at 08:00 Vancomycin HCl 2 gm/Sodium Chloride 500 ml @ 250 mls/hr 1X ONCE IV Last administered on 05/09/18at 09:00; Start 05/09/18 at 09:00; Stop 05/09/18 at 10:59; Status DC Vancomycin HCl 1.25 gm/Sodium Chloride 250 ml @ 167 mls/hr Q8H IV Last administered on 05/10/18at 09:55; Start 05/09/18 at 17:00; Stop 05/10/18 at 12:00; Status DC Vancomycin HCl (Vancomycin Trough Level) 1 each 1X ONCE MC ; Start 05/10/18 at 08:30; Stop 05/10/18 at 08:31; Status DC Lactobacillus Rhamnosus (Culturelle) 1 cap BID PO Last administered on at 08:23; Start 05/09/18 at 21:00 Phenazopyridine HCl (Pyridium) 200 mg PRN TID PRN PO URINARY PAIN; Start at 12:30 Vancomycin HCl 1.25 gm/Sodium Chloride 250 ml @ 167 mls/hr Q6H IV Last administered on 05/10/18at 21:57; Start 05/10/18 at 16:00; Stop 05/11/18 at 05:57; Status DC Lidocaine HCl (Glydo (Lidocaine) Jelly) 6 dayanna STK-MED ONCE .ROUTE ; Start at 12:00; Stop 05/10/18 at 11:48; Status DC Lidocaine HCl (Xylocaine 2% Topical 5gm Tube) 5 dayanna STK-MED ONCE TP ; Start 05/07 at 12:00; Stop 05/10/18 at 11:48; Status DC Vancomycin HCl (Vancomycin Trough Level) 1 each 1X ONCE MC Last administered on 05/11/18at 03:30; Start 05/11/18 at 03:30; Stop 05/11/18 at 03:31; Status DC Vancomycin HCl 2 gm/Sodium Chloride 500 ml @ 250 mls/hr Q8H IV Last administered on 05/11/18at 06:25; Start 05/11/18 at 06:00; Stop 05/11/18 at 09:44; Status DC Vancomycin HCl (Vancomycin Trough Level) 1 each 1X ONCE MC Last administered on 05/12/18at 06:30; Start 05/12/18 at 06:30; Stop 05/12/18 at 06:31; Status DC Vancomycin HCl 1.75 gm/Sodium Chloride 500 ml @ 250 mls/hr Q8H IV Last administered on 05/11/18at 22:28; Start 05/11/18 at 15:00; Stop 05/12/18 at 08:49; Status DC Vancomycin HCl 2 gm/Sodium Chloride 500 ml @ 250 mls/hr Q8H IV Last administered on 05/13/18at 10:47; Start 05/12/18 at 09:00 Vancomycin HCl (Vancomycin Trough Level) 1 each 1X ONCE MC ; Start 05/13/18 at 08:30; Stop 05/13/18 at 08:31; Status DC Active Scripts Active Reported Haloperidol Decanoate 100 Mg/1 Ml Vial 100 Mg IM Zyprexa (Olanzapine) 10 Mg Tablet 1 Tab PO QHS Vitals/I & O Vital Sign - Last 24 Hours 05/12/18 05/12/18 05/12/18 05/12/18 15:00 19:00 19:35 23:10 Temp 98.4 98.6 97.9 98.4 98.6 97.9 Pulse 115 115 91 Resp 18 18 18 B/P (MAP) 119/80 (93) 126/80 (95) 109/69 (82) Pulse Ox 98 97 98 O2 Delivery Room Air Room Air Room Air Room Air 05/13/18 05/13/18 05/13/18 05/13/18 03:00 03:37 04:37 07:00 Temp 97.9 98.1 97.9 98.1 Pulse 77 60 Resp 18 18 B/P (MAP) 139/70 (93) 105/63 (77) Pulse Ox 98 98 99 O2 Delivery Room Air Room Air Room Air Room Air 05/13/18 05/13/18 08:00 11:00 Temp 98.1 98.1 Pulse 87 Resp 16 B/P (MAP) 110/69 (83) Pulse Ox 97 O2 Delivery Room Air Room Air Intake and Output 05/12/18 05/12/18 05/13/18 15:00 23:00 07:00 Intake Total 1300 ml 1500 ml Output Total 3725 ml 1350 ml Balance -2425 ml 150 ml MARCELO CHI MD May 13, 2018 11:37
[2018-05-13] MEDS ORDERED: CEFTRIAXONE SODIUM IVP (11:41)
[2018-05-13] MEDS ORDERED: VANC1VIA3 MC (11:41)
--- NOTE | 2018-05-13 11:43 | DISCH ---
DISCHARGE DISCHARGE INFORMATION: DISCHARGE DATE: May 13, 2018 CONDITION ON DISCHARGE: Stable CODE STATUS: Code Status: Full POST DISCHARGE ORDERS: DIET AFTER DISCHARGE: 3 liters fluid limit, 2 sodas or energy drink max daily FOLLOW-UP: PHYSICIAN FOLLOW-UP: 2 days, IV abx, f/u blood cultures from 05/08 and 05/13, TREATMENT/EQUIPMENT ORDERS: Physical Therapy For: Evalulation/Treatment DISCHARGE MEDICATIONS: Home Meds Active Scripts Vancomycin Hcl (VANCOMYCIN HCL) 1 Gm Vial, 1 EACH MC PRN DAILY PRN for SEE COMMENTS for 10 Days, #10 EACH Prov:MARCELO CHI MD 05/13/18 [cefTRIAXone IV Push] 1 GM VIAL No Conflict Check, 1 GM IVP Q24H, #10 EACH Prov:MARCELO CHI MD 05/13/18 Reported Medications Haloperidol Decanoate (HALOPERIDOL DECANOATE) 100 Mg/1 Ml Vial, 100 MG IM, EACH 05/07/18 Olanzapine (ZYPREXA) 10 Mg Tablet, 1 TAB PO QHS, #30 TAB 05/07/18 MARCELO CHI MD May 13, 2018 11:43
--- NOTE | 2018-05-13 14:29 | PDOC ---
SUBJECTIVE Subjective Pt resting well, no concerns or discomfort. Catheter is not bothering him at all today. He is feeling better overall today. OBJECTIVE Objective Physical Exam: General appearance: Alert and Oriented Head: Normocephalic, without obvious abnormality Eyes: conjunctivae/corneas clear. PERRL, EOM's intact. Fundi benign Back: negative Lungs: regular respirations, non labored breathing Abdomen: soft, non-tender. Bowel sounds normal. No masses, no organomegaly Pelvic: wise catheter in place, draining clear yellow urine. Vital Signs Vital Signs Date Time Temp Pulse Resp B/P (MAP) Pulse Ox O2 Delivery O2 Flow Rate FiO2 05/13/18 11:00 98.1 87 16 110/69 (83) 97 Room Air 98.1 05/13/18 08:00 Room Air 05/13/18 07:00 98.1 60 18 105/63 (77) 99 Room Air 98.1 05/13/18 04:37 Room Air 05/13/18 03:37 98 Room Air 05/13/18 03:00 97.9 77 18 139/70 (93) 98 Room Air 97.9 05/12/18 23:10 97.9 91 18 109/69 (82) 98 Room Air 97.9 05/12/18 19:35 Room Air 05/12/18 19:00 98.6 115 18 126/80 (95) 97 Room Air 98.6 05/12/18 15:00 98.4 115 18 119/80 (93) 98 Room Air 98.4 I & O Intake and Output 05/13/18 07:00 Intake Total 2800 ml Output Total 5075 ml Balance -2275 ml Intake Oral 1800 ml IV Total 1000 ml Output Urine Total 5075 ml PHYSICAL EXAM Physical Exam Physical Exam: General appearance: Alert and Oriented Head: Normocephalic, without obvious abnormality Eyes: conjunctivae/corneas clear. PERRL, EOM's intact. Fundi benign Back: negative Lungs: regular respirations, non labored breathing Abdomen: soft, non-tender. Bowel sounds normal. No masses, no organomegaly Pelvic: wise catheter in place, draining clear yellow urine. ASSESSMENT/PLAN Assessment/Plan Patient is status post op. cysto wise catheter placement. Currently iwse catheter is in good condition and functioning well. Discussed with patient that he needs to keep the wise catheter in place for a full ten days. If medical team is going to discharge him prior to this, he may go home with the wise catheter in place and we can do a voiding trial in office. Earliest removal would be on 05/20/18 which could be done as an outpatient in the surgical specialty center. Continue pyridium prn burning/discomfort Will follow peripherally until discharge. COMMENT Lab Laboratory Tests Test 05/13/18 08:44 Creatinine 0.8 mg/dL (0.7-1.3) Estimated GFR (Cockcroft-Gault) 110.0 Vancomycin Level Trough 16.3 mcg/mL (10.0-20.0) Vancomycin Last Dose Date 05/13/18 Vancomycin Last Dose Time 0100 SHITAL POLLACK APRN May 13, 2018 14:29
--- NOTE | 2018-05-13 14:33 | PDOC ---
PROGRESS NOTES Assessment Assessment IMPRESSION: Seizure or seizure like episodes x 2 ? provoked likely. Hyponatremia. Leukocytosis. Sepsis? Elevated hepatic enzymes. Psychiatric issues. RECOMMENDATIONS/PLAN: ID on team. Continue medical management. No senior living AEDs recommended for provoked seizure or seizure like episodes this time. Past Medical History GI: GERD Psych: Addictions, Schizophrenia Past Surgical History No major surgery recently. Family History No Hx of seizure. Social History Inmate, incarcerated for drug offenses, no current alcohol, tobacco, street drugs. No history of seizure in past. ALLERGY: Reviewed. MEDICATIONS: Refer to MAR REVIEW OF SYSTEMS: Constitutional: No malnutrition, weight loss, cachexia. Head: No traumatic brain or head injury. Skin: No edema, or rash. Ear: No infection. Eyes: No vision loss, or diplopia. Nose: No bleeding or purulent discharges. Hearing: No hearing decrease. Neck: No injury. Cardiac: No NE, arrhythmia. Pulmonary: No CPOD. GI: No GI Ulcer, GI bleeding Urinary/genital: No dysuria, urinary retention. Endocrine: Obesity. Skeletomuscular: No muscular atrophy, deformity. Neurological: see HP. Psychiatric: Hx of drug use/abuse. Otherwise, not -ouena review of systems. PHYSICAL EXAMINATION: General appearance in no acute distress. HEENT: Normocephalic and nontraumatic. Eyes, nose, ears, and throat are unremarkable. Neck is supple. No lymphadenopathy. No bruits are heard over the carotid artery. No Crepitus. Cardiovascular: S1, S2, regular rate and rhythm. Pulmonary: Clear to auscultation bilaterally. Abdomen: Bowel sounds are positive. Abdomen is soft, nontender, and nondistended. Extremities: No rash, lesions, or edema. No restriction of range of motion NEUROLOGICAL EXAMINATION: Alert. Oriented to time, place and person. PERRL. EOMI. CN: no focal findings. Muscle tone: within normal. Muscle strength: 5 DTR: 2 Plantar reflex: Flexor response bilaterally Gait: not examined in bed. Sensory exam: no abnormal findings. No cerebellar signs elicited. F-T-N test accurate. Objective Objective Vital Signs Date Time Temp Pulse Resp B/P (MAP) Pulse Ox O2 Delivery O2 Flow Rate FiO2 05/13/18 11:00 98.1 87 16 110/69 (83) 97 Room Air 98.1 Intake and Output 05/13/18 07:00 Intake Total 2800 ml Output Total 5075 ml Balance -2275 ml Intake Oral 1800 ml IV Total 1000 ml Output Urine Total 5075 ml Vitals Signs Vitals VS - Last 72 Hours, by Label Date Time Temp Pulse Resp B/P (MAP) Pulse Ox O2 Delivery O2 Flow Rate FiO2 05/13/18 11:00 98.1 87 16 110/69 (83) 97 Room Air 98.1 05/13/18 08:00 Room Air 05/13/18 07:00 98.1 60 18 105/63 (77) 99 Room Air 98.1 05/13/18 04:37 Room Air 05/13/18 03:37 98 Room Air 05/13/18 03:00 97.9 77 18 139/70 (93) 98 Room Air 97.9 05/12/18 23:10 97.9 91 18 109/69 (82) 98 Room Air 97.9 05/12/18 19:35 Room Air 05/12/18 19:00 98.6 115 18 126/80 (95) 97 Room Air 98.6 05/12/18 15:00 98.4 115 18 119/80 (93) 98 Room Air 98.4 05/12/18 11:00 110 18 125/76 (92) 96 Room Air 05/12/18 07:00 97.9 90 19 114/78 (90) 97 Room Air 97.9 Laboratory Laboratory Laboratory Tests Test 05/13/18 08:44 Creatinine 0.8 mg/dL (0.7-1.3) Estimated GFR (Cockcroft-Gault) 110.0 Vancomycin Level Trough 16.3 mcg/mL (10.0-20.0) Vancomycin Last Dose Date 05/13/18 Vancomycin Last Dose Time 0100 Microbiology 05/08/18 Blood Culture - Final, Complete Medication Medications Current Medications Vancomycin HCl (Vancomycin Trough Level) 1 each 1X ONCE MC ; Start 05/13/18 at 08:30; Stop 05/13/18 at 08:31; Status DC Comment Review of Relevant I have reviewed the following items catarina (where applicable) has been applied. VEE WARNER MD May 13, 2018 14:33
[2018-05-13 15:00] VITALS: BP 126/85
[2018-05-13] MEDS: cefTRIAXone IV Push 1 GM VIAL. IVP SCH (16:22)
[2018-05-13 19:00] VITALS: BP 122/77
[2018-05-13 23:00] VITALS: BP 117/69
[2018-05-14] MEDS: VANCOMYCIN 2 GM in IV NORMAL SALINE 500ML BAG 500 ML IV SCH ×2 (02:31→11:13)
[2018-05-14 03:00] VITALS: BP 109/66
[2018-05-14] MEDS: oxyCODONE/APAP 5/325 1 TAB TABLET PO PRN ×2 (05:42→19:28)
[2018-05-14 07:00] VITALS: BP 115/70
[2018-05-14] MEDS: LACTOBACILLUS RHAMNOSUS GG 1 CAPSULE. PO SCH ×2 (08:19→20:46)
[2018-05-14] MEDS: POTASSIUM CHLORIDE 20 MEQ TABLET.ER. PO SCH (08:19)
[2018-05-14] MEDS: ENOXAPARIN 40 MG/0.4 ML SYRINGE. SQ SCH (08:20)
--- NOTE | 2018-05-14 10:41 | PDOC ---
PROGRESS NOTES Chief Complaint Chief Complaint seizure, provoked by hyponatremia symptomatic hyponatremia, report of excessive water intake, fluid overload, hypovolemic most likely, Bipolar or schizophrenia, Incarcerated patient, urinary retention, trauma, hematuria - resolved, need wise for 10 ds total sepsis GPC bacteremia, new 05/08 2/2 gram + cocci Inmate FEVER LAST NIGHT History of Present Illness History of Present Illness try to DC soon CXR TODAY fu with id, fu bcx , on ceftriaxone, aroldo has wise, need another 1 week as per renal pt wants go back to the alf, told him NEED to be afebrile x 24 hrs ABD US given high lft showed Mild hepatomegaly Vitals Vitals Vital Signs Date Time Temp Pulse Resp B/P (MAP) Pulse Ox O2 Delivery O2 Flow Rate FiO2 05/14/18 08:00 Room Air 05/14/18 07:00 100.8 112 20 115/70 (85) 96 100.8 Physical Exam Physical Exam GENERAL: Propped up in bed, alert, NAD HEENT: Pupils are equal and reactive. Normal conjunctivae. Oral cavity, pharynx is clear. NECK: Supple. No JVD. LUNGS: Clear to auscultation bilaterally. HEART: S1, S2. No murmur appreciated ABDOMEN: BS active, soft and nontender : Wise is in place with clear urine. SKIN: Warm to touch, without signs of rash. Multiple tattoos. NEUROLOGIC: He is nonfocal and moves all extremities. LYMPHATIC: Questionable hidradenitis in his left axillary area. PIV ok General: Alert, Oriented X3, Cooperative, No acute distress Heart: Regular rate, Normal S1, Normal S2, No murmurs Lungs: Clear Abdomen: Normal bowel sounds, Soft, No tenderness, No hepatosplenomegaly, No masses Extremities: No clubbing, No cyanosis Skin: Other (left axilla, no induration, no erythema) Comment Review of Relevant I have reviewed the following items caatrina (where applicable) has been applied. Labs Laboratory Tests Test 05/13/18 08:44 Creatinine 0.8 mg/dL (0.7-1.3) Estimated GFR (Cockcroft-Gault) 110.0 Vancomycin Level Trough 16.3 mcg/mL (10.0-20.0) Vancomycin Last Dose Date 05/13/18 Vancomycin Last Dose Time 0100 Microbiology 05/12/18 Blood Culture - Preliminary, Resulted NO GROWTH AFTER 1 DAY Medications Current Medications Sodium Chloride 1,000 ml @ 1,000 mls/hr 1X ONCE IV Last administered on at 22:55; Start 05/06/18 at 23:00; Stop 05/06/18 at 23:59; Status DC Sodium Chloride 500 ml @ 50 mls/hr 1X ONCE IV Last administered on 05/07/18at 01:10; Start 05/07/18 at 00:30; Stop 05/07/18 at 10:29; Status DC Haloperidol (Haldol) 5 mg PRN Q6HRS PRN PO AGITATION Last administered on at 15:25; Start 05/07/18 at 08:45 Enoxaparin Sodium (Lovenox 40mg Syringe) 40 mg DAILY SQ Last administered on 07/21at 08:20; Start 05/07/18 at 10:00 Olanzapine (ZyPREXA ZYDIS) 5 mg HS PO Last administered on 05/13/18at 20:06; Start 05/07/18 at 21:00 Lorazepam (Ativan) 2 mg PRN Q4HRS PRN IV ANXIETY / AGITATION Last administered on 05/13/18at 20:07; Start 05/07/18 at 09:00 Potassium Chloride (Klor-Con) 40 meq 1X ONCE PO ; Start 05/07/18 at 09:30; Stop 05/07/18 at 09:31; Status DC Potassium Chloride (Klor-Con) 20 meq [id number] PO Last administered on at 08:19; Start 05/08/18 at 08:00 Desmopressin Acetate (Ddavp) 2 mcg 1X ONCE SQ Last administered on 05/07/18at 12 :44; Start 05/07/18 at 12:30; Stop 05/07/18 at 12:31; Status DC Ondansetron HCl (Zofran) 4 mg STK-MED ONCE .ROUTE ; Start 05/07/18 at 13:34; Stop 05/07/18 at 13:35; Status DC Ondansetron HCl (Zofran) 4 mg STK-MED ONCE .ROUTE ; Start 05/07/18 at 13:35; Stop 05/07/18 at 13:36; Status DC Ondansetron HCl (Zofran) 8 mg PRN Q6HRS PRN IV NAUSEA/VOMITING Last administered on 05/07/18at 13:41; Start 05/07/18 at 13:45 Dextrose 1,000 ml @ 50 mls/hr Q20H IV Last administered on 05/09/18at 00:19; Start 05/07/18 at 15:00; Stop 05/10/18 at 12:30; Status DC Desmopressin Acetate (Ddavp) 2 mcg 1X ONCE SQ Last administered on 05/07/18at 19 :31; Start 05/07/18 at 18:30; Stop 05/07/18 at 18:31; Status DC Potassium Chloride/Water 50 ml @ 50 mls/hr 1X ONCE IV Last administered on 05/08at 06:46; Start 05/08/18 at 07:00; Stop 05/08/18 at 07:59; Status DC Lidocaine HCl (Glydo (Lidocaine) Jelly) 1 dayanna 1X ONCE MM Last administered on 05/08/18at 09:00; Start 05/08/18 at 09:00; Stop 05/08/18 at 09:01; Status DC Lorazepam (Ativan) 2 mg 1X ONCE IV Last administered on 05/08/18at 13:00; Start 05/08/18 at 10:45; Stop 05/08/18 at 10:46; Status DC Ciprofloxacin/ Dextrose 200 ml @ 200 mls/hr 1X ONCE IV Last administered on at 15:07; Start 05/08/18 at 15:00; Stop 05/08/18 at 15:59; Status DC Ceftriaxone Sodium 1 gm/ Dextrose 50 ml @ 100 mls/hr Q24H IV ; Start 05/08/18 at 15:30; Status UNV Ceftriaxone Sodium (Rocephin) 1 gm Q24H IVP Last administered on 05/13/18at 16: 22; Start 05/08/18 at 16:00 Acetaminophen (Tylenol Supp) 650 mg PRN Q6HRS PRN GA MILD PAIN / TEMP Last administered on 05/08/18at 15:49; Start 05/08/18 at 15:30 Propofol 20 ml @ As Directed STK-MED ONCE IV ; Start 05/08/18 at 16:04; Stop 05/08 at 16:05; Status DC Fentanyl Citrate (Fentanyl 2ml Vial) 100 mcg STK-MED ONCE .ROUTE ; Start at 16:11; Stop 05/08/18 at 16:12; Status DC Ondansetron HCl (Zofran) 4 mg STK-MED ONCE .ROUTE ; Start 05/08/18 at 16:17; Stop 05/08/18 at 16:18; Status DC Dexamethasone Sodium Phosphate (Decadron) 20 mg STK-MED ONCE .ROUTE ; Start 05/08 at 16:18; Stop 05/08/18 at 16:19; Status DC Oxycodone/ Acetaminophen (Percocet 5/325) 1 tab PRN Q6HRS PRN PO PAIN Last administered on 05/14/18at 05:42; Start 05/09/18 at 06:45 Vancomycin HCl (Vanco Per Pharmacy) 1 each PRN DAILY PRN MC SEE COMMENTS Last administered on 05/13/18at 11:01; Start 05/09/18 at 08:00 Vancomycin HCl 2 gm/Sodium Chloride 500 ml @ 250 mls/hr 1X ONCE IV Last administered on 05/09/18at 09:00; Start 05/09/18 at 09:00; Stop 05/09/18 at 10:59; Status DC Vancomycin HCl 1.25 gm/Sodium Chloride 250 ml @ 167 mls/hr Q8H IV Last administered on 05/10/18at 09:55; Start 05/09/18 at 17:00; Stop 05/10/18 at 12:00; Status DC Vancomycin HCl (Vancomycin Trough Level) 1 each 1X ONCE MC ; Start 05/10/18 at 08:30; Stop 05/10/18 at 08:31; Status DC Lactobacillus Rhamnosus (Culturelle) 1 cap BID PO Last administered on at 08:19; Start 05/09/18 at 21:00 Phenazopyridine HCl (Pyridium) 200 mg PRN TID PRN PO URINARY PAIN Last administered on 05/14/18at 08:19; Start 05/09/18 at 12:30 Vancomycin HCl 1.25 gm/Sodium Chloride 250 ml @ 167 mls/hr Q6H IV Last administered on 05/10/18at 21:57; Start 05/10/18 at 16:00; Stop 05/11/18 at 05:57; Status DC Lidocaine HCl (Glydo (Lidocaine) Jelly) 6 dayanna STK-MED ONCE .ROUTE ; Start at 12:00; Stop 05/10/18 at 11:48; Status DC Lidocaine HCl (Xylocaine 2% Topical 5gm Tube) 5 dayanna STK-MED ONCE TP ; Start 05/07 at 12:00; Stop 05/10/18 at 11:48; Status DC Vancomycin HCl (Vancomycin Trough Level) 1 each 1X ONCE MC Last administered on 05/11/18at 03:30; Start 05/11/18 at 03:30; Stop 05/11/18 at 03:31; Status DC Vancomycin HCl 2 gm/Sodium Chloride 500 ml @ 250 mls/hr Q8H IV Last administered on 05/11/18at 06:25; Start 05/11/18 at 06:00; Stop 05/11/18 at 09:44; Status DC Vancomycin HCl (Vancomycin Trough Level) 1 each 1X ONCE MC Last administered on 05/12/18at 06:30; Start 05/12/18 at 06:30; Stop 05/12/18 at 06:31; Status DC Vancomycin HCl 1.75 gm/Sodium Chloride 500 ml @ 250 mls/hr Q8H IV Last administered on 05/11/18at 22:28; Start 05/11/18 at 15:00; Stop 05/12/18 at 08:49; Status DC Vancomycin HCl 2 gm/Sodium Chloride 500 ml @ 250 mls/hr Q8H IV Last administered on 05/14/18at 02:31; Start 05/12/18 at 09:00 Vancomycin HCl (Vancomycin Trough Level) 1 each 1X ONCE MC ; Start 05/13/18 at 08:30; Stop 05/13/18 at 08:31; Status DC Active Scripts Active Vancomycin Hcl 1 Gm Vial 1 Each MC PRN DAILY PRN 10 Days [Ceftriaxone Sodium] 1 GM Vial 1 Gm IVP Q24H Reported Haloperidol Decanoate 100 Mg/1 Ml Vial 100 Mg IM Zyprexa (Olanzapine) 10 Mg Tablet 1 Tab PO QHS Vitals/I & O Vital Sign - Last 24 Hours 05/13/18 05/13/18 05/13/18 05/13/18 11:00 15:00 19:00 20:05 Temp 98.1 99.0 99.3 98.1 99.0 99.3 Pulse 87 113 101 Resp 16 20 18 B/P (MAP) 110/69 (83) 126/85 (99) 122/77 (92) Pulse Ox 97 98 97 O2 Delivery Room Air Room Air Room Air Room Air 05/13/18 05/13/18 05/14/18 05/14/18 20:07 23:00 03:00 05:42 Temp 99.0 99.1 99.0 99.1 Pulse 106 110 Resp 15 18 18 B/P (MAP) 117/69 (85) 109/66 (80) Pulse Ox 96 93 O2 Delivery Room Air Room Air Room Air Room Air 05/14/18 05/14/18 05/14/18 06:42 07:00 08:00 Temp 100.8 100.8 Pulse 112 Resp 18 20 B/P (MAP) 115/70 (85) Pulse Ox 93 96 O2 Delivery Room Air Room Air Room Air Intake and Output 05/13/18 05/13/18 05/14/18 15:00 23:00 07:00 Intake Total 1810 ml 540 ml Output Total 2250 ml 1375 ml 1100 ml Balance -440 ml -835 ml -1100 ml HUNG SAM MD May 14, 2018 10:41
[2018-05-14 11:00] VITALS: BP 106/75
[2018-05-14] MEDS: VANCOMYCIN PER PHARMACY MC PRN (12:55)
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
[2018-05-14 15:00] VITALS: BP 114/71
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
[2018-05-14] MEDS: CEPHALEXIN 250 MG CAPSULE. PO SCH ×2 (16:52→20:46)
[2018-05-14 19:00] VITALS: BP 119/82
[2018-05-14 22:58] VITALS: BP 118/85
[2018-05-15] MEDS: oxyCODONE/APAP 5/325 1 TAB TABLET PO PRN ×2 (02:06→11:31)
[2018-05-15 02:46] VITALS: BP 92/59
[2018-05-15 04:57] LABS: BASO % 1 % (0-3); EOS # 0.1 x10^3/uL (0.0-0.7); EOS % 2 % (0-3); HEMATOCRIT 32.2 % (39.0-53.0); HEMOGLOBIN 11.6 g/dL (13.0-17.5); LYMPH # 1.4 x10^3/uL (1.0-4.8); LYMPH % 23 % (24-48); MEAN CORPUSCULAR HEMOGLOBIN 32 pg (25-35); MEAN CORPUSCULAR HGB CONC 36 g/dL (31-37); MEAN CORPUSCULAR VOLUME 88 fL (79-100); MONO # 0.8 x10^3/uL (0.0-1.1); MONO % 13 % (0-9); NEUT % 63 % (31-73); PLATELET COUNT 213 x10^3/uL (140-400); RED BLOOD COUNT 3.67 x10^6/uL (4.30-5.70); RED CELL DISTRIBUTION WIDTH 13.3 % (11.5-14.5); WHITE BLOOD COUNT 6.4 x10^3/uL (4.0-11.0)
[2018-05-15 05:34] LABS: ALBUMIN 3.1 g/dL (3.4-5.0); ALBUMIN/GLOBULIN RATIO 0.8 (1.0-1.7); CALCIUM 8.4 mg/dL (8.5-10.1); CREATININE 0.9 mg/dL (0.7-1.3); POTASSIUM 3.2 mmol/L (3.5-5.1); TOTAL BILIRUBIN 0.4 mg/dL (0.2-1.0); TOTAL PROTEIN 7.1 g/dL (6.4-8.2)
[2018-05-15 07:00] VITALS: BP 119/77
[2018-05-15] MEDS: CEPHALEXIN 250 MG CAPSULE. PO SCH ×2 (08:05→11:47)
[2018-05-15] MEDS: LACTOBACILLUS RHAMNOSUS GG 1 CAPSULE. PO SCH (08:05)
[2018-05-15] MEDS: POTASSIUM CHLORIDE 20 MEQ TABLET.ER. PO SCH (08:05)
[2018-05-15] MEDS: ENOXAPARIN 40 MG/0.4 ML SYRINGE. SQ SCH (08:06)
--- NOTE | 2018-05-15 09:33 | PDOC ---
SUBJECTIVE Subjective Pt doing ok, wise catheter is not bothering him currently and seems to be draining ok. He has not seen any blood come out of the wise catheter. OBJECTIVE Objective Physical Exam: General appearance: Alert and Oriented Head: Normocephalic, without obvious abnormality Eyes: conjunctivae/corneas clear. PERRL, EOM's intact. Fundi benign Lungs: regular respirations, non labored breathing. Pelvic: normal circumcised phallus with wise catheter in place draining clear yellow urine. Vital Signs Vital Signs Date Time Temp Pulse Resp B/P (MAP) Pulse Ox O2 Delivery O2 Flow Rate FiO2 05/15/18 08:00 Room Air 05/15/18 07:00 98.1 101 18 119/77 (91) 96 Room Air 98.1 05/15/18 03:06 94 Room Air 2.0 05/15/18 02:46 99.3 98 16 92/59 (70) 94 Room Air 99.3 05/15/18 02:06 98 Room Air 2.0 05/14/18 22:58 99.2 105 17 118/85 (96) 98 Room Air 99.2 05/14/18 20:00 Room Air 2.0 05/14/18 19:28 97 Room Air 2.0 05/14/18 19:00 100.1 105 17 119/82 (94) 96 Room Air 100.1 05/14/18 15:00 99.8 114 18 114/71 (85) 97 Room Air 99.8 05/14/18 11:00 99.1 104 18 106/75 (85) 92 Room Air 99.1 I & O Intake and Output 05/15/18 07:00 Intake Total 1570 ml Output Total 1300 ml Balance 270 ml Intake Oral 1070 ml IV Total 500 ml Output Urine Total 1300 ml # Voids 2 PHYSICAL EXAM Physical Exam Physical Exam: General appearance: Alert and Oriented Head: Normocephalic, without obvious abnormality Eyes: conjunctivae/corneas clear. PERRL, EOM's intact. Fundi benign Lungs: regular respirations, non labored breathing. Pelvic: normal circumcised phallus with wise catheter in place draining clear yellow urine. ASSESSMENT/PLAN Assessment/Plan 37 year old incarcerated male with history of catheter placement in the OR by Dr. Crow last . Earliest safe removal date for iwse catheter would be on 05/20. If he discharges prior to this they can remove the wise at the [facility] at that time. Discussed with guards. For now, nursing staff to continue to maintain wise catheter. I have instructed patient not to pull it out. He seems to understand. Guards at bedside, also discussed plan of care with them and all questions answered. He has been running fevers on and off. Now on Keflix QID. Will continue to check on patient peripherally until discharge. COMMENT Lab Laboratory Tests Test 05/15/18 03:10 White Blood Count 6.4 x10^3/uL (4.0-11.0) Red Blood Count 3.67 x10^6/uL (4.30-5.70) Hemoglobin 11.6 g/dL (13.0-17.5) Hematocrit 32.2 % (39.0-53.0) Mean Corpuscular Volume 88 fL (79-100) Mean Corpuscular Hemoglobin 32 pg (25-35) Mean Corpuscular Hemoglobin Concent 36 g/dL (31-37) Red Cell Distribution Width 13.3 % (11.5-14.5) Platelet Count 213 x10^3/uL (140-400) Neutrophils (%) (Auto) 63 % (31-73) Lymphocytes (%) (Auto) 23 % (24-48) Monocytes (%) (Auto) 13 % (0-9) Eosinophils (%) (Auto) 2 % (0-3) Basophils (%) (Auto) 1 % (0-3) Neutrophils # (Auto) 4.0 x10^3uL (1.8-7.7) Lymphocytes # (Auto) 1.4 x10^3/uL (1.0-4.8) Monocytes # (Auto) 0.8 x10^3/uL (0.0-1.1) Eosinophils # (Auto) 0.1 x10^3/uL (0.0-0.7) Basophils # (Auto) 0.0 x10^3/uL (0.0-0.2) Sodium Level 138 mmol/L (136-145) Potassium Level 3.2 mmol/L (3.5-5.1) Chloride Level 103 mmol/L (98-107) Carbon Dioxide Level 23 mmol/L (21-32) Anion Gap 12 (6-14) Blood Urea Nitrogen 8 mg/dL (8-26) Creatinine 0.9 mg/dL (0.7-1.3) Estimated GFR (Cockcroft-Gault) 96.0 BUN/Creatinine Ratio 9 (6-20) Glucose Level 135 mg/dL (70-99) Calcium Level 8.4 mg/dL (8.5-10.1) Total Bilirubin 0.4 mg/dL (0.2-1.0) Aspartate Amino Transf (AST/SGOT) 77 U/L (15-37) Alanine Aminotransferase (ALT/SGPT) 78 U/L (16-63) Alkaline Phosphatase 81 U/L (46-116) Total Protein 7.1 g/dL (6.4-8.2) Albumin 3.1 g/dL (3.4-5.0) Albumin/Globulin Ratio 0.8 (1.0-1.7) SHITAL POLLACK APRN May 15, 2018 09:33
--- NOTE | 2018-05-15 09:46 | PDOC ---
Infectious Disease Note Subjective Subjective Comfortable, denies pain Low-grade fever Tmax 100.8 No chills/sweats/aches/N/V/D Vital Sign Vital Signs Vital Signs Date Time Temp Pulse Resp B/P (MAP) Pulse Ox O2 Delivery O2 Flow Rate FiO2 05/15/18 08:00 Room Air 05/15/18 07:00 98.1 101 18 119/77 (91) 96 98.1 05/15/18 03:06 2.0 Physical Exam PHYSICAL EXAM GENERAL: Sleeping, arouses easily to name HEENT: Oral cavity, pharynx is clear. LUNGS: Clear to auscultation bilaterally. HEART: S1, S2. No murmur appreciated ABDOMEN: BS active, soft and nontender : Palom[place], orange colored urine SKIN: Warm to touch, without signs of rash. Multiple tattoos. NEUROLOGIC: Responds appropriately PIV ok Labs Lab Laboratory Tests Test 05/15/18 03:10 White Blood Count 6.4 x10^3/uL (4.0-11.0) Red Blood Count 3.67 x10^6/uL (4.30-5.70) Hemoglobin 11.6 g/dL (13.0-17.5) Hematocrit 32.2 % (39.0-53.0) Mean Corpuscular Volume 88 fL (79-100) Mean Corpuscular Hemoglobin 32 pg (25-35) Mean Corpuscular Hemoglobin Concent 36 g/dL (31-37) Red Cell Distribution Width 13.3 % (11.5-14.5) Platelet Count 213 x10^3/uL (140-400) Neutrophils (%) (Auto) 63 % (31-73) Lymphocytes (%) (Auto) 23 % (24-48) Monocytes (%) (Auto) 13 % (0-9) Eosinophils (%) (Auto) 2 % (0-3) Basophils (%) (Auto) 1 % (0-3) Neutrophils # (Auto) 4.0 x10^3uL (1.8-7.7) Lymphocytes # (Auto) 1.4 x10^3/uL (1.0-4.8) Monocytes # (Auto) 0.8 x10^3/uL (0.0-1.1) Eosinophils # (Auto) 0.1 x10^3/uL (0.0-0.7) Basophils # (Auto) 0.0 x10^3/uL (0.0-0.2) Sodium Level 138 mmol/L (136-145) Potassium Level 3.2 mmol/L (3.5-5.1) Chloride Level 103 mmol/L (98-107) Carbon Dioxide Level 23 mmol/L (21-32) Anion Gap 12 (6-14) Blood Urea Nitrogen 8 mg/dL (8-26) Creatinine 0.9 mg/dL (0.7-1.3) Estimated GFR (Cockcroft-Gault) 96.0 BUN/Creatinine Ratio 9 (6-20) Glucose Level 135 mg/dL (70-99) Calcium Level 8.4 mg/dL (8.5-10.1) Total Bilirubin 0.4 mg/dL (0.2-1.0) Aspartate Amino Transf (AST/SGOT) 77 U/L (15-37) Alanine Aminotransferase (ALT/SGPT) 78 U/L (16-63) Alkaline Phosphatase 81 U/L (46-116) Total Protein 7.1 g/dL (6.4-8.2) Albumin 3.1 g/dL (3.4-5.0) Albumin/Globulin Ratio 0.8 (1.0-1.7) Micro BLOOD CULTURE LC Final Final report BLD CULT RESULT 1 Final Comment Streptococcus sanguinis ANTIMICROBIAL SUSCEPTIBILITY Final Comment S = Susceptible; I = Intermediate; R = Resistant P = Positive; N = Negative MICS are expressed in micrograms per mL Antibiotic RSLT#1 RSLT#2 RSLT#3 RSLT#4 Ceftriaxone S<=0.25 Chloramphenicol S =2 Clindamycin S<=0.06 Erythromycin S<=0.06 Penicillin S<=0.03 Vancomycin S =0.5 Performed at: [facility] - [facility] [place] [id number] [facility] [address], [place], [place] [id number] [employer] Cashier: MALIK Vazquez MD, Phone: [phone] Repeat BC neg Objective Assessment 1. Gram-positive cocci sepsis from 05/08/2018. 2. Leukocytosis, status post dexamethasone on 05/08/2018. 3. Urethral trauma. pulled Palomino out, status post intraoperative placement on 05/08/2018. 4. Seizure secondary to hyponatremia. 5. Transaminitis, questionable reactive. 6. Questionable left axillary hidradenitis. Plan Plan of Care Keflex on discharge. Rx written Repeat Blood cults NGTD Supportive care D/w ZOYA RICE MD May 15, 2018 09:46
[2018-05-15 11:00] VITALS: BP 123/74
--- NOTE | 2018-05-15 11:32 | PDOC ---
PROGRESS NOTES Chief Complaint Chief Complaint seizure, provoked by hyponatremia symptomatic hyponatremia, report of excessive water intake, fluid overload, hypovolemic most likely, Bipolar or schizophrenia, Incarcerated patient, urinary retention, trauma, hematuria - resolved, need wise for 10 ds total sepsis GPC bacteremia, new 05/08 2/2 gram + cocci Inmate FEVER sunday night, resolved, low grade hypokalemia, corrected History of Present Illness History of Present Illness try to DC soon CXR TODAY fu with id, fu bcx , on ceftriaxone, aroldo has wise, need another 1 week as per renal pt wants go back to the detention, told him NEED to be afebrile x 24 hrs ABD US given high lft showed Mild hepatomegaly Vitals Vitals Vital Signs Date Time Temp Pulse Resp B/P (MAP) Pulse Ox O2 Delivery O2 Flow Rate FiO2 05/15/18 08:00 Room Air 05/15/18 07:00 98.1 101 18 119/77 (91) 96 98.1 05/15/18 03:06 2.0 Physical Exam Physical Exam GENERAL: Sleeping, arouses easily to name HEENT: Oral cavity, pharynx is clear. LUNGS: Clear to auscultation bilaterally. HEART: S1, S2. No murmur appreciated ABDOMEN: BS active, soft and nontender : Wise, orange colored urine SKIN: Warm to touch, without signs of rash. Multiple tattoos. NEUROLOGIC: Responds appropriately PIV ok General: Alert, Oriented X3, Cooperative, No acute distress Heart: Regular rate, Normal S1, Normal S2, No murmurs Lungs: Clear Abdomen: Normal bowel sounds, Soft, No tenderness, No hepatosplenomegaly, No masses Extremities: No clubbing, No cyanosis Skin: Other (left axilla, no induration, no erythema) Labs LABS Laboratory Tests Test 05/15/18 03:10 White Blood Count 6.4 x10^3/uL (4.0-11.0) Red Blood Count 3.67 x10^6/uL (4.30-5.70) Hemoglobin 11.6 g/dL (13.0-17.5) Hematocrit 32.2 % (39.0-53.0) Mean Corpuscular Volume 88 fL (79-100) Mean Corpuscular Hemoglobin 32 pg (25-35) Mean Corpuscular Hemoglobin Concent 36 g/dL (31-37) Red Cell Distribution Width 13.3 % (11.5-14.5) Platelet Count 213 x10^3/uL (140-400) Neutrophils (%) (Auto) 63 % (31-73) Lymphocytes (%) (Auto) 23 % (24-48) Monocytes (%) (Auto) 13 % (0-9) Eosinophils (%) (Auto) 2 % (0-3) Basophils (%) (Auto) 1 % (0-3) Neutrophils # (Auto) 4.0 x10^3uL (1.8-7.7) Lymphocytes # (Auto) 1.4 x10^3/uL (1.0-4.8) Monocytes # (Auto) 0.8 x10^3/uL (0.0-1.1) Eosinophils # (Auto) 0.1 x10^3/uL (0.0-0.7) Basophils # (Auto) 0.0 x10^3/uL (0.0-0.2) Sodium Level 138 mmol/L (136-145) Potassium Level 3.2 mmol/L (3.5-5.1) Chloride Level 103 mmol/L (98-107) Carbon Dioxide Level 23 mmol/L (21-32) Anion Gap 12 (6-14) Blood Urea Nitrogen 8 mg/dL (8-26) Creatinine 0.9 mg/dL (0.7-1.3) Estimated GFR (Cockcroft-Gault) 96.0 BUN/Creatinine Ratio 9 (6-20) Glucose Level 135 mg/dL (70-99) Calcium Level 8.4 mg/dL (8.5-10.1) Total Bilirubin 0.4 mg/dL (0.2-1.0) Aspartate Amino Transf (AST/SGOT) 77 U/L (15-37) Alanine Aminotransferase (ALT/SGPT) 78 U/L (16-63) Alkaline Phosphatase 81 U/L (46-116) Total Protein 7.1 g/dL (6.4-8.2) Albumin 3.1 g/dL (3.4-5.0) Albumin/Globulin Ratio 0.8 (1.0-1.7) Comment Review of Relevant I have reviewed the following items catarina (where applicable) has been applied. Labs Laboratory Tests Test 05/15/18 03:10 White Blood Count 6.4 x10^3/uL (4.0-11.0) Red Blood Count 3.67 x10^6/uL (4.30-5.70) Hemoglobin 11.6 g/dL (13.0-17.5) Hematocrit 32.2 % (39.0-53.0) Mean Corpuscular Volume 88 fL (79-100) Mean Corpuscular Hemoglobin 32 pg (25-35) Mean Corpuscular Hemoglobin Concent 36 g/dL (31-37) Red Cell Distribution Width 13.3 % (11.5-14.5) Platelet Count 213 x10^3/uL (140-400) Neutrophils (%) (Auto) 63 % (31-73) Lymphocytes (%) (Auto) 23 % (24-48) Monocytes (%) (Auto) 13 % (0-9) Eosinophils (%) (Auto) 2 % (0-3) Basophils (%) (Auto) 1 % (0-3) Neutrophils # (Auto) 4.0 x10^3uL (1.8-7.7) Lymphocytes # (Auto) 1.4 x10^3/uL (1.0-4.8) Monocytes # (Auto) 0.8 x10^3/uL (0.0-1.1) Eosinophils # (Auto) 0.1 x10^3/uL (0.0-0.7) Basophils # (Auto) 0.0 x10^3/uL (0.0-0.2) Sodium Level 138 mmol/L (136-145) Potassium Level 3.2 mmol/L (3.5-5.1) Chloride Level 103 mmol/L (98-107) Carbon Dioxide Level 23 mmol/L (21-32) Anion Gap 12 (6-14) Blood Urea Nitrogen 8 mg/dL (8-26) Creatinine 0.9 mg/dL (0.7-1.3) Estimated GFR (Cockcroft-Gault) 96.0 BUN/Creatinine Ratio 9 (6-20) Glucose Level 135 mg/dL (70-99) Calcium Level 8.4 mg/dL (8.5-10.1) Total Bilirubin 0.4 mg/dL (0.2-1.0) Aspartate Amino Transf (AST/SGOT) 77 U/L (15-37) Alanine Aminotransferase (ALT/SGPT) 78 U/L (16-63) Alkaline Phosphatase 81 U/L (46-116) Total Protein 7.1 g/dL (6.4-8.2) Albumin 3.1 g/dL (3.4-5.0) Albumin/Globulin Ratio 0.8 (1.0-1.7) Laboratory Tests Test 05/15/18 03:10 White Blood Count 6.4 x10^3/uL (4.0-11.0) Red Blood Count 3.67 x10^6/uL (4.30-5.70) Hemoglobin 11.6 g/dL (13.0-17.5) Hematocrit 32.2 % (39.0-53.0) Mean Corpuscular Volume 88 fL (79-100) Mean Corpuscular Hemoglobin 32 pg (25-35) Mean Corpuscular Hemoglobin Concent 36 g/dL (31-37) Red Cell Distribution Width 13.3 % (11.5-14.5) Platelet Count 213 x10^3/uL (140-400) Neutrophils (%) (Auto) 63 % (31-73) Lymphocytes (%) (Auto) 23 % (24-48) Monocytes (%) (Auto) 13 % (0-9) Eosinophils (%) (Auto) 2 % (0-3) Basophils (%) (Auto) 1 % (0-3) Neutrophils # (Auto) 4.0 x10^3uL (1.8-7.7) Lymphocytes # (Auto) 1.4 x10^3/uL (1.0-4.8) Monocytes # (Auto) 0.8 x10^3/uL (0.0-1.1) Eosinophils # (Auto) 0.1 x10^3/uL (0.0-0.7) Basophils # (Auto) 0.0 x10^3/uL (0.0-0.2) Sodium Level 138 mmol/L (136-145) Potassium Level 3.2 mmol/L (3.5-5.1) Chloride Level 103 mmol/L (98-107) Carbon Dioxide Level 23 mmol/L (21-32) Anion Gap 12 (6-14) Blood Urea Nitrogen 8 mg/dL (8-26) Creatinine 0.9 mg/dL (0.7-1.3) Estimated GFR (Cockcroft-Gault) 96.0 BUN/Creatinine Ratio 9 (6-20) Glucose Level 135 mg/dL (70-99) Calcium Level 8.4 mg/dL (8.5-10.1) Total Bilirubin 0.4 mg/dL (0.2-1.0) Aspartate Amino Transf (AST/SGOT) 77 U/L (15-37) Alanine Aminotransferase (ALT/SGPT) 78 U/L (16-63) Alkaline Phosphatase 81 U/L (46-116) Total Protein 7.1 g/dL (6.4-8.2) Albumin 3.1 g/dL (3.4-5.0) Albumin/Globulin Ratio 0.8 (1.0-1.7) Microbiology 05/12/18 Blood Culture - Preliminary, Resulted NO GROWTH AFTER 2 DAYS Medications Current Medications Sodium Chloride 1,000 ml @ 1,000 mls/hr 1X ONCE IV Last administered on at 22:55; Start 05/06/18 at 23:00; Stop 05/06/18 at 23:59; Status DC Sodium Chloride 500 ml @ 50 mls/hr 1X ONCE IV Last administered on 05/07/18at 01:10; Start 05/07/18 at 00:30; Stop 05/07/18 at 10:29; Status DC Haloperidol (Haldol) 5 mg PRN Q6HRS PRN PO AGITATION Last administered on at 15:25; Start 05/07/18 at 08:45 Enoxaparin Sodium (Lovenox 40mg Syringe) 40 mg DAILY SQ Last administered on 08/20at 08:06; Start 05/07/18 at 10:00 Olanzapine (ZyPREXA ZYDIS) 5 mg HS PO Last administered on 05/14/18at 20:46; Start 05/07/18 at 21:00 Lorazepam (Ativan) 2 mg PRN Q4HRS PRN IV ANXIETY / AGITATION Last administered on 05/13/18at 20:07; Start 05/07/18 at 09:00 Potassium Chloride (Klor-Con) 40 meq 1X ONCE PO ; Start 05/07/18 at 09:30; Stop 05/07/18 at 09:31; Status DC Potassium Chloride (Klor-Con) 20 meq DAILYWBKFT PO Last administered on at 08:05; Start 05/08/18 at 08:00 Desmopressin Acetate (Ddavp) 2 mcg 1X ONCE SQ Last administered on 05/07/18at 12 :44; Start 05/07/18 at 12:30; Stop 05/07/18 at 12:31; Status DC Ondansetron HCl (Zofran) 4 mg STK-MED ONCE .ROUTE ; Start 05/07/18 at 13:34; Stop 05/07/18 at 13:35; Status DC Ondansetron HCl (Zofran) 4 mg STK-MED ONCE .ROUTE ; Start 05/07/18 at 13:35; Stop 05/07/18 at 13:36; Status DC Ondansetron HCl (Zofran) 8 mg PRN Q6HRS PRN IV NAUSEA/VOMITING Last administered on 05/07/18at 13:41; Start 05/07/18 at 13:45 Dextrose 1,000 ml @ 50 mls/hr Q20H IV Last administered on 05/09/18at 00:19; Start 05/07/18 at 15:00; Stop 05/10/18 at 12:30; Status DC Desmopressin Acetate (Ddavp) 2 mcg 1X ONCE SQ Last administered on 05/07/18at 19 :31; Start 05/07/18 at 18:30; Stop 05/07/18 at 18:31; Status DC Potassium Chloride/Water 50 ml @ 50 mls/hr 1X ONCE IV Last administered on 05/08at 06:46; Start 05/08/18 at 07:00; Stop 05/08/18 at 07:59; Status DC Lidocaine HCl (Glydo (Lidocaine) Jelly) 1 dayanna 1X ONCE MM Last administered on 05/08/18at 09:00; Start 05/08/18 at 09:00; Stop 05/08/18 at 09:01; Status DC Lorazepam (Ativan) 2 mg 1X ONCE IV Last administered on 05/08/18at 13:00; Start 05/08/18 at 10:45; Stop 05/08/18 at 10:46; Status DC Ciprofloxacin/ Dextrose 200 ml @ 200 mls/hr 1X ONCE IV Last administered on at 15:07; Start 05/08/18 at 15:00; Stop 05/08/18 at 15:59; Status DC Ceftriaxone Sodium 1 gm/ Dextrose 50 ml @ 100 mls/hr Q24H IV ; Start 05/08/18 at 15:30; Status UNV Ceftriaxone Sodium (Rocephin) 1 gm Q24H IVP Last administered on 05/13/18at 16: 22; Start 05/08/18 at 16:00; Stop 05/14/18 at 13:32; Status DC Acetaminophen (Tylenol Supp) 650 mg PRN Q6HRS PRN [place] MILD PAIN / TEMP Last administered on 05/08/18at 15:49; Start 05/08/18 at 15:30 Propofol 20 ml @ As Directed STK-MED ONCE IV ; Start 05/08/18 at 16:04; Stop 05/08 at 16:05; Status DC Fentanyl Citrate (Fentanyl 2ml Vial) 100 mcg STK-MED ONCE .ROUTE ; Start at 16:11; Stop 05/08/18 at 16:12; Status DC Ondansetron HCl (Zofran) 4 mg STK-MED ONCE .ROUTE ; Start 05/08/18 at 16:17; Stop 05/08/18 at 16:18; Status DC Dexamethasone Sodium Phosphate (Decadron) 20 mg STK-MED ONCE .ROUTE ; Start 05/08 at 16:18; Stop 05/08/18 at 16:19; Status DC Oxycodone/ Acetaminophen (Percocet 5/325) 1 tab PRN Q6HRS PRN PO PAIN Last administered on 05/15/18at 02:06; Start 05/09/18 at 06:45 Vancomycin HCl (Vanco Per Pharmacy) 1 each PRN DAILY PRN MC SEE COMMENTS Last administered on 05/14/18at 12:55; Start 05/09/18 at 08:00; Stop 05/14/18 at 13:32 ; Status DC Vancomycin HCl 2 gm/Sodium Chloride 500 ml @ 250 mls/hr 1X ONCE IV Last administered on 05/09/18at 09:00; Start 05/09/18 at 09:00; Stop 05/09/18 at 10:59; Status DC Vancomycin HCl 1.25 gm/Sodium Chloride 250 ml @ 167 mls/hr Q8H IV Last administered on 05/10/18at 09:55; Start 05/09/18 at 17:00; Stop 05/10/18 at 12:00; Status DC Vancomycin HCl (Vancomycin Trough Level) 1 each 1X ONCE MC ; Start 05/10/18 at 08:30; Stop 05/10/18 at 08:31; Status DC Lactobacillus Rhamnosus (Culturelle) 1 cap BID PO Last administered on at 08:05; Start 05/09/18 at 21:00 Phenazopyridine HCl (Pyridium) 200 mg PRN TID PRN PO URINARY PAIN Last administered on 05/14/18at 08:19; Start 05/09/18 at 12:30 Vancomycin HCl 1.25 gm/Sodium Chloride 250 ml @ 167 mls/hr Q6H IV Last administered on 05/10/18at 21:57; Start 05/10/18 at 16:00; Stop 05/11/18 at 05:57; Status DC Lidocaine HCl (Glydo (Lidocaine) Jelly) 6 dayanna STK-MED ONCE .ROUTE ; Start at 12:00; Stop 05/10/18 at 11:48; Status DC Lidocaine HCl (Xylocaine 2% Topical 5gm Tube) 5 dayanna STK-MED ONCE TP ; Start 05/07 at 12:00; Stop 05/10/18 at 11:48; Status DC Vancomycin HCl (Vancomycin Trough Level) 1 each 1X ONCE MC Last administered on 05/11/18at 03:30; Start 05/11/18 at 03:30; Stop 05/11/18 at 03:31; Status DC Vancomycin HCl 2 gm/Sodium Chloride 500 ml @ 250 mls/hr Q8H IV Last administered on 05/11/18at 06:25; Start 05/11/18 at 06:00; Stop 05/11/18 at 09:44; Status DC Vancomycin HCl (Vancomycin Trough Level) 1 each 1X ONCE MC Last administered on 05/12/18at 06:30; Start 05/12/18 at 06:30; Stop 05/12/18 at 06:31; Status DC Vancomycin HCl 1.75 gm/Sodium Chloride 500 ml @ 250 mls/hr Q8H IV Last administered on 9/8/18at 22:28; Start 05/11/18 at 15:00; Stop 05/12/18 at 08:49; Status DC Vancomycin HCl 2 gm/Sodium Chloride 500 ml @ 250 mls/hr Q8H IV Last administered on 05/14/18at 11:13; Start 05/12/18 at 09:00; Stop 05/14/18 at 13:32 ; Status DC Vancomycin HCl (Vancomycin Trough Level) 1 each 1X ONCE MC ; Start 05/13/18 at 08:30; Stop 05/13/18 at 08:31; Status DC Cephalexin HCl (Keflex) 500 mg QID PO Last administered on 05/15/18at 08:05; Start 05/14/18 at 17:00 Active Scripts Active Vancomycin Hcl 1 Gm Vial 1 Each MC PRN DAILY PRN 10 Days [Ceftriaxone Sodium] 1 GM Vial 1 Gm IVP Q24H Reported Haloperidol Decanoate 100 Mg/1 Ml Vial 100 Mg IM Zyprexa (Olanzapine) 10 Mg Tablet 1 Tab PO QHS Vitals/I & O Vital Sign - Last 24 Hours 05/14/18 05/14/18 05/14/18 05/14/18 15:00 19:00 19:28 20:00 Temp 99.8 100.1 99.8 100.1 Pulse 114 105 Resp 18 17 B/P (MAP) 114/71 (85) 119/82 (94) Pulse Ox 97 96 97 O2 Delivery Room Air Room Air Room Air Room Air O2 Flow Rate 2.0 2.0 05/14/18 05/15/18 05/15/18 05/15/18 22:58 02:06 02:46 03:06 Temp 99.2 99.3 99.2 99.3 Pulse 105 98 Resp 17 16 B/P (MAP) 118/85 (96) 92/59 (70) Pulse Ox 98 98 94 94 O2 Delivery Room Air Room Air Room Air Room Air O2 Flow Rate 2.0 2.0 05/15/18 05/15/18 07:00 08:00 Temp 98.1 98.1 Pulse 101 Resp 18 B/P (MAP) 119/77 (91) Pulse Ox 96 O2 Delivery Room Air Room Air Intake and Output 05/14/18 05/14/18 05/15/18 15:00 23:00 07:00 Intake Total 240 ml 830 ml 500 ml Output Total 900 ml 400 ml Balance 240 ml -70 ml 100 ml HUNG SAM MD May 15, 2018 11:32
--- NOTE | 2018-05-15 11:38 | PDOC3 ---
Discharge Summary Date of Admission: May 07, 2018 Date of Discharge: May 15, 2018 Follow-Up: 3-5 days Admitting Diagnosis comment: discharge diagnosis======= Chief Complaint seizure, provoked by hyponatremia symptomatic hyponatremia, report of excessive water intake, fluid overload, hypovolemic most likely, Bipolar or schizophrenia, Incarcerated patient, urinary retention, trauma, hematuria - resolved, need wise for 10 ds total sepsis GPC bacteremia, new 05/08 2/2 gram + cocci Inmate FEVER sunday night, resolved, low grade hypokalemia, corrected History of Present Illness History of Present Illness DC today CXR reviewed fu with id, fu bcx , on keflex on d/c has wise, need another 1 week as per renal ABD US given high lft showed Mild hepatomegaly Vitals Vitals Vital Signs Date Time Temp Pulse Resp B/P (MAP) Pulse Ox O2 Delivery O2 Flow Rate FiO2 05/15/18 08:00 Room Air 05/15/18 07:00 98.1 101 18 119/77 (91) 96 98.1 05/15/18 03:06 2.0 Physical Exam Physical Exam GENERAL: Sleeping, arouses easily to name HEENT: Oral cavity, pharynx is clear. LUNGS: Clear to auscultation bilaterally. HEART: S1, S2. No murmur appreciated ABDOMEN: BS active, soft and nontender : Wise, orange colored urine SKIN: Warm to touch, without signs of rash. Multiple tattoos. NEUROLOGIC: Responds appropriately PIV ok General: Alert, Oriented X3, Cooperative, No acute distress Heart: Regular rate, Normal S1, Normal S2, No murmurs Lungs: Clear Abdomen: Normal bowel sounds, Soft, No tenderness, No hepatosplenomegaly, No masses Extremities: No clubbing, No cyanosis Skin: Other (left axilla, no induration, no erythema) Labs Brief Hospital Course Mr. Fountain is a 37 old [sex] who presented with [bacteremia ] CONDITION AT DISCHARGE: Improved Discharge Medications Current Medications Sodium Chloride 1,000 ml @ 1,000 mls/hr 1X ONCE IV Last administered on at 22:55; Start 05/06/18 at 23:00; Stop 05/06/18 at 23:59; Status DC Sodium Chloride 500 ml @ 50 mls/hr 1X ONCE IV Last administered on 05/07/18at 01:10; Start 05/07/18 at 00:30; Stop 05/07/18 at 10:29; Status DC Haloperidol (Haldol) 5 mg PRN Q6HRS PRN PO AGITATION Last administered on at 15:25; Start 05/07/18 at 08:45 Enoxaparin Sodium (Lovenox 40mg Syringe) 40 mg DAILY SQ Last administered on 08:06; Start 05/07/18 at 10:00 Olanzapine (ZyPREXA ZYDIS) 5 mg HS PO Last administered on 05/14/18at 20:46; Start 05/07/18 at 21:00 Lorazepam (Ativan) 2 mg PRN Q4HRS PRN IV ANXIETY / AGITATION Last administered on 05/13/18at 20:07; Start 05/07/18 at 09:00 Potassium Chloride (Klor-Con) 40 meq 1X ONCE PO ; Start 05/07/18 at 09:30; Stop 05/07/18 at 09:31; Status DC Potassium Chloride (Klor-Con) 20 meq DAILYWBKFT PO Last administered on at 08:05; Start 05/08/18 at 08:00 Desmopressin Acetate (Ddavp) 2 mcg 1X ONCE SQ Last administered on 05/07/18at 12 :44; Start 05/07/18 at 12:30; Stop 05/07/18 at 12:31; Status DC Ondansetron HCl (Zofran) 4 mg STK-MED ONCE .ROUTE ; Start 05/07/18 at 13:34; Stop 05/07/18 at 13:35; Status DC Ondansetron HCl (Zofran) 4 mg STK-MED ONCE .ROUTE ; Start 05/07/18 at 13:35; Stop 05/07/18 at 13:36; Status DC Ondansetron HCl (Zofran) 8 mg PRN Q6HRS PRN IV NAUSEA/VOMITING Last administered on 05/07/18at 13:41; Start 05/07/18 at 13:45 Dextrose 1,000 ml @ 50 mls/hr Q20H IV Last administered on 05/09/18at 00:19; Start 05/07/18 at 15:00; Stop 05/10/18 at 12:30; Status DC Desmopressin Acetate (Ddavp) 2 mcg 1X ONCE SQ Last administered on 05/07/18at 19 :31; Start 05/07/18 at 18:30; Stop 05/07/18 at 18:31; Status DC Potassium Chloride/Water 50 ml @ 50 mls/hr 1X ONCE IV Last administered on 05/08at 06:46; Start 05/08/18 at 07:00; Stop 05/08/18 at 07:59; Status DC Lidocaine HCl (Glydo (Lidocaine) Jelly) 1 dayanna 1X ONCE MM Last administered on 05/08/18at 09:00; Start 05/08/18 at 09:00; Stop 05/08/18 at 09:01; Status DC Lorazepam (Ativan) 2 mg 1X ONCE IV Last administered on 05/08/18at 13:00; Start 05/08/18 at 10:45; Stop 05/08/18 at 10:46; Status DC Ciprofloxacin/ Dextrose 200 ml @ 200 mls/hr 1X ONCE IV Last administered on at 15:07; Start 05/08/18 at 15:00; Stop 05/08/18 at 15:59; Status DC Ceftriaxone Sodium 1 gm/ Dextrose 50 ml @ 100 mls/hr Q24H IV ; Start 05/08/18 at 15:30; Status UNV Ceftriaxone Sodium (Rocephin) 1 gm Q24H IVP Last administered on 05/13/18at 16: 22; Start 05/08/18 at 16:00; Stop 05/14/18 at 13:32; Status DC Acetaminophen (Tylenol Supp) 650 mg PRN Q6HRS PRN [place] MILD PAIN / TEMP Last administered on 05/08/18at 15:49; Start 05/08/18 at 15:30 Propofol 20 ml @ As Directed STK-MED ONCE IV ; Start 05/08/18 at 16:04; Stop 05/08 at 16:05; Status DC Fentanyl Citrate (Fentanyl 2ml Vial) 100 mcg STK-MED ONCE .ROUTE ; Start at 16:11; Stop 05/08/18 at 16:12; Status DC Ondansetron HCl (Zofran) 4 mg STK-MED ONCE .ROUTE ; Start 05/08/18 at 16:17; Stop 05/08/18 at 16:18; Status DC Dexamethasone Sodium Phosphate (Decadron) 20 mg STK-MED ONCE .ROUTE ; Start 05/08 at 16:18; Stop 05/08/18 at 16:19; Status DC Oxycodone/ Acetaminophen (Percocet 5/325) 1 tab PRN Q6HRS PRN PO PAIN Last administered on 05/15/18at 11:31; Start 05/09/18 at 06:45 Vancomycin HCl (Vanco Per Pharmacy) 1 each PRN DAILY PRN MC SEE COMMENTS Last administered on 05/14/18at 12:55; Start 05/09/18 at 08:00; Stop 05/14/18 at 13:32 ; Status DC Vancomycin HCl 2 gm/Sodium Chloride 500 ml @ 250 mls/hr 1X ONCE IV Last administered on 05/09/18at 09:00; Start 05/09/18 at 09:00; Stop 05/09/18 at 10:59; Status DC Vancomycin HCl 1.25 gm/Sodium Chloride 250 ml @ 167 mls/hr Q8H IV Last administered on 05/10/18at 09:55; Start 05/09/18 at 17:00; Stop 05/10/18 at 12:00; Status DC Vancomycin HCl (Vancomycin Trough Level) 1 each 1X ONCE MC ; Start 05/10/18 at 08:30; Stop 05/10/18 at 08:31; Status DC Lactobacillus Rhamnosus (Culturelle) 1 cap BID PO Last administered on at 08:05; Start 05/09/18 at 21:00 Phenazopyridine HCl (Pyridium) 200 mg PRN TID PRN PO URINARY PAIN Last administered on 05/14/18at 08:19; Start 05/09/18 at 12:30 Vancomycin HCl 1.25 gm/Sodium Chloride 250 ml @ 167 mls/hr Q6H IV Last administered on 05/10/18at 21:57; Start 05/10/18 at 16:00; Stop 05/11/18 at 05:57; Status DC Lidocaine HCl (Glydo (Lidocaine) Jelly) 6 dayanna STK-MED ONCE .ROUTE ; Start at 12:00; Stop 05/10/18 at 11:48; Status DC Lidocaine HCl (Xylocaine 2% Topical 5gm Tube) 5 dayanna STK-MED ONCE TP ; Start 05/07 at 12:00; Stop 05/10/18 at 11:48; Status DC Vancomycin HCl (Vancomycin Trough Level) 1 each 1X ONCE MC Last administered on 05/11/18at 03:30; Start 05/11/18 at 03:30; Stop 05/11/18 at 03:31; Status DC Vancomycin HCl 2 gm/Sodium Chloride 500 ml @ 250 mls/hr Q8H IV Last administered on 05/11/18at 06:25; Start 05/11/18 at 06:00; Stop 05/11/18 at 09:44; Status DC Vancomycin HCl (Vancomycin Trough Level) 1 each 1X ONCE MC Last administered on 05/12/18at 06:30; Start 05/12/18 at 06:30; Stop 05/12/18 at 06:31; Status DC Vancomycin HCl 1.75 gm/Sodium Chloride 500 ml @ 250 mls/hr Q8H IV Last administered on 05/11/18at 22:28; Start 05/11/18 at 15:00; Stop 05/12/18 at 08:49; Status DC Vancomycin HCl 2 gm/Sodium Chloride 500 ml @ 250 mls/hr Q8H IV Last administered on 05/14/18at 11:13; Start 05/12/18 at 09:00; Stop 05/14/18 at 13:32 ; Status DC Vancomycin HCl (Vancomycin Trough Level) 1 each 1X ONCE MC ; Start 05/13/18 at 08:30; Stop 05/13/18 at 08:31; Status DC Cephalexin HCl (Keflex) 500 mg QID PO Last administered on 05/15/18at 08:05; Start 05/14/18 at 17:00 Active Scripts Active Vancomycin Hcl 1 Gm Vial 1 Each MC PRN DAILY PRN 10 Days [Ceftriaxone Sodium] 1 GM Vial 1 Gm IVP Q24H Reported Haloperidol Decanoate 100 Mg/1 Ml Vial 100 Mg IM Zyprexa (Olanzapine) 10 Mg Tablet 1 Tab PO QHS Vital Signs Vital Signs Date Time Temp Pulse Resp B/P (MAP) Pulse Ox O2 Delivery O2 Flow Rate FiO2 05/15/18 11:31 96 Room Air 2.0 05/15/18 07:00 98.1 101 18 119/77 (91) 98.1 Labs Laboratory Tests Test 05/15/18 03:10 White Blood Count 6.4 x10^3/uL (4.0-11.0) Red Blood Count 3.67 x10^6/uL (4.30-5.70) Hemoglobin 11.6 g/dL (13.0-17.5) Hematocrit 32.2 % (39.0-53.0) Mean Corpuscular Volume 88 fL (79-100) Mean Corpuscular Hemoglobin 32 pg (25-35) Mean Corpuscular Hemoglobin Concent 36 g/dL (31-37) Red Cell Distribution Width 13.3 % (11.5-14.5) Platelet Count 213 x10^3/uL (140-400) Neutrophils (%) (Auto) 63 % (31-73) Lymphocytes (%) (Auto) 23 % (24-48) Monocytes (%) (Auto) 13 % (0-9) Eosinophils (%) (Auto) 2 % (0-3) Basophils (%) (Auto) 1 % (0-3) Neutrophils # (Auto) 4.0 x10^3uL (1.8-7.7) Lymphocytes # (Auto) 1.4 x10^3/uL (1.0-4.8) Monocytes # (Auto) 0.8 x10^3/uL (0.0-1.1) Eosinophils # (Auto) 0.1 x10^3/uL (0.0-0.7) Basophils # (Auto) 0.0 x10^3/uL (0.0-0.2) Sodium Level 138 mmol/L (136-145) Potassium Level 3.2 mmol/L (3.5-5.1) Chloride Level 103 mmol/L (98-107) Carbon Dioxide Level 23 mmol/L (21-32) Anion Gap 12 (6-14) Blood Urea Nitrogen 8 mg/dL (8-26) Creatinine 0.9 mg/dL (0.7-1.3) Estimated GFR (Cockcroft-Gault) 96.0 BUN/Creatinine Ratio 9 (6-20) Glucose Level 135 mg/dL (70-99) Calcium Level 8.4 mg/dL (8.5-10.1) Total Bilirubin 0.4 mg/dL (0.2-1.0) Aspartate Amino Transf (AST/SGOT) 77 U/L (15-37) Alanine Aminotransferase (ALT/SGPT) 78 U/L (16-63) Alkaline Phosphatase 81 U/L (46-116) Total Protein 7.1 g/dL (6.4-8.2) Albumin 3.1 g/dL (3.4-5.0) Albumin/Globulin Ratio 0.8 (1.0-1.7) Laboratory Tests Test 05/15/18 03:10 White Blood Count 6.4 x10^3/uL (4.0-11.0) Red Blood Count 3.67 x10^6/uL (4.30-5.70) Hemoglobin 11.6 g/dL (13.0-17.5) Hematocrit 32.2 % (39.0-53.0) Mean Corpuscular Volume 88 fL (79-100) Mean Corpuscular Hemoglobin 32 pg (25-35) Mean Corpuscular Hemoglobin Concent 36 g/dL (31-37) Red Cell Distribution Width 13.3 % (11.5-14.5) Platelet Count 213 x10^3/uL (140-400) Neutrophils (%) (Auto) 63 % (31-73) Lymphocytes (%) (Auto) 23 % (24-48) Monocytes (%) (Auto) 13 % (0-9) Eosinophils (%) (Auto) 2 % (0-3) Basophils (%) (Auto) 1 % (0-3) Neutrophils # (Auto) 4.0 x10^3uL (1.8-7.7) Lymphocytes # (Auto) 1.4 x10^3/uL (1.0-4.8) Monocytes # (Auto) 0.8 x10^3/uL (0.0-1.1) Eosinophils # (Auto) 0.1 x10^3/uL (0.0-0.7) Basophils # (Auto) 0.0 x10^3/uL (0.0-0.2) Sodium Level 138 mmol/L (136-145) Potassium Level 3.2 mmol/L (3.5-5.1) Chloride Level 103 mmol/L (98-107) Carbon Dioxide Level 23 mmol/L (21-32) Anion Gap 12 (6-14) Blood Urea Nitrogen 8 mg/dL (8-26) Creatinine 0.9 mg/dL (0.7-1.3) Estimated GFR (Cockcroft-Gault) 96.0 BUN/Creatinine Ratio 9 (6-20) Glucose Level 135 mg/dL (70-99) Calcium Level 8.4 mg/dL (8.5-10.1) Total Bilirubin 0.4 mg/dL (0.2-1.0) Aspartate Amino Transf (AST/SGOT) 77 U/L (15-37) Alanine Aminotransferase (ALT/SGPT) 78 U/L (16-63) Alkaline Phosphatase 81 U/L (46-116) Total Protein 7.1 g/dL (6.4-8.2) Albumin 3.1 g/dL (3.4-5.0) Albumin/Globulin Ratio 0.8 (1.0-1.7) Allergies Allergies Coded Allergies Type Severity Reaction Last Updated Verified No Known Drug Allergies 05/08/18 No Disposition/Orders: Other (to assisted) Patient Instructions d/c planning 35 min HUNG SAM MD May 15, 2018 11:38
--- NOTE | 2018-05-15 11:40 | DISCH ---
DISCHARGE INSTRUCTIONS Condition on Discharge Condition on Discharge: Stable Activity After Discharge Activity Instructions for Disc: Resume previous activity Lifting Instructions after Dis: No heavy lifting, No pulling or pushing Exercise Instruction after Dis: Walk 10 min, 3 x per day Diet after Discharge Diet after Discharge: Regular Checks after Discharge Checks after discharge: Check blood press - daily Contacting the DRJoby after DC Call your doctor for: If your condition worsens Follow-Up Follow up with: 2 days, IV abx, f/u blood cultures from 05/08 and 05/13, HUNG SAM MD May 15, 2018 11:40
[2018-05-15] MEDS ORDERED: CEPH250C PO (11:41)
[2018-05-15] MEDS ORDERED: POTASSIUM CHLORIDE 20 MEQ TABLET.ER. PO ONE (11:45)
--- NOTE | 2018-05-15 16:48 | PDOC ---
PROGRESS NOTES Assessment Assessment Seizure or seizure like episodes x 2 ? provoked likely. Hyponatremia. Leukocytosis. Sepsis? Elevated hepatic enzymes. Psychiatric issues. RECOMMENDATIONS/PLAN: ID on team. Medical management. No mcfp AEDs are recommended for provoked seizure or seizure like episodes this time. Past Medical History GI: GERD Psych: Addictions, Schizophrenia Past Surgical History No major surgery recently. Family History No Hx of seizure. Social History Inmate, incarcerated for drug offenses, no current alcohol, tobacco, street drugs. No history of seizure in past. ALLERGY: Reviewed. MEDICATIONS: Refer to [facility] REVIEW OF SYSTEMS: Constitutional: No malnutrition, weight loss, cachexia. Head: No traumatic brain or head injury. Skin: No edema, or rash. Ear: No infection. Eyes: No vision loss, or diplopia. Nose: No bleeding or purulent discharges. Hearing: No hearing decrease. Neck: No injury. Cardiac: No IN, arrhythmia. Pulmonary: No CPOD. GI: No GI Ulcer, GI bleeding Urinary/genital: No dysuria, urinary retention. Endocrine: Obesity. Skeletomuscular: No muscular atrophy, deformity. Neurological: see HP. Psychiatric: Hx of drug use/abuse. Otherwise, not [id number] review of systems. PHYSICAL EXAMINATION: General appearance in no acute distress. HEENT: Normocephalic and nontraumatic. Eyes, nose, ears, and throat are unremarkable. Neck is supple. No lymphadenopathy. No bruits are heard over the carotid artery. No Crepitus. Cardiovascular: S1, S2, regular rate and rhythm. Pulmonary: Clear to auscultation bilaterally. Abdomen: Bowel sounds are positive. Abdomen is soft, nontender, and nondistended. Extremities: No rash, lesions, or edema. No restriction of range of motion NEUROLOGICAL EXAMINATION: Alert. Oriented to time, place and person. PERRL. EOMI. CN: no focal findings. Muscle tone: within normal. Muscle strength: 5 DTR: 2 Plantar reflex: Flexor response bilaterally Gait: not examined in bed. Sensory exam: no abnormal findings. No cerebellar signs elicited. F-T-N test accurate. Objective Objective Vital Signs Date Time Temp Pulse Resp B/P (MAP) Pulse Ox O2 Delivery O2 Flow Rate FiO2 05/15/18 13:11 96 Room Air 2.0 05/15/18 11:00 97.9 103 18 123/74 (90) 97.9 Intake and Output 05/15/18 07:00 Intake Total 1570 ml Output Total 1300 ml Balance 270 ml Intake Oral 1070 ml IV Total 500 ml Output Urine Total 1300 ml # Voids 2 Vitals Signs Vitals VS - Last 72 Hours, by Label Date Time Temp Pulse Resp B/P (MAP) Pulse Ox O2 Delivery O2 Flow Rate FiO2 05/15/18 13:11 96 Room Air 2.0 05/15/18 11:31 96 Room Air 2.0 05/15/18 11:00 97.9 103 18 123/74 (90) 97 Room Air 97.9 05/15/18 08:00 Room Air 05/15/18 07:00 98.1 101 18 119/77 (91) 96 Room Air 98.1 05/15/18 02:46 99.3 98 16 92/59 (70) 94 Room Air 99.3 05/15/18 02:06 98 Room Air 2.0 05/14/18 22:58 99.2 105 17 118/85 (96) 98 Room Air 99.2 05/14/18 20:00 Room Air 2.0 05/14/18 19:28 97 Room Air 2.0 05/14/18 19:00 100.1 105 17 119/82 (94) 96 Room Air 100.1 05/14/18 15:00 99.8 114 18 114/71 (85) 97 Room Air 99.8 05/14/18 11:00 99.1 104 18 106/75 (85) 92 Room Air 99.1 05/14/18 08:00 Room Air 05/14/18 07:00 100.8 112 20 115/70 (85) 96 Room Air 100.8 Laboratory Laboratory Laboratory Tests Test 05/15/18 03:10 White Blood Count 6.4 x10^3/uL (4.0-11.0) Red Blood Count 3.67 x10^6/uL (4.30-5.70) Hemoglobin 11.6 g/dL (13.0-17.5) Hematocrit 32.2 % (39.0-53.0) Mean Corpuscular Volume 88 fL (79-100) Mean Corpuscular Hemoglobin 32 pg (25-35) Mean Corpuscular Hemoglobin Concent 36 g/dL (31-37) Red Cell Distribution Width 13.3 % (11.5-14.5) Platelet Count 213 x10^3/uL (140-400) Neutrophils (%) (Auto) 63 % (31-73) Lymphocytes (%) (Auto) 23 % (24-48) Monocytes (%) (Auto) 13 % (0-9) Eosinophils (%) (Auto) 2 % (0-3) Basophils (%) (Auto) 1 % (0-3) Neutrophils # (Auto) 4.0 x10^3uL (1.8-7.7) Lymphocytes # (Auto) 1.4 x10^3/uL (1.0-4.8) Monocytes # (Auto) 0.8 x10^3/uL (0.0-1.1) Eosinophils # (Auto) 0.1 x10^3/uL (0.0-0.7) Basophils # (Auto) 0.0 x10^3/uL (0.0-0.2) Sodium Level 138 mmol/L (136-145) Potassium Level 3.2 mmol/L (3.5-5.1) Chloride Level 103 mmol/L (98-107) Carbon Dioxide Level 23 mmol/L (21-32) Anion Gap 12 (6-14) Blood Urea Nitrogen 8 mg/dL (8-26) Creatinine 0.9 mg/dL (0.7-1.3) Estimated GFR (Cockcroft-Gault) 96.0 BUN/Creatinine Ratio 9 (6-20) Glucose Level 135 mg/dL (70-99) Calcium Level 8.4 mg/dL (8.5-10.1) Total Bilirubin 0.4 mg/dL (0.2-1.0) Aspartate Amino Transf (AST/SGOT) 77 U/L (15-37) Alanine Aminotransferase (ALT/SGPT) 78 U/L (16-63) Alkaline Phosphatase 81 U/L (46-116) Total Protein 7.1 g/dL (6.4-8.2) Albumin 3.1 g/dL (3.4-5.0) Albumin/Globulin Ratio 0.8 (1.0-1.7) Microbiology 05/12/18 Blood Culture - Preliminary, Resulted NO GROWTH AFTER 3 DAYS Medication Medications Current Medications Cephalexin HCl (Keflex) 500 mg QID PO Last administered on 05/15/18at 11:47; Start 05/14/18 at 17:00; Stop 05/15/18 at 15:01; Status DC Potassium Chloride (Klor-Con) 40 meq 1X ONCE PO Last administered on at 11:47; Start 05/15/18 at 11:45; Stop 05/15/18 at 11:46; Status DC Comment Review of Relevant I have reviewed the following items catarina (where applicable) has been applied. VEE WARNER MD May 15, 2018 16:48
== END 2018-05-15 15:01 | DRG 871 ==
LOC: ER 22:13 → 1 WEST ICU 05-07 → EEVIPCON 05-07 → 5 NORTH 05-09 11:20
PROVIDERS: ADMIT Internal Medicine; ATTEND Internal Medicine
PROC: 0T9B80Z Drainage of Bladder with Drainage Device, Via Natural or Artificial Opening Endoscopic (ICD-10-PCS; 2018-05-08)
PROC: 3E1K88Z Irrigation of Genitourinary Tract using Irrigating Substance, Via Natural or Artificial Opening Endoscopic (ICD-10-PCS; principal; 2018-05-08 16:00)
DX: A40.9 Streptococcal sepsis, unspecified (principal); G93.40 Encephalopathy, unspecified; E87.1 Hypo-osmolality and hyponatremia; F20.0 Paranoid schizophrenia; S37.30XA Unspecified injury of urethra, initial encounter; R31.0 Gross hematuria; R56.9 Unspecified convulsions; E86.1 Hypovolemia; E87.6 Hypokalemia; E87.70 Fluid overload, unspecified; I88.9 Nonspecific lymphadenitis, unspecified; K21.0 Gastro-esophageal reflux disease with esophagitis; L73.2 Hidradenitis suppurativa; R32 Unspecified urinary incontinence; R63.1 Polydipsia
CPT/HCPCS: 36415; 51702; 70450; 70486; 71045; 72125; 76705; 76881; 80048; 80053; 80076; 80202; 80307; 81001; 82565; 82805; 83605; 83735; 84484; 85007; 85025; 85610; 87040; 87186; 87205; 87641; 93005; 96360; 96361; 99291; A7015; C1753; J0696; J0744; J1100; J1650; J2060; J2405; J2597; J2704; J3010; J3370; J3480; J3490; J7030; J7040; J7050; G0479